=== PATIENT | male | born 1960 | race Hispanic/Latino ===

== ENCOUNTER → 2017-06-08 | Outpatient (CLI) | payer OTHER ==
[2017-06-08 11:34] VITALS: BP 152/95
== END | disposition home or self-care (01) ==
LOC: WHH 10:00
PROVIDERS: ATTEND Family Medicine
DX: E11.621 Type 2 diabetes mellitus with foot ulcer (principal); L97.521 Non-pressure chronic ulcer of other part of left foot limited to breakdown of skin; E11.51 Type 2 diabetes mellitus with diabetic peripheral angiopathy without gangrene; E78.2 Mixed hyperlipidemia
CPT/HCPCS: 93923; 99211; A6213

== ENCOUNTER → 2017-06-12 | Outpatient (CLI) | payer OTHER ==
[2017-06-12 10:56] VITALS: BP 161/105
== END | disposition home or self-care (01) ==
LOC: WHH 09:50
PROVIDERS: ATTEND Family Medicine
DX: E11.621 Type 2 diabetes mellitus with foot ulcer (principal); L97.521 Non-pressure chronic ulcer of other part of left foot limited to breakdown of skin; E11.51 Type 2 diabetes mellitus with diabetic peripheral angiopathy without gangrene; E78.2 Mixed hyperlipidemia
CPT/HCPCS: 93922; 99211; A6213

== ENCOUNTER → 2017-06-12 | Outpatient (CLI) | payer OTHER | END | disposition home or self-care (01) | LOC: RAH 12:18 | PROVIDERS: ATTEND Family Medicine | DX: E11.621 Type 2 diabetes mellitus with foot ulcer (principal); I73.9 Peripheral vascular disease, unspecified; L97.529 Non-pressure chronic ulcer of other part of left foot with unspecified severity | CPT/HCPCS: 78315; A9503 ==

== ENCOUNTER → 2017-06-13 | Outpatient (CLI) | payer OTHER | END | disposition home or self-care (01) | LOC: RAH 14:44 | PROVIDERS: ATTEND Family Medicine | DX: E11.621 Type 2 diabetes mellitus with foot ulcer (principal); L97.529 Non-pressure chronic ulcer of other part of left foot with unspecified severity; M79.89 Other specified soft tissue disorders | CPT/HCPCS: 73630 ==

== ENCOUNTER → 2017-06-13 | Outpatient (CLI) | payer OTHER ==
[2017-06-13 13:14] VITALS: BP 156/80
== END | disposition home or self-care (01) ==
LOC: WHH 13:00
PROVIDERS: ATTEND Family Medicine
DX: E11.621 Type 2 diabetes mellitus with foot ulcer (principal); L97.529 Non-pressure chronic ulcer of other part of left foot with unspecified severity; M79.89 Other specified soft tissue disorders; E11.69 Type 2 diabetes mellitus with other specified complication; M86.8X7 Other osteomyelitis, ankle and foot; E11.40 Type 2 diabetes mellitus with diabetic neuropathy, unspecified; E11.51 Type 2 diabetes mellitus with diabetic peripheral angiopathy without gangrene; I25.10 Atherosclerotic heart disease of native coronary artery without angina pectoris; E78.2 Mixed hyperlipidemia; I10 Essential (primary) hypertension; F41.9 Anxiety disorder, unspecified; Z85.89 Personal history of malignant neoplasm of other organs and systems; Z86.73 Personal history of transient ischemic attack (TIA), and cerebral infarction without residual deficits; Z95.1 Presence of aortocoronary bypass graft
CPT/HCPCS: 11042; A6213

== ENCOUNTER → 2017-06-15 | Outpatient (CLI) | payer OTHER ==
[2017-06-15 11:17] LABS: CREATININE 1.1 mg/dL (0.5-1.5)
== END | disposition home or self-care (01) ==
LOC: WHH 10:00
PROVIDERS: ATTEND Family Medicine
DX: E11.621 Type 2 diabetes mellitus with foot ulcer (principal); L97.529 Non-pressure chronic ulcer of other part of left foot with unspecified severity; E11.51 Type 2 diabetes mellitus with diabetic peripheral angiopathy without gangrene; E11.69 Type 2 diabetes mellitus with other specified complication; M86.8X7 Other osteomyelitis, ankle and foot; E11.40 Type 2 diabetes mellitus with diabetic neuropathy, unspecified; M79.89 Other specified soft tissue disorders; F41.9 Anxiety disorder, unspecified; I25.10 Atherosclerotic heart disease of native coronary artery without angina pectoris; I10 Essential (primary) hypertension; E78.2 Mixed hyperlipidemia; Z85.89 Personal history of malignant neoplasm of other organs and systems; Z86.73 Personal history of transient ischemic attack (TIA), and cerebral infarction without residual deficits; Z95.1 Presence of aortocoronary bypass graft
CPT/HCPCS: 36415; 80048; 93923; 99211; A6213

== ENCOUNTER → 2017-06-20 | Outpatient (CLI) | payer OTHER ==
[2017-06-20 13:38] VITALS: BP 157/89
[2017-06-20 14:24] LABS: CREATININE 1.2 mg/dL (0.5-1.5); POTASSIUM 4.7 mmol/L (3.5-5.1)
== END | disposition home or self-care (01) ==
LOC: WHH 13:00
PROVIDERS: ATTEND Family Medicine
DX: E11.621 Type 2 diabetes mellitus with foot ulcer (principal); L97.521 Non-pressure chronic ulcer of other part of left foot limited to breakdown of skin; E11.51 Type 2 diabetes mellitus with diabetic peripheral angiopathy without gangrene; E11.69 Type 2 diabetes mellitus with other specified complication; M86.8X7 Other osteomyelitis, ankle and foot; E11.40 Type 2 diabetes mellitus with diabetic neuropathy, unspecified; M79.89 Other specified soft tissue disorders; F41.9 Anxiety disorder, unspecified; I25.10 Atherosclerotic heart disease of native coronary artery without angina pectoris; I10 Essential (primary) hypertension; E78.2 Mixed hyperlipidemia; Z85.89 Personal history of malignant neoplasm of other organs and systems; Z86.73 Personal history of transient ischemic attack (TIA), and cerebral infarction without residual deficits; Z95.1 Presence of aortocoronary bypass graft
CPT/HCPCS: 11042; 36415; 80048; 82948; A6213

== ENCOUNTER → 2017-06-26 | Outpatient (CLI) | payer OTHER ==
[2017-06-26 12:17] VITALS: BP 170/97
== END | disposition home or self-care (01) ==
LOC: WHH 08:00
PROVIDERS: ATTEND Family Medicine
DX: E11.621 Type 2 diabetes mellitus with foot ulcer (principal); L97.521 Non-pressure chronic ulcer of other part of left foot limited to breakdown of skin; E11.69 Type 2 diabetes mellitus with other specified complication; M86.672 Other chronic osteomyelitis, left ankle and foot; F41.9 Anxiety disorder, unspecified; I25.10 Atherosclerotic heart disease of native coronary artery without angina pectoris; I10 Essential (primary) hypertension; E78.2 Mixed hyperlipidemia; E11.40 Type 2 diabetes mellitus with diabetic neuropathy, unspecified; E11.51 Type 2 diabetes mellitus with diabetic peripheral angiopathy without gangrene; Z86.73 Personal history of transient ischemic attack (TIA), and cerebral infarction without residual deficits; Z95.1 Presence of aortocoronary bypass graft
CPT/HCPCS: 82948 ×2; A6213; G0277

== ENCOUNTER → 2017-06-27 | Outpatient (CLI) | payer OTHER ==
[2017-06-27 12:20] VITALS: BP 152/91
[2017-06-27 14:09] VITALS: BP 141/85
[2017-06-27 14:18] LABS: CREATININE 1.5 mg/dL (0.5-1.5); POTASSIUM 5.7 mmol/L (3.5-5.1)
== END | disposition home or self-care (01) ==
LOC: WHH 08:00
PROVIDERS: ATTEND Family Medicine
DX: E11.621 Type 2 diabetes mellitus with foot ulcer (principal); L97.521 Non-pressure chronic ulcer of other part of left foot limited to breakdown of skin; E11.69 Type 2 diabetes mellitus with other specified complication; M86.672 Other chronic osteomyelitis, left ankle and foot; I25.10 Atherosclerotic heart disease of native coronary artery without angina pectoris; I10 Essential (primary) hypertension; E78.2 Mixed hyperlipidemia; E11.40 Type 2 diabetes mellitus with diabetic neuropathy, unspecified; E11.51 Type 2 diabetes mellitus with diabetic peripheral angiopathy without gangrene; F41.9 Anxiety disorder, unspecified; Z86.73 Personal history of transient ischemic attack (TIA), and cerebral infarction without residual deficits; Z95.1 Presence of aortocoronary bypass graft
CPT/HCPCS: 11042; 36415; 80048; 82948 ×2; G0277

== ENCOUNTER → 2017-06-28 | Outpatient (CLI) | payer OTHER ==
[2017-06-28 15:11] VITALS: BP 153/87
== END | disposition home or self-care (01) ==
LOC: WHH 08:00
PROVIDERS: ATTEND Family Medicine
DX: E11.621 Type 2 diabetes mellitus with foot ulcer (principal); L97.521 Non-pressure chronic ulcer of other part of left foot limited to breakdown of skin; F41.9 Anxiety disorder, unspecified; I25.10 Atherosclerotic heart disease of native coronary artery without angina pectoris; E78.2 Mixed hyperlipidemia; E11.69 Type 2 diabetes mellitus with other specified complication; M86.672 Other chronic osteomyelitis, left ankle and foot; E11.40 Type 2 diabetes mellitus with diabetic neuropathy, unspecified; E11.51 Type 2 diabetes mellitus with diabetic peripheral angiopathy without gangrene; M86.8X7 Other osteomyelitis, ankle and foot; Z95.1 Presence of aortocoronary bypass graft; Z86.73 Personal history of transient ischemic attack (TIA), and cerebral infarction without residual deficits
CPT/HCPCS: 82948 ×4; G0277

== ENCOUNTER → 2017-06-29 | Outpatient (CLI) | payer OTHER ==
[2017-06-29 12:17] VITALS: BP 137/77
[2017-06-29 12:19] VITALS: BP 132/77
== END | disposition home or self-care (01) ==
LOC: WHH 08:00
PROVIDERS: ATTEND Family Medicine
DX: E11.621 Type 2 diabetes mellitus with foot ulcer (principal); L97.521 Non-pressure chronic ulcer of other part of left foot limited to breakdown of skin; E11.69 Type 2 diabetes mellitus with other specified complication; M86.672 Other chronic osteomyelitis, left ankle and foot; I25.10 Atherosclerotic heart disease of native coronary artery without angina pectoris; I10 Essential (primary) hypertension; E78.2 Mixed hyperlipidemia; E11.40 Type 2 diabetes mellitus with diabetic neuropathy, unspecified; E11.51 Type 2 diabetes mellitus with diabetic peripheral angiopathy without gangrene; F41.9 Anxiety disorder, unspecified; Z86.73 Personal history of transient ischemic attack (TIA), and cerebral infarction without residual deficits; Z95.1 Presence of aortocoronary bypass graft
CPT/HCPCS: 82948 ×2; G0277

== ENCOUNTER → 2017-07-04 | Outpatient (CLI) | payer OTHER ==
[2017-07-04 12:02] VITALS: BP 136/77
[2017-07-04 12:04] VITALS: BP 90/52
[2017-07-04 14:01] LABS: CREATININE 1.8 mg/dL (0.5-1.5); POTASSIUM 4.3 mmol/L (3.5-5.1)
== END | disposition home or self-care (01) ==
LOC: WHH 08:00
PROVIDERS: ATTEND Family Medicine
DX: E11.621 Type 2 diabetes mellitus with foot ulcer (principal); L97.521 Non-pressure chronic ulcer of other part of left foot limited to breakdown of skin; E11.69 Type 2 diabetes mellitus with other specified complication; M86.672 Other chronic osteomyelitis, left ankle and foot; I25.10 Atherosclerotic heart disease of native coronary artery without angina pectoris; I10 Essential (primary) hypertension; E78.2 Mixed hyperlipidemia; E11.40 Type 2 diabetes mellitus with diabetic neuropathy, unspecified; E11.51 Type 2 diabetes mellitus with diabetic peripheral angiopathy without gangrene; F41.9 Anxiety disorder, unspecified; Z86.73 Personal history of transient ischemic attack (TIA), and cerebral infarction without residual deficits; Z95.1 Presence of aortocoronary bypass graft
CPT/HCPCS: 11042; 36415; 80048; 82948 ×2; A6213; G0277

== ENCOUNTER → 2017-07-05 | Outpatient (CLI) | payer OTHER ==
[2017-07-05 13:15] VITALS: BP 140/88
[2017-07-05 13:19] VITALS: BP 141/84
== END | disposition home or self-care (01) ==
LOC: WHH 08:00
PROVIDERS: ATTEND Family Medicine
DX: E11.621 Type 2 diabetes mellitus with foot ulcer (principal); L97.521 Non-pressure chronic ulcer of other part of left foot limited to breakdown of skin; E11.69 Type 2 diabetes mellitus with other specified complication; M86.672 Other chronic osteomyelitis, left ankle and foot; E11.40 Type 2 diabetes mellitus with diabetic neuropathy, unspecified; E11.51 Type 2 diabetes mellitus with diabetic peripheral angiopathy without gangrene; I25.10 Atherosclerotic heart disease of native coronary artery without angina pectoris; I10 Essential (primary) hypertension; E78.2 Mixed hyperlipidemia; F41.9 Anxiety disorder, unspecified; Z95.1 Presence of aortocoronary bypass graft; Z86.73 Personal history of transient ischemic attack (TIA), and cerebral infarction without residual deficits; Z85.89 Personal history of malignant neoplasm of other organs and systems
CPT/HCPCS: 82948 ×2; A6213; G0277

== ENCOUNTER → 2017-07-06 | Outpatient (CLI) | payer OTHER ==
[2017-07-06 12:18] VITALS: BP 159/87
[2017-07-06 12:21] VITALS: BP 142/91
== END | disposition home or self-care (01) ==
LOC: WHH 08:05
PROVIDERS: ATTEND Family Medicine
DX: E11.621 Type 2 diabetes mellitus with foot ulcer (principal); L97.521 Non-pressure chronic ulcer of other part of left foot limited to breakdown of skin; E11.69 Type 2 diabetes mellitus with other specified complication; M86.672 Other chronic osteomyelitis, left ankle and foot; E11.40 Type 2 diabetes mellitus with diabetic neuropathy, unspecified; E11.51 Type 2 diabetes mellitus with diabetic peripheral angiopathy without gangrene; I25.10 Atherosclerotic heart disease of native coronary artery without angina pectoris; I10 Essential (primary) hypertension; E78.2 Mixed hyperlipidemia; F41.9 Anxiety disorder, unspecified; Z85.89 Personal history of malignant neoplasm of other organs and systems; Z95.1 Presence of aortocoronary bypass graft; Z86.73 Personal history of transient ischemic attack (TIA), and cerebral infarction without residual deficits
CPT/HCPCS: 82948 ×2; A6213; G0277

== ENCOUNTER → 2017-07-07 | Outpatient (CLI) | payer OTHER ==
[2017-07-07 11:12] VITALS: BP 133/82
[2017-07-07 11:15] VITALS: BP 156/92
== END | disposition home or self-care (01) ==
LOC: WHH 08:00
PROVIDERS: ATTEND Family Medicine
DX: E11.621 Type 2 diabetes mellitus with foot ulcer (principal); L97.521 Non-pressure chronic ulcer of other part of left foot limited to breakdown of skin; E11.69 Type 2 diabetes mellitus with other specified complication; M86.672 Other chronic osteomyelitis, left ankle and foot; E11.40 Type 2 diabetes mellitus with diabetic neuropathy, unspecified; E11.51 Type 2 diabetes mellitus with diabetic peripheral angiopathy without gangrene; I25.10 Atherosclerotic heart disease of native coronary artery without angina pectoris; I10 Essential (primary) hypertension; E78.2 Mixed hyperlipidemia; F41.9 Anxiety disorder, unspecified; Z85.89 Personal history of malignant neoplasm of other organs and systems; Z95.1 Presence of aortocoronary bypass graft; Z86.73 Personal history of transient ischemic attack (TIA), and cerebral infarction without residual deficits
CPT/HCPCS: 82948 ×2; A6213; G0277

== ENCOUNTER → 2017-07-10 | Outpatient (CLI) | payer OTHER ==
[2017-07-10 13:10] VITALS: BP 153/83
[2017-07-10 13:12] VITALS: BP 158/99
== END | disposition home or self-care (01) ==
LOC: WHH 09:50
PROVIDERS: ATTEND Family Medicine
DX: E11.621 Type 2 diabetes mellitus with foot ulcer (principal); L97.521 Non-pressure chronic ulcer of other part of left foot limited to breakdown of skin; E11.69 Type 2 diabetes mellitus with other specified complication; M86.672 Other chronic osteomyelitis, left ankle and foot; E11.40 Type 2 diabetes mellitus with diabetic neuropathy, unspecified; E11.51 Type 2 diabetes mellitus with diabetic peripheral angiopathy without gangrene; I25.10 Atherosclerotic heart disease of native coronary artery without angina pectoris; I10 Essential (primary) hypertension; E78.2 Mixed hyperlipidemia; F41.9 Anxiety disorder, unspecified; Z85.89 Personal history of malignant neoplasm of other organs and systems; Z95.1 Presence of aortocoronary bypass graft; Z86.73 Personal history of transient ischemic attack (TIA), and cerebral infarction without residual deficits
CPT/HCPCS: 82948 ×2; A6213; G0277

== ENCOUNTER → 2017-07-11 | Outpatient (CLI) | payer OTHER ==
[2017-07-11 13:00] VITALS: BP 131/69
[2017-07-11 13:11] VITALS: BP 142/84
[2017-07-11 14:27] LABS: CREATININE 1.4 mg/dL (0.5-1.5); POTASSIUM 4.6 mmol/L (3.5-5.1)
== END | disposition home or self-care (01) ==
LOC: WHH 10:00
PROVIDERS: ATTEND Family Medicine
DX: E11.621 Type 2 diabetes mellitus with foot ulcer (principal); L97.521 Non-pressure chronic ulcer of other part of left foot limited to breakdown of skin; E11.69 Type 2 diabetes mellitus with other specified complication; M86.672 Other chronic osteomyelitis, left ankle and foot; E11.40 Type 2 diabetes mellitus with diabetic neuropathy, unspecified; E11.51 Type 2 diabetes mellitus with diabetic peripheral angiopathy without gangrene; I25.10 Atherosclerotic heart disease of native coronary artery without angina pectoris; I10 Essential (primary) hypertension; L84 Corns and callosities; E78.2 Mixed hyperlipidemia; F41.9 Anxiety disorder, unspecified; Z85.89 Personal history of malignant neoplasm of other organs and systems; Z95.1 Presence of aortocoronary bypass graft; Z86.73 Personal history of transient ischemic attack (TIA), and cerebral infarction without residual deficits
CPT/HCPCS: 11055; 36415; 80048; 82948 ×2; A6213; A6248; G0277

== ENCOUNTER → 2017-07-12 | Outpatient (CLI) | payer OTHER ==
[2017-07-12 12:08] VITALS: BP 116/62
[2017-07-12 12:27] VITALS: BP 130/75
== END | disposition home or self-care (01) ==
LOC: WHH 10:00
PROVIDERS: ATTEND Family Medicine
DX: E11.621 Type 2 diabetes mellitus with foot ulcer (principal); L97.521 Non-pressure chronic ulcer of other part of left foot limited to breakdown of skin; E11.69 Type 2 diabetes mellitus with other specified complication; M86.672 Other chronic osteomyelitis, left ankle and foot; E11.40 Type 2 diabetes mellitus with diabetic neuropathy, unspecified; E11.51 Type 2 diabetes mellitus with diabetic peripheral angiopathy without gangrene; I25.10 Atherosclerotic heart disease of native coronary artery without angina pectoris; I10 Essential (primary) hypertension; E78.2 Mixed hyperlipidemia; F41.9 Anxiety disorder, unspecified; Z85.89 Personal history of malignant neoplasm of other organs and systems; Z95.1 Presence of aortocoronary bypass graft; Z86.73 Personal history of transient ischemic attack (TIA), and cerebral infarction without residual deficits
CPT/HCPCS: 82948 ×2; A6213; G0277

== ENCOUNTER → 2017-07-13 | Outpatient (CLI) | payer OTHER ==
[2017-07-13 11:10] VITALS: BP 157/80
[2017-07-13 12:26] VITALS: BP 157/80
== END | disposition home or self-care (01) ==
LOC: WHH 10:00
PROVIDERS: ATTEND Family Medicine
DX: E11.621 Type 2 diabetes mellitus with foot ulcer (principal); L97.521 Non-pressure chronic ulcer of other part of left foot limited to breakdown of skin; E11.69 Type 2 diabetes mellitus with other specified complication; M86.672 Other chronic osteomyelitis, left ankle and foot; E11.40 Type 2 diabetes mellitus with diabetic neuropathy, unspecified; E11.51 Type 2 diabetes mellitus with diabetic peripheral angiopathy without gangrene; I25.10 Atherosclerotic heart disease of native coronary artery without angina pectoris; I10 Essential (primary) hypertension; E78.2 Mixed hyperlipidemia; F41.9 Anxiety disorder, unspecified; Z85.89 Personal history of malignant neoplasm of other organs and systems; Z95.1 Presence of aortocoronary bypass graft; Z86.73 Personal history of transient ischemic attack (TIA), and cerebral infarction without residual deficits
CPT/HCPCS: 82948 ×2; A6213; G0277

== ENCOUNTER → 2017-07-19 | Outpatient (CLI) | payer OTHER ==
[2017-07-19 13:21] VITALS: BP 137/78
[2017-07-19 13:25] VITALS: BP 136/68
== END | disposition home or self-care (01) ==
LOC: WHH 10:00
PROVIDERS: ATTEND Family Medicine
DX: E11.621 Type 2 diabetes mellitus with foot ulcer (principal); L97.521 Non-pressure chronic ulcer of other part of left foot limited to breakdown of skin; E11.69 Type 2 diabetes mellitus with other specified complication; M86.672 Other chronic osteomyelitis, left ankle and foot; F41.9 Anxiety disorder, unspecified; I25.10 Atherosclerotic heart disease of native coronary artery without angina pectoris; I10 Essential (primary) hypertension; E78.2 Mixed hyperlipidemia; E11.40 Type 2 diabetes mellitus with diabetic neuropathy, unspecified; E11.51 Type 2 diabetes mellitus with diabetic peripheral angiopathy without gangrene; Z86.73 Personal history of transient ischemic attack (TIA), and cerebral infarction without residual deficits; Z95.1 Presence of aortocoronary bypass graft
CPT/HCPCS: 82948 ×2; A6213; G0277

== ENCOUNTER → 2017-07-20 | Outpatient (CLI) | payer OTHER ==
[2017-07-20 12:19] VITALS: BP 122/68
[2017-07-20 12:21] VITALS: BP 117/78
== END | disposition home or self-care (01) ==
LOC: WHH 10:00
PROVIDERS: ATTEND Family Medicine
DX: E11.621 Type 2 diabetes mellitus with foot ulcer (principal); L97.521 Non-pressure chronic ulcer of other part of left foot limited to breakdown of skin; E11.69 Type 2 diabetes mellitus with other specified complication; M86.672 Other chronic osteomyelitis, left ankle and foot; F41.9 Anxiety disorder, unspecified; I25.10 Atherosclerotic heart disease of native coronary artery without angina pectoris; I10 Essential (primary) hypertension; E78.2 Mixed hyperlipidemia; E11.40 Type 2 diabetes mellitus with diabetic neuropathy, unspecified; E11.51 Type 2 diabetes mellitus with diabetic peripheral angiopathy without gangrene; Z86.73 Personal history of transient ischemic attack (TIA), and cerebral infarction without residual deficits; Z95.1 Presence of aortocoronary bypass graft
CPT/HCPCS: 82948 ×2; A6213; G0277

== ENCOUNTER → 2017-07-21 | Outpatient (CLI) | payer OTHER ==
[2017-07-21 11:50] VITALS: BP 137/69
[2017-07-21 12:02] VITALS: BP 163/86
== END | disposition home or self-care (01) ==
LOC: WHH 09:59
PROVIDERS: ATTEND Family Medicine
DX: E11.621 Type 2 diabetes mellitus with foot ulcer (principal); L97.521 Non-pressure chronic ulcer of other part of left foot limited to breakdown of skin; E11.69 Type 2 diabetes mellitus with other specified complication; M86.672 Other chronic osteomyelitis, left ankle and foot; I25.10 Atherosclerotic heart disease of native coronary artery without angina pectoris; I10 Essential (primary) hypertension; E78.2 Mixed hyperlipidemia; E11.40 Type 2 diabetes mellitus with diabetic neuropathy, unspecified; E11.51 Type 2 diabetes mellitus with diabetic peripheral angiopathy without gangrene; L84 Corns and callosities; F41.9 Anxiety disorder, unspecified; Z85.89 Personal history of malignant neoplasm of other organs and systems; Z95.1 Presence of aortocoronary bypass graft; Z86.73 Personal history of transient ischemic attack (TIA), and cerebral infarction without residual deficits
CPT/HCPCS: 82948 ×2; A6213; G0277

== ENCOUNTER → 2017-07-24 | Outpatient (CLI) | payer OTHER ==
[2017-07-24 12:56] VITALS: BP 112/67
[2017-07-24 12:58] VITALS: BP 131/70
== END | disposition home or self-care (01) ==
LOC: WHH 10:00
PROVIDERS: ATTEND Family Medicine
DX: E11.621 Type 2 diabetes mellitus with foot ulcer (principal); L97.521 Non-pressure chronic ulcer of other part of left foot limited to breakdown of skin; E11.69 Type 2 diabetes mellitus with other specified complication; M86.672 Other chronic osteomyelitis, left ankle and foot; I25.10 Atherosclerotic heart disease of native coronary artery without angina pectoris; I10 Essential (primary) hypertension; E78.2 Mixed hyperlipidemia; E11.40 Type 2 diabetes mellitus with diabetic neuropathy, unspecified; E11.51 Type 2 diabetes mellitus with diabetic peripheral angiopathy without gangrene; L84 Corns and callosities; F41.9 Anxiety disorder, unspecified; Z85.89 Personal history of malignant neoplasm of other organs and systems; Z95.1 Presence of aortocoronary bypass graft; Z86.73 Personal history of transient ischemic attack (TIA), and cerebral infarction without residual deficits
CPT/HCPCS: 82948 ×2; A6213; G0277

== ENCOUNTER → 2017-07-25 | Outpatient (CLI) | payer OTHER ==
[~2017-07-25] MED LIST: LIDOCAINE/PRILOCAINE CREAM 5GM TUBE TP ONE
[2017-07-25 11:33] VITALS: BP 124/78
[2017-07-25 12:17] VITALS: BP 137/81
== END | disposition home or self-care (01) ==
LOC: WHH 10:00
PROVIDERS: ATTEND Family Medicine
DX: E11.621 Type 2 diabetes mellitus with foot ulcer (principal); L97.521 Non-pressure chronic ulcer of other part of left foot limited to breakdown of skin; E11.69 Type 2 diabetes mellitus with other specified complication; M86.672 Other chronic osteomyelitis, left ankle and foot; I25.10 Atherosclerotic heart disease of native coronary artery without angina pectoris; I10 Essential (primary) hypertension; E78.2 Mixed hyperlipidemia; E11.40 Type 2 diabetes mellitus with diabetic neuropathy, unspecified; E11.51 Type 2 diabetes mellitus with diabetic peripheral angiopathy without gangrene; L84 Corns and callosities; F41.9 Anxiety disorder, unspecified; Z85.89 Personal history of malignant neoplasm of other organs and systems; Z95.1 Presence of aortocoronary bypass graft; Z86.73 Personal history of transient ischemic attack (TIA), and cerebral infarction without residual deficits
CPT/HCPCS: 11042; 82948 ×2; A6021; A6196; G0277; J3490

== ENCOUNTER → 2017-07-26 | Outpatient (CLI) | payer OTHER ==
[2017-07-26 11:56] VITALS: BP 135/84
[2017-07-26 12:11] VITALS: BP 128/78
== END | disposition home or self-care (01) ==
LOC: WHH 10:00
PROVIDERS: ATTEND Family Medicine
DX: E11.621 Type 2 diabetes mellitus with foot ulcer (principal); L97.521 Non-pressure chronic ulcer of other part of left foot limited to breakdown of skin; E11.69 Type 2 diabetes mellitus with other specified complication; M86.672 Other chronic osteomyelitis, left ankle and foot; I25.10 Atherosclerotic heart disease of native coronary artery without angina pectoris; I10 Essential (primary) hypertension; E78.2 Mixed hyperlipidemia; E11.40 Type 2 diabetes mellitus with diabetic neuropathy, unspecified; E11.51 Type 2 diabetes mellitus with diabetic peripheral angiopathy without gangrene; L84 Corns and callosities; F41.9 Anxiety disorder, unspecified; Z85.89 Personal history of malignant neoplasm of other organs and systems; Z95.1 Presence of aortocoronary bypass graft; Z86.73 Personal history of transient ischemic attack (TIA), and cerebral infarction without residual deficits
CPT/HCPCS: 82948 ×2; G0277

== ENCOUNTER → 2017-07-27 | Outpatient (CLI) | payer OTHER ==
[2017-07-27 12:22] VITALS: BP 138/85
[2017-07-27 12:23] VITALS: BP 139/91
== END | disposition home or self-care (01) ==
LOC: WHH 10:00
PROVIDERS: ATTEND Family Medicine
DX: E11.621 Type 2 diabetes mellitus with foot ulcer (principal); L97.521 Non-pressure chronic ulcer of other part of left foot limited to breakdown of skin; F41.9 Anxiety disorder, unspecified; I25.10 Atherosclerotic heart disease of native coronary artery without angina pectoris; I10 Essential (primary) hypertension; E78.2 Mixed hyperlipidemia; E11.69 Type 2 diabetes mellitus with other specified complication; M86.672 Other chronic osteomyelitis, left ankle and foot; E11.40 Type 2 diabetes mellitus with diabetic neuropathy, unspecified; E11.51 Type 2 diabetes mellitus with diabetic peripheral angiopathy without gangrene; Z95.1 Presence of aortocoronary bypass graft; Z86.73 Personal history of transient ischemic attack (TIA), and cerebral infarction without residual deficits
CPT/HCPCS: 82948 ×2; G0277

== ENCOUNTER → 2017-07-31 | Outpatient (CLI) | payer OTHER ==
[2017-07-31 12:42] VITALS: BP 141/80
[2017-07-31 12:43] VITALS: BP 133/73
== END | disposition home or self-care (01) ==
LOC: WHH 10:10
PROVIDERS: ATTEND Family Medicine
DX: E11.621 Type 2 diabetes mellitus with foot ulcer (principal); L97.521 Non-pressure chronic ulcer of other part of left foot limited to breakdown of skin; E11.69 Type 2 diabetes mellitus with other specified complication; M86.672 Other chronic osteomyelitis, left ankle and foot; I25.10 Atherosclerotic heart disease of native coronary artery without angina pectoris; I10 Essential (primary) hypertension; E78.2 Mixed hyperlipidemia; E11.40 Type 2 diabetes mellitus with diabetic neuropathy, unspecified; E11.51 Type 2 diabetes mellitus with diabetic peripheral angiopathy without gangrene; L84 Corns and callosities; F41.9 Anxiety disorder, unspecified; Z85.89 Personal history of malignant neoplasm of other organs and systems; Z95.1 Presence of aortocoronary bypass graft; Z86.73 Personal history of transient ischemic attack (TIA), and cerebral infarction without residual deficits
CPT/HCPCS: 82948 ×2; A6021; G0277

== ENCOUNTER → 2017-08-01 | Outpatient (CLI) | payer OTHER ==
[2017-08-01 12:16] VITALS: BP 123/82
[2017-08-01 12:17] VITALS: BP 131/75
== END | disposition home or self-care (01) ==
LOC: WHH 10:00
PROVIDERS: ATTEND Family Medicine
DX: E11.621 Type 2 diabetes mellitus with foot ulcer (principal); L97.521 Non-pressure chronic ulcer of other part of left foot limited to breakdown of skin; E11.69 Type 2 diabetes mellitus with other specified complication; M86.672 Other chronic osteomyelitis, left ankle and foot; I25.10 Atherosclerotic heart disease of native coronary artery without angina pectoris; I10 Essential (primary) hypertension; E78.2 Mixed hyperlipidemia; E11.40 Type 2 diabetes mellitus with diabetic neuropathy, unspecified; E11.51 Type 2 diabetes mellitus with diabetic peripheral angiopathy without gangrene; L84 Corns and callosities; F41.9 Anxiety disorder, unspecified; Z85.89 Personal history of malignant neoplasm of other organs and systems; Z95.1 Presence of aortocoronary bypass graft; Z86.73 Personal history of transient ischemic attack (TIA), and cerebral infarction without residual deficits
CPT/HCPCS: 82948 ×2; G0277

== ENCOUNTER → 2017-08-02 | Outpatient (CLI) | payer OTHER ==
[2017-08-02 11:59] VITALS: BP 135/78
[2017-08-02 12:14] VITALS: BP 162/83
== END | disposition home or self-care (01) ==
LOC: WHH 10:00
PROVIDERS: ATTEND Family Medicine
DX: E11.621 Type 2 diabetes mellitus with foot ulcer (principal); L97.521 Non-pressure chronic ulcer of other part of left foot limited to breakdown of skin; E11.69 Type 2 diabetes mellitus with other specified complication; M86.672 Other chronic osteomyelitis, left ankle and foot; I25.10 Atherosclerotic heart disease of native coronary artery without angina pectoris; I10 Essential (primary) hypertension; E78.2 Mixed hyperlipidemia; E11.40 Type 2 diabetes mellitus with diabetic neuropathy, unspecified; E11.51 Type 2 diabetes mellitus with diabetic peripheral angiopathy without gangrene; L84 Corns and callosities; F41.9 Anxiety disorder, unspecified; Z85.89 Personal history of malignant neoplasm of other organs and systems; Z95.1 Presence of aortocoronary bypass graft; Z86.73 Personal history of transient ischemic attack (TIA), and cerebral infarction without residual deficits
CPT/HCPCS: 82948 ×2; G0277

== ENCOUNTER → 2017-08-03 | Outpatient (CLI) | payer OTHER ==
[2017-08-03 13:54] VITALS: BP 130/77
[2017-08-03 14:00] VITALS: BP 156/82
== END | disposition home or self-care (01) ==
LOC: WHH 10:00
PROVIDERS: ATTEND Family Medicine
DX: E11.621 Type 2 diabetes mellitus with foot ulcer (principal); L97.521 Non-pressure chronic ulcer of other part of left foot limited to breakdown of skin; E11.69 Type 2 diabetes mellitus with other specified complication; M86.672 Other chronic osteomyelitis, left ankle and foot; I25.10 Atherosclerotic heart disease of native coronary artery without angina pectoris; I10 Essential (primary) hypertension; E78.2 Mixed hyperlipidemia; E11.40 Type 2 diabetes mellitus with diabetic neuropathy, unspecified; E11.51 Type 2 diabetes mellitus with diabetic peripheral angiopathy without gangrene; L84 Corns and callosities; F41.9 Anxiety disorder, unspecified; Z85.89 Personal history of malignant neoplasm of other organs and systems; Z95.1 Presence of aortocoronary bypass graft; Z86.73 Personal history of transient ischemic attack (TIA), and cerebral infarction without residual deficits
CPT/HCPCS: 82948 ×2; A6021; G0277

== ENCOUNTER → 2017-08-04 | Outpatient (CLI) | payer OTHER ==
[2017-08-04 11:57] VITALS: BP 142/74
[2017-08-04 12:11] VITALS: BP 154/94
== END | disposition home or self-care (01) ==
LOC: WHH 10:00
PROVIDERS: ATTEND Family Medicine
DX: E11.621 Type 2 diabetes mellitus with foot ulcer (principal); L97.521 Non-pressure chronic ulcer of other part of left foot limited to breakdown of skin; M86.672 Other chronic osteomyelitis, left ankle and foot; I25.10 Atherosclerotic heart disease of native coronary artery without angina pectoris; I10 Essential (primary) hypertension; E78.2 Mixed hyperlipidemia; E11.40 Type 2 diabetes mellitus with diabetic neuropathy, unspecified; E11.51 Type 2 diabetes mellitus with diabetic peripheral angiopathy without gangrene; L84 Corns and callosities; F41.9 Anxiety disorder, unspecified; Z85.89 Personal history of malignant neoplasm of other organs and systems; Z95.1 Presence of aortocoronary bypass graft; Z86.73 Personal history of transient ischemic attack (TIA), and cerebral infarction without residual deficits
CPT/HCPCS: 82948 ×2; G0277

== ENCOUNTER → 2017-08-07 | Outpatient (CLI) | payer OTHER ==
[2017-08-07 15:04] VITALS: BP 122/69
[2017-08-07 15:06] VITALS: BP 108/72
== END | disposition home or self-care (01) ==
LOC: WHH 10:00
PROVIDERS: ATTEND Family Medicine
DX: E11.621 Type 2 diabetes mellitus with foot ulcer (principal); L97.521 Non-pressure chronic ulcer of other part of left foot limited to breakdown of skin; M86.672 Other chronic osteomyelitis, left ankle and foot; I25.10 Atherosclerotic heart disease of native coronary artery without angina pectoris; I10 Essential (primary) hypertension; E78.2 Mixed hyperlipidemia; E11.40 Type 2 diabetes mellitus with diabetic neuropathy, unspecified; E11.51 Type 2 diabetes mellitus with diabetic peripheral angiopathy without gangrene; L84 Corns and callosities; F41.9 Anxiety disorder, unspecified; Z85.89 Personal history of malignant neoplasm of other organs and systems; Z95.1 Presence of aortocoronary bypass graft; Z86.73 Personal history of transient ischemic attack (TIA), and cerebral infarction without residual deficits
CPT/HCPCS: 82948 ×2; G0277

== ENCOUNTER → 2017-08-08 | Outpatient (CLI) | payer OTHER ==
[2017-08-08 11:43] VITALS: BP_SYST 140; BP_SYST 150; BP_DIAS 78; BP_DIAS 91
[2017-08-08 15:54] LABS: CARBON DIOXIDE 29 mmol/L (21-32); CHLORIDE 102 mmol/L (101-111); CREATININE 1.2 mg/dL (0.5-1.5); GLOMERULAR FILTR. RATE CALC 67 mL/min (>60); GLUCOSE,RANDOM 278 mg/dL (70-105); POTASSIUM 4.8 mmol/L (3.5-5.1); SODIUM SERUM 137 mmol/L (136-145); UREA NITROGEN, BLOOD 24 mg/dL (7-18)
[2017-08-08 17:51] LABS: CRP QUANTITATIVE < 2.00 mg/L (0.00-9.0)
== END | disposition home or self-care (01) ==
LOC: WHH 08:00
PROVIDERS: ATTEND Family Medicine
DX: E11.621 Type 2 diabetes mellitus with foot ulcer (principal); L97.521 Non-pressure chronic ulcer of other part of left foot limited to breakdown of skin; E11.69 Type 2 diabetes mellitus with other specified complication; M86.672 Other chronic osteomyelitis, left ankle and foot; E11.40 Type 2 diabetes mellitus with diabetic neuropathy, unspecified; E11.51 Type 2 diabetes mellitus with diabetic peripheral angiopathy without gangrene; F41.9 Anxiety disorder, unspecified; I25.10 Atherosclerotic heart disease of native coronary artery without angina pectoris; I10 Essential (primary) hypertension; E78.2 Mixed hyperlipidemia; Z95.1 Presence of aortocoronary bypass graft; Z86.73 Personal history of transient ischemic attack (TIA), and cerebral infarction without residual deficits
CPT/HCPCS: 36415; 80048; 82948; 85651; 86140; G0277

== ENCOUNTER → 2017-08-09 | Outpatient (CLI) | payer OTHER ==
[2017-08-09 10:37] VITALS: BP 145/85
[2017-08-09 10:39] VITALS: BP 148/82
== END | disposition home or self-care (01) ==
LOC: WHH 08:00
PROVIDERS: ATTEND Family Medicine
DX: E11.621 Type 2 diabetes mellitus with foot ulcer (principal); L97.521 Non-pressure chronic ulcer of other part of left foot limited to breakdown of skin; E11.69 Type 2 diabetes mellitus with other specified complication; M86.672 Other chronic osteomyelitis, left ankle and foot; E11.40 Type 2 diabetes mellitus with diabetic neuropathy, unspecified; E11.51 Type 2 diabetes mellitus with diabetic peripheral angiopathy without gangrene; F41.9 Anxiety disorder, unspecified; I25.10 Atherosclerotic heart disease of native coronary artery without angina pectoris; I10 Essential (primary) hypertension; E78.2 Mixed hyperlipidemia; Z95.1 Presence of aortocoronary bypass graft; Z86.73 Personal history of transient ischemic attack (TIA), and cerebral infarction without residual deficits
CPT/HCPCS: 82948 ×2; G0277

== ENCOUNTER → 2017-08-10 | Outpatient (CLI) | payer OTHER ==
[2017-08-10 11:31] VITALS: BP_SYST 150; BP_SYST 159; BP_DIAS 82; BP_DIAS 83
== END | disposition home or self-care (01) ==
LOC: WHH 08:00
PROVIDERS: ATTEND Family Medicine
DX: E11.621 Type 2 diabetes mellitus with foot ulcer (principal); L97.521 Non-pressure chronic ulcer of other part of left foot limited to breakdown of skin; E11.69 Type 2 diabetes mellitus with other specified complication; M86.672 Other chronic osteomyelitis, left ankle and foot; E11.40 Type 2 diabetes mellitus with diabetic neuropathy, unspecified; E11.51 Type 2 diabetes mellitus with diabetic peripheral angiopathy without gangrene; F41.9 Anxiety disorder, unspecified; I25.10 Atherosclerotic heart disease of native coronary artery without angina pectoris; I10 Essential (primary) hypertension; E78.2 Mixed hyperlipidemia; Z95.1 Presence of aortocoronary bypass graft; Z86.73 Personal history of transient ischemic attack (TIA), and cerebral infarction without residual deficits
CPT/HCPCS: 82948 ×2; G0277

== ENCOUNTER → 2017-08-11 | Outpatient (CLI) | payer OTHER ==
[2017-08-11 11:40] VITALS: BP 121/80
[2017-08-11 11:45] VITALS: BP 165/89
== END | disposition home or self-care (01) ==
LOC: WHH 08:00
PROVIDERS: ATTEND Family Medicine
DX: E11.621 Type 2 diabetes mellitus with foot ulcer (principal); L97.521 Non-pressure chronic ulcer of other part of left foot limited to breakdown of skin; E11.69 Type 2 diabetes mellitus with other specified complication; M86.672 Other chronic osteomyelitis, left ankle and foot; E11.40 Type 2 diabetes mellitus with diabetic neuropathy, unspecified; E11.51 Type 2 diabetes mellitus with diabetic peripheral angiopathy without gangrene; F41.9 Anxiety disorder, unspecified; I25.10 Atherosclerotic heart disease of native coronary artery without angina pectoris; I10 Essential (primary) hypertension; E78.2 Mixed hyperlipidemia; Z95.1 Presence of aortocoronary bypass graft; Z86.73 Personal history of transient ischemic attack (TIA), and cerebral infarction without residual deficits
CPT/HCPCS: 82948 ×2; G0277

== ENCOUNTER → 2017-08-14 | Outpatient (CLI) | payer OTHER ==
[2017-08-14 11:34] VITALS: BP 149/76
[2017-08-14 11:35] VITALS: BP 137/85
== END | disposition home or self-care (01) ==
LOC: WHH 08:00
PROVIDERS: ATTEND Family Medicine
DX: E11.621 Type 2 diabetes mellitus with foot ulcer (principal); L97.521 Non-pressure chronic ulcer of other part of left foot limited to breakdown of skin; E11.69 Type 2 diabetes mellitus with other specified complication; M86.672 Other chronic osteomyelitis, left ankle and foot; E11.40 Type 2 diabetes mellitus with diabetic neuropathy, unspecified; E11.51 Type 2 diabetes mellitus with diabetic peripheral angiopathy without gangrene; F41.9 Anxiety disorder, unspecified; I25.10 Atherosclerotic heart disease of native coronary artery without angina pectoris; I10 Essential (primary) hypertension; E78.2 Mixed hyperlipidemia; Z95.1 Presence of aortocoronary bypass graft; Z86.73 Personal history of transient ischemic attack (TIA), and cerebral infarction without residual deficits
CPT/HCPCS: 82948 ×2; G0277

== ENCOUNTER → 2017-08-15 | Outpatient (CLI) | payer OTHER ==
[2017-08-15 10:55] VITALS: BP 127/69
[2017-08-15 10:57] VITALS: BP 148/84
== END | disposition home or self-care (01) ==
LOC: WHH 08:00
PROVIDERS: ATTEND Family Medicine
DX: E11.621 Type 2 diabetes mellitus with foot ulcer (principal); L97.521 Non-pressure chronic ulcer of other part of left foot limited to breakdown of skin; E11.69 Type 2 diabetes mellitus with other specified complication; M86.672 Other chronic osteomyelitis, left ankle and foot; E11.40 Type 2 diabetes mellitus with diabetic neuropathy, unspecified; E11.51 Type 2 diabetes mellitus with diabetic peripheral angiopathy without gangrene; F41.9 Anxiety disorder, unspecified; L84 Corns and callosities; I25.10 Atherosclerotic heart disease of native coronary artery without angina pectoris; I10 Essential (primary) hypertension; E78.2 Mixed hyperlipidemia; Z95.1 Presence of aortocoronary bypass graft; Z86.73 Personal history of transient ischemic attack (TIA), and cerebral infarction without residual deficits
CPT/HCPCS: 11055; 82948 ×2; G0277

== ENCOUNTER → 2017-08-16 | Outpatient (CLI) | payer OTHER ==
[2017-08-16 11:23] VITALS: BP 143/88
[2017-08-16 11:26] VITALS: BP 150/86
== END | disposition home or self-care (01) ==
LOC: WHH 08:00
PROVIDERS: ATTEND Family Medicine
DX: E11.621 Type 2 diabetes mellitus with foot ulcer (principal); L97.521 Non-pressure chronic ulcer of other part of left foot limited to breakdown of skin; E11.69 Type 2 diabetes mellitus with other specified complication; M86.672 Other chronic osteomyelitis, left ankle and foot; E11.40 Type 2 diabetes mellitus with diabetic neuropathy, unspecified; E11.51 Type 2 diabetes mellitus with diabetic peripheral angiopathy without gangrene; F41.9 Anxiety disorder, unspecified; L84 Corns and callosities; I25.10 Atherosclerotic heart disease of native coronary artery without angina pectoris; I10 Essential (primary) hypertension; E78.2 Mixed hyperlipidemia; Z95.1 Presence of aortocoronary bypass graft; Z86.73 Personal history of transient ischemic attack (TIA), and cerebral infarction without residual deficits
CPT/HCPCS: 82948 ×2; A6213; G0277

== ENCOUNTER → 2017-08-17 | Outpatient (CLI) | payer OTHER ==
[2017-08-17 11:54] VITALS: BP 122/69
[2017-08-17 11:56] VITALS: BP 125/73
== END | disposition home or self-care (01) ==
LOC: WHH 08:00
PROVIDERS: ATTEND Family Medicine
DX: E11.621 Type 2 diabetes mellitus with foot ulcer (principal); L97.521 Non-pressure chronic ulcer of other part of left foot limited to breakdown of skin; F41.9 Anxiety disorder, unspecified; I25.10 Atherosclerotic heart disease of native coronary artery without angina pectoris; E78.2 Mixed hyperlipidemia; E11.69 Type 2 diabetes mellitus with other specified complication; M86.672 Other chronic osteomyelitis, left ankle and foot; E11.40 Type 2 diabetes mellitus with diabetic neuropathy, unspecified; E11.51 Type 2 diabetes mellitus with diabetic peripheral angiopathy without gangrene; E11.22 Type 2 diabetes mellitus with diabetic chronic kidney disease; I12.9 Hypertensive chronic kidney disease with stage 1 through stage 4 chronic kidney disease, or unspecified chronic kidney disease; N18.9 Chronic kidney disease, unspecified; Z95.1 Presence of aortocoronary bypass graft; Z86.73 Personal history of transient ischemic attack (TIA), and cerebral infarction without residual deficits
CPT/HCPCS: 82948 ×2; G0277

== ENCOUNTER → 2017-08-18 | Outpatient (CLI) | payer OTHER ==
[2017-08-18 11:35] VITALS: BP_SYST 124; BP_SYST 133; BP_DIAS 76; BP_DIAS 78
== END | disposition home or self-care (01) ==
LOC: WHH 08:00
PROVIDERS: ATTEND Family Medicine
DX: E11.621 Type 2 diabetes mellitus with foot ulcer (principal); L97.521 Non-pressure chronic ulcer of other part of left foot limited to breakdown of skin; E11.69 Type 2 diabetes mellitus with other specified complication; M86.672 Other chronic osteomyelitis, left ankle and foot; F41.9 Anxiety disorder, unspecified; I25.10 Atherosclerotic heart disease of native coronary artery without angina pectoris; E11.22 Type 2 diabetes mellitus with diabetic chronic kidney disease; I12.9 Hypertensive chronic kidney disease with stage 1 through stage 4 chronic kidney disease, or unspecified chronic kidney disease; N18.9 Chronic kidney disease, unspecified; E78.2 Mixed hyperlipidemia; E11.40 Type 2 diabetes mellitus with diabetic neuropathy, unspecified; E11.51 Type 2 diabetes mellitus with diabetic peripheral angiopathy without gangrene; Z86.73 Personal history of transient ischemic attack (TIA), and cerebral infarction without residual deficits; Z85.89 Personal history of malignant neoplasm of other organs and systems; Z95.1 Presence of aortocoronary bypass graft
CPT/HCPCS: 82948 ×2; G0277

== ENCOUNTER → 2017-08-21 | Outpatient (CLI) | payer OTHER ==
[2017-08-21 13:24] VITALS: BP 153/84
[2017-08-21 13:26] VITALS: BP 161/87
== END | disposition home or self-care (01) ==
LOC: WHH 08:00
PROVIDERS: ATTEND Family Medicine
DX: E11.621 Type 2 diabetes mellitus with foot ulcer (principal); L97.521 Non-pressure chronic ulcer of other part of left foot limited to breakdown of skin; E11.69 Type 2 diabetes mellitus with other specified complication; M86.672 Other chronic osteomyelitis, left ankle and foot; E11.40 Type 2 diabetes mellitus with diabetic neuropathy, unspecified; E11.51 Type 2 diabetes mellitus with diabetic peripheral angiopathy without gangrene; F41.9 Anxiety disorder, unspecified; L84 Corns and callosities; I25.10 Atherosclerotic heart disease of native coronary artery without angina pectoris; I10 Essential (primary) hypertension; E78.2 Mixed hyperlipidemia; Z95.1 Presence of aortocoronary bypass graft; Z86.73 Personal history of transient ischemic attack (TIA), and cerebral infarction without residual deficits
CPT/HCPCS: 82948 ×2; G0277

== ENCOUNTER → 2017-08-22 | Outpatient (CLI) | payer OTHER ==
[2017-08-22 11:09] VITALS: BP 146/84
[2017-08-22 11:11] VITALS: BP 150/81
== END | disposition home or self-care (01) ==
LOC: WHH 08:00
PROVIDERS: ATTEND Family Medicine
DX: E11.621 Type 2 diabetes mellitus with foot ulcer (principal); L97.521 Non-pressure chronic ulcer of other part of left foot limited to breakdown of skin; E11.69 Type 2 diabetes mellitus with other specified complication; M86.672 Other chronic osteomyelitis, left ankle and foot; E11.40 Type 2 diabetes mellitus with diabetic neuropathy, unspecified; E11.51 Type 2 diabetes mellitus with diabetic peripheral angiopathy without gangrene; E11.22 Type 2 diabetes mellitus with diabetic chronic kidney disease; I12.9 Hypertensive chronic kidney disease with stage 1 through stage 4 chronic kidney disease, or unspecified chronic kidney disease; N18.9 Chronic kidney disease, unspecified; F41.9 Anxiety disorder, unspecified; L84 Corns and callosities; I25.10 Atherosclerotic heart disease of native coronary artery without angina pectoris; E78.2 Mixed hyperlipidemia; Z95.1 Presence of aortocoronary bypass graft; Z86.73 Personal history of transient ischemic attack (TIA), and cerebral infarction without residual deficits
CPT/HCPCS: 82948 ×2; A6213; G0277

== ENCOUNTER → 2017-08-23 | Outpatient (CLI) | payer OTHER ==
[2017-08-23 10:48] VITALS: BP 141/78
[2017-08-23 10:50] VITALS: BP 148/86
== END | disposition home or self-care (01) ==
LOC: WHH 08:00
PROVIDERS: ATTEND Family Medicine
DX: E11.621 Type 2 diabetes mellitus with foot ulcer (principal); L97.521 Non-pressure chronic ulcer of other part of left foot limited to breakdown of skin; E11.69 Type 2 diabetes mellitus with other specified complication; M86.672 Other chronic osteomyelitis, left ankle and foot; E11.40 Type 2 diabetes mellitus with diabetic neuropathy, unspecified; E11.51 Type 2 diabetes mellitus with diabetic peripheral angiopathy without gangrene; E11.22 Type 2 diabetes mellitus with diabetic chronic kidney disease; I12.9 Hypertensive chronic kidney disease with stage 1 through stage 4 chronic kidney disease, or unspecified chronic kidney disease; N18.9 Chronic kidney disease, unspecified; F41.9 Anxiety disorder, unspecified; L84 Corns and callosities; I25.10 Atherosclerotic heart disease of native coronary artery without angina pectoris; E78.2 Mixed hyperlipidemia; Z95.1 Presence of aortocoronary bypass graft; Z86.73 Personal history of transient ischemic attack (TIA), and cerebral infarction without residual deficits
CPT/HCPCS: 82948 ×2; A6213; G0277

== ENCOUNTER → 2017-08-24 | Outpatient (CLI) | payer OTHER ==
[2017-08-24 12:38] VITALS: BP 122/69
[2017-08-24 12:40] VITALS: BP 140/72
== END | disposition home or self-care (01) ==
LOC: WHH 08:00
PROVIDERS: ATTEND Family Medicine
DX: E11.621 Type 2 diabetes mellitus with foot ulcer (principal); L97.521 Non-pressure chronic ulcer of other part of left foot limited to breakdown of skin; E11.69 Type 2 diabetes mellitus with other specified complication; M86.672 Other chronic osteomyelitis, left ankle and foot; E11.40 Type 2 diabetes mellitus with diabetic neuropathy, unspecified; E11.51 Type 2 diabetes mellitus with diabetic peripheral angiopathy without gangrene; E11.22 Type 2 diabetes mellitus with diabetic chronic kidney disease; I12.9 Hypertensive chronic kidney disease with stage 1 through stage 4 chronic kidney disease, or unspecified chronic kidney disease; N18.9 Chronic kidney disease, unspecified; F41.9 Anxiety disorder, unspecified; L84 Corns and callosities; I25.10 Atherosclerotic heart disease of native coronary artery without angina pectoris; E78.2 Mixed hyperlipidemia; Z95.1 Presence of aortocoronary bypass graft; Z86.73 Personal history of transient ischemic attack (TIA), and cerebral infarction without residual deficits
CPT/HCPCS: 82948 ×3; A6213; G0277

== ENCOUNTER → 2017-08-25 | Outpatient (CLI) | payer OTHER ==
[2017-08-25 11:01] VITALS: BP 132/79
[2017-08-25 11:04] VITALS: BP 141/88
== END | disposition home or self-care (01) ==
LOC: WHH 08:00
PROVIDERS: ATTEND Family Medicine
DX: E11.621 Type 2 diabetes mellitus with foot ulcer (principal); L97.521 Non-pressure chronic ulcer of other part of left foot limited to breakdown of skin; F41.9 Anxiety disorder, unspecified; I25.10 Atherosclerotic heart disease of native coronary artery without angina pectoris; E11.22 Type 2 diabetes mellitus with diabetic chronic kidney disease; I12.9 Hypertensive chronic kidney disease with stage 1 through stage 4 chronic kidney disease, or unspecified chronic kidney disease; N18.9 Chronic kidney disease, unspecified; E78.2 Mixed hyperlipidemia; E11.69 Type 2 diabetes mellitus with other specified complication; M86.672 Other chronic osteomyelitis, left ankle and foot; E11.40 Type 2 diabetes mellitus with diabetic neuropathy, unspecified; E11.51 Type 2 diabetes mellitus with diabetic peripheral angiopathy without gangrene; Z85.89 Personal history of malignant neoplasm of other organs and systems; Z86.73 Personal history of transient ischemic attack (TIA), and cerebral infarction without residual deficits; Z95.1 Presence of aortocoronary bypass graft
CPT/HCPCS: 82948 ×2; A6213; G0277

== ENCOUNTER → 2017-08-28 | Outpatient (CLI) | payer OTHER ==
[2017-08-28 11:44] VITALS: BP 166/88
[2017-08-28 11:48] VITALS: BP 146/80
== END | disposition home or self-care (01) ==
LOC: WHH 08:00
PROVIDERS: ATTEND Family Medicine
DX: E11.621 Type 2 diabetes mellitus with foot ulcer (principal); F41.9 Anxiety disorder, unspecified; I25.10 Atherosclerotic heart disease of native coronary artery without angina pectoris; E78.2 Mixed hyperlipidemia; E11.69 Type 2 diabetes mellitus with other specified complication; M86.672 Other chronic osteomyelitis, left ankle and foot; E11.40 Type 2 diabetes mellitus with diabetic neuropathy, unspecified; E11.51 Type 2 diabetes mellitus with diabetic peripheral angiopathy without gangrene; E11.22 Type 2 diabetes mellitus with diabetic chronic kidney disease; I12.9 Hypertensive chronic kidney disease with stage 1 through stage 4 chronic kidney disease, or unspecified chronic kidney disease; N18.9 Chronic kidney disease, unspecified; Z86.73 Personal history of transient ischemic attack (TIA), and cerebral infarction without residual deficits; Z85.89 Personal history of malignant neoplasm of other organs and systems; Z95.1 Presence of aortocoronary bypass graft
CPT/HCPCS: 82948 ×2; A6213; G0277

== ENCOUNTER → 2017-08-29 | Outpatient (CLI) | payer OTHER ==
[2017-08-29 16:17] VITALS: BP 153/91
== END | disposition home or self-care (01) ==
LOC: WHH 13:45
PROVIDERS: ATTEND Family Medicine
DX: E11.621 Type 2 diabetes mellitus with foot ulcer (principal); L97.521 Non-pressure chronic ulcer of other part of left foot limited to breakdown of skin; F41.9 Anxiety disorder, unspecified; I25.10 Atherosclerotic heart disease of native coronary artery without angina pectoris; E78.2 Mixed hyperlipidemia; E11.69 Type 2 diabetes mellitus with other specified complication; M86.672 Other chronic osteomyelitis, left ankle and foot; E11.40 Type 2 diabetes mellitus with diabetic neuropathy, unspecified; E11.51 Type 2 diabetes mellitus with diabetic peripheral angiopathy without gangrene; E11.22 Type 2 diabetes mellitus with diabetic chronic kidney disease; I12.9 Hypertensive chronic kidney disease with stage 1 through stage 4 chronic kidney disease, or unspecified chronic kidney disease; N18.9 Chronic kidney disease, unspecified; Z86.73 Personal history of transient ischemic attack (TIA), and cerebral infarction without residual deficits; Z85.89 Personal history of malignant neoplasm of other organs and systems; Z95.1 Presence of aortocoronary bypass graft
CPT/HCPCS: 99214; A6213

== ENCOUNTER → 2017-08-31 | Outpatient (CLI) | payer OTHER ==
[2017-08-31 09:22] LABS: HEMOGLOBIN A1C 8.6 % (4.0-6.0)
== END | disposition home or self-care (01) ==
LOC: LAB 08:30
PROVIDERS: ATTEND Internal Medicine Geriatric Medicine
DX: E11.21 Type 2 diabetes mellitus with diabetic nephropathy (principal)
CPT/HCPCS: 83036

== ENCOUNTER → 2017-09-05 | Outpatient (CLI) | payer OTHER ==
[2017-09-05 16:44] VITALS: BP 140/78
== END | disposition home or self-care (01) ==
LOC: WHH 15:00
PROVIDERS: ATTEND Family Medicine
DX: E11.621 Type 2 diabetes mellitus with foot ulcer (principal); L97.521 Non-pressure chronic ulcer of other part of left foot limited to breakdown of skin; F41.9 Anxiety disorder, unspecified; I25.10 Atherosclerotic heart disease of native coronary artery without angina pectoris; E78.2 Mixed hyperlipidemia; E11.69 Type 2 diabetes mellitus with other specified complication; M86.672 Other chronic osteomyelitis, left ankle and foot; E11.40 Type 2 diabetes mellitus with diabetic neuropathy, unspecified; E11.51 Type 2 diabetes mellitus with diabetic peripheral angiopathy without gangrene; E11.22 Type 2 diabetes mellitus with diabetic chronic kidney disease; I12.9 Hypertensive chronic kidney disease with stage 1 through stage 4 chronic kidney disease, or unspecified chronic kidney disease; N18.9 Chronic kidney disease, unspecified; Z86.73 Personal history of transient ischemic attack (TIA), and cerebral infarction without residual deficits; Z85.89 Personal history of malignant neoplasm of other organs and systems; Z95.1 Presence of aortocoronary bypass graft
CPT/HCPCS: 11042; A6213

== ENCOUNTER → 2017-09-19 | Outpatient (CLI) | payer OTHER ==
[2017-09-19 17:17] VITALS: BP 138/87
== END | disposition home or self-care (01) ==
LOC: WHH 15:00
PROVIDERS: ATTEND Family Medicine
DX: E11.621 Type 2 diabetes mellitus with foot ulcer (principal); L97.521 Non-pressure chronic ulcer of other part of left foot limited to breakdown of skin; F41.9 Anxiety disorder, unspecified; I25.10 Atherosclerotic heart disease of native coronary artery without angina pectoris; E78.2 Mixed hyperlipidemia; E11.69 Type 2 diabetes mellitus with other specified complication; M86.672 Other chronic osteomyelitis, left ankle and foot; E11.40 Type 2 diabetes mellitus with diabetic neuropathy, unspecified; E11.51 Type 2 diabetes mellitus with diabetic peripheral angiopathy without gangrene; I10 Essential (primary) hypertension; E11.21 Type 2 diabetes mellitus with diabetic nephropathy; Z95.1 Presence of aortocoronary bypass graft; Z85.89 Personal history of malignant neoplasm of other organs and systems; Z86.73 Personal history of transient ischemic attack (TIA), and cerebral infarction without residual deficits
CPT/HCPCS: 11042; A6213

== ENCOUNTER → 2017-09-26 | Outpatient (CLI) | payer OTHER ==
[2017-09-26 13:45] VITALS: BP 172/90
== END | disposition home or self-care (01) ==
LOC: WHH 13:00
PROVIDERS: ATTEND Family Medicine
DX: E11.621 Type 2 diabetes mellitus with foot ulcer (principal); L97.521 Non-pressure chronic ulcer of other part of left foot limited to breakdown of skin; I25.10 Atherosclerotic heart disease of native coronary artery without angina pectoris; I10 Essential (primary) hypertension; E78.2 Mixed hyperlipidemia; E11.69 Type 2 diabetes mellitus with other specified complication; M86.672 Other chronic osteomyelitis, left ankle and foot; E11.21 Type 2 diabetes mellitus with diabetic nephropathy; E11.40 Type 2 diabetes mellitus with diabetic neuropathy, unspecified; F41.9 Anxiety disorder, unspecified; E11.51 Type 2 diabetes mellitus with diabetic peripheral angiopathy without gangrene; E11.22 Type 2 diabetes mellitus with diabetic chronic kidney disease; I12.9 Hypertensive chronic kidney disease with stage 1 through stage 4 chronic kidney disease, or unspecified chronic kidney disease; N18.9 Chronic kidney disease, unspecified; Z86.73 Personal history of transient ischemic attack (TIA), and cerebral infarction without residual deficits; Z95.1 Presence of aortocoronary bypass graft
CPT/HCPCS: 99214; A6213

== ENCOUNTER → 2017-09-29 | Outpatient (CLI) | payer OTHER | END | disposition home or self-care (01) | LOC: RAH 08:30 | PROVIDERS: ATTEND Family Medicine | DX: E11.621 Type 2 diabetes mellitus with foot ulcer (principal); L97.529 Non-pressure chronic ulcer of other part of left foot with unspecified severity; M79.89 Other specified soft tissue disorders | CPT/HCPCS: 73630 ==

== ENCOUNTER → 2017-10-03 | Outpatient (CLI) | payer OTHER ==
[2017-10-03 14:35] VITALS: BP 120/79
== END | disposition home or self-care (01) ==
LOC: WHH 13:00
PROVIDERS: ATTEND Family Medicine
DX: E11.621 Type 2 diabetes mellitus with foot ulcer (principal); L97.521 Non-pressure chronic ulcer of other part of left foot limited to breakdown of skin; I25.10 Atherosclerotic heart disease of native coronary artery without angina pectoris; E78.2 Mixed hyperlipidemia; E11.69 Type 2 diabetes mellitus with other specified complication; M86.672 Other chronic osteomyelitis, left ankle and foot; E11.21 Type 2 diabetes mellitus with diabetic nephropathy; E11.40 Type 2 diabetes mellitus with diabetic neuropathy, unspecified; F41.9 Anxiety disorder, unspecified; E11.51 Type 2 diabetes mellitus with diabetic peripheral angiopathy without gangrene; E11.22 Type 2 diabetes mellitus with diabetic chronic kidney disease; I12.9 Hypertensive chronic kidney disease with stage 1 through stage 4 chronic kidney disease, or unspecified chronic kidney disease; N18.9 Chronic kidney disease, unspecified; Z86.73 Personal history of transient ischemic attack (TIA), and cerebral infarction without residual deficits; Z95.1 Presence of aortocoronary bypass graft
CPT/HCPCS: 99214; A6213; A6248

== ENCOUNTER → 2017-10-10 | Outpatient (CLI) | payer OTHER ==
[2017-10-10 13:40] VITALS: BP 167/91
== END | disposition home or self-care (01) ==
LOC: WHH 13:00
PROVIDERS: ATTEND Family Medicine
DX: E11.621 Type 2 diabetes mellitus with foot ulcer (principal); L97.521 Non-pressure chronic ulcer of other part of left foot limited to breakdown of skin; I25.10 Atherosclerotic heart disease of native coronary artery without angina pectoris; E78.2 Mixed hyperlipidemia; E11.69 Type 2 diabetes mellitus with other specified complication; M86.672 Other chronic osteomyelitis, left ankle and foot; E11.21 Type 2 diabetes mellitus with diabetic nephropathy; E11.40 Type 2 diabetes mellitus with diabetic neuropathy, unspecified; F41.9 Anxiety disorder, unspecified; E11.51 Type 2 diabetes mellitus with diabetic peripheral angiopathy without gangrene; E11.22 Type 2 diabetes mellitus with diabetic chronic kidney disease; I12.9 Hypertensive chronic kidney disease with stage 1 through stage 4 chronic kidney disease, or unspecified chronic kidney disease; N18.9 Chronic kidney disease, unspecified; Z86.73 Personal history of transient ischemic attack (TIA), and cerebral infarction without residual deficits; Z95.1 Presence of aortocoronary bypass graft
CPT/HCPCS: 11042; 82948; A6213

== ENCOUNTER → 2017-10-11 | Outpatient (CLI) | payer OTHER ==
[2017-10-11 14:44] VITALS: BP 128/76
== END | disposition home or self-care (01) ==
LOC: WHH 11:00
PROVIDERS: ATTEND Podiatrist Foot & Ankle Surgery
DX: E11.621 Type 2 diabetes mellitus with foot ulcer (principal); L97.521 Non-pressure chronic ulcer of other part of left foot limited to breakdown of skin; I25.10 Atherosclerotic heart disease of native coronary artery without angina pectoris; E78.2 Mixed hyperlipidemia; E11.69 Type 2 diabetes mellitus with other specified complication; M86.672 Other chronic osteomyelitis, left ankle and foot; E11.21 Type 2 diabetes mellitus with diabetic nephropathy; E11.40 Type 2 diabetes mellitus with diabetic neuropathy, unspecified; F41.9 Anxiety disorder, unspecified; E11.51 Type 2 diabetes mellitus with diabetic peripheral angiopathy without gangrene; E11.22 Type 2 diabetes mellitus with diabetic chronic kidney disease; I12.9 Hypertensive chronic kidney disease with stage 1 through stage 4 chronic kidney disease, or unspecified chronic kidney disease; N18.9 Chronic kidney disease, unspecified; Z86.73 Personal history of transient ischemic attack (TIA), and cerebral infarction without residual deficits; Z95.1 Presence of aortocoronary bypass graft
CPT/HCPCS: 99214; A6213

== ENCOUNTER → 2017-10-17 | Outpatient (CLI) | payer OTHER ==
[2017-10-17 13:36] VITALS: BP 118/69
== END | disposition home or self-care (01) ==
LOC: WHH 13:00
PROVIDERS: ATTEND Family Medicine
DX: E11.621 Type 2 diabetes mellitus with foot ulcer (principal); L97.521 Non-pressure chronic ulcer of other part of left foot limited to breakdown of skin; I25.10 Atherosclerotic heart disease of native coronary artery without angina pectoris; E78.2 Mixed hyperlipidemia; E11.69 Type 2 diabetes mellitus with other specified complication; M86.672 Other chronic osteomyelitis, left ankle and foot; E11.21 Type 2 diabetes mellitus with diabetic nephropathy; E11.40 Type 2 diabetes mellitus with diabetic neuropathy, unspecified; F41.9 Anxiety disorder, unspecified; E11.51 Type 2 diabetes mellitus with diabetic peripheral angiopathy without gangrene; E11.22 Type 2 diabetes mellitus with diabetic chronic kidney disease; I12.9 Hypertensive chronic kidney disease with stage 1 through stage 4 chronic kidney disease, or unspecified chronic kidney disease; N18.9 Chronic kidney disease, unspecified; Z86.73 Personal history of transient ischemic attack (TIA), and cerebral infarction without residual deficits; Z95.1 Presence of aortocoronary bypass graft
CPT/HCPCS: 99214; A4450; A6213

== ENCOUNTER → 2018-01-03 | Outpatient (CLI) | payer OTHER ==
[~2018-01-03] MED LIST changes: +ATEN25TA PO; +ATOR-2 PO; +CEPH500C2 PO; +CLOP75TA14 PO; +FAMO20TA8 PO; +GLYB-228 PO; +INSREG SQ; +INSU10VI3 SQ; -LIDOCAINE/PRILOCAINE CREAM 5GM TUBE TP ONE; +LISI-617 PO; +MAGNESIUM PO; +MULT-1077 PO
[2018-01-03 14:19] VITALS: BP 123/84
== END | disposition home or self-care (01) ==
LOC: WHH 11:00
PROVIDERS: ATTEND Podiatrist Foot & Ankle Surgery
DX: E11.621 Type 2 diabetes mellitus with foot ulcer (principal); L97.521 Non-pressure chronic ulcer of other part of left foot limited to breakdown of skin; F41.9 Anxiety disorder, unspecified; I25.10 Atherosclerotic heart disease of native coronary artery without angina pectoris; E78.2 Mixed hyperlipidemia; E11.42 Type 2 diabetes mellitus with diabetic polyneuropathy; E11.51 Type 2 diabetes mellitus with diabetic peripheral angiopathy without gangrene; E11.21 Type 2 diabetes mellitus with diabetic nephropathy; E11.69 Type 2 diabetes mellitus with other specified complication; M86.672 Other chronic osteomyelitis, left ankle and foot; E11.22 Type 2 diabetes mellitus with diabetic chronic kidney disease; I12.9 Hypertensive chronic kidney disease with stage 1 through stage 4 chronic kidney disease, or unspecified chronic kidney disease; N18.2 Chronic kidney disease, stage 2 (mild); K21.9 Gastro-esophageal reflux disease without esophagitis; I25.2 Old myocardial infarction; E11.319 Type 2 diabetes mellitus with unspecified diabetic retinopathy without macular edema; Z86.73 Personal history of transient ischemic attack (TIA), and cerebral infarction without residual deficits; Z85.89 Personal history of malignant neoplasm of other organs and systems; Z85.828 Personal history of other malignant neoplasm of skin; Z95.1 Presence of aortocoronary bypass graft; Z88.6 Allergy status to analgesic agent; Z88.5 Allergy status to narcotic agent; Z79.899 Other long term (current) drug therapy; Z79.4 Long term (current) use of insulin; Z79.82 Long term (current) use of aspirin
CPT/HCPCS: 11042; A6209

== ENCOUNTER → 2018-01-17 | Outpatient (CLI) | payer OTHER ==
[~2018-01-17] MED LIST changes: +CEFTRIAXONE SODIUM 1 GM IM SCH; +LIDOCAINE HCL 1% 20 ML VIAL MISC SCH
[2018-01-17 13:36] VITALS: BP 153/80
== END | disposition home or self-care (01) ==
LOC: WHH 11:00
PROVIDERS: ATTEND Podiatrist Foot & Ankle Surgery
DX: E11.621 Type 2 diabetes mellitus with foot ulcer (principal); L97.521 Non-pressure chronic ulcer of other part of left foot limited to breakdown of skin; F41.9 Anxiety disorder, unspecified; I25.10 Atherosclerotic heart disease of native coronary artery without angina pectoris; E78.2 Mixed hyperlipidemia; E11.42 Type 2 diabetes mellitus with diabetic polyneuropathy; E11.51 Type 2 diabetes mellitus with diabetic peripheral angiopathy without gangrene; E11.21 Type 2 diabetes mellitus with diabetic nephropathy; E11.69 Type 2 diabetes mellitus with other specified complication; M86.672 Other chronic osteomyelitis, left ankle and foot; E11.22 Type 2 diabetes mellitus with diabetic chronic kidney disease; I12.9 Hypertensive chronic kidney disease with stage 1 through stage 4 chronic kidney disease, or unspecified chronic kidney disease; N18.2 Chronic kidney disease, stage 2 (mild); K21.9 Gastro-esophageal reflux disease without esophagitis; I25.2 Old myocardial infarction; E11.319 Type 2 diabetes mellitus with unspecified diabetic retinopathy without macular edema; Z86.73 Personal history of transient ischemic attack (TIA), and cerebral infarction without residual deficits; Z85.89 Personal history of malignant neoplasm of other organs and systems; Z85.828 Personal history of other malignant neoplasm of skin; Z95.1 Presence of aortocoronary bypass graft; Z88.6 Allergy status to analgesic agent; Z88.5 Allergy status to narcotic agent; Z79.899 Other long term (current) drug therapy; Z79.4 Long term (current) use of insulin; Z79.82 Long term (current) use of aspirin
CPT/HCPCS: 96372; 99214; A6209; J0696

== ENCOUNTER → 2018-01-24 | Outpatient (CLI) | payer OTHER ==
[~2018-01-24] MED LIST changes: +BACITRACIN 28.4 GM OINT TP ONE; -CEFTRIAXONE SODIUM 1 GM IM SCH; -LIDOCAINE HCL 1% 20 ML VIAL MISC SCH
[2018-01-24 12:12] VITALS: BP 124/78
== END | disposition home or self-care (01) ==
LOC: WHH 10:50
PROVIDERS: ATTEND Podiatrist Foot & Ankle Surgery
DX: E11.621 Type 2 diabetes mellitus with foot ulcer (principal); L97.521 Non-pressure chronic ulcer of other part of left foot limited to breakdown of skin; L60.1 Onycholysis; F41.9 Anxiety disorder, unspecified; I25.10 Atherosclerotic heart disease of native coronary artery without angina pectoris; E78.2 Mixed hyperlipidemia; E11.42 Type 2 diabetes mellitus with diabetic polyneuropathy; E11.51 Type 2 diabetes mellitus with diabetic peripheral angiopathy without gangrene; E11.21 Type 2 diabetes mellitus with diabetic nephropathy; E11.69 Type 2 diabetes mellitus with other specified complication; M86.672 Other chronic osteomyelitis, left ankle and foot; E11.22 Type 2 diabetes mellitus with diabetic chronic kidney disease; I12.9 Hypertensive chronic kidney disease with stage 1 through stage 4 chronic kidney disease, or unspecified chronic kidney disease; N18.2 Chronic kidney disease, stage 2 (mild); K21.9 Gastro-esophageal reflux disease without esophagitis; I25.2 Old myocardial infarction; E11.319 Type 2 diabetes mellitus with unspecified diabetic retinopathy without macular edema; Z86.73 Personal history of transient ischemic attack (TIA), and cerebral infarction without residual deficits; Z85.89 Personal history of malignant neoplasm of other organs and systems; Z95.1 Presence of aortocoronary bypass graft; Z88.6 Allergy status to analgesic agent; Z88.5 Allergy status to narcotic agent; Z79.899 Other long term (current) drug therapy; Z79.82 Long term (current) use of aspirin; Z79.4 Long term (current) use of insulin
CPT/HCPCS: A4450; A6209; G0463

== ENCOUNTER → 2018-01-26 | Outpatient (CLI) | payer OTHER ==
[~2018-01-26] MED LIST changes: -BACITRACIN 28.4 GM OINT TP ONE
== END | disposition home or self-care (01) ==
LOC: RAH 07:59
PROVIDERS: ATTEND Podiatrist Foot & Ankle Surgery
DX: E11.621 Type 2 diabetes mellitus with foot ulcer (principal); M77.32 Calcaneal spur, left foot; M19.072 Primary osteoarthritis, left ankle and foot
CPT/HCPCS: 73630

== ENCOUNTER → 2018-01-31 | Outpatient (CLI) | payer OTHER ==
[2018-01-31 12:25] VITALS: BP 148/89
== END | disposition home or self-care (01) ==
LOC: WHH 11:00
PROVIDERS: ATTEND Podiatrist Foot & Ankle Surgery
DX: E11.621 Type 2 diabetes mellitus with foot ulcer (principal); L97.528 Non-pressure chronic ulcer of other part of left foot with other specified severity; F41.9 Anxiety disorder, unspecified; I25.10 Atherosclerotic heart disease of native coronary artery without angina pectoris; E78.2 Mixed hyperlipidemia; E11.42 Type 2 diabetes mellitus with diabetic polyneuropathy; E11.51 Type 2 diabetes mellitus with diabetic peripheral angiopathy without gangrene; E11.21 Type 2 diabetes mellitus with diabetic nephropathy; E11.319 Type 2 diabetes mellitus with unspecified diabetic retinopathy without macular edema; E11.69 Type 2 diabetes mellitus with other specified complication; M86.672 Other chronic osteomyelitis, left ankle and foot; K21.9 Gastro-esophageal reflux disease without esophagitis; I25.2 Old myocardial infarction; E11.22 Type 2 diabetes mellitus with diabetic chronic kidney disease; I12.9 Hypertensive chronic kidney disease with stage 1 through stage 4 chronic kidney disease, or unspecified chronic kidney disease; N18.2 Chronic kidney disease, stage 2 (mild); Z86.73 Personal history of transient ischemic attack (TIA), and cerebral infarction without residual deficits; Z85.89 Personal history of malignant neoplasm of other organs and systems; Z85.828 Personal history of other malignant neoplasm of skin; Z95.1 Presence of aortocoronary bypass graft; Z88.6 Allergy status to analgesic agent; Z88.5 Allergy status to narcotic agent; Z79.899 Other long term (current) drug therapy; Z79.82 Long term (current) use of aspirin; Z79.4 Long term (current) use of insulin
CPT/HCPCS: 99214

== ENCOUNTER 2018-02-13 16:15 | Inpatient (IN) | payer OTHER ==
[~2018-02-13] VITALS: Ht 175.3 cm; Wt 79.1 kg
[~2018-02-13 16:15] MED LIST changes: -ACET-2743 PO; -ASPI-1181; -CILO100T PO; -METF500T7 PO; -PIOG30TA70 PO; -UBID100C10 PO; -[UNRECOGNIZED DRUG - OTHER] SQ
[2018-02-13 17:21] LABS: BASOPHILS % (AUTO) 0.6 % (0.0-5.0); HEMATOCRIT 35.3 % (42-54); LYMPHOCYTES % (AUTO) 24.3 % (21.0-51.0); MEAN CORPUSCULAR HEMOGLOBIN 32.4 pg (27.0-33.0); MEAN CORPUSCULAR VOLUME 98.2 fL (79-99); MONOCYTES % (AUTO) 14.2 % (3.0-13.0); NEUTROPHILS % (AUTO) 58.9 % (40.0-77.0); PLATELET COUNT (AUTO) 125 K/uL (130-400); RED CELL DISTRIBUTION WIDTH 15.1 % (11.0-15.5); WHITE BLOOD COUNT (AUTO) 4.7 K/uL (4.8-10.8)
[2018-02-13 17:23] VITALS: BP 105/57
[2018-02-13 17:31] LABS: CREATININE 1.1 mg/dL (0.5-1.5); POTASSIUM 4.6 mmol/L (3.5-5.1)
[2018-02-13 17:35] LABS: ALBUMIN 3.2 g/dL (3.5-5.0); BILIRUBIN,TOTAL 0.7 mg/dL (0.2-1.0); TOTAL PROTEIN, SERUM 7.4 g/dL (6.0-8.3)
[2018-02-13 17:40] LABS: HEMOGLOBIN A1C 9.4 % (4.0-6.0)
[2018-02-13] MEDS ORDERED: GLUCAGON 1MG KIT 1 MG ML IM PRN (18:30)
[2018-02-13] MEDS ORDERED: DEXTROSE 50%-WATER 50 ML DISP.SYRIN IV PRN (18:30)
[2018-02-13 18:36] LABS: ERYTHROCYTE SEDIMENTATION RATE 58 MM/HR (0-20)
[2018-02-13] MEDS ORDERED: VANCOMYCIN PROTOCOL PER PHARMACY IV SCH ×2 (19:00→19:15)
[2018-02-13] MEDS: SODIUM CHLORIDE 0.9% 1000ML 1,000 ML IV SCH (19:10)
[2018-02-13] MEDS ORDERED: METF500T7 PO (19:11)
[2018-02-13] MEDS ORDERED: ONDANSETRON HCL 4 MG/2 ML VIAL IV PRN (19:15)
[2018-02-13] MEDS ORDERED: ACETAMINOPHEN 325 MG TAB PO PRN (19:15)
[2018-02-13] MEDS ORDERED: ZOSYN 3.375GM+NS 50ML 50 ML IV SCH (19:15)
[2018-02-13] MEDS ORDERED: CILO100T PO (19:17)
[2018-02-13] MEDS ORDERED: ASPI-1181 (19:20)
[2018-02-13] MEDS ORDERED: PIOG30TA70 PO (19:25)
[2018-02-13] MEDS ORDERED: [UNRECOGNIZED DRUG - OTHER] SQ (19:29)
[2018-02-13] MEDS ORDERED: UBID100C10 PO (19:35)
[2018-02-13] MEDS ORDERED: ACET-2743 PO (19:36)
[2018-02-13] MEDS ORDERED: VANCOMYCIN 1.75 GM in SODIUM CHLORIDE 0.9% 250 ML IV ONE (20:00)
[2018-02-13] MEDS: INSULIN HUMULIN R 100 UNIT/ML 3ML SQ SCH (20:43)
[2018-02-13 23:44] VITALS: BP 106/67
[2018-02-13] MEDS: ZOSYN 3.375GM+NS 50ML 50 ML IV SCH (23:50)
[2018-02-14 04:00] VITALS: BP 119/68
[2018-02-14] MEDS: ZOSYN 3.375GM+NS 50ML 50 ML IV SCH ×3 (05:56→21:12)
[2018-02-14 06:15] LABS: BASOPHILS % (AUTO) 0.5 % (0.0-5.0); EOSINOPHILS % (AUTO) 2.1 % (0.0-8.0); HEMATOCRIT 31.9 % (42-54); LYMPHOCYTES % (AUTO) 20.3 % (21.0-51.0); MEAN CORPUSCULAR HEMOGLOBIN 33.7 pg (27.0-33.0); MEAN CORPUSCULAR HGB CONC 34.6 g/dL (32.0-36.0); MEAN CORPUSCULAR VOLUME 97.2 fL (79-99); MONOCYTES % (AUTO) 12.7 % (3.0-13.0); NEUTROPHILS % (AUTO) 64.4 % (40.0-77.0); PLATELET COUNT (AUTO) 129 K/uL (130-400); RED BLOOD CELL COUNT(AUTO) 3.29 MIL/uL (4.50-6.20); RED CELL DISTRIBUTION WIDTH 15.1 % (11.0-15.5); WHITE BLOOD COUNT (AUTO) 4.4 K/uL (4.8-10.8)
[2018-02-14 06:32] LABS: ALBUMIN 2.9 g/dL (3.5-5.0); BILIRUBIN,TOTAL 0.5 mg/dL (0.2-1.0); CREATININE 0.9 mg/dL (0.5-1.5); POTASSIUM 4.2 mmol/L (3.5-5.1); TOTAL PROTEIN, SERUM 6.7 g/dL (6.0-8.3)
[2018-02-14 07:00] VITALS: BP 118/77
[2018-02-14] MEDS: INSULIN HUMULIN R 100 UNIT/ML 3ML SQ SCH ×4 (07:30→21:26)
[2018-02-14] MEDS: VANCOMYCIN 1GM+NS 250ML 250 ML IV SCH ×2 (09:42→23:24)
[2018-02-14] MEDS: PANTOPRAZOLE SODIUM 40 MG TABLET.DR PO SCH (09:42)
[2018-02-14] MEDS: SODIUM CHLORIDE 0.9% 1000ML 1,000 ML IV SCH ×2 (09:43→21:27)
[2018-02-14] MEDS: ENOXAPARIN SODIUM 30 MG/0.3 ML SQ SCH (09:43)
[2018-02-14 11:00] VITALS: BP 120/77
[2018-02-14 16:00] VITALS: BP 156/82
[2018-02-14 19:10] VITALS: BP 145/84
[2018-02-14] MEDS: ATENOLOL 25 MG TABLET PO SCH (21:05)
[2018-02-14] MEDS: ATORVASTATIN CALCIUM 40 MG TABLET PO SCH (21:05)
[2018-02-15 00:15] VITALS: BP 115/71
[2018-02-15 04:12] VITALS: BP 141/83
[2018-02-15] MEDS: ZOSYN 3.375GM+NS 50ML 50 ML IV SCH ×3 (04:34→22:02)
[2018-02-15 05:40] LABS: BASOPHILS % (AUTO) 0.5 % (0.0-5.0); EOSINOPHILS % (AUTO) 2.2 % (0.0-8.0); HEMATOCRIT 31.7 % (42-54); LYMPHOCYTES % (AUTO) 26.3 % (21.0-51.0); MEAN CORPUSCULAR HEMOGLOBIN 33.6 pg (27.0-33.0); MEAN CORPUSCULAR HGB CONC 34.8 g/dL (32.0-36.0); MEAN CORPUSCULAR VOLUME 96.6 fL (79-99); MONOCYTES % (AUTO) 12.7 % (3.0-13.0); NEUTROPHILS % (AUTO) 58.3 % (40.0-77.0); PLATELET COUNT (AUTO) 132 K/uL (130-400); RED BLOOD CELL COUNT(AUTO) 3.28 MIL/uL (4.50-6.20); RED CELL DISTRIBUTION WIDTH 15.4 % (11.0-15.5); WHITE BLOOD COUNT (AUTO) 4.6 K/uL (4.8-10.8)
[2018-02-15 05:48] LABS: CREATININE 0.9 mg/dL (0.5-1.5); POTASSIUM 3.9 mmol/L (3.5-5.1)
[2018-02-15] MEDS: INSULIN HUMULIN R 100 UNIT/ML 3ML SQ SCH ×4 (06:20→22:08)
[2018-02-15] MEDS: SODIUM CHLORIDE 0.9% 1000ML 1,000 ML IV SCH ×2 (06:27→12:05)
[2018-02-15 07:00] VITALS: BP 135/79
[2018-02-15] MEDS: UBIDECARENONE 100 MG PO SCH (09:00)
[2018-02-15] MEDS: CILOSTAZOL 100 MG TAB PO SCH (09:00)
[2018-02-15] MEDS: ATENOLOL 25 MG TABLET PO SCH ×2 (09:10→22:03)
[2018-02-15] MEDS: VANCOMYCIN 1GM+NS 250ML 250 ML IV SCH (09:10)
[2018-02-15] MEDS: CLOPIDOGREL BISULFATE 75 MG TAB PO SCH (09:11)
[2018-02-15] MEDS: PANTOPRAZOLE SODIUM 40 MG TABLET.DR PO SCH (09:11)
[2018-02-15] MEDS: ASPIRIN 81 MG EC TAB PO SCH (09:11)
[2018-02-15] MEDS: LISINOPRIL 5 MG TABLET PO SCH (09:11)
[2018-02-15] MEDS: ENOXAPARIN SODIUM 30 MG/0.3 ML SQ SCH (09:12)
[2018-02-15 11:00] VITALS: BP 170/91
[2018-02-15] MEDS ORDERED: COMPOUND IV REFRIGERATED 1 EACH IVSOLN MISC PRN (11:30)
[2018-02-15 16:00] VITALS: BP 156/91
[2018-02-15] MEDS: VANCOMYCIN 750MG + NS 250 ML IV SCH ×2 (18:16)
[2018-02-15 19:25] VITALS: BP 139/82
[2018-02-15] MEDS: ATORVASTATIN CALCIUM 40 MG TABLET PO SCH (22:02)
[2018-02-16 00:36] VITALS: BP 138/83
[2018-02-16] MEDS: VANCOMYCIN 750MG + NS 250 ML IV SCH ×6 (02:35→18:18)
[2018-02-16] MEDS: SODIUM CHLORIDE 0.9% 1000ML 1,000 ML IV SCH ×2 (03:23→09:14)
[2018-02-16 04:28] VITALS: BP 151/85
[2018-02-16] MEDS: ZOSYN 3.375GM+NS 50ML 50 ML IV SCH ×3 (04:59→21:22)
[2018-02-16 05:19] LABS: HEMATOCRIT 34.2 % (42-54); MEAN CORPUSCULAR HEMOGLOBIN 33.2 pg (27.0-33.0); MEAN CORPUSCULAR HGB CONC 34.1 g/dL (32.0-36.0); MEAN CORPUSCULAR VOLUME 97.2 fL (79-99); PLATELET COUNT (AUTO) 129 K/uL (130-400); RED BLOOD CELL COUNT(AUTO) 3.51 MIL/uL (4.50-6.20); RED CELL DISTRIBUTION WIDTH 14.9 % (11.0-15.5); WHITE BLOOD COUNT (AUTO) 5.2 K/uL (4.8-10.8)
[2018-02-16 05:42] LABS: ALBUMIN 2.9 g/dL (3.5-5.0); CREATININE 0.9 mg/dL (0.5-1.5); POTASSIUM 3.8 mmol/L (3.5-5.1)
[2018-02-16] MEDS: INSULIN HUMULIN R 100 UNIT/ML 3ML SQ SCH ×4 (06:31→21:23)
[2018-02-16 08:38] VITALS: BP 151/84
[2018-02-16] MEDS: UBIDECARENONE 100 MG PO SCH (09:00)
[2018-02-16] MEDS: LISINOPRIL 5 MG TABLET PO SCH (09:09)
[2018-02-16] MEDS: ASPIRIN 81 MG EC TAB PO SCH (09:10)
[2018-02-16] MEDS: CLOPIDOGREL BISULFATE 75 MG TAB PO SCH (09:10)
[2018-02-16] MEDS: ATENOLOL 25 MG TABLET PO SCH ×2 (09:10→20:23)
[2018-02-16] MEDS: PANTOPRAZOLE SODIUM 40 MG TABLET.DR PO SCH (09:10)
[2018-02-16] MEDS: ENOXAPARIN SODIUM 30 MG/0.3 ML SQ SCH (09:11)
[2018-02-16] MEDS: CILOSTAZOL 100 MG TAB PO SCH (09:11)
[2018-02-16 11:43] VITALS: BP 133/82
[2018-02-16 15:56] VITALS: BP 133/87
[2018-02-16] MEDS ORDERED: IOHEXOL 350 MG/ML 100ML INFUS..BTL IV ONE (16:24)
[2018-02-16] MEDS ORDERED: IOHEXOL-350 50ML VIAL IV ONE (16:24)
[2018-02-16 20:00] VITALS: BP 130/72
[2018-02-16] MEDS: ATORVASTATIN CALCIUM 40 MG TABLET PO SCH (20:24)
[2018-02-17] VITALS (7 sets, daily range): BP systolic 129–173; BP diastolic 63–88
[2018-02-17] MEDS: VANCOMYCIN 750MG + NS 250 ML IV SCH ×6 (00:28→17:57)
[2018-02-17] MEDS: SODIUM CHLORIDE 0.9% 1000ML 1,000 ML IV SCH ×2 (01:31→14:05)
[2018-02-17] MEDS: ZOSYN 3.375GM+NS 50ML 50 ML IV SCH ×3 (04:35→22:05)
[2018-02-17 05:45] LABS: BASOPHILS % (AUTO) 0.6 % (0.0-5.0); EOSINOPHILS % (AUTO) 1.8 % (0.0-8.0); HEMATOCRIT 35.2 % (42-54); LYMPHOCYTES % (AUTO) 30.3 % (21.0-51.0); MEAN CORPUSCULAR HEMOGLOBIN 33.5 pg (27.0-33.0); MEAN CORPUSCULAR HGB CONC 34.6 g/dL (32.0-36.0); MEAN CORPUSCULAR VOLUME 96.9 fL (79-99); MONOCYTES % (AUTO) 11.8 % (3.0-13.0); NEUTROPHILS % (AUTO) 55.5 % (40.0-77.0); PLATELET COUNT (AUTO) 135 K/uL (130-400); RED BLOOD CELL COUNT(AUTO) 3.63 MIL/uL (4.50-6.20); RED CELL DISTRIBUTION WIDTH 14.8 % (11.0-15.5); WHITE BLOOD COUNT (AUTO) 5.2 K/uL (4.8-10.8)
[2018-02-17 05:54] LABS: POTASSIUM 3.8 mmol/L (3.5-5.1)
[2018-02-17 05:56] LABS: INR 1.02 (0.85-1.15); PROTHROMBIN TIME 10.7 SEC (9.6-11.6)
[2018-02-17] MEDS: INSULIN HUMULIN R 100 UNIT/ML 3ML SQ SCH ×4 (06:22→21:57)
[2018-02-17] MEDS ORDERED: IOHEXOL-350 50ML VIAL IV ONE (08:38)
[2018-02-17] MEDS ORDERED: IOHEXOL-350 75 ML VIAL IV ONE (08:38)
[2018-02-17] MEDS: ENOXAPARIN SODIUM 30 MG/0.3 ML SQ SCH (09:00)
[2018-02-17] MEDS: UBIDECARENONE 100 MG PO SCH (09:00)
[2018-02-17] MEDS: CLOPIDOGREL BISULFATE 75 MG TAB PO SCH (09:00)
[2018-02-17] MEDS: LISINOPRIL 5 MG TABLET PO SCH (10:30)
[2018-02-17] MEDS: PANTOPRAZOLE SODIUM 40 MG TABLET.DR PO SCH (10:31)
[2018-02-17] MEDS: ASPIRIN 81 MG EC TAB PO SCH (10:31)
[2018-02-17] MEDS: CILOSTAZOL 100 MG TAB PO SCH (10:31)
[2018-02-17] MEDS: ATENOLOL 25 MG TABLET PO SCH ×2 (10:31→21:55)
[2018-02-17] MEDS: ATORVASTATIN CALCIUM 40 MG TABLET PO SCH (21:55)
[2018-02-18] VITALS (7 sets, daily range): BP systolic 130–172; BP diastolic 70–100
[2018-02-18] MEDS: VANCOMYCIN 750MG + NS 250 ML IV SCH ×6 (02:24→16:56)
[2018-02-18 05:51] LABS: HEMATOCRIT 31.4 % (42-54); MEAN CORPUSCULAR HEMOGLOBIN 33.5 pg (27.0-33.0); MEAN CORPUSCULAR HGB CONC 34.5 g/dL (32.0-36.0); MEAN CORPUSCULAR VOLUME 97.2 fL (79-99); PLATELET COUNT (AUTO) 115 K/uL (130-400); RED BLOOD CELL COUNT(AUTO) 3.23 MIL/uL (4.50-6.20); RED CELL DISTRIBUTION WIDTH 15.2 % (11.0-15.5); WHITE BLOOD COUNT (AUTO) 5.2 K/uL (4.8-10.8)
[2018-02-18 06:03] LABS: CREATININE 0.8 mg/dL (0.5-1.5); POTASSIUM 3.5 mmol/L (3.5-5.1)
[2018-02-18] MEDS: SODIUM CHLORIDE 0.9% 1000ML 1,000 ML IV SCH ×3 (06:07→23:25)
[2018-02-18] MEDS: ZOSYN 3.375GM+NS 50ML 50 ML IV SCH ×3 (06:07→22:46)
[2018-02-18] MEDS: INSULIN HUMULIN R 100 UNIT/ML 3ML SQ SCH ×4 (06:11→22:47)
[2018-02-18] MEDS: UBIDECARENONE 100 MG PO SCH (09:00)
[2018-02-18] MEDS: ASPIRIN 81 MG EC TAB PO SCH (09:02)
[2018-02-18] MEDS: PANTOPRAZOLE SODIUM 40 MG TABLET.DR PO SCH (09:02)
[2018-02-18] MEDS: ATENOLOL 25 MG TABLET PO SCH ×2 (09:02→20:03)
[2018-02-18] MEDS: LISINOPRIL 5 MG TABLET PO SCH (09:02)
[2018-02-18] MEDS: ENOXAPARIN SODIUM 30 MG/0.3 ML SQ SCH (09:03)
[2018-02-18] MEDS: CLOPIDOGREL BISULFATE 75 MG TAB PO SCH (09:03)
[2018-02-18] MEDS: CILOSTAZOL 100 MG TAB PO SCH (09:03)
[2018-02-18] MEDS: HYDRALAZINE HCL 20 MG/ML VIAL IV PRN (13:35)
[2018-02-18 15:24] LABS: HEMATOCRIT 34.6 % (42-54); MEAN CORPUSCULAR HEMOGLOBIN 33.5 pg (27.0-33.0); MEAN CORPUSCULAR HGB CONC 34.4 g/dL (32.0-36.0); MEAN CORPUSCULAR VOLUME 97.6 fL (79-99); NUCLEATED RED BLOOD CELLS 0.1 % (0.0-0.19); PLATELET COUNT (AUTO) 122 K/uL (130-400); RED BLOOD CELL COUNT(AUTO) 3.55 MIL/uL (4.50-6.20); RED CELL DISTRIBUTION WIDTH 15.5 % (11.0-15.5); WHITE BLOOD COUNT (AUTO) 5.2 K/uL (4.8-10.8)
[2018-02-18 15:41] LABS: POTASSIUM 4.2 mmol/L (3.5-5.1)
[2018-02-18 15:52] LABS: INR 0.99 (0.85-1.15); PARTIAL THROMBOPLASTIN TIME 24.1 SEC (26.3-35.5); PROTHROMBIN TIME 10.4 SEC (9.6-11.6)
[2018-02-18] MEDS: ATORVASTATIN CALCIUM 40 MG TABLET PO SCH (20:03)
[2018-02-19] VITALS (11 sets, daily range): BP systolic 120–180; BP diastolic 76–95
[2018-02-19] MEDS: SODIUM CHLORIDE 0.9% 1000ML 1,000 ML IV SCH ×4 (00:09→22:25)
[2018-02-19] MEDS: VANCOMYCIN 750MG + NS 250 ML IV SCH ×6 (01:55→17:39)
[2018-02-19] MEDS: INSULIN HUMULIN R 100 UNIT/ML 3ML SQ SCH ×4 (05:14→22:21)
[2018-02-19] MEDS: ZOSYN 3.375GM+NS 50ML 50 ML IV SCH ×3 (05:21→22:25)
[2018-02-19 05:50] LABS: HEMATOCRIT 31.7 % (42-54); MEAN CORPUSCULAR HEMOGLOBIN 33.3 pg (27.0-33.0); MEAN CORPUSCULAR HGB CONC 34.6 g/dL (32.0-36.0); MEAN CORPUSCULAR VOLUME 96.4 fL (79-99); PLATELET COUNT (AUTO) 113 K/uL (130-400); RED BLOOD CELL COUNT(AUTO) 3.29 MIL/uL (4.50-6.20); WHITE BLOOD COUNT (AUTO) 4.8 K/uL (4.8-10.8)
[2018-02-19 05:56] LABS: CREATININE 0.9 mg/dL (0.5-1.5); POTASSIUM 3.5 mmol/L (3.5-5.1)
[2018-02-19] MEDS: LISINOPRIL 5 MG TABLET PO SCH (09:00)
[2018-02-19] MEDS: ATENOLOL 25 MG TABLET PO SCH ×2 (09:00→22:26)
[2018-02-19] MEDS: ENOXAPARIN SODIUM 30 MG/0.3 ML SQ SCH (09:00)
[2018-02-19] MEDS: UBIDECARENONE 100 MG PO SCH (09:00)
[2018-02-19] MEDS ORDERED: LIDOCAINE HCL 2% 20ML ONE (09:15)
[2018-02-19] MEDS ORDERED: IODIXANOL 320 MG/ML 100 ML VIAL ONE (09:15)
[2018-02-19] MEDS ORDERED: NITROGLYCERIN 5 MG/ML 10 ML VIAL IV ONE (09:15)
[2018-02-19] MEDS ORDERED: MIDAZOLAM HCL 1 MG/ML 2ML VIAL ONE (10:01)
[2018-02-19] MEDS ORDERED: FENTANYL CITRATE PF 50 MCG/1 ML 2ML VIAL ONE (10:01)
[2018-02-19] MEDS ORDERED: HEPARIN SODIUM 1000UNIT/ML 10ML VIAL ONE (10:20)
[2018-02-19] MEDS ORDERED: SODIUM CHLORIDE 0.9% 1000ML 1,000 ML IV SCH (11:04)
[2018-02-19] MEDS ORDERED: CLOPIDOGREL BISULFATE 300 MG TAB ONE (11:14)
[2018-02-19 11:42] LABS: CHOLESTEROL 93 mg/dL (<200); HDL CHOLESTEROL 35 mg/dL (29-71); LDL DIRECT 53 mg/dL (0-99); TRIGLYCERIDES 43 mg/dL (30-200)
[2018-02-19] MEDS: CILOSTAZOL 100 MG TAB PO SCH (13:04)
[2018-02-19] MEDS: HYDRALAZINE HCL 20 MG/ML VIAL IV PRN (13:42)
[2018-02-19] MEDS: ATORVASTATIN CALCIUM 40 MG TABLET PO SCH (22:26)
[2018-02-20] VITALS (7 sets, daily range): BP systolic 98–155; BP diastolic 47–91
[2018-02-20] MEDS: VANCOMYCIN 750MG + NS 250 ML IV SCH ×6 (02:27→18:06)
[2018-02-20 05:03] LABS: BASOPHILS % (AUTO) 0.8 % (0.0-5.0); EOSINOPHILS % (AUTO) 1.9 % (0.0-8.0); HEMATOCRIT 28.1 % (42-54); LYMPHOCYTES % (AUTO) 30.2 % (21.0-51.0); MEAN CORPUSCULAR HEMOGLOBIN 33.2 pg (27.0-33.0); MEAN CORPUSCULAR HGB CONC 34.5 g/dL (32.0-36.0); MEAN CORPUSCULAR VOLUME 96.3 fL (79-99); MONOCYTES % (AUTO) 15.6 % (3.0-13.0); NEUTROPHILS % (AUTO) 51.5 % (40.0-77.0); PLATELET COUNT (AUTO) 107 K/uL (130-400); RED BLOOD CELL COUNT(AUTO) 2.92 MIL/uL (4.50-6.20); RED CELL DISTRIBUTION WIDTH 15.5 % (11.0-15.5); WHITE BLOOD COUNT (AUTO) 4.3 K/uL (4.8-10.8)
[2018-02-20 05:16] LABS: ALBUMIN 2.5 g/dL (3.5-5.0); BILIRUBIN,TOTAL 1.2 mg/dL (0.2-1.0); POTASSIUM 3.4 mmol/L (3.5-5.1); TOTAL PROTEIN, SERUM 5.9 g/dL (6.0-8.3)
[2018-02-20] MEDS: ZOSYN 3.375GM+NS 50ML 50 ML IV SCH ×3 (06:47→21:51)
[2018-02-20] MEDS: INSULIN HUMULIN R 100 UNIT/ML 3ML SQ SCH ×4 (06:47→21:47)
[2018-02-20] MEDS: SODIUM CHLORIDE 0.9% 1000ML 1,000 ML IV SCH ×3 (08:45→18:06)
[2018-02-20] MEDS: ENOXAPARIN SODIUM 30 MG/0.3 ML SQ SCH (09:00)
[2018-02-20] MEDS: UBIDECARENONE 100 MG PO SCH (09:00)
[2018-02-20] MEDS: ATENOLOL 25 MG TABLET PO SCH ×2 (10:38→21:52)
[2018-02-20] MEDS: LISINOPRIL 5 MG TABLET PO SCH (10:38)
[2018-02-20] MEDS: CLOPIDOGREL BISULFATE 75 MG TAB PO SCH (10:38)
[2018-02-20] MEDS: ASPIRIN 81MG TAB.CHEW PO SCH (10:38)
[2018-02-20] MEDS: CILOSTAZOL 100 MG TAB PO SCH (10:38)
[2018-02-20] MEDS: PANTOPRAZOLE SODIUM 40 MG TABLET.DR PO SCH (10:39)
[2018-02-20] MEDS: LEVOFLOXACIN 500 MG TABLET PO SCH (12:20)
[2018-02-20] MEDS: IPRATROPIUM/ALBUTEROL SULFATE 3 ML SOLUTION IH SCH ×3 (13:27→23:18)
[2018-02-20] MEDS: ATORVASTATIN CALCIUM 40 MG TABLET PO SCH (21:51)
[2018-02-21] VITALS (8 sets, daily range): BP systolic 104–166; BP diastolic 71–98
[2018-02-21] MEDS: VANCOMYCIN 750MG + NS 250 ML IV SCH ×6 (01:07→18:14)
[2018-02-21] MEDS: SODIUM CHLORIDE 0.9% 1000ML 1,000 ML IV SCH (03:17)
[2018-02-21] MEDS: HYDRALAZINE HCL 20 MG/ML VIAL IV PRN (04:09)
[2018-02-21] MEDS: ZOSYN 3.375GM+NS 50ML 50 ML IV SCH ×3 (06:08→23:35)
[2018-02-21 06:25] LABS: HEMATOCRIT 28.1 % (42-54); MEAN CORPUSCULAR HEMOGLOBIN 33.3 pg (27.0-33.0); MEAN CORPUSCULAR HGB CONC 34.4 g/dL (32.0-36.0); PLATELET COUNT (AUTO) 102 K/uL (130-400); RED BLOOD CELL COUNT(AUTO) 2.89 MIL/uL (4.50-6.20); RED CELL DISTRIBUTION WIDTH 15.3 % (11.0-15.5); WHITE BLOOD COUNT (AUTO) 4.5 K/uL (4.8-10.8)
[2018-02-21] MEDS: IPRATROPIUM/ALBUTEROL SULFATE 3 ML SOLUTION IH SCH ×4 (06:56→23:28)
[2018-02-21 07:15] LABS: ALBUMIN 2.8 g/dL (3.5-5.0); BILIRUBIN,TOTAL 0.9 mg/dL (0.2-1.0); CREATININE 0.8 mg/dL (0.5-1.5); POTASSIUM 3.2 mmol/L (3.5-5.1); TOTAL PROTEIN, SERUM 6.4 g/dL (6.0-8.3)
[2018-02-21] MEDS: INSULIN HUMULIN R 100 UNIT/ML 3ML SQ SCH ×4 (07:51→23:32)
[2018-02-21] MEDS ORDERED: FUROSEMIDE 10 MG/ML 4ML VIAL IV SCH (08:45)
[2018-02-21] MEDS: UBIDECARENONE 100 MG PO SCH (09:00)
[2018-02-21] MEDS: CILOSTAZOL 100 MG TAB PO SCH (09:00)
[2018-02-21] MEDS: LISINOPRIL 5 MG TABLET PO SCH (11:52)
[2018-02-21] MEDS: ASPIRIN 81MG TAB.CHEW PO SCH (11:52)
[2018-02-21] MEDS: CLOPIDOGREL BISULFATE 75 MG TAB PO SCH (11:53)
[2018-02-21] MEDS: PANTOPRAZOLE SODIUM 40 MG TABLET.DR PO SCH (11:53)
[2018-02-21] MEDS: ATENOLOL 25 MG TABLET PO SCH ×2 (11:53→23:45)
[2018-02-21] MEDS: LEVOFLOXACIN 500 MG TABLET PO SCH (11:55)
[2018-02-21] MEDS: ATORVASTATIN CALCIUM 40 MG TABLET PO SCH (23:45)
[2018-02-22] MEDS: VANCOMYCIN 750MG + NS 250 ML IV SCH ×4 (02:26→11:05)
[2018-02-22 03:38] VITALS: BP 124/80
[2018-02-22 05:01] LABS: BASOPHILS % (AUTO) 0.7 % (0.0-5.0); HEMATOCRIT 29.6 % (42-54); LYMPHOCYTES % (AUTO) 25.6 % (21.0-51.0); MEAN CORPUSCULAR HEMOGLOBIN 32.7 pg (27.0-33.0); MEAN CORPUSCULAR HGB CONC 34.2 g/dL (32.0-36.0); MEAN CORPUSCULAR VOLUME 95.6 fL (79-99); MONOCYTES % (AUTO) 16.5 % (3.0-13.0); NEUTROPHILS % (AUTO) 55.2 % (40.0-77.0); PLATELET COUNT (AUTO) 95 K/uL (130-400); RED CELL DISTRIBUTION WIDTH 15.4 % (11.0-15.5); WHITE BLOOD COUNT (AUTO) 4.6 K/uL (4.8-10.8)
[2018-02-22 05:13] LABS: POTASSIUM 3.2 mmol/L (3.5-5.1)
[2018-02-22] MEDS: IPRATROPIUM/ALBUTEROL SULFATE 3 ML SOLUTION IH SCH ×4 (06:39→23:34)
[2018-02-22] MEDS: INSULIN HUMULIN R 100 UNIT/ML 3ML SQ SCH ×4 (06:40→22:30)
[2018-02-22] MEDS: ZOSYN 3.375GM+NS 50ML 50 ML IV SCH ×3 (06:49→22:37)
[2018-02-22 08:00] VITALS: BP 140/89
[2018-02-22] MEDS ORDERED: LIDOCAINE HCL-MPF 1% 2ML VIAL IVP PRN (08:00)
[2018-02-22] MEDS ORDERED: POTASSIUM CHLORIDE 10MEQ/100ML 100 ML IV PRN (08:00)
[2018-02-22] MEDS ORDERED: POTASSIUM CHLORIDE 10% ELIXIR 20 MEQ/15 ML UDCUP PO PRN (08:00)
[2018-02-22] MEDS: CILOSTAZOL 100 MG TAB PO SCH (09:00)
[2018-02-22] MEDS: UBIDECARENONE 100 MG PO SCH (09:00)
[2018-02-22] MEDS: LEVOFLOXACIN 500 MG TABLET PO SCH (11:01)
[2018-02-22] MEDS: CLOPIDOGREL BISULFATE 75 MG TAB PO SCH (11:01)
[2018-02-22] MEDS: ATENOLOL 25 MG TABLET PO SCH ×2 (11:02→22:36)
[2018-02-22] MEDS: LISINOPRIL 5 MG TABLET PO SCH (11:04)
[2018-02-22] MEDS: PANTOPRAZOLE SODIUM 40 MG TABLET.DR PO SCH (11:04)
[2018-02-22] MEDS: ASPIRIN 81MG TAB.CHEW PO SCH (11:04)
[2018-02-22] MEDS: POTASSIUM CHLORIDE 20 MEQ ERTAB PO PRN (11:04)
[2018-02-22 12:00] VITALS: BP 138/82
[2018-02-22 16:00] VITALS: BP 161/93
[2018-02-22 19:00] VITALS: BP 152/87
[2018-02-22] MEDS: ATORVASTATIN CALCIUM 40 MG TABLET PO SCH (22:36)
[2018-02-22] MEDS: VANCOMYCIN 1GM+NS 250ML 250 ML IV SCH (22:36)
[2018-02-22 23:00] VITALS: BP 141/82
[2018-02-23 03:00] VITALS: BP 135/77
[2018-02-23] MEDS: VANCOMYCIN 1GM+NS 250ML 250 ML IV SCH (05:00)
[2018-02-23 05:27] LABS: CREATININE 0.8 mg/dL (0.5-1.5); POTASSIUM 3.2 mmol/L (3.5-5.1)
[2018-02-23] MEDS: ZOSYN 3.375GM+NS 50ML 50 ML IV SCH ×3 (06:00→21:41)
[2018-02-23 06:05] LABS: BASOPHILS % (AUTO) 0.6 % (0.0-5.0); EOSINOPHILS % (AUTO) 2.8 % (0.0-8.0); HEMATOCRIT 31.4 % (42-54); LYMPHOCYTES % (AUTO) 29.4 % (21.0-51.0); MEAN CORPUSCULAR HEMOGLOBIN 32.3 pg (27.0-33.0); MEAN CORPUSCULAR HGB CONC 33.1 g/dL (32.0-36.0); MEAN CORPUSCULAR VOLUME 97.7 fL (79-99); MONOCYTES % (AUTO) 13.8 % (3.0-13.0); NEUTROPHILS % (AUTO) 53.4 % (40.0-77.0); PLATELET COUNT (AUTO) 101 K/uL (130-400); RED BLOOD CELL COUNT(AUTO) 3.22 MIL/uL (4.50-6.20); RED CELL DISTRIBUTION WIDTH 15.8 % (11.0-15.5); WHITE BLOOD COUNT (AUTO) 4.9 K/uL (4.8-10.8)
[2018-02-23] MEDS: IPRATROPIUM/ALBUTEROL SULFATE 3 ML SOLUTION IH SCH ×3 (06:40→18:23)
[2018-02-23] MEDS: INSULIN HUMULIN R 100 UNIT/ML 3ML SQ SCH ×4 (07:30→21:40)
[2018-02-23 08:00] VITALS: BP 156/91
[2018-02-23] MEDS: UBIDECARENONE 100 MG PO SCH (09:00)
[2018-02-23] MEDS: LISINOPRIL 5 MG TABLET PO SCH (09:51)
[2018-02-23] MEDS: ATENOLOL 25 MG TABLET PO SCH ×2 (09:52→20:27)
[2018-02-23] MEDS: CLOPIDOGREL BISULFATE 75 MG TAB PO SCH (09:54)
[2018-02-23] MEDS: POTASSIUM CHLORIDE 20 MEQ ERTAB PO PRN ×3 (09:54→17:02)
[2018-02-23] MEDS: PANTOPRAZOLE SODIUM 40 MG TABLET.DR PO SCH (09:55)
[2018-02-23] MEDS: CILOSTAZOL 100 MG TAB PO SCH (09:55)
[2018-02-23] MEDS: ASPIRIN 81MG TAB.CHEW PO SCH (09:55)
[2018-02-23 11:00] VITALS: BP 157/91
[2018-02-23] MEDS: LEVOFLOXACIN 500 MG TABLET PO SCH (12:09)
[2018-02-23 16:00] VITALS: BP 148/83
[2018-02-23 20:00] VITALS: BP 128/80
[2018-02-23] MEDS: ATORVASTATIN CALCIUM 40 MG TABLET PO SCH (20:27)
[2018-02-24] VITALS: BP 128/80
[2018-02-24] MEDS: IPRATROPIUM/ALBUTEROL SULFATE 3 ML SOLUTION IH SCH ×5 (00:25→23:53)
[2018-02-24 04:00] VITALS: BP 123/71
[2018-02-24 04:56] LABS: BASOPHILS % (AUTO) 0.2 % (0.0-5.0); EOSINOPHILS % (AUTO) 2.6 % (0.0-8.0); HEMATOCRIT 28.3 % (42-54); LYMPHOCYTES % (AUTO) 29.2 % (21.0-51.0); MEAN CORPUSCULAR HEMOGLOBIN 32.4 pg (27.0-33.0); MEAN CORPUSCULAR HGB CONC 33.4 g/dL (32.0-36.0); MONOCYTES % (AUTO) 13.8 % (3.0-13.0); NEUTROPHILS % (AUTO) 54.2 % (40.0-77.0); NUCLEATED RED BLOOD CELLS 0.1 % (0.0-0.19); PLATELET COUNT (AUTO) 92 K/uL (130-400); RED BLOOD CELL COUNT(AUTO) 2.92 MIL/uL (4.50-6.20); RED CELL DISTRIBUTION WIDTH 15.4 % (11.0-15.5); WHITE BLOOD COUNT (AUTO) 4.4 K/uL (4.8-10.8)
[2018-02-24 05:01] LABS: CREATININE 0.9 mg/dL (0.5-1.5); POTASSIUM 3.4 mmol/L (3.5-5.1)
[2018-02-24] MEDS: ZOSYN 3.375GM+NS 50ML 50 ML IV SCH ×3 (05:27→21:03)
[2018-02-24] MEDS: POTASSIUM CHLORIDE 20 MEQ ERTAB PO PRN ×2 (06:01→11:55)
[2018-02-24] MEDS: INSULIN HUMULIN R 100 UNIT/ML 3ML SQ SCH ×4 (06:40→21:06)
[2018-02-24 07:30] VITALS: BP 133/86
[2018-02-24] MEDS: UBIDECARENONE 100 MG PO SCH (09:00)
[2018-02-24] MEDS: PANTOPRAZOLE SODIUM 40 MG TABLET.DR PO SCH (10:16)
[2018-02-24] MEDS: LISINOPRIL 5 MG TABLET PO SCH (10:16)
[2018-02-24] MEDS: CLOPIDOGREL BISULFATE 75 MG TAB PO SCH (10:16)
[2018-02-24] MEDS: ATENOLOL 25 MG TABLET PO SCH ×2 (10:16→20:05)
[2018-02-24] MEDS: ASPIRIN 81MG TAB.CHEW PO SCH (10:16)
[2018-02-24] MEDS: CILOSTAZOL 100 MG TAB PO SCH (10:17)
[2018-02-24 11:00] VITALS: BP 139/85
[2018-02-24] MEDS: LEVOFLOXACIN 500 MG TABLET PO SCH (11:54)
[2018-02-24 16:00] VITALS: BP 117/73
[2018-02-24] MEDS ORDERED: FUROSEMIDE 20 MG TABLET ONE (18:03)
[2018-02-24 20:00] VITALS: BP 146/85
[2018-02-24] MEDS: ATORVASTATIN CALCIUM 40 MG TABLET PO SCH (20:04)
[2018-02-25] VITALS: BP 117/74
[2018-02-25 04:00] VITALS: BP 115/72
[2018-02-25] MEDS: ZOSYN 3.375GM+NS 50ML 50 ML IV SCH ×3 (04:57→22:39)
[2018-02-25 06:09] LABS: HEMATOCRIT 28.7 % (42-54); MEAN CORPUSCULAR HEMOGLOBIN 33.4 pg (27.0-33.0); MEAN CORPUSCULAR HGB CONC 34.9 g/dL (32.0-36.0); MEAN CORPUSCULAR VOLUME 95.8 fL (79-99); PLATELET COUNT (AUTO) 107 K/uL (130-400); RED BLOOD CELL COUNT(AUTO) 2.99 MIL/uL (4.50-6.20); RED CELL DISTRIBUTION WIDTH 15.4 % (11.0-15.5); WHITE BLOOD COUNT (AUTO) 4.7 K/uL (4.8-10.8)
[2018-02-25] MEDS: INSULIN HUMULIN R 100 UNIT/ML 3ML SQ SCH ×4 (06:18→20:53)
[2018-02-25 06:20] LABS: CREATININE 0.9 mg/dL (0.5-1.5); POTASSIUM 3.4 mmol/L (3.5-5.1)
[2018-02-25] MEDS: IPRATROPIUM/ALBUTEROL SULFATE 3 ML SOLUTION IH SCH ×4 (06:30→23:34)
[2018-02-25] MEDS: POTASSIUM CHLORIDE 20 MEQ ERTAB PO PRN ×2 (06:37→11:51)
[2018-02-25 06:47] LABS: EOSINOPHILS % (MANUAL) 5 % (1-6); LYMPHOCYTES % (MANUAL) 25 % (22-44); MAN.DIFF COMMENT-IMPRESSION MANUAL DIFFERENTIAL; MONOCYTES % (MANUAL) 7 % (2-9); PLATELET MORPHOLOGY COMMENT SLIGHTLY DECREASED; SEGMENTED NEUTROPHILS % 63 % (40-70)
[2018-02-25 07:30] VITALS: BP 157/92
[2018-02-25] MEDS: UBIDECARENONE 100 MG PO SCH (09:00)
[2018-02-25] MEDS: LISINOPRIL 5 MG TABLET PO SCH (10:16)
[2018-02-25] MEDS: PANTOPRAZOLE SODIUM 40 MG TABLET.DR PO SCH (10:16)
[2018-02-25] MEDS: CLOPIDOGREL BISULFATE 75 MG TAB PO SCH (10:16)
[2018-02-25] MEDS: ASPIRIN 81MG TAB.CHEW PO SCH (10:16)
[2018-02-25] MEDS: ATENOLOL 25 MG TABLET PO SCH ×2 (10:17→19:52)
[2018-02-25] MEDS: CILOSTAZOL 100 MG TAB PO SCH (10:17)
[2018-02-25 11:00] VITALS: BP 135/80
[2018-02-25] MEDS: LEVOFLOXACIN 500 MG TABLET PO SCH (11:50)
[2018-02-25 16:00] VITALS: BP 132/86
[2018-02-25] MEDS: FUROSEMIDE 20 MG TABLET PO SCH (17:15)
[2018-02-25] MEDS: ATORVASTATIN CALCIUM 40 MG TABLET PO SCH (19:52)
[2018-02-25 20:00] VITALS: BP 126/76
[2018-02-26] VITALS (7 sets, daily range): BP systolic 122–158; BP diastolic 70–86
[2018-02-26] MEDS: ZOSYN 3.375GM+NS 50ML 50 ML IV SCH ×3 (05:16→21:46)
[2018-02-26 06:28] LABS: HEMATOCRIT 28.7 % (42-54); MEAN CORPUSCULAR HEMOGLOBIN 33.2 pg (27.0-33.0); MEAN CORPUSCULAR HGB CONC 34.6 g/dL (32.0-36.0); MEAN CORPUSCULAR VOLUME 95.9 fL (79-99); NUCLEATED RED BLOOD CELLS 0.1 % (0.0-0.19); PLATELET COUNT (AUTO) 108 K/uL (130-400); RED CELL DISTRIBUTION WIDTH 15.5 % (11.0-15.5); WHITE BLOOD COUNT (AUTO) 4.3 K/uL (4.8-10.8)
[2018-02-26] MEDS: INSULIN HUMULIN R 100 UNIT/ML 3ML SQ SCH ×4 (06:34→20:42)
[2018-02-26] MEDS: IPRATROPIUM/ALBUTEROL SULFATE 3 ML SOLUTION IH SCH ×4 (06:34→23:50)
[2018-02-26 06:40] LABS: CREATININE 0.9 mg/dL (0.5-1.5); MAGNESIUM 1.8 mg/dL (1.80-2.40); POTASSIUM 3.6 mmol/L (3.5-5.1)
[2018-02-26] MEDS: UBIDECARENONE 100 MG PO SCH (09:00)
[2018-02-26 09:03] LABS: BASOPHILS % (MANUAL) 1 % (0-2); EOSINOPHILS % (MANUAL) 5 % (1-6); LYMPHOCYTES % (MANUAL) 37 % (22-44); MAN.DIFF COMMENT-IMPRESSION MANUAL DIFFERENTIAL; MONOCYTES % (MANUAL) 9 % (2-9); PLATELET MORPHOLOGY COMMENT SLIGHTLY DECREASED; SEGMENTED NEUTROPHILS % 48 % (40-70)
[2018-02-26] MEDS ORDERED: MAGNESIUM 2GM PREMIX 50ML 50 ML IV ONE (09:50)
[2018-02-26] MEDS: ASPIRIN 81MG TAB.CHEW PO SCH (09:58)
[2018-02-26] MEDS: CLOPIDOGREL BISULFATE 75 MG TAB PO SCH (09:59)
[2018-02-26] MEDS: LISINOPRIL 5 MG TABLET PO SCH (09:59)
[2018-02-26] MEDS: PANTOPRAZOLE SODIUM 40 MG TABLET.DR PO SCH (10:00)
[2018-02-26] MEDS: ATENOLOL 25 MG TABLET PO SCH ×2 (10:01→20:37)
[2018-02-26] MEDS: CILOSTAZOL 100 MG TAB PO SCH (10:01)
[2018-02-26] MEDS: FUROSEMIDE 20 MG TABLET PO SCH ×2 (10:02→17:22)
[2018-02-26] MEDS: POTASSIUM CHLORIDE 20 MEQ ERTAB PO PRN ×2 (10:03→20:37)
[2018-02-26] MEDS: LEVOFLOXACIN 500 MG TABLET PO SCH (12:18)
[2018-02-26] MEDS: ATORVASTATIN CALCIUM 40 MG TABLET PO SCH (20:36)
[2018-02-27 03:55] VITALS: BP 139/78
[2018-02-27] MEDS: ZOSYN 3.375GM+NS 50ML 50 ML IV SCH ×2 (04:46→13:40)
[2018-02-27] MEDS: INSULIN HUMULIN R 100 UNIT/ML 3ML SQ SCH ×4 (05:55→20:24)
[2018-02-27] MEDS: POTASSIUM CHLORIDE 20 MEQ ERTAB PO PRN ×2 (06:02→09:12)
[2018-02-27] MEDS: IPRATROPIUM/ALBUTEROL SULFATE 3 ML SOLUTION IH SCH ×4 (06:28→23:08)
[2018-02-27 08:22] VITALS: BP 129/75
[2018-02-27] MEDS: UBIDECARENONE 100 MG PO SCH (09:00)
[2018-02-27] MEDS: ATENOLOL 25 MG TABLET PO SCH ×2 (09:00→20:17)
[2018-02-27] MEDS: FUROSEMIDE 20 MG TABLET PO SCH ×2 (09:05→18:10)
[2018-02-27] MEDS: PANTOPRAZOLE SODIUM 40 MG TABLET.DR PO SCH (09:05)
[2018-02-27] MEDS: CLOPIDOGREL BISULFATE 75 MG TAB PO SCH (09:05)
[2018-02-27] MEDS: LISINOPRIL 5 MG TABLET PO SCH (09:06)
[2018-02-27] MEDS: ASPIRIN 81MG TAB.CHEW PO SCH (09:06)
[2018-02-27] MEDS: CILOSTAZOL 100 MG TAB PO SCH (09:06)
[2018-02-27] MEDS: LEVOFLOXACIN 500 MG TABLET PO SCH (09:12)
[2018-02-27 13:32] VITALS: BP 131/74
[2018-02-27 17:32] VITALS: BP 135/82
[2018-02-27 20:11] VITALS: BP 148/71
[2018-02-27] MEDS: ATORVASTATIN CALCIUM 40 MG TABLET PO SCH (20:17)
[2018-02-27 23:55] VITALS: BP 134/81
[2018-02-28 03:49] VITALS: BP 121/66
[2018-02-28] MEDS: INSULIN HUMULIN R 100 UNIT/ML 3ML SQ SCH ×4 (06:09→21:49)
[2018-02-28] MEDS: IPRATROPIUM/ALBUTEROL SULFATE 3 ML SOLUTION IH SCH ×4 (06:40→23:14)
[2018-02-28] MEDS: ZOSYN 3.375GM+NS 50ML 50 ML IV SCH ×3 (06:44→21:32)
[2018-02-28 07:30] VITALS: BP 154/88
[2018-02-28] MEDS: UBIDECARENONE 100 MG PO SCH (09:00)
[2018-02-28] MEDS: PANTOPRAZOLE SODIUM 40 MG TABLET.DR PO SCH (09:25)
[2018-02-28] MEDS: FUROSEMIDE 20 MG TABLET PO SCH ×2 (09:25→17:07)
[2018-02-28] MEDS: ASPIRIN 81MG TAB.CHEW PO SCH (09:25)
[2018-02-28] MEDS: LISINOPRIL 5 MG TABLET PO SCH (09:25)
[2018-02-28] MEDS: ATENOLOL 25 MG TABLET PO SCH ×2 (09:26→21:30)
[2018-02-28] MEDS: CLOPIDOGREL BISULFATE 75 MG TAB PO SCH (09:26)
[2018-02-28] MEDS: CILOSTAZOL 100 MG TAB PO SCH (09:26)
[2018-02-28 11:00] VITALS: BP 130/73
[2018-02-28] MEDS: LEVOFLOXACIN 500 MG TABLET PO SCH (11:38)
[2018-02-28 16:00] VITALS: BP 118/78
[2018-02-28 20:00] VITALS: BP 110/72
[2018-02-28] MEDS: ATORVASTATIN CALCIUM 40 MG TABLET PO SCH (21:30)
[2018-03-01] VITALS: BP 122/73
[2018-03-01 04:00] VITALS: BP 112/68
[2018-03-01] MEDS: ZOSYN 3.375GM+NS 50ML 50 ML IV SCH ×3 (05:16→22:14)
[2018-03-01] MEDS: INSULIN HUMULIN R 100 UNIT/ML 3ML SQ SCH ×4 (06:36→21:00)
[2018-03-01] MEDS: IPRATROPIUM/ALBUTEROL SULFATE 3 ML SOLUTION IH SCH ×4 (06:55→23:25)
[2018-03-01 08:00] VITALS: BP 124/72
[2018-03-01] MEDS: UBIDECARENONE 100 MG PO SCH (09:00)
[2018-03-01] MEDS: CLOPIDOGREL BISULFATE 75 MG TAB PO SCH (09:49)
[2018-03-01] MEDS: CILOSTAZOL 100 MG TAB PO SCH (09:49)
[2018-03-01] MEDS: ASPIRIN 81MG TAB.CHEW PO SCH (09:51)
[2018-03-01] MEDS: LISINOPRIL 5 MG TABLET PO SCH (09:51)
[2018-03-01] MEDS: ATENOLOL 25 MG TABLET PO SCH ×2 (09:51→22:13)
[2018-03-01] MEDS: PANTOPRAZOLE SODIUM 40 MG TABLET.DR PO SCH (09:51)
[2018-03-01] MEDS: FUROSEMIDE 20 MG TABLET PO SCH ×2 (09:52→18:09)
[2018-03-01 12:00] VITALS: BP 111/72
[2018-03-01] MEDS: LEVOFLOXACIN 500 MG TABLET PO SCH (12:09)
[2018-03-01] MEDS ORDERED: PHARMACY COMMUNICATION MISC SCH (14:00)
[2018-03-01] MEDS: BUPIVACAINE/PF 0.25% 30ML VIAL IJ SCH (14:15)
[2018-03-01 16:00] VITALS: BP 132/75
[2018-03-01 20:00] VITALS: BP 109/66
[2018-03-01] MEDS: INSULIN DEGLUDEC SQ SCH (21:00)
[2018-03-01] MEDS: METFORMIN HCL 500 MG TAB.SR.24H PO SCH (21:00)
[2018-03-01] MEDS: ATORVASTATIN CALCIUM 40 MG TABLET PO SCH (22:12)
[2018-03-02] VITALS: BP 124/73
[2018-03-02 04:00] VITALS: BP 98/64
[2018-03-02] MEDS: ZOSYN 3.375GM+NS 50ML 50 ML IV SCH ×3 (05:36→23:18)
[2018-03-02] MEDS: IPRATROPIUM/ALBUTEROL SULFATE 3 ML SOLUTION IH SCH ×4 (06:27→23:41)
[2018-03-02] MEDS: INSULIN HUMULIN R 100 UNIT/ML 3ML SQ SCH ×4 (06:56→21:01)
[2018-03-02 08:00] VITALS: BP 119/78
[2018-03-02] MEDS: UBIDECARENONE 100 MG PO SCH (08:55)
[2018-03-02] MEDS: METFORMIN HCL 500 MG TAB.SR.24H PO SCH ×3 (09:00→20:57)
[2018-03-02] MEDS: ASPIRIN 81MG TAB.CHEW PO SCH (11:44)
[2018-03-02] MEDS: FUROSEMIDE 20 MG TABLET PO SCH ×2 (11:45→16:59)
[2018-03-02] MEDS: PANTOPRAZOLE SODIUM 40 MG TABLET.DR PO SCH (11:45)
[2018-03-02] MEDS: LISINOPRIL 5 MG TABLET PO SCH (11:46)
[2018-03-02] MEDS: CLOPIDOGREL BISULFATE 75 MG TAB PO SCH (11:46)
[2018-03-02] MEDS: ATENOLOL 25 MG TABLET PO SCH ×2 (11:47→20:57)
[2018-03-02] MEDS: LEVOFLOXACIN 500 MG TABLET PO SCH (11:48)
[2018-03-02] MEDS: POTASSIUM CHLORIDE 20 MEQ ERTAB PO PRN (11:48)
[2018-03-02] MEDS: CILOSTAZOL 100 MG TAB PO SCH (11:49)
[2018-03-02] MEDS: BUPIVACAINE/PF 0.25% 30ML VIAL IJ SCH ×2 (12:10→14:15)
[2018-03-02 16:00] VITALS: BP 107/66
[2018-03-02 19:20] VITALS: BP 107/65
[2018-03-02] MEDS: ATORVASTATIN CALCIUM 40 MG TABLET PO SCH (20:56)
[2018-03-02] MEDS: INSULIN DEGLUDEC SQ SCH (21:00)
[2018-03-02 23:45] VITALS: BP 105/62
[2018-03-03 04:00] VITALS: BP 100/66
[2018-03-03] MEDS: ZOSYN 3.375GM+NS 50ML 50 ML IV SCH ×3 (06:02→21:37)
[2018-03-03] MEDS: IPRATROPIUM/ALBUTEROL SULFATE 3 ML SOLUTION IH SCH ×3 (06:44→18:55)
[2018-03-03] MEDS: INSULIN HUMULIN R 100 UNIT/ML 3ML SQ SCH ×4 (06:44→21:44)
[2018-03-03 08:00] VITALS: BP 138/93
[2018-03-03] MEDS: UBIDECARENONE 100 MG PO SCH (08:57)
[2018-03-03] MEDS: ASPIRIN 81MG TAB.CHEW PO SCH (09:23)
[2018-03-03] MEDS: PANTOPRAZOLE SODIUM 40 MG TABLET.DR PO SCH (09:23)
[2018-03-03] MEDS: METFORMIN HCL 500 MG TAB.SR.24H PO SCH ×2 (09:23→21:37)
[2018-03-03] MEDS: FUROSEMIDE 20 MG TABLET PO SCH ×2 (09:23→15:59)
[2018-03-03] MEDS: CLOPIDOGREL BISULFATE 75 MG TAB PO SCH (09:23)
[2018-03-03] MEDS: ATENOLOL 25 MG TABLET PO SCH ×2 (09:24→21:38)
[2018-03-03] MEDS: LISINOPRIL 5 MG TABLET PO SCH (09:24)
[2018-03-03 12:00] VITALS: BP 118/74
[2018-03-03] MEDS: LEVOFLOXACIN 500 MG TABLET PO SCH (12:38)
[2018-03-03] MEDS: BUPIVACAINE/PF 0.25% 30ML VIAL IJ SCH (14:15)
[2018-03-03 16:00] VITALS: BP 128/83
[2018-03-03 20:00] VITALS: BP 104/64
[2018-03-03] MEDS: INSULIN DEGLUDEC SQ SCH (21:00)
[2018-03-03] MEDS: ATORVASTATIN CALCIUM 40 MG TABLET PO SCH (21:38)
[2018-03-04] VITALS (7 sets, daily range): BP systolic 90–146; BP diastolic 50–90
[2018-03-04] MEDS: IPRATROPIUM/ALBUTEROL SULFATE 3 ML SOLUTION IH SCH ×4 (00:24→18:33)
[2018-03-04] MEDS: INSULIN HUMULIN R 100 UNIT/ML 3ML SQ SCH ×4 (05:48→22:08)
[2018-03-04] MEDS: ZOSYN 3.375GM+NS 50ML 50 ML IV SCH ×3 (06:15→21:58)
[2018-03-04] MEDS: UBIDECARENONE 100 MG PO SCH (08:35)
[2018-03-04] MEDS: PANTOPRAZOLE SODIUM 40 MG TABLET.DR PO SCH (10:16)
[2018-03-04] MEDS: CLOPIDOGREL BISULFATE 75 MG TAB PO SCH (10:16)
[2018-03-04] MEDS: ATENOLOL 25 MG TABLET PO SCH ×2 (10:16→21:59)
[2018-03-04] MEDS: LISINOPRIL 5 MG TABLET PO SCH (10:17)
[2018-03-04] MEDS: FUROSEMIDE 20 MG TABLET PO SCH ×2 (10:17→19:14)
[2018-03-04] MEDS: METFORMIN HCL 500 MG TAB.SR.24H PO SCH ×2 (10:17→21:58)
[2018-03-04] MEDS: ASPIRIN 81MG TAB.CHEW PO SCH (10:17)
[2018-03-04] MEDS: LEVOFLOXACIN 500 MG TABLET PO SCH (12:11)
[2018-03-04] MEDS: INSULIN DEGLUDEC SQ SCH (21:00)
[2018-03-04] MEDS: ATORVASTATIN CALCIUM 40 MG TABLET PO SCH (21:58)
[2018-03-05] MEDS: IPRATROPIUM/ALBUTEROL SULFATE 3 ML SOLUTION IH SCH ×5 (00:11→23:08)
[2018-03-05 03:25] VITALS: BP 139/90
[2018-03-05] MEDS: ZOSYN 3.375GM+NS 50ML 50 ML IV SCH (05:29)
[2018-03-05] MEDS: INSULIN HUMULIN R 100 UNIT/ML 3ML SQ SCH ×4 (05:49→21:00)
[2018-03-05 08:00] VITALS: BP 115/71
[2018-03-05] MEDS: UBIDECARENONE 100 MG PO SCH (09:00)
[2018-03-05] MEDS: LISINOPRIL 5 MG TABLET PO SCH (10:25)
[2018-03-05] MEDS: PANTOPRAZOLE SODIUM 40 MG TABLET.DR PO SCH (10:26)
[2018-03-05] MEDS: CLOPIDOGREL BISULFATE 75 MG TAB PO SCH (10:26)
[2018-03-05] MEDS: ATENOLOL 25 MG TABLET PO SCH ×2 (10:26→21:51)
[2018-03-05] MEDS: FUROSEMIDE 20 MG TABLET PO SCH (10:26)
[2018-03-05] MEDS: METFORMIN HCL 500 MG TAB.SR.24H PO SCH ×2 (10:26→21:50)
[2018-03-05] MEDS: ASPIRIN 81MG TAB.CHEW PO SCH (10:27)
[2018-03-05 12:00] VITALS: BP 108/73
[2018-03-05] MEDS: LEVOFLOXACIN 500 MG TABLET PO SCH (12:04)
[2018-03-05] MEDS: CEFAZOLIN SODIUM 1 GM VIAL IVP SCH ×2 (13:37→21:52)
[2018-03-05 16:00] VITALS: BP 139/83
[2018-03-05 20:00] VITALS: BP 102/68
[2018-03-05] MEDS: INSULIN DEGLUDEC SQ SCH (21:00)
[2018-03-05] MEDS: ATORVASTATIN CALCIUM 40 MG TABLET PO SCH (21:50)
[2018-03-06] VITALS: BP 112/64
[2018-03-06 04:00] VITALS: BP 118/76
[2018-03-06 05:03] LABS: HEMATOCRIT 33.2 % (42-54); MEAN CORPUSCULAR HEMOGLOBIN 32.8 pg (27.0-33.0); MEAN CORPUSCULAR HGB CONC 33.7 g/dL (32.0-36.0); MEAN CORPUSCULAR VOLUME 97.3 fL (79-99); NUCLEATED RED BLOOD CELLS 0.1 % (0.0-0.19); PLATELET COUNT (AUTO) 115 K/uL (130-400); RED BLOOD CELL COUNT(AUTO) 3.42 MIL/uL (4.50-6.20); RED CELL DISTRIBUTION WIDTH 15.8 % (11.0-15.5); WHITE BLOOD COUNT (AUTO) 4.6 K/uL (4.8-10.8)
[2018-03-06] MEDS: CEFAZOLIN SODIUM 1 GM VIAL IVP SCH ×3 (05:07→20:43)
[2018-03-06 05:09] LABS: CREATININE 1.1 mg/dL (0.5-1.5); POTASSIUM 3.8 mmol/L (3.5-5.1)
[2018-03-06] MEDS: IPRATROPIUM/ALBUTEROL SULFATE 3 ML SOLUTION IH SCH ×4 (06:45→23:10)
[2018-03-06 08:00] VITALS: BP 130/68
[2018-03-06] MEDS: UBIDECARENONE 100 MG PO SCH (09:00)
[2018-03-06] MEDS: ASPIRIN 81MG TAB.CHEW PO SCH (10:13)
[2018-03-06] MEDS: CLOPIDOGREL BISULFATE 75 MG TAB PO SCH (10:14)
[2018-03-06] MEDS: METFORMIN HCL 500 MG TAB.SR.24H PO SCH ×2 (10:14→20:43)
[2018-03-06] MEDS: PANTOPRAZOLE SODIUM 40 MG TABLET.DR PO SCH (10:14)
[2018-03-06] MEDS: FUROSEMIDE 20 MG TABLET PO SCH ×3 (10:14→20:36)
[2018-03-06] MEDS: ATENOLOL 25 MG TABLET PO SCH ×2 (10:15→20:43)
[2018-03-06] MEDS: LISINOPRIL 5 MG TABLET PO SCH (10:19)
[2018-03-06] MEDS: INSULIN HUMULIN R 100 UNIT/ML 3ML SQ SCH ×3 (11:30→20:57)
[2018-03-06 12:00] VITALS: BP 126/85
[2018-03-06 16:00] VITALS: BP 100/71
[2018-03-06 20:00] VITALS: BP 109/67
[2018-03-06] MEDS: ATORVASTATIN CALCIUM 40 MG TABLET PO SCH (20:42)
[2018-03-06] MEDS: INSULIN DEGLUDEC SQ SCH (20:57)
[2018-03-07] VITALS: BP 123/65
[2018-03-07 03:58] VITALS: BP 132/62
[2018-03-07 05:13] LABS: BASOPHILS % (AUTO) 0.6 % (0.0-5.0); EOSINOPHILS % (AUTO) 1.8 % (0.0-8.0); LYMPHOCYTES % (AUTO) 26.5 % (21.0-51.0); MEAN CORPUSCULAR HEMOGLOBIN 33.5 pg (27.0-33.0); MEAN CORPUSCULAR HGB CONC 34.8 g/dL (32.0-36.0); MEAN CORPUSCULAR VOLUME 96.2 fL (79-99); MONOCYTES % (AUTO) 13.1 % (3.0-13.0); PLATELET COUNT (AUTO) 123 K/uL (130-400); RED BLOOD CELL COUNT(AUTO) 3.33 MIL/uL (4.50-6.20); RED CELL DISTRIBUTION WIDTH 15.5 % (11.0-15.5); WHITE BLOOD COUNT (AUTO) 5.2 K/uL (4.8-10.8)
[2018-03-07] MEDS: CEFAZOLIN SODIUM 1 GM VIAL IVP SCH ×3 (05:15→20:36)
[2018-03-07 05:23] LABS: POTASSIUM 3.7 mmol/L (3.5-5.1)
[2018-03-07] MEDS: INSULIN HUMULIN R 100 UNIT/ML 3ML SQ SCH ×4 (05:34→20:37)
[2018-03-07] MEDS: IPRATROPIUM/ALBUTEROL SULFATE 3 ML SOLUTION IH SCH (06:36)
[2018-03-07 08:33] VITALS: BP 111/68
[2018-03-07] MEDS: FUROSEMIDE 20 MG TABLET PO SCH ×2 (08:55→19:30)
[2018-03-07] MEDS: METFORMIN HCL 500 MG TAB.SR.24H PO SCH ×2 (08:55→20:37)
[2018-03-07] MEDS: ASPIRIN 81MG TAB.CHEW PO SCH (08:56)
[2018-03-07] MEDS: CLOPIDOGREL BISULFATE 75 MG TAB PO SCH (08:56)
[2018-03-07] MEDS: LISINOPRIL 5 MG TABLET PO SCH (08:56)
[2018-03-07] MEDS: PANTOPRAZOLE SODIUM 40 MG TABLET.DR PO SCH (08:56)
[2018-03-07] MEDS: ATENOLOL 25 MG TABLET PO SCH ×2 (08:56→20:37)
[2018-03-07] MEDS: UBIDECARENONE 100 MG PO SCH (09:00)
[2018-03-07] MEDS ORDERED: IPRATROPIUM/ALBUTEROL SULFATE 3 ML SOLUTION IH PRN (10:30)
[2018-03-07 12:00] VITALS: BP 125/91
[2018-03-07 16:00] VITALS: BP 148/86
[2018-03-07] MEDS ORDERED: PHARMACY COMMUNICATION MISC SCH (16:45)
[2018-03-07 20:00] VITALS: BP 135/90
[2018-03-07] MEDS: ATORVASTATIN CALCIUM 40 MG TABLET PO SCH (20:36)
[2018-03-07] MEDS: INSULIN DEGLUDEC SQ SCH (20:45)
[2018-03-08] VITALS: BP 124/87
[2018-03-08 04:00] VITALS: BP 124/68
[2018-03-08] MEDS: CEFAZOLIN SODIUM 1 GM VIAL IVP SCH (04:48)
[2018-03-08 05:03] LABS: HEMATOCRIT 33.9 % (42-54); MEAN CORPUSCULAR HEMOGLOBIN 31.9 pg (27.0-33.0); MEAN CORPUSCULAR HGB CONC 33.2 g/dL (32.0-36.0); MEAN CORPUSCULAR VOLUME 96.1 fL (79-99); NUCLEATED RED BLOOD CELLS 0.1 % (0.0-0.19); PLATELET COUNT (AUTO) 117 K/uL (130-400); RED BLOOD CELL COUNT(AUTO) 3.53 MIL/uL (4.50-6.20); RED CELL DISTRIBUTION WIDTH 15.3 % (11.0-15.5)
[2018-03-08 05:11] LABS: CREATININE 1.1 mg/dL (0.5-1.5)
[2018-03-08] MEDS: INSULIN HUMULIN R 100 UNIT/ML 3ML SQ SCH ×4 (06:12→21:00)
[2018-03-08 08:00] VITALS: BP 121/84
[2018-03-08] MEDS: LISINOPRIL 5 MG TABLET PO SCH (08:38)
[2018-03-08] MEDS: CEFTRIAXONE SODIUM 2 GM VIAL IVP SCH (08:38)
[2018-03-08] MEDS: FUROSEMIDE 20 MG TABLET PO SCH ×2 (08:39→18:12)
[2018-03-08] MEDS: METFORMIN HCL 500 MG TAB.SR.24H PO SCH ×2 (08:39→21:00)
[2018-03-08] MEDS: ASPIRIN 81MG TAB.CHEW PO SCH (08:39)
[2018-03-08] MEDS: PANTOPRAZOLE SODIUM 40 MG TABLET.DR PO SCH (08:39)
[2018-03-08] MEDS: CLOPIDOGREL BISULFATE 75 MG TAB PO SCH (08:39)
[2018-03-08] MEDS: ATENOLOL 25 MG TABLET PO SCH ×2 (08:39→21:00)
[2018-03-08] MEDS: UBIDECARENONE 100 MG PO SCH (09:00)
[2018-03-08 12:00] VITALS: BP 109/68
[2018-03-08 16:00] VITALS: BP 110/68
[2018-03-08 19:41] VITALS: BP 109/68
[2018-03-08] MEDS: INSULIN DEGLUDEC SQ SCH (21:00)
[2018-03-08] MEDS: ATORVASTATIN CALCIUM 40 MG TABLET PO SCH (21:00)
[2018-03-09 00:07] VITALS: BP 103/67
[2018-03-09 03:46] VITALS: BP 103/60
[2018-03-09 06:39] LABS: HEMATOCRIT 31.5 % (42-54); MEAN CORPUSCULAR HEMOGLOBIN 33.2 pg (27.0-33.0); MEAN CORPUSCULAR HGB CONC 34.5 g/dL (32.0-36.0); MEAN CORPUSCULAR VOLUME 96.2 fL (79-99); PLATELET COUNT (AUTO) 115 K/uL (130-400); RED BLOOD CELL COUNT(AUTO) 3.28 MIL/uL (4.50-6.20); RED CELL DISTRIBUTION WIDTH 14.9 % (11.0-15.5); WHITE BLOOD COUNT (AUTO) 4.2 K/uL (4.8-10.8)
[2018-03-09 06:46] LABS: POTASSIUM 3.8 mmol/L (3.5-5.1)
[2018-03-09 07:30] VITALS: BP 97/64
[2018-03-09] MEDS: INSULIN HUMULIN R 100 UNIT/ML 3ML SQ SCH ×4 (07:30→21:00)
[2018-03-09] MEDS: ATENOLOL 25 MG TABLET PO SCH ×2 (09:00→21:01)
[2018-03-09] MEDS: UBIDECARENONE 100 MG PO SCH (09:00)
[2018-03-09] MEDS: PANTOPRAZOLE SODIUM 40 MG TABLET.DR PO SCH (09:07)
[2018-03-09] MEDS: CEFTRIAXONE SODIUM 2 GM VIAL IVP SCH (09:07)
[2018-03-09] MEDS: ASPIRIN 81MG TAB.CHEW PO SCH (09:08)
[2018-03-09] MEDS: LISINOPRIL 5 MG TABLET PO SCH (09:09)
[2018-03-09] MEDS: CLOPIDOGREL BISULFATE 75 MG TAB PO SCH (09:10)
[2018-03-09] MEDS: FUROSEMIDE 20 MG TABLET PO SCH ×2 (09:10→17:24)
[2018-03-09] MEDS: METFORMIN HCL 500 MG TAB.SR.24H PO SCH ×2 (09:10→20:57)
[2018-03-09 11:00] VITALS: BP 108/67
[2018-03-09] MEDS ORDERED: PHARMACY COMMUNICATION MISC SCH (11:30)
[2018-03-09] MEDS ORDERED: COMPOUND PO MISCELLANEOUS 1 EACH MISC MISC PRN (11:45)
[2018-03-09] MEDS: VANCOMYCIN 250MG/5ML ORAL SOLUTION 40ML PO SCH ×6 (13:44→23:51)
[2018-03-09 16:00] VITALS: BP 111/72
[2018-03-09 20:00] VITALS: BP 102/64
[2018-03-09] MEDS: ATORVASTATIN CALCIUM 40 MG TABLET PO SCH (20:58)
[2018-03-10 00:03] VITALS: BP 92/58
[2018-03-10 03:00] VITALS: BP 120/74
[2018-03-10] MEDS: VANCOMYCIN 250MG/5ML ORAL SOLUTION 40ML PO SCH ×4 (07:01→13:03)
[2018-03-10] MEDS: INSULIN HUMULIN R 100 UNIT/ML 3ML SQ SCH ×2 (07:04→11:30)
[2018-03-10 07:24] LABS: HEMATOCRIT 32.9 % (42-54); MEAN CORPUSCULAR HEMOGLOBIN 32.2 pg (27.0-33.0); MEAN CORPUSCULAR HGB CONC 33.4 g/dL (32.0-36.0); MEAN CORPUSCULAR VOLUME 96.3 fL (79-99); PLATELET COUNT (AUTO) 111 K/uL (130-400); RED BLOOD CELL COUNT(AUTO) 3.42 MIL/uL (4.50-6.20); RED CELL DISTRIBUTION WIDTH 15.2 % (11.0-15.5); WHITE BLOOD COUNT (AUTO) 3.9 K/uL (4.8-10.8)
[2018-03-10 07:30] VITALS: BP 110/73
[2018-03-10 08:25] LABS: POTASSIUM 3.8 mmol/L (3.5-5.1)
[2018-03-10] MEDS: ASPIRIN 81MG TAB.CHEW PO SCH (08:47)
[2018-03-10] MEDS: PANTOPRAZOLE SODIUM 40 MG TABLET.DR PO SCH (08:47)
[2018-03-10] MEDS: LISINOPRIL 5 MG TABLET PO SCH (08:47)
[2018-03-10] MEDS: METFORMIN HCL 500 MG TAB.SR.24H PO SCH (08:47)
[2018-03-10] MEDS: FUROSEMIDE 20 MG TABLET PO SCH (08:47)
[2018-03-10] MEDS: CLOPIDOGREL BISULFATE 75 MG TAB PO SCH (08:47)
[2018-03-10] MEDS: ATENOLOL 25 MG TABLET PO SCH (08:48)
[2018-03-10] MEDS: UBIDECARENONE 100 MG PO SCH (08:51)
[2018-03-10] MEDS: CEFTRIAXONE SODIUM 2 GM VIAL IVP SCH (09:05)
[2018-03-10 11:00] VITALS: BP 138/87
[2018-03-10] MEDS ORDERED: VANCOPO PO (17:38)
[2018-03-10] MEDS ORDERED: CEFT2VIA12 IVP (17:38)
== END 2018-03-10 18:55 | disposition home or self-care (01) | DRG 622 ==
LOC: EDH 16:15 → EDHIP 16:16 → 3BH 17:07
PROVIDERS: ADMIT Hospitalist; ATTEND Hospitalist
PROC: 02HV33Z Insertion of Infusion Device into Superior Vena Cava, Percutaneous Approach (ICD-10-PCS; 2018-02-17)
PROC: 047S37Z Dilation of Left Posterior Tibial Artery with Four or More Drug-eluting Intraluminal Devices, Percutaneous Approach (ICD-10-PCS; 2018-02-19)
PROC: B41G1ZZ Fluoroscopy of Left Lower Extremity Arteries using Low Osmolar Contrast (ICD-10-PCS; 2018-02-19)
PROC: 0JBR0ZZ Excision of Left Foot Subcutaneous Tissue and Fascia, Open Approach (ICD-10-PCS; principal; 2018-03-02)
PROC: 0J9R0ZZ Drainage of Left Foot Subcutaneous Tissue and Fascia, Open Approach (ICD-10-PCS; 2018-03-02)
DX: E11.621 Type 2 diabetes mellitus with foot ulcer (principal); I50.31 Acute diastolic (congestive) heart failure; E87.2 Acidosis; L03.116 Cellulitis of left lower limb; L02.612 Cutaneous abscess of left foot; A04.72 Enterocolitis due to Clostridium difficile, not specified as recurrent; M86.8X7 Other osteomyelitis, ankle and foot; E11.51 Type 2 diabetes mellitus with diabetic peripheral angiopathy without gangrene; E11.69 Type 2 diabetes mellitus with other specified complication; L03.032 Cellulitis of left toe; E11.65 Type 2 diabetes mellitus with hyperglycemia; L97.529 Non-pressure chronic ulcer of other part of left foot with unspecified severity; I35.0 Nonrheumatic aortic (valve) stenosis; J47.9 Bronchiectasis, uncomplicated; K80.20 Calculus of gallbladder without cholecystitis without obstruction; I25.10 Atherosclerotic heart disease of native coronary artery without angina pectoris; E66.9 Obesity, unspecified; E78.5 Hyperlipidemia, unspecified; E87.6 Hypokalemia; G89.29 Other chronic pain; J84.10 Pulmonary fibrosis, unspecified; I11.0 Hypertensive heart disease with heart failure; Z85.830 Personal history of malignant neoplasm of bone; Z95.1 Presence of aortocoronary bypass graft; Z98.49 Cataract extraction status, unspecified eye; Z93.0 Tracheostomy status; Z68.25 Body mass index [BMI] 25.0-25.9, adult; Z88.5 Allergy status to narcotic agent; Z88.8 Allergy status to other drugs, medicaments and biological substances; Z83.3 Family history of diabetes mellitus; Z82.5 Family history of asthma and other chronic lower respiratory diseases; Z82.49 Family history of ischemic heart disease and other diseases of the circulatory system
CPT/HCPCS: 36415; 37230; 71045; 71250; 73718; 75635; 75710; 80048; 80053; 80061; 80202; 82948; 83036; 83605; 83735; 83880; 84132; 84550; 85025; 85027; 85610; 85651; 85730; 86140; 87040; 87070; 87076; 87077; 87186; 87493; 93925; 94640; 94664; 99156; 99157; A4218; C1760; C1769; C1893; C1894; J0360; J0690; J0696; J1644; J1650; J1815; J1940; J2250; J2543; J3010; J3370; J3475; J3490; J7030; Q9967

== ENCOUNTER → 2018-02-13 | Outpatient (CLI) | payer OTHER ==
[~2018-02-13] MED LIST changes: +ACET-2743 PO; +ASPI-1181; +CILO100T PO; +METF500T7 PO; +PIOG30TA70 PO; +UBID100C10 PO; +[UNRECOGNIZED DRUG - OTHER] SQ
[2018-02-13 15:14] VITALS: BP 114/64
== END | disposition home or self-care (01) ==
LOC: WHH 13:00
PROVIDERS: ATTEND Family Medicine
DX: E11.621 Type 2 diabetes mellitus with foot ulcer (principal); L97.521 Non-pressure chronic ulcer of other part of left foot limited to breakdown of skin; F41.9 Anxiety disorder, unspecified; I25.10 Atherosclerotic heart disease of native coronary artery without angina pectoris; E78.2 Mixed hyperlipidemia; E11.42 Type 2 diabetes mellitus with diabetic polyneuropathy; E11.51 Type 2 diabetes mellitus with diabetic peripheral angiopathy without gangrene; E11.21 Type 2 diabetes mellitus with diabetic nephropathy; E11.69 Type 2 diabetes mellitus with other specified complication; M86.672 Other chronic osteomyelitis, left ankle and foot; E11.22 Type 2 diabetes mellitus with diabetic chronic kidney disease; I12.9 Hypertensive chronic kidney disease with stage 1 through stage 4 chronic kidney disease, or unspecified chronic kidney disease; N18.2 Chronic kidney disease, stage 2 (mild); K21.9 Gastro-esophageal reflux disease without esophagitis; I25.2 Old myocardial infarction; E11.319 Type 2 diabetes mellitus with unspecified diabetic retinopathy without macular edema; M19.072 Primary osteoarthritis, left ankle and foot; Z86.73 Personal history of transient ischemic attack (TIA), and cerebral infarction without residual deficits; Z85.89 Personal history of malignant neoplasm of other organs and systems; Z85.828 Personal history of other malignant neoplasm of skin; Z95.1 Presence of aortocoronary bypass graft; Z88.6 Allergy status to analgesic agent; Z88.5 Allergy status to narcotic agent; Z79.899 Other long term (current) drug therapy; Z79.4 Long term (current) use of insulin; Z79.82 Long term (current) use of aspirin
CPT/HCPCS: 11042; 99213; A6212

== ENCOUNTER → 2018-03-21 | Outpatient (CLI) | payer OTHER ==
[~2018-03-21] MED LIST changes: +ACET-2743 PO; +ASPI-1181; +CEFT2VIA12 IVP; -CEPH500C2 PO; +CILO100T PO; -FAMO20TA8 PO; -GLYB-228 PO; -INSREG SQ; -INSU10VI3 SQ; -MAGNESIUM PO; +METF500T7 PO; -MULT-1077 PO; +PIOG30TA70 PO; +UBID100C10 PO; +VANCOPO PO; +[UNRECOGNIZED DRUG - OTHER] SQ
[2018-03-21 12:19] VITALS: BP 139/91
== END | disposition home or self-care (01) ==
LOC: WHH 10:30
PROVIDERS: ATTEND Family Medicine
DX: E11.621 Type 2 diabetes mellitus with foot ulcer (principal); L97.521 Non-pressure chronic ulcer of other part of left foot limited to breakdown of skin; F41.9 Anxiety disorder, unspecified; I25.10 Atherosclerotic heart disease of native coronary artery without angina pectoris; E78.2 Mixed hyperlipidemia; E11.42 Type 2 diabetes mellitus with diabetic polyneuropathy; E11.51 Type 2 diabetes mellitus with diabetic peripheral angiopathy without gangrene; E11.21 Type 2 diabetes mellitus with diabetic nephropathy; E11.69 Type 2 diabetes mellitus with other specified complication; M86.672 Other chronic osteomyelitis, left ankle and foot; E11.22 Type 2 diabetes mellitus with diabetic chronic kidney disease; I12.9 Hypertensive chronic kidney disease with stage 1 through stage 4 chronic kidney disease, or unspecified chronic kidney disease; N18.2 Chronic kidney disease, stage 2 (mild); K21.9 Gastro-esophageal reflux disease without esophagitis; I25.2 Old myocardial infarction; E11.319 Type 2 diabetes mellitus with unspecified diabetic retinopathy without macular edema; M19.072 Primary osteoarthritis, left ankle and foot; Z86.73 Personal history of transient ischemic attack (TIA), and cerebral infarction without residual deficits; Z85.89 Personal history of malignant neoplasm of other organs and systems; Z85.828 Personal history of other malignant neoplasm of skin; Z95.1 Presence of aortocoronary bypass graft; Z88.6 Allergy status to analgesic agent; Z88.5 Allergy status to narcotic agent; Z79.899 Other long term (current) drug therapy; Z79.4 Long term (current) use of insulin; Z79.82 Long term (current) use of aspirin
CPT/HCPCS: 99214

== ENCOUNTER 2018-04-11 10:45 | Outpatient (CLI) | payer OTHER ==
[2018-04-11 13:34] VITALS: BP 111/70
== END 2018-04-11 16:00 | disposition home or self-care (01) ==
LOC: WHH 10:45
PROVIDERS: ATTEND Podiatrist Foot & Ankle Surgery
DX: E11.621 Type 2 diabetes mellitus with foot ulcer (principal); L97.528 Non-pressure chronic ulcer of other part of left foot with other specified severity; E11.69 Type 2 diabetes mellitus with other specified complication; M86.672 Other chronic osteomyelitis, left ankle and foot; E11.22 Type 2 diabetes mellitus with diabetic chronic kidney disease; I13.0 Hypertensive heart and chronic kidney disease with heart failure and stage 1 through stage 4 chronic kidney disease, or unspecified chronic kidney disease; N18.2 Chronic kidney disease, stage 2 (mild); I50.31 Acute diastolic (congestive) heart failure; E11.21 Type 2 diabetes mellitus with diabetic nephropathy; E11.42 Type 2 diabetes mellitus with diabetic polyneuropathy; E11.51 Type 2 diabetes mellitus with diabetic peripheral angiopathy without gangrene; E11.319 Type 2 diabetes mellitus with unspecified diabetic retinopathy without macular edema; E11.36 Type 2 diabetes mellitus with diabetic cataract; E66.9 Obesity, unspecified; I25.2 Old myocardial infarction; I25.10 Atherosclerotic heart disease of native coronary artery without angina pectoris; E78.2 Mixed hyperlipidemia; K21.9 Gastro-esophageal reflux disease without esophagitis; G89.29 Other chronic pain; F41.9 Anxiety disorder, unspecified; Z93.0 Tracheostomy status; M19.072 Primary osteoarthritis, left ankle and foot; Z88.6 Allergy status to analgesic agent; Z88.8 Allergy status to other drugs, medicaments and biological substances; Z88.5 Allergy status to narcotic agent; Z86.73 Personal history of transient ischemic attack (TIA), and cerebral infarction without residual deficits; Z85.830 Personal history of malignant neoplasm of bone; Z95.1 Presence of aortocoronary bypass graft; Z85.828 Personal history of other malignant neoplasm of skin; Z79.899 Other long term (current) drug therapy; Z68.25 Body mass index [BMI] 25.0-25.9, adult; Z79.82 Long term (current) use of aspirin; Z79.4 Long term (current) use of insulin
CPT/HCPCS: 97597; 99214

== ENCOUNTER → 2019-02-13 | Outpatient (CLI) | payer OTHER ==
[~2019-02-13] MED LIST changes: +METF500T20 PO; -METF500T7 PO
[2019-02-13 09:40] LABS: BASOPHILS % (AUTO) 1.2 % (0.0-5.0); EOSINOPHILS % (AUTO) 0.8 % (0.0-8.0); HEMATOCRIT 40.5 % (42-54); LYMPHOCYTES % (AUTO) 12.8 % (21.0-51.0); MEAN CORPUSCULAR HEMOGLOBIN 33.8 pg (27.0-33.0); MEAN CORPUSCULAR HGB CONC 34.1 g/dL (32.0-36.0); MEAN CORPUSCULAR VOLUME 99.3 fL (79-99); MONOCYTES % (AUTO) 9.5 % (3.0-13.0); NEUTROPHILS % (AUTO) 75.7 % (40.0-77.0); PLATELET COUNT (AUTO) 156 K/uL (130-400); RED BLOOD CELL COUNT(AUTO) 4.08 MIL/uL (4.50-6.20); WHITE BLOOD COUNT (AUTO) 10.1 K/uL (4.8-10.8)
[2019-02-13 09:45] LABS: CREATININE 1.6 mg/dL (0.5-1.5); POTASSIUM 4.3 mmol/L (3.5-5.1)
[2019-02-13 09:50] LABS: ALBUMIN 3.4 g/dL (3.5-5.0); BILIRUBIN,TOTAL 0.8 mg/dL (0.2-1.0); TOTAL PROTEIN, SERUM 8.7 g/dL (6.0-8.3)
[2019-02-13 14:39] VITALS: BP 125/78
--- NOTE | 2019-02-13 14:52 | NUR ---
post I & D Measurements of wound 2 cm x 1 cm x 1 cm undermining at 10 oclock of 1 cm
== END | disposition home or self-care (01) ==
LOC: WHH 08:00
PROVIDERS: ATTEND Podiatrist Foot & Ankle Surgery
DX: E11.621 Type 2 diabetes mellitus with foot ulcer (principal); L97.521 Non-pressure chronic ulcer of other part of left foot limited to breakdown of skin; L02.612 Cutaneous abscess of left foot; E11.42 Type 2 diabetes mellitus with diabetic polyneuropathy; I25.10 Atherosclerotic heart disease of native coronary artery without angina pectoris; E78.2 Mixed hyperlipidemia; E11.51 Type 2 diabetes mellitus with diabetic peripheral angiopathy without gangrene; E11.21 Type 2 diabetes mellitus with diabetic nephropathy; E11.69 Type 2 diabetes mellitus with other specified complication; M86.672 Other chronic osteomyelitis, left ankle and foot; E11.22 Type 2 diabetes mellitus with diabetic chronic kidney disease; I12.9 Hypertensive chronic kidney disease with stage 1 through stage 4 chronic kidney disease, or unspecified chronic kidney disease; N18.2 Chronic kidney disease, stage 2 (mild); K21.9 Gastro-esophageal reflux disease without esophagitis; I25.2 Old myocardial infarction; E11.319 Type 2 diabetes mellitus with unspecified diabetic retinopathy without macular edema; M19.072 Primary osteoarthritis, left ankle and foot; Z86.73 Personal history of transient ischemic attack (TIA), and cerebral infarction without residual deficits; Z85.89 Personal history of malignant neoplasm of other organs and systems; Z85.828 Personal history of other malignant neoplasm of skin; Z95.1 Presence of aortocoronary bypass graft; Z88.6 Allergy status to analgesic agent; Z88.5 Allergy status to narcotic agent; Z79.899 Other long term (current) drug therapy; Z79.4 Long term (current) use of insulin; Z79.82 Long term (current) use of aspirin
CPT/HCPCS: 10060; 36415; 73630; 80053; 85025; 87070; 87077 ×2; 87186 ×2; L3260; 10160

== ENCOUNTER → 2019-02-18 | Outpatient (CLI) | payer OTHER ==
[2019-02-18 11:05] VITALS: BP 125/81
== END | disposition home or self-care (01) ==
LOC: WHH 08:00
PROVIDERS: ATTEND Podiatrist Foot & Ankle Surgery
DX: E11.621 Type 2 diabetes mellitus with foot ulcer (principal); L97.521 Non-pressure chronic ulcer of other part of left foot limited to breakdown of skin; L02.612 Cutaneous abscess of left foot; E11.42 Type 2 diabetes mellitus with diabetic polyneuropathy; I25.10 Atherosclerotic heart disease of native coronary artery without angina pectoris; E78.2 Mixed hyperlipidemia; E11.51 Type 2 diabetes mellitus with diabetic peripheral angiopathy without gangrene; E11.21 Type 2 diabetes mellitus with diabetic nephropathy; E11.69 Type 2 diabetes mellitus with other specified complication; M86.672 Other chronic osteomyelitis, left ankle and foot; E11.22 Type 2 diabetes mellitus with diabetic chronic kidney disease; I12.9 Hypertensive chronic kidney disease with stage 1 through stage 4 chronic kidney disease, or unspecified chronic kidney disease; N18.2 Chronic kidney disease, stage 2 (mild); K21.9 Gastro-esophageal reflux disease without esophagitis; I25.2 Old myocardial infarction; E11.319 Type 2 diabetes mellitus with unspecified diabetic retinopathy without macular edema; M19.072 Primary osteoarthritis, left ankle and foot; Z86.73 Personal history of transient ischemic attack (TIA), and cerebral infarction without residual deficits; Z85.89 Personal history of malignant neoplasm of other organs and systems; Z85.828 Personal history of other malignant neoplasm of skin; Z95.1 Presence of aortocoronary bypass graft; Z88.6 Allergy status to analgesic agent; Z88.5 Allergy status to narcotic agent; Z79.899 Other long term (current) drug therapy; Z79.4 Long term (current) use of insulin; Z79.82 Long term (current) use of aspirin
CPT/HCPCS: G0463

== ENCOUNTER → 2019-02-20 | Outpatient (CLI) | payer OTHER ==
[~2019-02-20] MED LIST changes: +LIDOCAINE/PRILOCAINE CREAM 5GM TUBE TP ONE
[2019-02-20 14:43] VITALS: BP 134/82
== END | disposition home or self-care (01) ==
LOC: WHH 08:00
PROVIDERS: ATTEND Podiatrist Foot & Ankle Surgery
DX: E11.621 Type 2 diabetes mellitus with foot ulcer (principal); L97.521 Non-pressure chronic ulcer of other part of left foot limited to breakdown of skin; L02.612 Cutaneous abscess of left foot; E11.42 Type 2 diabetes mellitus with diabetic polyneuropathy; I25.10 Atherosclerotic heart disease of native coronary artery without angina pectoris; E78.2 Mixed hyperlipidemia; E11.51 Type 2 diabetes mellitus with diabetic peripheral angiopathy without gangrene; E11.21 Type 2 diabetes mellitus with diabetic nephropathy; E11.69 Type 2 diabetes mellitus with other specified complication; M86.672 Other chronic osteomyelitis, left ankle and foot; E11.22 Type 2 diabetes mellitus with diabetic chronic kidney disease; I12.9 Hypertensive chronic kidney disease with stage 1 through stage 4 chronic kidney disease, or unspecified chronic kidney disease; N18.2 Chronic kidney disease, stage 2 (mild); K21.9 Gastro-esophageal reflux disease without esophagitis; I25.2 Old myocardial infarction; E11.319 Type 2 diabetes mellitus with unspecified diabetic retinopathy without macular edema; M19.072 Primary osteoarthritis, left ankle and foot; Z86.73 Personal history of transient ischemic attack (TIA), and cerebral infarction without residual deficits; Z85.89 Personal history of malignant neoplasm of other organs and systems; Z85.828 Personal history of other malignant neoplasm of skin; Z95.1 Presence of aortocoronary bypass graft; Z88.6 Allergy status to analgesic agent; Z88.5 Allergy status to narcotic agent; Z79.899 Other long term (current) drug therapy; Z79.4 Long term (current) use of insulin; Z79.82 Long term (current) use of aspirin
CPT/HCPCS: 11042; J3490

== ENCOUNTER → 2019-02-27 | Outpatient (CLI) | payer OTHER ==
[~2019-02-27] MED LIST changes: -LIDOCAINE/PRILOCAINE CREAM 5GM TUBE TP ONE
[2019-02-27 13:32] VITALS: BP 116/73
== END | disposition home or self-care (01) ==
LOC: WHH 08:00
PROVIDERS: ATTEND Podiatrist Foot & Ankle Surgery
DX: E11.621 Type 2 diabetes mellitus with foot ulcer (principal); L97.521 Non-pressure chronic ulcer of other part of left foot limited to breakdown of skin; E11.42 Type 2 diabetes mellitus with diabetic polyneuropathy; I25.10 Atherosclerotic heart disease of native coronary artery without angina pectoris; E78.2 Mixed hyperlipidemia; E11.51 Type 2 diabetes mellitus with diabetic peripheral angiopathy without gangrene; E11.21 Type 2 diabetes mellitus with diabetic nephropathy; E11.69 Type 2 diabetes mellitus with other specified complication; M86.672 Other chronic osteomyelitis, left ankle and foot; E11.22 Type 2 diabetes mellitus with diabetic chronic kidney disease; I12.9 Hypertensive chronic kidney disease with stage 1 through stage 4 chronic kidney disease, or unspecified chronic kidney disease; N18.2 Chronic kidney disease, stage 2 (mild); K21.9 Gastro-esophageal reflux disease without esophagitis; I25.2 Old myocardial infarction; E11.319 Type 2 diabetes mellitus with unspecified diabetic retinopathy without macular edema; M19.072 Primary osteoarthritis, left ankle and foot; Z86.73 Personal history of transient ischemic attack (TIA), and cerebral infarction without residual deficits; Z85.89 Personal history of malignant neoplasm of other organs and systems; Z85.828 Personal history of other malignant neoplasm of skin; Z95.1 Presence of aortocoronary bypass graft; Z88.6 Allergy status to analgesic agent; Z88.5 Allergy status to narcotic agent; Z79.899 Other long term (current) drug therapy; Z79.4 Long term (current) use of insulin; Z79.82 Long term (current) use of aspirin
CPT/HCPCS: 99214

== ENCOUNTER → 2019-03-13 | Outpatient (CLI) | payer OTHER ==
[2019-03-13 11:10] VITALS: BP 142/82
== END | disposition home or self-care (01) ==
LOC: WHH 09:00
PROVIDERS: ATTEND Podiatrist Foot & Ankle Surgery
DX: E11.621 Type 2 diabetes mellitus with foot ulcer (principal); L97.522 Non-pressure chronic ulcer of other part of left foot with fat layer exposed; E11.42 Type 2 diabetes mellitus with diabetic polyneuropathy; I25.10 Atherosclerotic heart disease of native coronary artery without angina pectoris; E78.2 Mixed hyperlipidemia; E11.51 Type 2 diabetes mellitus with diabetic peripheral angiopathy without gangrene; E11.21 Type 2 diabetes mellitus with diabetic nephropathy; E11.69 Type 2 diabetes mellitus with other specified complication; M86.672 Other chronic osteomyelitis, left ankle and foot; E11.22 Type 2 diabetes mellitus with diabetic chronic kidney disease; I12.9 Hypertensive chronic kidney disease with stage 1 through stage 4 chronic kidney disease, or unspecified chronic kidney disease; N18.2 Chronic kidney disease, stage 2 (mild); K21.9 Gastro-esophageal reflux disease without esophagitis; I25.2 Old myocardial infarction; E11.319 Type 2 diabetes mellitus with unspecified diabetic retinopathy without macular edema; M19.072 Primary osteoarthritis, left ankle and foot; Z86.73 Personal history of transient ischemic attack (TIA), and cerebral infarction without residual deficits; Z85.89 Personal history of malignant neoplasm of other organs and systems; Z85.828 Personal history of other malignant neoplasm of skin; Z95.1 Presence of aortocoronary bypass graft; Z88.6 Allergy status to analgesic agent; Z88.5 Allergy status to narcotic agent; Z79.899 Other long term (current) drug therapy; Z79.4 Long term (current) use of insulin; Z79.82 Long term (current) use of aspirin
CPT/HCPCS: 11042; A6248

== ENCOUNTER → 2019-03-18 | Outpatient (CLI) | payer OTHER ==
[2019-03-18 11:27] VITALS: BP 172/98
== END | disposition home or self-care (01) ==
LOC: WHH 09:22
PROVIDERS: ATTEND Podiatrist Foot & Ankle Surgery
DX: E11.621 Type 2 diabetes mellitus with foot ulcer (principal); L97.522 Non-pressure chronic ulcer of other part of left foot with fat layer exposed; E11.42 Type 2 diabetes mellitus with diabetic polyneuropathy; I25.10 Atherosclerotic heart disease of native coronary artery without angina pectoris; E78.2 Mixed hyperlipidemia; E11.51 Type 2 diabetes mellitus with diabetic peripheral angiopathy without gangrene; E11.21 Type 2 diabetes mellitus with diabetic nephropathy; E11.69 Type 2 diabetes mellitus with other specified complication; M86.672 Other chronic osteomyelitis, left ankle and foot; E11.22 Type 2 diabetes mellitus with diabetic chronic kidney disease; I12.9 Hypertensive chronic kidney disease with stage 1 through stage 4 chronic kidney disease, or unspecified chronic kidney disease; N18.2 Chronic kidney disease, stage 2 (mild); K21.9 Gastro-esophageal reflux disease without esophagitis; I25.2 Old myocardial infarction; E11.319 Type 2 diabetes mellitus with unspecified diabetic retinopathy without macular edema; M19.072 Primary osteoarthritis, left ankle and foot; Z86.73 Personal history of transient ischemic attack (TIA), and cerebral infarction without residual deficits; Z85.89 Personal history of malignant neoplasm of other organs and systems; Z85.828 Personal history of other malignant neoplasm of skin; Z95.1 Presence of aortocoronary bypass graft; Z88.6 Allergy status to analgesic agent; Z88.5 Allergy status to narcotic agent; Z79.899 Other long term (current) drug therapy; Z79.4 Long term (current) use of insulin; Z79.82 Long term (current) use of aspirin
CPT/HCPCS: 71045; 93005; 93923; 99211

== ENCOUNTER → 2019-03-22 | Outpatient (CLI) | payer OTHER ==
[2019-03-22 09:20] VITALS: BP 148/78
== END | disposition home or self-care (01) ==
LOC: WHH 08:50
PROVIDERS: ATTEND Podiatrist Foot & Ankle Surgery
DX: E11.621 Type 2 diabetes mellitus with foot ulcer (principal); L97.522 Non-pressure chronic ulcer of other part of left foot with fat layer exposed; E11.42 Type 2 diabetes mellitus with diabetic polyneuropathy; I25.10 Atherosclerotic heart disease of native coronary artery without angina pectoris; E78.2 Mixed hyperlipidemia; E11.51 Type 2 diabetes mellitus with diabetic peripheral angiopathy without gangrene; E11.21 Type 2 diabetes mellitus with diabetic nephropathy; E11.69 Type 2 diabetes mellitus with other specified complication; M86.672 Other chronic osteomyelitis, left ankle and foot; I12.9 Hypertensive chronic kidney disease with stage 1 through stage 4 chronic kidney disease, or unspecified chronic kidney disease; N18.2 Chronic kidney disease, stage 2 (mild); I25.2 Old myocardial infarction; E11.319 Type 2 diabetes mellitus with unspecified diabetic retinopathy without macular edema; M19.072 Primary osteoarthritis, left ankle and foot; Z86.73 Personal history of transient ischemic attack (TIA), and cerebral infarction without residual deficits; Z85.89 Personal history of malignant neoplasm of other organs and systems; Z85.828 Personal history of other malignant neoplasm of skin; Z95.1 Presence of aortocoronary bypass graft; Z88.6 Allergy status to analgesic agent; Z88.5 Allergy status to narcotic agent; Z79.899 Other long term (current) drug therapy; Z79.4 Long term (current) use of insulin; Z79.82 Long term (current) use of aspirin
CPT/HCPCS: 93922; 99211; A6248

== ENCOUNTER → 2019-03-27 | Outpatient (CLI) | payer OTHER ==
[2019-03-27 13:14] VITALS: BP 143/78
== END | disposition home or self-care (01) ==
LOC: WHH 08:30
PROVIDERS: ATTEND Podiatrist Foot & Ankle Surgery
DX: E11.621 Type 2 diabetes mellitus with foot ulcer (principal); L97.526 Non-pressure chronic ulcer of other part of left foot with bone involvement without evidence of necrosis; E11.42 Type 2 diabetes mellitus with diabetic polyneuropathy; I25.10 Atherosclerotic heart disease of native coronary artery without angina pectoris; E78.2 Mixed hyperlipidemia; E11.51 Type 2 diabetes mellitus with diabetic peripheral angiopathy without gangrene; E11.21 Type 2 diabetes mellitus with diabetic nephropathy; E11.69 Type 2 diabetes mellitus with other specified complication; M86.672 Other chronic osteomyelitis, left ankle and foot; E11.22 Type 2 diabetes mellitus with diabetic chronic kidney disease; I12.9 Hypertensive chronic kidney disease with stage 1 through stage 4 chronic kidney disease, or unspecified chronic kidney disease; N18.2 Chronic kidney disease, stage 2 (mild); I25.2 Old myocardial infarction; E11.319 Type 2 diabetes mellitus with unspecified diabetic retinopathy without macular edema; K21.9 Gastro-esophageal reflux disease without esophagitis; M19.072 Primary osteoarthritis, left ankle and foot; Z86.73 Personal history of transient ischemic attack (TIA), and cerebral infarction without residual deficits; Z85.89 Personal history of malignant neoplasm of other organs and systems; Z85.828 Personal history of other malignant neoplasm of skin; Z95.1 Presence of aortocoronary bypass graft; Z88.6 Allergy status to analgesic agent; Z88.5 Allergy status to narcotic agent; Z79.899 Other long term (current) drug therapy; Z79.4 Long term (current) use of insulin; Z79.82 Long term (current) use of aspirin
CPT/HCPCS: 11042; 87070

== ENCOUNTER → 2019-04-03 | Outpatient (CLI) | payer OTHER ==
[2019-04-03 12:56] VITALS: BP 128/78
== END | disposition home or self-care (01) ==
LOC: WHH 08:22
PROVIDERS: ATTEND Podiatrist Foot & Ankle Surgery
DX: E11.621 Type 2 diabetes mellitus with foot ulcer (principal); L97.522 Non-pressure chronic ulcer of other part of left foot with fat layer exposed; E11.42 Type 2 diabetes mellitus with diabetic polyneuropathy; I25.10 Atherosclerotic heart disease of native coronary artery without angina pectoris; E78.2 Mixed hyperlipidemia; E11.51 Type 2 diabetes mellitus with diabetic peripheral angiopathy without gangrene; E11.21 Type 2 diabetes mellitus with diabetic nephropathy; E11.69 Type 2 diabetes mellitus with other specified complication; M86.672 Other chronic osteomyelitis, left ankle and foot; E11.22 Type 2 diabetes mellitus with diabetic chronic kidney disease; I12.9 Hypertensive chronic kidney disease with stage 1 through stage 4 chronic kidney disease, or unspecified chronic kidney disease; N18.2 Chronic kidney disease, stage 2 (mild); I25.2 Old myocardial infarction; E11.319 Type 2 diabetes mellitus with unspecified diabetic retinopathy without macular edema; K21.9 Gastro-esophageal reflux disease without esophagitis; M19.072 Primary osteoarthritis, left ankle and foot; Z86.73 Personal history of transient ischemic attack (TIA), and cerebral infarction without residual deficits; Z85.89 Personal history of malignant neoplasm of other organs and systems; Z85.828 Personal history of other malignant neoplasm of skin; Z95.1 Presence of aortocoronary bypass graft; Z88.6 Allergy status to analgesic agent; Z79.899 Other long term (current) drug therapy; Z79.4 Long term (current) use of insulin; Z79.82 Long term (current) use of aspirin
CPT/HCPCS: 11042

== ENCOUNTER → 2019-04-29 | Outpatient (CLI) | payer OTHER | END | disposition home or self-care (01) | LOC: WHH 08:30 | PROVIDERS: ATTEND Podiatrist Foot & Ankle Surgery | DX: E11.621 Type 2 diabetes mellitus with foot ulcer (principal); L97.521 Non-pressure chronic ulcer of other part of left foot limited to breakdown of skin; E11.22 Type 2 diabetes mellitus with diabetic chronic kidney disease; I12.9 Hypertensive chronic kidney disease with stage 1 through stage 4 chronic kidney disease, or unspecified chronic kidney disease; N18.2 Chronic kidney disease, stage 2 (mild); E11.51 Type 2 diabetes mellitus with diabetic peripheral angiopathy without gangrene; E11.319 Type 2 diabetes mellitus with unspecified diabetic retinopathy without macular edema; E11.21 Type 2 diabetes mellitus with diabetic nephropathy; E11.42 Type 2 diabetes mellitus with diabetic polyneuropathy; E11.69 Type 2 diabetes mellitus with other specified complication; M86.672 Other chronic osteomyelitis, left ankle and foot; M19.072 Primary osteoarthritis, left ankle and foot; I25.10 Atherosclerotic heart disease of native coronary artery without angina pectoris; K21.9 Gastro-esophageal reflux disease without esophagitis; I25.2 Old myocardial infarction; E78.2 Mixed hyperlipidemia; Z86.73 Personal history of transient ischemic attack (TIA), and cerebral infarction without residual deficits; Z88.6 Allergy status to analgesic agent; Z88.5 Allergy status to narcotic agent; Z79.899 Other long term (current) drug therapy; Z79.82 Long term (current) use of aspirin; Z79.4 Long term (current) use of insulin; Z85.828 Personal history of other malignant neoplasm of skin; Z85.89 Personal history of malignant neoplasm of other organs and systems; Z95.1 Presence of aortocoronary bypass graft | CPT/HCPCS: 99211 ==

== ENCOUNTER → 2019-05-01 | Outpatient (CLI) | payer OTHER ==
[2019-05-01 15:13] VITALS: BP_SYST 101; BP_SYST 115; BP_DIAS 63; BP_DIAS 70
== END | disposition home or self-care (01) ==
LOC: WHH 08:15
PROVIDERS: ATTEND Podiatrist Foot & Ankle Surgery
DX: E11.621 Type 2 diabetes mellitus with foot ulcer (principal); L97.522 Non-pressure chronic ulcer of other part of left foot with fat layer exposed; E11.22 Type 2 diabetes mellitus with diabetic chronic kidney disease; I12.9 Hypertensive chronic kidney disease with stage 1 through stage 4 chronic kidney disease, or unspecified chronic kidney disease; N18.2 Chronic kidney disease, stage 2 (mild); E11.21 Type 2 diabetes mellitus with diabetic nephropathy; E11.319 Type 2 diabetes mellitus with unspecified diabetic retinopathy without macular edema; E11.51 Type 2 diabetes mellitus with diabetic peripheral angiopathy without gangrene; E11.42 Type 2 diabetes mellitus with diabetic polyneuropathy; E11.69 Type 2 diabetes mellitus with other specified complication; M86.672 Other chronic osteomyelitis, left ankle and foot; M19.072 Primary osteoarthritis, left ankle and foot; I25.10 Atherosclerotic heart disease of native coronary artery without angina pectoris; K21.9 Gastro-esophageal reflux disease without esophagitis; E78.2 Mixed hyperlipidemia; I25.2 Old myocardial infarction; Z95.1 Presence of aortocoronary bypass graft; Z86.73 Personal history of transient ischemic attack (TIA), and cerebral infarction without residual deficits; Z88.6 Allergy status to analgesic agent; Z88.5 Allergy status to narcotic agent; Z85.89 Personal history of malignant neoplasm of other organs and systems; Z85.828 Personal history of other malignant neoplasm of skin; Z79.4 Long term (current) use of insulin; Z79.899 Other long term (current) drug therapy; Z79.82 Long term (current) use of aspirin
CPT/HCPCS: 11042; 82948 ×2; A6248; G0277

== ENCOUNTER → 2019-05-02 | Outpatient (CLI) | payer OTHER ==
[2019-05-02 14:06] VITALS: BP 124/72
[2019-05-02 14:07] VITALS: BP 132/68
== END | disposition home or self-care (01) ==
LOC: WHH 08:50
PROVIDERS: ATTEND Surgery
DX: E11.621 Type 2 diabetes mellitus with foot ulcer (principal); L97.521 Non-pressure chronic ulcer of other part of left foot limited to breakdown of skin; E11.22 Type 2 diabetes mellitus with diabetic chronic kidney disease; I12.9 Hypertensive chronic kidney disease with stage 1 through stage 4 chronic kidney disease, or unspecified chronic kidney disease; N18.2 Chronic kidney disease, stage 2 (mild); E11.42 Type 2 diabetes mellitus with diabetic polyneuropathy; E11.21 Type 2 diabetes mellitus with diabetic nephropathy; E11.319 Type 2 diabetes mellitus with unspecified diabetic retinopathy without macular edema; E11.51 Type 2 diabetes mellitus with diabetic peripheral angiopathy without gangrene; E11.69 Type 2 diabetes mellitus with other specified complication; M86.672 Other chronic osteomyelitis, left ankle and foot; M19.072 Primary osteoarthritis, left ankle and foot; I25.10 Atherosclerotic heart disease of native coronary artery without angina pectoris; K21.9 Gastro-esophageal reflux disease without esophagitis; E78.2 Mixed hyperlipidemia; I25.2 Old myocardial infarction; Z79.4 Long term (current) use of insulin; Z79.82 Long term (current) use of aspirin; Z88.5 Allergy status to narcotic agent; Z88.6 Allergy status to analgesic agent; Z79.899 Other long term (current) drug therapy; Z95.1 Presence of aortocoronary bypass graft; Z85.828 Personal history of other malignant neoplasm of skin; Z85.89 Personal history of malignant neoplasm of other organs and systems; Z86.73 Personal history of transient ischemic attack (TIA), and cerebral infarction without residual deficits
CPT/HCPCS: G0277

== ENCOUNTER → 2019-05-03 | Outpatient (CLI) | payer OTHER ==
[2019-05-03 13:34] VITALS: BP 117/74
[2019-05-03 13:35] VITALS: BP 99/67
== END ==
LOC: WHH 08:45
PROVIDERS: ATTEND Family Medicine
DX: E11.621 Type 2 diabetes mellitus with foot ulcer (principal); L97.521 Non-pressure chronic ulcer of other part of left foot limited to breakdown of skin; E11.22 Type 2 diabetes mellitus with diabetic chronic kidney disease; I12.9 Hypertensive chronic kidney disease with stage 1 through stage 4 chronic kidney disease, or unspecified chronic kidney disease; N18.2 Chronic kidney disease, stage 2 (mild); E11.69 Type 2 diabetes mellitus with other specified complication; M86.672 Other chronic osteomyelitis, left ankle and foot; E11.21 Type 2 diabetes mellitus with diabetic nephropathy; E11.42 Type 2 diabetes mellitus with diabetic polyneuropathy; E11.319 Type 2 diabetes mellitus with unspecified diabetic retinopathy without macular edema; E11.51 Type 2 diabetes mellitus with diabetic peripheral angiopathy without gangrene; I25.10 Atherosclerotic heart disease of native coronary artery without angina pectoris; I25.2 Old myocardial infarction; K21.9 Gastro-esophageal reflux disease without esophagitis; M19.072 Primary osteoarthritis, left ankle and foot; E78.2 Mixed hyperlipidemia; Z79.4 Long term (current) use of insulin; Z79.82 Long term (current) use of aspirin; Z79.899 Other long term (current) drug therapy; Z88.6 Allergy status to analgesic agent; Z88.5 Allergy status to narcotic agent; Z85.89 Personal history of malignant neoplasm of other organs and systems; Z85.828 Personal history of other malignant neoplasm of skin; Z86.73 Personal history of transient ischemic attack (TIA), and cerebral infarction without residual deficits; Z95.1 Presence of aortocoronary bypass graft
CPT/HCPCS: 82948; G0277

== ENCOUNTER → 2019-05-06 | Outpatient (CLI) | payer OTHER ==
[2019-05-06 11:03] VITALS: BP 144/77
[2019-05-06 11:10] VITALS: BP 142/72
== END | disposition home or self-care (01) ==
LOC: WHH 08:00
PROVIDERS: ATTEND Family Medicine
DX: E11.621 Type 2 diabetes mellitus with foot ulcer (principal); L97.521 Non-pressure chronic ulcer of other part of left foot limited to breakdown of skin; E11.22 Type 2 diabetes mellitus with diabetic chronic kidney disease; I12.9 Hypertensive chronic kidney disease with stage 1 through stage 4 chronic kidney disease, or unspecified chronic kidney disease; N18.2 Chronic kidney disease, stage 2 (mild); E11.69 Type 2 diabetes mellitus with other specified complication; M86.672 Other chronic osteomyelitis, left ankle and foot; E11.21 Type 2 diabetes mellitus with diabetic nephropathy; E11.42 Type 2 diabetes mellitus with diabetic polyneuropathy; E11.51 Type 2 diabetes mellitus with diabetic peripheral angiopathy without gangrene; E11.319 Type 2 diabetes mellitus with unspecified diabetic retinopathy without macular edema; I25.10 Atherosclerotic heart disease of native coronary artery without angina pectoris; I25.2 Old myocardial infarction; M19.072 Primary osteoarthritis, left ankle and foot; E78.2 Mixed hyperlipidemia; K21.9 Gastro-esophageal reflux disease without esophagitis; Z79.4 Long term (current) use of insulin; Z79.899 Other long term (current) drug therapy; Z79.82 Long term (current) use of aspirin; Z88.5 Allergy status to narcotic agent; Z88.6 Allergy status to analgesic agent; Z95.1 Presence of aortocoronary bypass graft; Z85.828 Personal history of other malignant neoplasm of skin; Z85.89 Personal history of malignant neoplasm of other organs and systems; Z86.73 Personal history of transient ischemic attack (TIA), and cerebral infarction without residual deficits
CPT/HCPCS: 82948 ×2; G0277

== ENCOUNTER → 2019-05-07 | Outpatient (CLI) | payer OTHER ==
[2019-05-07 12:48] VITALS: BP 125/82
[2019-05-07 12:49] VITALS: BP 102/67
== END | disposition home or self-care (01) ==
LOC: WHH 08:24
PROVIDERS: ATTEND Surgery
DX: E11.621 Type 2 diabetes mellitus with foot ulcer (principal); L97.521 Non-pressure chronic ulcer of other part of left foot limited to breakdown of skin; E11.22 Type 2 diabetes mellitus with diabetic chronic kidney disease; I12.9 Hypertensive chronic kidney disease with stage 1 through stage 4 chronic kidney disease, or unspecified chronic kidney disease; N18.2 Chronic kidney disease, stage 2 (mild); E11.69 Type 2 diabetes mellitus with other specified complication; M86.672 Other chronic osteomyelitis, left ankle and foot; E11.21 Type 2 diabetes mellitus with diabetic nephropathy; E11.42 Type 2 diabetes mellitus with diabetic polyneuropathy; E11.51 Type 2 diabetes mellitus with diabetic peripheral angiopathy without gangrene; E11.319 Type 2 diabetes mellitus with unspecified diabetic retinopathy without macular edema; I25.10 Atherosclerotic heart disease of native coronary artery without angina pectoris; K21.9 Gastro-esophageal reflux disease without esophagitis; I25.2 Old myocardial infarction; E78.2 Mixed hyperlipidemia; M19.072 Primary osteoarthritis, left ankle and foot; Z95.1 Presence of aortocoronary bypass graft; Z88.5 Allergy status to narcotic agent; Z88.6 Allergy status to analgesic agent; Z79.899 Other long term (current) drug therapy; Z79.82 Long term (current) use of aspirin; Z79.4 Long term (current) use of insulin; Z85.89 Personal history of malignant neoplasm of other organs and systems; Z85.828 Personal history of other malignant neoplasm of skin; Z86.73 Personal history of transient ischemic attack (TIA), and cerebral infarction without residual deficits
CPT/HCPCS: 82948; G0277

== ENCOUNTER → 2019-05-08 | Outpatient (CLI) | payer OTHER ==
[2019-05-08 11:46] VITALS: BP_SYST 119; BP_SYST 122; BP_DIAS 72; BP_DIAS 78
== END | disposition home or self-care (01) ==
LOC: WHH 08:00
PROVIDERS: ATTEND Podiatrist Foot & Ankle Surgery
DX: E11.621 Type 2 diabetes mellitus with foot ulcer (principal); L97.521 Non-pressure chronic ulcer of other part of left foot limited to breakdown of skin; E11.22 Type 2 diabetes mellitus with diabetic chronic kidney disease; I12.9 Hypertensive chronic kidney disease with stage 1 through stage 4 chronic kidney disease, or unspecified chronic kidney disease; N18.2 Chronic kidney disease, stage 2 (mild); E11.69 Type 2 diabetes mellitus with other specified complication; M86.672 Other chronic osteomyelitis, left ankle and foot; E11.21 Type 2 diabetes mellitus with diabetic nephropathy; E11.42 Type 2 diabetes mellitus with diabetic polyneuropathy; E11.51 Type 2 diabetes mellitus with diabetic peripheral angiopathy without gangrene; E11.319 Type 2 diabetes mellitus with unspecified diabetic retinopathy without macular edema; I25.10 Atherosclerotic heart disease of native coronary artery without angina pectoris; K21.9 Gastro-esophageal reflux disease without esophagitis; M19.072 Primary osteoarthritis, left ankle and foot; I25.2 Old myocardial infarction; E78.2 Mixed hyperlipidemia; Z95.1 Presence of aortocoronary bypass graft; Z79.899 Other long term (current) drug therapy; Z79.4 Long term (current) use of insulin; Z79.82 Long term (current) use of aspirin; Z88.5 Allergy status to narcotic agent; Z88.6 Allergy status to analgesic agent; Z85.89 Personal history of malignant neoplasm of other organs and systems; Z85.828 Personal history of other malignant neoplasm of skin; Z86.73 Personal history of transient ischemic attack (TIA), and cerebral infarction without residual deficits
CPT/HCPCS: A4649; G0277

== ENCOUNTER → 2019-05-09 | Outpatient (CLI) | payer OTHER ==
[2019-05-09 12:56] VITALS: BP 141/81
[2019-05-09 12:57] VITALS: BP 140/78
== END | disposition home or self-care (01) ==
LOC: WHH 08:00
PROVIDERS: ATTEND Surgery
DX: E11.621 Type 2 diabetes mellitus with foot ulcer (principal); L97.521 Non-pressure chronic ulcer of other part of left foot limited to breakdown of skin; E11.22 Type 2 diabetes mellitus with diabetic chronic kidney disease; I12.9 Hypertensive chronic kidney disease with stage 1 through stage 4 chronic kidney disease, or unspecified chronic kidney disease; N18.2 Chronic kidney disease, stage 2 (mild); E11.69 Type 2 diabetes mellitus with other specified complication; M86.672 Other chronic osteomyelitis, left ankle and foot; E11.21 Type 2 diabetes mellitus with diabetic nephropathy; E11.51 Type 2 diabetes mellitus with diabetic peripheral angiopathy without gangrene; E11.42 Type 2 diabetes mellitus with diabetic polyneuropathy; E11.319 Type 2 diabetes mellitus with unspecified diabetic retinopathy without macular edema; I25.10 Atherosclerotic heart disease of native coronary artery without angina pectoris; K21.9 Gastro-esophageal reflux disease without esophagitis; M19.072 Primary osteoarthritis, left ankle and foot; E78.2 Mixed hyperlipidemia; I25.2 Old myocardial infarction; Z79.899 Other long term (current) drug therapy; Z79.82 Long term (current) use of aspirin; Z79.4 Long term (current) use of insulin; Z95.1 Presence of aortocoronary bypass graft; Z88.5 Allergy status to narcotic agent; Z88.6 Allergy status to analgesic agent; Z85.828 Personal history of other malignant neoplasm of skin; Z85.89 Personal history of malignant neoplasm of other organs and systems; Z86.73 Personal history of transient ischemic attack (TIA), and cerebral infarction without residual deficits
CPT/HCPCS: G0277

== ENCOUNTER → 2019-05-10 | Outpatient (CLI) | payer OTHER ==
[2019-05-10 13:48] VITALS: BP 144/77
[2019-05-10 13:49] VITALS: BP 104/78
== END | disposition home or self-care (01) ==
LOC: WHH 08:35
PROVIDERS: ATTEND Family Medicine
DX: E11.621 Type 2 diabetes mellitus with foot ulcer (principal); L97.521 Non-pressure chronic ulcer of other part of left foot limited to breakdown of skin; E11.22 Type 2 diabetes mellitus with diabetic chronic kidney disease; I12.9 Hypertensive chronic kidney disease with stage 1 through stage 4 chronic kidney disease, or unspecified chronic kidney disease; N18.2 Chronic kidney disease, stage 2 (mild); E11.69 Type 2 diabetes mellitus with other specified complication; M86.672 Other chronic osteomyelitis, left ankle and foot; E11.21 Type 2 diabetes mellitus with diabetic nephropathy; E11.42 Type 2 diabetes mellitus with diabetic polyneuropathy; E11.319 Type 2 diabetes mellitus with unspecified diabetic retinopathy without macular edema; E11.51 Type 2 diabetes mellitus with diabetic peripheral angiopathy without gangrene; I25.10 Atherosclerotic heart disease of native coronary artery without angina pectoris; K21.9 Gastro-esophageal reflux disease without esophagitis; M19.072 Primary osteoarthritis, left ankle and foot; E78.2 Mixed hyperlipidemia; I25.2 Old myocardial infarction; Z79.82 Long term (current) use of aspirin; Z79.899 Other long term (current) drug therapy; Z79.4 Long term (current) use of insulin; Z88.6 Allergy status to analgesic agent; Z88.5 Allergy status to narcotic agent; Z95.1 Presence of aortocoronary bypass graft; Z85.828 Personal history of other malignant neoplasm of skin; Z85.89 Personal history of malignant neoplasm of other organs and systems; Z86.73 Personal history of transient ischemic attack (TIA), and cerebral infarction without residual deficits
CPT/HCPCS: A4649; G0277

== ENCOUNTER → 2019-05-13 | Outpatient (CLI) | payer OTHER ==
[2019-05-13 12:06] VITALS: BP_SYST 124; BP_SYST 140; BP_DIAS 79; BP_DIAS 82
== END | disposition home or self-care (01) ==
LOC: WHH 08:40
PROVIDERS: ATTEND Family Medicine
DX: E11.621 Type 2 diabetes mellitus with foot ulcer (principal); L97.521 Non-pressure chronic ulcer of other part of left foot limited to breakdown of skin; E11.22 Type 2 diabetes mellitus with diabetic chronic kidney disease; I12.9 Hypertensive chronic kidney disease with stage 1 through stage 4 chronic kidney disease, or unspecified chronic kidney disease; N18.2 Chronic kidney disease, stage 2 (mild); E11.69 Type 2 diabetes mellitus with other specified complication; M86.672 Other chronic osteomyelitis, left ankle and foot; E11.21 Type 2 diabetes mellitus with diabetic nephropathy; E11.42 Type 2 diabetes mellitus with diabetic polyneuropathy; E11.51 Type 2 diabetes mellitus with diabetic peripheral angiopathy without gangrene; E11.319 Type 2 diabetes mellitus with unspecified diabetic retinopathy without macular edema; I25.10 Atherosclerotic heart disease of native coronary artery without angina pectoris; I25.2 Old myocardial infarction; K21.9 Gastro-esophageal reflux disease without esophagitis; M19.072 Primary osteoarthritis, left ankle and foot; E78.2 Mixed hyperlipidemia; Z79.4 Long term (current) use of insulin; Z95.1 Presence of aortocoronary bypass graft; Z79.82 Long term (current) use of aspirin; Z79.899 Other long term (current) drug therapy; Z88.5 Allergy status to narcotic agent; Z88.6 Allergy status to analgesic agent; Z85.828 Personal history of other malignant neoplasm of skin; Z85.89 Personal history of malignant neoplasm of other organs and systems; Z86.73 Personal history of transient ischemic attack (TIA), and cerebral infarction without residual deficits
CPT/HCPCS: 82948 ×2; A4649; G0277

== ENCOUNTER → 2019-05-14 | Outpatient (CLI) | payer OTHER ==
[2019-05-14 12:11] VITALS: BP_SYST 130; BP_SYST 135; BP_DIAS 79; BP_DIAS 80
== END | disposition home or self-care (01) ==
LOC: WHH 08:30
PROVIDERS: ATTEND Surgery
DX: E11.621 Type 2 diabetes mellitus with foot ulcer (principal); L97.521 Non-pressure chronic ulcer of other part of left foot limited to breakdown of skin; E11.22 Type 2 diabetes mellitus with diabetic chronic kidney disease; I12.9 Hypertensive chronic kidney disease with stage 1 through stage 4 chronic kidney disease, or unspecified chronic kidney disease; N18.2 Chronic kidney disease, stage 2 (mild); E11.69 Type 2 diabetes mellitus with other specified complication; M86.672 Other chronic osteomyelitis, left ankle and foot; E11.319 Type 2 diabetes mellitus with unspecified diabetic retinopathy without macular edema; E11.51 Type 2 diabetes mellitus with diabetic peripheral angiopathy without gangrene; E11.21 Type 2 diabetes mellitus with diabetic nephropathy; E11.42 Type 2 diabetes mellitus with diabetic polyneuropathy; E78.2 Mixed hyperlipidemia; I25.10 Atherosclerotic heart disease of native coronary artery without angina pectoris; I25.2 Old myocardial infarction; K21.9 Gastro-esophageal reflux disease without esophagitis; M19.072 Primary osteoarthritis, left ankle and foot; Z95.1 Presence of aortocoronary bypass graft; Z79.899 Other long term (current) drug therapy; Z79.82 Long term (current) use of aspirin; Z79.4 Long term (current) use of insulin; Z88.5 Allergy status to narcotic agent; Z88.6 Allergy status to analgesic agent; Z85.89 Personal history of malignant neoplasm of other organs and systems; Z85.828 Personal history of other malignant neoplasm of skin; Z86.73 Personal history of transient ischemic attack (TIA), and cerebral infarction without residual deficits
CPT/HCPCS: 82948 ×2; G0277

== ENCOUNTER → 2019-05-15 | Outpatient (CLI) | payer OTHER ==
[2019-05-15 13:04] VITALS: BP 148/81
[2019-05-15 13:34] VITALS: BP 138/78
--- NOTE | 2019-05-16 16:24 | NUR ---
Late Entry Addendum: 05/16/19 at 1625 by PAZ AGUAYO RN RN[facility] Amended: Links added.
== END | disposition home or self-care (01) ==
LOC: WHH 08:35
PROVIDERS: ATTEND Podiatrist Foot & Ankle Surgery
DX: E11.621 Type 2 diabetes mellitus with foot ulcer (principal); L97.521 Non-pressure chronic ulcer of other part of left foot limited to breakdown of skin; E11.22 Type 2 diabetes mellitus with diabetic chronic kidney disease; I12.9 Hypertensive chronic kidney disease with stage 1 through stage 4 chronic kidney disease, or unspecified chronic kidney disease; N18.2 Chronic kidney disease, stage 2 (mild); E11.69 Type 2 diabetes mellitus with other specified complication; M86.672 Other chronic osteomyelitis, left ankle and foot; E11.21 Type 2 diabetes mellitus with diabetic nephropathy; E11.42 Type 2 diabetes mellitus with diabetic polyneuropathy; E11.51 Type 2 diabetes mellitus with diabetic peripheral angiopathy without gangrene; E11.319 Type 2 diabetes mellitus with unspecified diabetic retinopathy without macular edema; I25.10 Atherosclerotic heart disease of native coronary artery without angina pectoris; K21.9 Gastro-esophageal reflux disease without esophagitis; E78.2 Mixed hyperlipidemia; I25.2 Old myocardial infarction; M19.072 Primary osteoarthritis, left ankle and foot; Z79.899 Other long term (current) drug therapy; Z79.4 Long term (current) use of insulin; Z79.82 Long term (current) use of aspirin; Z88.6 Allergy status to analgesic agent; Z88.5 Allergy status to narcotic agent; Z85.828 Personal history of other malignant neoplasm of skin; Z85.89 Personal history of malignant neoplasm of other organs and systems; Z95.1 Presence of aortocoronary bypass graft; Z86.73 Personal history of transient ischemic attack (TIA), and cerebral infarction without residual deficits
CPT/HCPCS: A6207; G0277

== ENCOUNTER → 2019-05-16 | Outpatient (CLI) | payer OTHER ==
[2019-05-16 12:50] VITALS: BP 118/70
[2019-05-16 12:51] VITALS: BP 139/85
== END | disposition home or self-care (01) ==
LOC: WHH 08:30
PROVIDERS: ATTEND Surgery
DX: E11.621 Type 2 diabetes mellitus with foot ulcer (principal); L97.521 Non-pressure chronic ulcer of other part of left foot limited to breakdown of skin; E11.22 Type 2 diabetes mellitus with diabetic chronic kidney disease; I12.9 Hypertensive chronic kidney disease with stage 1 through stage 4 chronic kidney disease, or unspecified chronic kidney disease; N18.2 Chronic kidney disease, stage 2 (mild); E11.69 Type 2 diabetes mellitus with other specified complication; M86.672 Other chronic osteomyelitis, left ankle and foot; E11.51 Type 2 diabetes mellitus with diabetic peripheral angiopathy without gangrene; E11.42 Type 2 diabetes mellitus with diabetic polyneuropathy; E11.319 Type 2 diabetes mellitus with unspecified diabetic retinopathy without macular edema; E11.21 Type 2 diabetes mellitus with diabetic nephropathy; I25.10 Atherosclerotic heart disease of native coronary artery without angina pectoris; I25.2 Old myocardial infarction; M19.072 Primary osteoarthritis, left ankle and foot; K21.9 Gastro-esophageal reflux disease without esophagitis; E78.2 Mixed hyperlipidemia; Z88.5 Allergy status to narcotic agent; Z88.6 Allergy status to analgesic agent; Z79.4 Long term (current) use of insulin; Z79.82 Long term (current) use of aspirin; Z79.899 Other long term (current) drug therapy; Z85.89 Personal history of malignant neoplasm of other organs and systems; Z85.828 Personal history of other malignant neoplasm of skin; Z95.1 Presence of aortocoronary bypass graft; Z86.73 Personal history of transient ischemic attack (TIA), and cerebral infarction without residual deficits
CPT/HCPCS: G0277

== ENCOUNTER → 2019-05-17 | Outpatient (CLI) | payer OTHER ==
[2019-05-17 13:04] VITALS: BP 136/70
[2019-05-17 13:05] VITALS: BP 130/68
== END | disposition home or self-care (01) ==
LOC: WHH 08:30
PROVIDERS: ATTEND Family Medicine
DX: E11.621 Type 2 diabetes mellitus with foot ulcer (principal); L97.521 Non-pressure chronic ulcer of other part of left foot limited to breakdown of skin; E11.22 Type 2 diabetes mellitus with diabetic chronic kidney disease; I12.9 Hypertensive chronic kidney disease with stage 1 through stage 4 chronic kidney disease, or unspecified chronic kidney disease; N18.2 Chronic kidney disease, stage 2 (mild); E11.69 Type 2 diabetes mellitus with other specified complication; M86.672 Other chronic osteomyelitis, left ankle and foot; E11.319 Type 2 diabetes mellitus with unspecified diabetic retinopathy without macular edema; E11.51 Type 2 diabetes mellitus with diabetic peripheral angiopathy without gangrene; E11.21 Type 2 diabetes mellitus with diabetic nephropathy; E11.42 Type 2 diabetes mellitus with diabetic polyneuropathy; E78.2 Mixed hyperlipidemia; I25.10 Atherosclerotic heart disease of native coronary artery without angina pectoris; I25.2 Old myocardial infarction; K21.9 Gastro-esophageal reflux disease without esophagitis; M19.072 Primary osteoarthritis, left ankle and foot; Z95.1 Presence of aortocoronary bypass graft; Z79.899 Other long term (current) drug therapy; Z79.82 Long term (current) use of aspirin; Z79.4 Long term (current) use of insulin; Z88.6 Allergy status to analgesic agent; Z88.5 Allergy status to narcotic agent; Z85.828 Personal history of other malignant neoplasm of skin; Z85.89 Personal history of malignant neoplasm of other organs and systems; Z86.73 Personal history of transient ischemic attack (TIA), and cerebral infarction without residual deficits
CPT/HCPCS: G0277

== ENCOUNTER → 2019-05-20 | Outpatient (CLI) | payer OTHER ==
[2019-05-20 13:58] VITALS: BP_SYST 126; BP_SYST 136; BP_DIAS 78; BP_DIAS 80
== END | disposition home or self-care (01) ==
LOC: WHH 10:15
PROVIDERS: ATTEND Family Medicine
DX: E11.621 Type 2 diabetes mellitus with foot ulcer (principal); L97.521 Non-pressure chronic ulcer of other part of left foot limited to breakdown of skin; E11.22 Type 2 diabetes mellitus with diabetic chronic kidney disease; I12.9 Hypertensive chronic kidney disease with stage 1 through stage 4 chronic kidney disease, or unspecified chronic kidney disease; N18.2 Chronic kidney disease, stage 2 (mild); E11.69 Type 2 diabetes mellitus with other specified complication; M86.672 Other chronic osteomyelitis, left ankle and foot; E11.21 Type 2 diabetes mellitus with diabetic nephropathy; E11.42 Type 2 diabetes mellitus with diabetic polyneuropathy; E11.51 Type 2 diabetes mellitus with diabetic peripheral angiopathy without gangrene; E11.319 Type 2 diabetes mellitus with unspecified diabetic retinopathy without macular edema; E78.2 Mixed hyperlipidemia; I25.10 Atherosclerotic heart disease of native coronary artery without angina pectoris; I25.2 Old myocardial infarction; K21.9 Gastro-esophageal reflux disease without esophagitis; M19.072 Primary osteoarthritis, left ankle and foot; Z79.899 Other long term (current) drug therapy; Z79.82 Long term (current) use of aspirin; Z79.4 Long term (current) use of insulin; Z88.5 Allergy status to narcotic agent; Z88.6 Allergy status to analgesic agent; Z85.828 Personal history of other malignant neoplasm of skin; Z85.89 Personal history of malignant neoplasm of other organs and systems; Z95.1 Presence of aortocoronary bypass graft; Z86.73 Personal history of transient ischemic attack (TIA), and cerebral infarction without residual deficits
CPT/HCPCS: G0277

== ENCOUNTER → 2019-05-21 | Outpatient (CLI) | payer OTHER ==
[2019-05-21 12:21] VITALS: BP 104/70
[2019-05-21 12:22] VITALS: BP 130/70
== END | disposition home or self-care (01) ==
LOC: WHH 08:45
PROVIDERS: ATTEND Surgery
DX: E11.621 Type 2 diabetes mellitus with foot ulcer (principal); L97.521 Non-pressure chronic ulcer of other part of left foot limited to breakdown of skin; E11.22 Type 2 diabetes mellitus with diabetic chronic kidney disease; I12.9 Hypertensive chronic kidney disease with stage 1 through stage 4 chronic kidney disease, or unspecified chronic kidney disease; N18.2 Chronic kidney disease, stage 2 (mild); E11.69 Type 2 diabetes mellitus with other specified complication; M86.672 Other chronic osteomyelitis, left ankle and foot; E11.21 Type 2 diabetes mellitus with diabetic nephropathy; E11.42 Type 2 diabetes mellitus with diabetic polyneuropathy; E11.51 Type 2 diabetes mellitus with diabetic peripheral angiopathy without gangrene; E11.319 Type 2 diabetes mellitus with unspecified diabetic retinopathy without macular edema; I25.10 Atherosclerotic heart disease of native coronary artery without angina pectoris; K21.9 Gastro-esophageal reflux disease without esophagitis; M19.072 Primary osteoarthritis, left ankle and foot; E78.2 Mixed hyperlipidemia; I25.2 Old myocardial infarction; Z79.899 Other long term (current) drug therapy; Z88.6 Allergy status to analgesic agent; Z88.5 Allergy status to narcotic agent; Z85.89 Personal history of malignant neoplasm of other organs and systems; Z85.828 Personal history of other malignant neoplasm of skin; Z95.1 Presence of aortocoronary bypass graft; Z79.4 Long term (current) use of insulin; Z79.82 Long term (current) use of aspirin; Z86.73 Personal history of transient ischemic attack (TIA), and cerebral infarction without residual deficits
CPT/HCPCS: G0277

== ENCOUNTER → 2019-05-22 | Outpatient (CLI) | payer OTHER ==
[2019-05-22 14:30] VITALS: BP_SYST 110; BP_SYST 137; BP_DIAS 58; BP_DIAS 73
== END | disposition home or self-care (01) ==
LOC: WHH 08:45
PROVIDERS: ATTEND Podiatrist Foot & Ankle Surgery
DX: E11.621 Type 2 diabetes mellitus with foot ulcer (principal); L97.521 Non-pressure chronic ulcer of other part of left foot limited to breakdown of skin; E11.22 Type 2 diabetes mellitus with diabetic chronic kidney disease; I12.9 Hypertensive chronic kidney disease with stage 1 through stage 4 chronic kidney disease, or unspecified chronic kidney disease; N18.2 Chronic kidney disease, stage 2 (mild); E11.69 Type 2 diabetes mellitus with other specified complication; M86.672 Other chronic osteomyelitis, left ankle and foot; E11.21 Type 2 diabetes mellitus with diabetic nephropathy; E11.42 Type 2 diabetes mellitus with diabetic polyneuropathy; E11.319 Type 2 diabetes mellitus with unspecified diabetic retinopathy without macular edema; E11.51 Type 2 diabetes mellitus with diabetic peripheral angiopathy without gangrene; I25.10 Atherosclerotic heart disease of native coronary artery without angina pectoris; I25.2 Old myocardial infarction; M19.072 Primary osteoarthritis, left ankle and foot; K21.9 Gastro-esophageal reflux disease without esophagitis; E78.2 Mixed hyperlipidemia; Z88.6 Allergy status to analgesic agent; Z88.5 Allergy status to narcotic agent; Z85.89 Personal history of malignant neoplasm of other organs and systems; Z85.828 Personal history of other malignant neoplasm of skin; Z95.1 Presence of aortocoronary bypass graft; Z79.82 Long term (current) use of aspirin; Z79.899 Other long term (current) drug therapy; Z79.4 Long term (current) use of insulin; Z86.73 Personal history of transient ischemic attack (TIA), and cerebral infarction without residual deficits
CPT/HCPCS: A6207; G0277

== ENCOUNTER → 2019-05-23 | Outpatient (CLI) | payer OTHER ==
[2019-05-23 13:30] VITALS: BP_SYST 136; BP_SYST 159; BP_DIAS 63; BP_DIAS 82
== END | disposition home or self-care (01) ==
LOC: WHH 08:30
PROVIDERS: ATTEND Surgery
DX: E11.621 Type 2 diabetes mellitus with foot ulcer (principal); L97.521 Non-pressure chronic ulcer of other part of left foot limited to breakdown of skin; E11.22 Type 2 diabetes mellitus with diabetic chronic kidney disease; I12.9 Hypertensive chronic kidney disease with stage 1 through stage 4 chronic kidney disease, or unspecified chronic kidney disease; N18.2 Chronic kidney disease, stage 2 (mild); E11.69 Type 2 diabetes mellitus with other specified complication; M86.672 Other chronic osteomyelitis, left ankle and foot; E11.21 Type 2 diabetes mellitus with diabetic nephropathy; E11.42 Type 2 diabetes mellitus with diabetic polyneuropathy; E11.51 Type 2 diabetes mellitus with diabetic peripheral angiopathy without gangrene; E11.319 Type 2 diabetes mellitus with unspecified diabetic retinopathy without macular edema; I25.10 Atherosclerotic heart disease of native coronary artery without angina pectoris; I25.2 Old myocardial infarction; K21.9 Gastro-esophageal reflux disease without esophagitis; M19.072 Primary osteoarthritis, left ankle and foot; E78.2 Mixed hyperlipidemia; Z79.899 Other long term (current) drug therapy; Z79.82 Long term (current) use of aspirin; Z79.4 Long term (current) use of insulin; Z85.89 Personal history of malignant neoplasm of other organs and systems; Z85.828 Personal history of other malignant neoplasm of skin; Z95.1 Presence of aortocoronary bypass graft; Z88.5 Allergy status to narcotic agent; Z88.6 Allergy status to analgesic agent; Z88.9 Allergy status to unspecified drugs, medicaments and biological substances; Z86.73 Personal history of transient ischemic attack (TIA), and cerebral infarction without residual deficits
CPT/HCPCS: G0277

== ENCOUNTER → 2019-05-24 | Outpatient (CLI) | payer OTHER ==
[2019-05-24 12:20] VITALS: BP 123/76
[2019-05-24 12:21] VITALS: BP 125/85
== END | disposition home or self-care (01) ==
LOC: WHH 08:00
PROVIDERS: ATTEND Family Medicine
DX: E11.621 Type 2 diabetes mellitus with foot ulcer (principal); L97.521 Non-pressure chronic ulcer of other part of left foot limited to breakdown of skin; E11.22 Type 2 diabetes mellitus with diabetic chronic kidney disease; I12.9 Hypertensive chronic kidney disease with stage 1 through stage 4 chronic kidney disease, or unspecified chronic kidney disease; N18.2 Chronic kidney disease, stage 2 (mild); E11.69 Type 2 diabetes mellitus with other specified complication; M86.672 Other chronic osteomyelitis, left ankle and foot; E11.21 Type 2 diabetes mellitus with diabetic nephropathy; E11.42 Type 2 diabetes mellitus with diabetic polyneuropathy; E11.319 Type 2 diabetes mellitus with unspecified diabetic retinopathy without macular edema; E11.51 Type 2 diabetes mellitus with diabetic peripheral angiopathy without gangrene; I25.10 Atherosclerotic heart disease of native coronary artery without angina pectoris; I25.2 Old myocardial infarction; K21.9 Gastro-esophageal reflux disease without esophagitis; M19.072 Primary osteoarthritis, left ankle and foot; E78.2 Mixed hyperlipidemia; Z79.4 Long term (current) use of insulin; Z79.82 Long term (current) use of aspirin; Z79.899 Other long term (current) drug therapy; Z88.6 Allergy status to analgesic agent; Z88.5 Allergy status to narcotic agent; Z88.8 Allergy status to other drugs, medicaments and biological substances; Z85.89 Personal history of malignant neoplasm of other organs and systems; Z85.828 Personal history of other malignant neoplasm of skin; Z95.1 Presence of aortocoronary bypass graft; Z86.73 Personal history of transient ischemic attack (TIA), and cerebral infarction without residual deficits
CPT/HCPCS: A6207; G0277

== ENCOUNTER → 2019-05-27 | Outpatient (CLI) | payer OTHER ==
[2019-05-27 11:52] VITALS: BP_SYST 142; BP_SYST 145; BP_DIAS 78; BP_DIAS 85
== END | disposition home or self-care (01) ==
LOC: WHH 08:30
PROVIDERS: ATTEND Family Medicine
DX: E11.621 Type 2 diabetes mellitus with foot ulcer (principal); L97.521 Non-pressure chronic ulcer of other part of left foot limited to breakdown of skin; E11.22 Type 2 diabetes mellitus with diabetic chronic kidney disease; I12.9 Hypertensive chronic kidney disease with stage 1 through stage 4 chronic kidney disease, or unspecified chronic kidney disease; N18.2 Chronic kidney disease, stage 2 (mild); E11.69 Type 2 diabetes mellitus with other specified complication; M86.672 Other chronic osteomyelitis, left ankle and foot; E11.21 Type 2 diabetes mellitus with diabetic nephropathy; E11.42 Type 2 diabetes mellitus with diabetic polyneuropathy; E11.51 Type 2 diabetes mellitus with diabetic peripheral angiopathy without gangrene; E11.319 Type 2 diabetes mellitus with unspecified diabetic retinopathy without macular edema; I25.10 Atherosclerotic heart disease of native coronary artery without angina pectoris; I25.2 Old myocardial infarction; E78.2 Mixed hyperlipidemia; K21.9 Gastro-esophageal reflux disease without esophagitis; M19.072 Primary osteoarthritis, left ankle and foot; Z95.1 Presence of aortocoronary bypass graft; Z79.4 Long term (current) use of insulin; Z79.899 Other long term (current) drug therapy; Z79.82 Long term (current) use of aspirin; Z88.6 Allergy status to analgesic agent; Z88.5 Allergy status to narcotic agent; Z88.8 Allergy status to other drugs, medicaments and biological substances; Z86.73 Personal history of transient ischemic attack (TIA), and cerebral infarction without residual deficits; Z85.828 Personal history of other malignant neoplasm of skin; Z85.89 Personal history of malignant neoplasm of other organs and systems
CPT/HCPCS: 82948 ×2; G0277

== ENCOUNTER → 2019-05-28 | Outpatient (CLI) | payer OTHER ==
[2019-05-28 11:35] VITALS: BP 112/73
[2019-05-28 11:36] VITALS: BP 120/70
== END | disposition home or self-care (01) ==
LOC: WHH 08:40
PROVIDERS: ATTEND Surgery
DX: E11.621 Type 2 diabetes mellitus with foot ulcer (principal); L97.521 Non-pressure chronic ulcer of other part of left foot limited to breakdown of skin; E11.22 Type 2 diabetes mellitus with diabetic chronic kidney disease; I12.9 Hypertensive chronic kidney disease with stage 1 through stage 4 chronic kidney disease, or unspecified chronic kidney disease; N18.2 Chronic kidney disease, stage 2 (mild); E11.69 Type 2 diabetes mellitus with other specified complication; M86.672 Other chronic osteomyelitis, left ankle and foot; E11.21 Type 2 diabetes mellitus with diabetic nephropathy; E11.42 Type 2 diabetes mellitus with diabetic polyneuropathy; E11.51 Type 2 diabetes mellitus with diabetic peripheral angiopathy without gangrene; E11.319 Type 2 diabetes mellitus with unspecified diabetic retinopathy without macular edema; I25.10 Atherosclerotic heart disease of native coronary artery without angina pectoris; I25.2 Old myocardial infarction; K21.9 Gastro-esophageal reflux disease without esophagitis; E78.2 Mixed hyperlipidemia; M19.072 Primary osteoarthritis, left ankle and foot; Z85.89 Personal history of malignant neoplasm of other organs and systems; Z85.828 Personal history of other malignant neoplasm of skin; Z95.1 Presence of aortocoronary bypass graft; Z79.899 Other long term (current) drug therapy; Z79.4 Long term (current) use of insulin; Z79.82 Long term (current) use of aspirin; Z88.6 Allergy status to analgesic agent; Z88.5 Allergy status to narcotic agent; Z88.8 Allergy status to other drugs, medicaments and biological substances; Z86.73 Personal history of transient ischemic attack (TIA), and cerebral infarction without residual deficits
CPT/HCPCS: 82948 ×2; A6207; G0277

== ENCOUNTER → 2019-05-31 | Outpatient (CLI) | payer OTHER ==
[2019-05-31 12:13] VITALS: BP_SYST 100; BP_SYST 96; BP_DIAS 55
== END | disposition home or self-care (01) ==
LOC: WHH 08:30
PROVIDERS: ATTEND Family Medicine
DX: E11.621 Type 2 diabetes mellitus with foot ulcer (principal); L97.521 Non-pressure chronic ulcer of other part of left foot limited to breakdown of skin; E11.22 Type 2 diabetes mellitus with diabetic chronic kidney disease; I12.9 Hypertensive chronic kidney disease with stage 1 through stage 4 chronic kidney disease, or unspecified chronic kidney disease; N18.2 Chronic kidney disease, stage 2 (mild); E11.69 Type 2 diabetes mellitus with other specified complication; M86.672 Other chronic osteomyelitis, left ankle and foot; E11.21 Type 2 diabetes mellitus with diabetic nephropathy; E11.42 Type 2 diabetes mellitus with diabetic polyneuropathy; E11.51 Type 2 diabetes mellitus with diabetic peripheral angiopathy without gangrene; E11.319 Type 2 diabetes mellitus with unspecified diabetic retinopathy without macular edema; I25.10 Atherosclerotic heart disease of native coronary artery without angina pectoris; I25.2 Old myocardial infarction; E78.2 Mixed hyperlipidemia; K21.9 Gastro-esophageal reflux disease without esophagitis; M19.072 Primary osteoarthritis, left ankle and foot; Z88.5 Allergy status to narcotic agent; Z88.6 Allergy status to analgesic agent; Z88.8 Allergy status to other drugs, medicaments and biological substances; Z79.899 Other long term (current) drug therapy; Z85.89 Personal history of malignant neoplasm of other organs and systems; Z85.828 Personal history of other malignant neoplasm of skin; Z95.1 Presence of aortocoronary bypass graft; Z79.82 Long term (current) use of aspirin; Z79.4 Long term (current) use of insulin; Z86.73 Personal history of transient ischemic attack (TIA), and cerebral infarction without residual deficits
CPT/HCPCS: 82948 ×2; A6207; G0277

== ENCOUNTER → 2019-06-04 | Outpatient (CLI) | payer OTHER ==
[2019-06-04 15:23] VITALS: BP_SYST 110; BP_SYST 121; BP_DIAS 72; BP_DIAS 78
== END | disposition home or self-care (01) ==
LOC: WHH 08:30
PROVIDERS: ATTEND Surgery
DX: E11.621 Type 2 diabetes mellitus with foot ulcer (principal); L97.521 Non-pressure chronic ulcer of other part of left foot limited to breakdown of skin; E11.22 Type 2 diabetes mellitus with diabetic chronic kidney disease; I12.9 Hypertensive chronic kidney disease with stage 1 through stage 4 chronic kidney disease, or unspecified chronic kidney disease; N18.2 Chronic kidney disease, stage 2 (mild); E11.69 Type 2 diabetes mellitus with other specified complication; M86.672 Other chronic osteomyelitis, left ankle and foot; E11.21 Type 2 diabetes mellitus with diabetic nephropathy; E11.42 Type 2 diabetes mellitus with diabetic polyneuropathy; E11.51 Type 2 diabetes mellitus with diabetic peripheral angiopathy without gangrene; E11.319 Type 2 diabetes mellitus with unspecified diabetic retinopathy without macular edema; I25.10 Atherosclerotic heart disease of native coronary artery without angina pectoris; I25.2 Old myocardial infarction; K21.9 Gastro-esophageal reflux disease without esophagitis; E78.2 Mixed hyperlipidemia; M19.072 Primary osteoarthritis, left ankle and foot; Z85.89 Personal history of malignant neoplasm of other organs and systems; Z85.828 Personal history of other malignant neoplasm of skin; Z95.1 Presence of aortocoronary bypass graft; Z79.899 Other long term (current) drug therapy; Z79.4 Long term (current) use of insulin; Z79.82 Long term (current) use of aspirin; Z88.6 Allergy status to analgesic agent; Z88.5 Allergy status to narcotic agent; Z88.8 Allergy status to other drugs, medicaments and biological substances; Z86.73 Personal history of transient ischemic attack (TIA), and cerebral infarction without residual deficits
CPT/HCPCS: 82948 ×2; G0277

== ENCOUNTER → 2019-06-05 | Outpatient (CLI) | payer OTHER ==
[2019-06-05 13:24] VITALS: BP 134/81
[2019-06-05 13:25] VITALS: BP 135/86
== END | disposition home or self-care (01) ==
LOC: WHH 08:00
PROVIDERS: ATTEND Podiatrist Foot & Ankle Surgery
DX: E11.621 Type 2 diabetes mellitus with foot ulcer (principal); L97.522 Non-pressure chronic ulcer of other part of left foot with fat layer exposed; E11.22 Type 2 diabetes mellitus with diabetic chronic kidney disease; I12.9 Hypertensive chronic kidney disease with stage 1 through stage 4 chronic kidney disease, or unspecified chronic kidney disease; N18.2 Chronic kidney disease, stage 2 (mild); E11.69 Type 2 diabetes mellitus with other specified complication; M86.672 Other chronic osteomyelitis, left ankle and foot; E11.21 Type 2 diabetes mellitus with diabetic nephropathy; E11.42 Type 2 diabetes mellitus with diabetic polyneuropathy; E11.51 Type 2 diabetes mellitus with diabetic peripheral angiopathy without gangrene; E11.319 Type 2 diabetes mellitus with unspecified diabetic retinopathy without macular edema; I25.10 Atherosclerotic heart disease of native coronary artery without angina pectoris; I25.2 Old myocardial infarction; K21.9 Gastro-esophageal reflux disease without esophagitis; E78.2 Mixed hyperlipidemia; M19.072 Primary osteoarthritis, left ankle and foot; Z85.89 Personal history of malignant neoplasm of other organs and systems; Z85.828 Personal history of other malignant neoplasm of skin; Z95.1 Presence of aortocoronary bypass graft; Z79.899 Other long term (current) drug therapy; Z79.4 Long term (current) use of insulin; Z79.82 Long term (current) use of aspirin; Z88.6 Allergy status to analgesic agent; Z88.5 Allergy status to narcotic agent; Z88.8 Allergy status to other drugs, medicaments and biological substances; Z86.73 Personal history of transient ischemic attack (TIA), and cerebral infarction without residual deficits
CPT/HCPCS: 11042; 82948 ×2; 87070; A6207; G0277

== ENCOUNTER → 2019-06-06 | Outpatient (CLI) | payer OTHER ==
[2019-06-06 13:07] VITALS: BP 121/73
[2019-06-06 13:08] VITALS: BP 146/92
== END | disposition home or self-care (01) ==
LOC: WHH 08:40
PROVIDERS: ATTEND Surgery
DX: E11.621 Type 2 diabetes mellitus with foot ulcer (principal); L97.521 Non-pressure chronic ulcer of other part of left foot limited to breakdown of skin; E11.22 Type 2 diabetes mellitus with diabetic chronic kidney disease; I12.9 Hypertensive chronic kidney disease with stage 1 through stage 4 chronic kidney disease, or unspecified chronic kidney disease; N18.2 Chronic kidney disease, stage 2 (mild); E11.69 Type 2 diabetes mellitus with other specified complication; M86.672 Other chronic osteomyelitis, left ankle and foot; E11.21 Type 2 diabetes mellitus with diabetic nephropathy; E11.42 Type 2 diabetes mellitus with diabetic polyneuropathy; E11.51 Type 2 diabetes mellitus with diabetic peripheral angiopathy without gangrene; E11.319 Type 2 diabetes mellitus with unspecified diabetic retinopathy without macular edema; I25.10 Atherosclerotic heart disease of native coronary artery without angina pectoris; I25.2 Old myocardial infarction; K21.9 Gastro-esophageal reflux disease without esophagitis; E78.2 Mixed hyperlipidemia; M19.072 Primary osteoarthritis, left ankle and foot; Z85.89 Personal history of malignant neoplasm of other organs and systems; Z85.828 Personal history of other malignant neoplasm of skin; Z95.1 Presence of aortocoronary bypass graft; Z79.899 Other long term (current) drug therapy; Z79.4 Long term (current) use of insulin; Z79.82 Long term (current) use of aspirin; Z88.6 Allergy status to analgesic agent; Z88.5 Allergy status to narcotic agent; Z88.8 Allergy status to other drugs, medicaments and biological substances; Z86.73 Personal history of transient ischemic attack (TIA), and cerebral infarction without residual deficits
CPT/HCPCS: 82948 ×2; G0277

== ENCOUNTER → 2019-06-10 | Outpatient (CLI) | payer OTHER ==
[2019-06-10 11:21] VITALS: BP_SYST 124; BP_SYST 128; BP_DIAS 72; BP_DIAS 78
== END | disposition home or self-care (01) ==
LOC: WHH 08:45
PROVIDERS: ATTEND Family Medicine
DX: E11.621 Type 2 diabetes mellitus with foot ulcer (principal); L97.521 Non-pressure chronic ulcer of other part of left foot limited to breakdown of skin; E11.22 Type 2 diabetes mellitus with diabetic chronic kidney disease; I12.9 Hypertensive chronic kidney disease with stage 1 through stage 4 chronic kidney disease, or unspecified chronic kidney disease; N18.2 Chronic kidney disease, stage 2 (mild); E11.69 Type 2 diabetes mellitus with other specified complication; M86.672 Other chronic osteomyelitis, left ankle and foot; E11.42 Type 2 diabetes mellitus with diabetic polyneuropathy; E11.51 Type 2 diabetes mellitus with diabetic peripheral angiopathy without gangrene; E11.21 Type 2 diabetes mellitus with diabetic nephropathy; E11.319 Type 2 diabetes mellitus with unspecified diabetic retinopathy without macular edema; I25.10 Atherosclerotic heart disease of native coronary artery without angina pectoris; I25.2 Old myocardial infarction; K21.9 Gastro-esophageal reflux disease without esophagitis; E78.2 Mixed hyperlipidemia; M19.072 Primary osteoarthritis, left ankle and foot; Z85.89 Personal history of malignant neoplasm of other organs and systems; Z85.828 Personal history of other malignant neoplasm of skin; Z95.1 Presence of aortocoronary bypass graft; Z79.899 Other long term (current) drug therapy; Z79.4 Long term (current) use of insulin; Z79.82 Long term (current) use of aspirin; Z88.6 Allergy status to analgesic agent; Z88.5 Allergy status to narcotic agent; Z88.8 Allergy status to other drugs, medicaments and biological substances; Z86.73 Personal history of transient ischemic attack (TIA), and cerebral infarction without residual deficits
CPT/HCPCS: 82948; A6207; G0277

== ENCOUNTER → 2019-06-11 | Outpatient (CLI) | payer OTHER ==
[2019-06-11 13:29] VITALS: BP 140/94
[2019-06-11 13:30] VITALS: BP 166/88
== END | disposition home or self-care (01) ==
LOC: WHH 08:35
PROVIDERS: ATTEND Surgery
DX: E11.621 Type 2 diabetes mellitus with foot ulcer (principal); L97.521 Non-pressure chronic ulcer of other part of left foot limited to breakdown of skin; E11.22 Type 2 diabetes mellitus with diabetic chronic kidney disease; I12.9 Hypertensive chronic kidney disease with stage 1 through stage 4 chronic kidney disease, or unspecified chronic kidney disease; N18.2 Chronic kidney disease, stage 2 (mild); E11.69 Type 2 diabetes mellitus with other specified complication; M86.672 Other chronic osteomyelitis, left ankle and foot; E11.21 Type 2 diabetes mellitus with diabetic nephropathy; E11.42 Type 2 diabetes mellitus with diabetic polyneuropathy; E11.51 Type 2 diabetes mellitus with diabetic peripheral angiopathy without gangrene; E11.319 Type 2 diabetes mellitus with unspecified diabetic retinopathy without macular edema; I25.10 Atherosclerotic heart disease of native coronary artery without angina pectoris; K21.9 Gastro-esophageal reflux disease without esophagitis; I25.2 Old myocardial infarction; E78.2 Mixed hyperlipidemia; M19.072 Primary osteoarthritis, left ankle and foot; Z95.1 Presence of aortocoronary bypass graft; Z79.899 Other long term (current) drug therapy; Z79.4 Long term (current) use of insulin; Z79.82 Long term (current) use of aspirin; Z88.5 Allergy status to narcotic agent; Z88.6 Allergy status to analgesic agent; Z88.8 Allergy status to other drugs, medicaments and biological substances; Z85.89 Personal history of malignant neoplasm of other organs and systems; Z85.828 Personal history of other malignant neoplasm of skin; Z86.73 Personal history of transient ischemic attack (TIA), and cerebral infarction without residual deficits
CPT/HCPCS: 82948 ×2; G0277

== ENCOUNTER → 2019-06-12 | Outpatient (CLI) | payer OTHER ==
[2019-06-12 13:31] VITALS: BP 125/74
[2019-06-12 13:32] VITALS: BP 111/65
== END | disposition home or self-care (01) ==
LOC: WHH 07:55
PROVIDERS: ATTEND Podiatrist Foot & Ankle Surgery
DX: E11.621 Type 2 diabetes mellitus with foot ulcer (principal); L97.521 Non-pressure chronic ulcer of other part of left foot limited to breakdown of skin; E11.22 Type 2 diabetes mellitus with diabetic chronic kidney disease; I12.9 Hypertensive chronic kidney disease with stage 1 through stage 4 chronic kidney disease, or unspecified chronic kidney disease; N18.2 Chronic kidney disease, stage 2 (mild); E11.69 Type 2 diabetes mellitus with other specified complication; M86.672 Other chronic osteomyelitis, left ankle and foot; E11.21 Type 2 diabetes mellitus with diabetic nephropathy; E11.42 Type 2 diabetes mellitus with diabetic polyneuropathy; E11.51 Type 2 diabetes mellitus with diabetic peripheral angiopathy without gangrene; E11.319 Type 2 diabetes mellitus with unspecified diabetic retinopathy without macular edema; I25.10 Atherosclerotic heart disease of native coronary artery without angina pectoris; I25.2 Old myocardial infarction; K21.9 Gastro-esophageal reflux disease without esophagitis; E78.2 Mixed hyperlipidemia; M19.072 Primary osteoarthritis, left ankle and foot; Z95.1 Presence of aortocoronary bypass graft; Z79.899 Other long term (current) drug therapy; Z79.82 Long term (current) use of aspirin; Z79.4 Long term (current) use of insulin; Z88.6 Allergy status to analgesic agent; Z88.5 Allergy status to narcotic agent; Z88.8 Allergy status to other drugs, medicaments and biological substances; Z85.89 Personal history of malignant neoplasm of other organs and systems; Z85.828 Personal history of other malignant neoplasm of skin; Z86.73 Personal history of transient ischemic attack (TIA), and cerebral infarction without residual deficits
CPT/HCPCS: 82948 ×2; A6207; G0277

== ENCOUNTER → 2019-06-13 | Outpatient (CLI) | payer OTHER ==
[2019-06-13 13:29] VITALS: BP_SYST 128; BP_SYST 137; BP_DIAS 72; BP_DIAS 81
== END | disposition home or self-care (01) ==
LOC: WHH 08:40
PROVIDERS: ATTEND Surgery
DX: E11.621 Type 2 diabetes mellitus with foot ulcer (principal); L97.521 Non-pressure chronic ulcer of other part of left foot limited to breakdown of skin; E11.22 Type 2 diabetes mellitus with diabetic chronic kidney disease; I12.9 Hypertensive chronic kidney disease with stage 1 through stage 4 chronic kidney disease, or unspecified chronic kidney disease; N18.2 Chronic kidney disease, stage 2 (mild); E11.69 Type 2 diabetes mellitus with other specified complication; M86.672 Other chronic osteomyelitis, left ankle and foot; E11.21 Type 2 diabetes mellitus with diabetic nephropathy; E11.42 Type 2 diabetes mellitus with diabetic polyneuropathy; E11.51 Type 2 diabetes mellitus with diabetic peripheral angiopathy without gangrene; E11.319 Type 2 diabetes mellitus with unspecified diabetic retinopathy without macular edema; I25.10 Atherosclerotic heart disease of native coronary artery without angina pectoris; I25.2 Old myocardial infarction; K21.9 Gastro-esophageal reflux disease without esophagitis; E78.2 Mixed hyperlipidemia; M19.072 Primary osteoarthritis, left ankle and foot; Z79.4 Long term (current) use of insulin; Z79.82 Long term (current) use of aspirin; Z79.899 Other long term (current) drug therapy; Z88.5 Allergy status to narcotic agent; Z88.6 Allergy status to analgesic agent; Z88.8 Allergy status to other drugs, medicaments and biological substances; Z85.89 Personal history of malignant neoplasm of other organs and systems; Z85.828 Personal history of other malignant neoplasm of skin; Z95.1 Presence of aortocoronary bypass graft; Z86.73 Personal history of transient ischemic attack (TIA), and cerebral infarction without residual deficits
CPT/HCPCS: 82948 ×2; G0277

== ENCOUNTER → 2019-06-14 | Outpatient (CLI) | payer OTHER ==
[2019-06-14 10:47] VITALS: BP 109/65
[2019-06-14 10:48] VITALS: BP 103/72
== END | disposition home or self-care (01) ==
LOC: WHH 08:05
PROVIDERS: ATTEND Family Medicine
DX: E11.621 Type 2 diabetes mellitus with foot ulcer (principal); L97.521 Non-pressure chronic ulcer of other part of left foot limited to breakdown of skin; E11.22 Type 2 diabetes mellitus with diabetic chronic kidney disease; I12.9 Hypertensive chronic kidney disease with stage 1 through stage 4 chronic kidney disease, or unspecified chronic kidney disease; N18.2 Chronic kidney disease, stage 2 (mild); E11.69 Type 2 diabetes mellitus with other specified complication; M86.672 Other chronic osteomyelitis, left ankle and foot; E11.21 Type 2 diabetes mellitus with diabetic nephropathy; E11.42 Type 2 diabetes mellitus with diabetic polyneuropathy; E11.51 Type 2 diabetes mellitus with diabetic peripheral angiopathy without gangrene; E11.319 Type 2 diabetes mellitus with unspecified diabetic retinopathy without macular edema; I25.10 Atherosclerotic heart disease of native coronary artery without angina pectoris; I25.2 Old myocardial infarction; K21.9 Gastro-esophageal reflux disease without esophagitis; E78.2 Mixed hyperlipidemia; M19.072 Primary osteoarthritis, left ankle and foot; Z79.899 Other long term (current) drug therapy; Z79.82 Long term (current) use of aspirin; Z79.4 Long term (current) use of insulin; Z88.5 Allergy status to narcotic agent; Z88.6 Allergy status to analgesic agent; Z88.8 Allergy status to other drugs, medicaments and biological substances; Z85.89 Personal history of malignant neoplasm of other organs and systems; Z85.828 Personal history of other malignant neoplasm of skin; Z95.1 Presence of aortocoronary bypass graft; Z86.73 Personal history of transient ischemic attack (TIA), and cerebral infarction without residual deficits
CPT/HCPCS: 82948 ×2; A6207; G0277

== ENCOUNTER → 2019-06-18 | Outpatient (CLI) | payer OTHER ==
[2019-06-18 11:47] VITALS: BP 127/72
[2019-06-18 11:48] VITALS: BP 137/82
== END | disposition home or self-care (01) ==
LOC: WHH 08:35
PROVIDERS: ATTEND Surgery
DX: E11.621 Type 2 diabetes mellitus with foot ulcer (principal); L97.521 Non-pressure chronic ulcer of other part of left foot limited to breakdown of skin; E11.22 Type 2 diabetes mellitus with diabetic chronic kidney disease; I12.9 Hypertensive chronic kidney disease with stage 1 through stage 4 chronic kidney disease, or unspecified chronic kidney disease; N18.2 Chronic kidney disease, stage 2 (mild); E11.69 Type 2 diabetes mellitus with other specified complication; M86.672 Other chronic osteomyelitis, left ankle and foot; E11.21 Type 2 diabetes mellitus with diabetic nephropathy; E11.42 Type 2 diabetes mellitus with diabetic polyneuropathy; E11.51 Type 2 diabetes mellitus with diabetic peripheral angiopathy without gangrene; E11.319 Type 2 diabetes mellitus with unspecified diabetic retinopathy without macular edema; I25.10 Atherosclerotic heart disease of native coronary artery without angina pectoris; I25.2 Old myocardial infarction; K21.9 Gastro-esophageal reflux disease without esophagitis; E78.2 Mixed hyperlipidemia; M19.072 Primary osteoarthritis, left ankle and foot; Z79.82 Long term (current) use of aspirin; Z79.4 Long term (current) use of insulin; Z79.899 Other long term (current) drug therapy; Z85.89 Personal history of malignant neoplasm of other organs and systems; Z85.828 Personal history of other malignant neoplasm of skin; Z95.1 Presence of aortocoronary bypass graft; Z86.73 Personal history of transient ischemic attack (TIA), and cerebral infarction without residual deficits; Z88.5 Allergy status to narcotic agent; Z88.6 Allergy status to analgesic agent; Z88.8 Allergy status to other drugs, medicaments and biological substances
CPT/HCPCS: 82948 ×2; G0277

== ENCOUNTER 2019-06-19 08:39 | Emergency (ER) | payer OTHER ==
[2019-06-19] MEDS ORDERED: SODIUM CHLORIDE 0.9% 1000ML 1,000 ML IV ONE ×2 (09:25→10:07)
[2019-06-19] MEDS ORDERED: INSULIN HUMULIN R 100 UNIT/ML 3ML ONE (09:27)
[2019-06-19 09:30] LABS: APPEARANCE,URINE Clear (CLEAR); BILIRUBIN,URINE Negative (NEGATIVE); COLOR,URINE Yellow (YELLOW); GLUCOSE, URINE (UA) >=1000 mg/dL (NEGATIVE); KETONES,URINE Negative (NEGATIVE); LEUKOCYTE ESTERASE ,URINE Negative (NEGATIVE); NITRATE,URINE Negative (NEGATIVE); OCCULT BLOOD,URINE Negative (NEGATIVE); PROTEIN,URINE Negative (NEGATIVE); UROBILINOGEN,URINE 0.2 mg/dL (0.2-1.0)
[2019-06-19 09:31] LABS: BASOPHILS % (AUTO) 0.2 % (0.0-5.0); HEMATOCRIT 41.2 % (42-54); LYMPHOCYTES % (AUTO) 23.9 % (21.0-51.0); MEAN CORPUSCULAR HEMOGLOBIN 32.4 pg (27.0-33.0); MEAN CORPUSCULAR HGB CONC 33.7 g/dL (32.0-36.0); MONOCYTES % (AUTO) 9.9 % (3.0-13.0); NEUTROPHILS % (AUTO) 64.6 % (40.0-77.0); PLATELET COUNT (AUTO) 152 K/uL (130-400); RED BLOOD CELL COUNT(AUTO) 4.29 MIL/uL (4.50-6.20); RED CELL DISTRIBUTION WIDTH 13.9 % (11.0-15.5)
[2019-06-19 09:34] LABS: BACTERIA,URINE Rare /HPF (None Seen); RBC,URINE 0-1 /HPF (0-1); WBC,URINE None Seen /HPF (0-1)
[2019-06-19 09:40] LABS: SQUAMOUS EPITHELIAL CELL,UR Rare /HPF (0-2)
[2019-06-19 09:44] LABS: ALBUMIN 3.6 g/dL (3.5-5.0); BILIRUBIN,TOTAL 0.5 mg/dL (0.2-1.0); CREATININE 1.4 mg/dL (0.5-1.5); POTASSIUM 5.5 mmol/L (3.5-5.1); TOTAL PROTEIN, SERUM 7.7 g/dL (6.0-8.3)
== END 2019-06-19 12:22 | disposition home or self-care (01) ==
LOC: EDH 08:39
DX: E11.65 Type 2 diabetes mellitus with hyperglycemia (principal); L97.509 Non-pressure chronic ulcer of other part of unspecified foot with unspecified severity; I10 Essential (primary) hypertension; Z88.6 Allergy status to analgesic agent
CPT/HCPCS: 36415; 80053; 81001; 82948 ×2; 85025; 96361; 96374; 99283; J1815; J7030 ×2

== ENCOUNTER → 2019-06-19 | Outpatient (CLI) | payer OTHER ==
[2019-06-19 10:26] VITALS: BP 130/84
== END | disposition home or self-care (01) ==
LOC: WHH 07:55
PROVIDERS: ATTEND Podiatrist Foot & Ankle Surgery
DX: E11.621 Type 2 diabetes mellitus with foot ulcer (principal); L97.521 Non-pressure chronic ulcer of other part of left foot limited to breakdown of skin; E11.22 Type 2 diabetes mellitus with diabetic chronic kidney disease; I12.9 Hypertensive chronic kidney disease with stage 1 through stage 4 chronic kidney disease, or unspecified chronic kidney disease; N18.2 Chronic kidney disease, stage 2 (mild); E11.69 Type 2 diabetes mellitus with other specified complication; M86.672 Other chronic osteomyelitis, left ankle and foot; E11.21 Type 2 diabetes mellitus with diabetic nephropathy; E11.42 Type 2 diabetes mellitus with diabetic polyneuropathy; E11.51 Type 2 diabetes mellitus with diabetic peripheral angiopathy without gangrene; E11.319 Type 2 diabetes mellitus with unspecified diabetic retinopathy without macular edema; I25.10 Atherosclerotic heart disease of native coronary artery without angina pectoris; I25.2 Old myocardial infarction; K21.9 Gastro-esophageal reflux disease without esophagitis; M19.072 Primary osteoarthritis, left ankle and foot; E78.2 Mixed hyperlipidemia; Z79.82 Long term (current) use of aspirin; Z79.4 Long term (current) use of insulin; Z79.899 Other long term (current) drug therapy; Z85.89 Personal history of malignant neoplasm of other organs and systems; Z85.828 Personal history of other malignant neoplasm of skin; Z95.1 Presence of aortocoronary bypass graft; Z86.73 Personal history of transient ischemic attack (TIA), and cerebral infarction without residual deficits; Z88.5 Allergy status to narcotic agent; Z88.6 Allergy status to analgesic agent; Z88.8 Allergy status to other drugs, medicaments and biological substances
CPT/HCPCS: 82948 ×2; 99211; A6207

== ENCOUNTER → 2019-06-20 | Outpatient (CLI) | payer OTHER ==
[2019-06-20 10:36] VITALS: BP 106/62
[2019-06-20 11:00] VITALS: BP 144/82
== END | disposition home or self-care (01) ==
LOC: WHH 08:30
PROVIDERS: ATTEND Surgery
DX: E11.621 Type 2 diabetes mellitus with foot ulcer (principal); L97.521 Non-pressure chronic ulcer of other part of left foot limited to breakdown of skin; E11.22 Type 2 diabetes mellitus with diabetic chronic kidney disease; I12.9 Hypertensive chronic kidney disease with stage 1 through stage 4 chronic kidney disease, or unspecified chronic kidney disease; N18.2 Chronic kidney disease, stage 2 (mild); E11.69 Type 2 diabetes mellitus with other specified complication; M86.672 Other chronic osteomyelitis, left ankle and foot; E11.21 Type 2 diabetes mellitus with diabetic nephropathy; E11.42 Type 2 diabetes mellitus with diabetic polyneuropathy; E11.51 Type 2 diabetes mellitus with diabetic peripheral angiopathy without gangrene; E11.319 Type 2 diabetes mellitus with unspecified diabetic retinopathy without macular edema; E78.2 Mixed hyperlipidemia; I25.10 Atherosclerotic heart disease of native coronary artery without angina pectoris; I25.2 Old myocardial infarction; K21.9 Gastro-esophageal reflux disease without esophagitis; M19.072 Primary osteoarthritis, left ankle and foot; Z79.899 Other long term (current) drug therapy; Z85.89 Personal history of malignant neoplasm of other organs and systems; Z85.828 Personal history of other malignant neoplasm of skin; Z95.1 Presence of aortocoronary bypass graft; Z79.82 Long term (current) use of aspirin; Z79.4 Long term (current) use of insulin; Z88.5 Allergy status to narcotic agent; Z88.6 Allergy status to analgesic agent; Z88.8 Allergy status to other drugs, medicaments and biological substances; Z86.73 Personal history of transient ischemic attack (TIA), and cerebral infarction without residual deficits
CPT/HCPCS: 82948 ×2; G0277

== ENCOUNTER → 2019-06-21 | Outpatient (CLI) | payer OTHER ==
[2019-06-21 11:38] VITALS: BP_SYST 108; BP_SYST 116; BP_DIAS 68; BP_DIAS 77
== END | disposition home or self-care (01) ==
LOC: WHH 08:30
PROVIDERS: ATTEND Family Medicine
DX: E11.621 Type 2 diabetes mellitus with foot ulcer (principal); L97.521 Non-pressure chronic ulcer of other part of left foot limited to breakdown of skin; E11.22 Type 2 diabetes mellitus with diabetic chronic kidney disease; I12.9 Hypertensive chronic kidney disease with stage 1 through stage 4 chronic kidney disease, or unspecified chronic kidney disease; N18.2 Chronic kidney disease, stage 2 (mild); E11.69 Type 2 diabetes mellitus with other specified complication; M86.672 Other chronic osteomyelitis, left ankle and foot; E11.21 Type 2 diabetes mellitus with diabetic nephropathy; E11.42 Type 2 diabetes mellitus with diabetic polyneuropathy; E11.51 Type 2 diabetes mellitus with diabetic peripheral angiopathy without gangrene; E11.319 Type 2 diabetes mellitus with unspecified diabetic retinopathy without macular edema; E78.2 Mixed hyperlipidemia; I25.10 Atherosclerotic heart disease of native coronary artery without angina pectoris; I25.2 Old myocardial infarction; M19.072 Primary osteoarthritis, left ankle and foot; K21.9 Gastro-esophageal reflux disease without esophagitis; Z79.82 Long term (current) use of aspirin; Z79.4 Long term (current) use of insulin; Z79.899 Other long term (current) drug therapy; Z85.89 Personal history of malignant neoplasm of other organs and systems; Z85.828 Personal history of other malignant neoplasm of skin; Z95.1 Presence of aortocoronary bypass graft; Z86.73 Personal history of transient ischemic attack (TIA), and cerebral infarction without residual deficits; Z88.5 Allergy status to narcotic agent; Z88.6 Allergy status to analgesic agent; Z88.8 Allergy status to other drugs, medicaments and biological substances
CPT/HCPCS: 82948 ×3; A6207; G0277

== ENCOUNTER → 2019-06-24 | Outpatient (CLI) | payer OTHER ==
[2019-06-24 12:35] VITALS: BP 146/82
[2019-06-24 12:36] VITALS: BP 132/82
== END | disposition home or self-care (01) ==
LOC: WHH 08:40
PROVIDERS: ATTEND Family Medicine
DX: E11.621 Type 2 diabetes mellitus with foot ulcer (principal); L97.521 Non-pressure chronic ulcer of other part of left foot limited to breakdown of skin; E11.22 Type 2 diabetes mellitus with diabetic chronic kidney disease; I12.9 Hypertensive chronic kidney disease with stage 1 through stage 4 chronic kidney disease, or unspecified chronic kidney disease; N18.2 Chronic kidney disease, stage 2 (mild); M86.672 Other chronic osteomyelitis, left ankle and foot; E11.69 Type 2 diabetes mellitus with other specified complication; E11.21 Type 2 diabetes mellitus with diabetic nephropathy; E11.42 Type 2 diabetes mellitus with diabetic polyneuropathy; E11.51 Type 2 diabetes mellitus with diabetic peripheral angiopathy without gangrene; E11.319 Type 2 diabetes mellitus with unspecified diabetic retinopathy without macular edema; E78.2 Mixed hyperlipidemia; I25.10 Atherosclerotic heart disease of native coronary artery without angina pectoris; I25.2 Old myocardial infarction; K21.9 Gastro-esophageal reflux disease without esophagitis; M19.072 Primary osteoarthritis, left ankle and foot; Z79.82 Long term (current) use of aspirin; Z79.4 Long term (current) use of insulin; Z79.899 Other long term (current) drug therapy; Z85.89 Personal history of malignant neoplasm of other organs and systems; Z85.828 Personal history of other malignant neoplasm of skin; Z95.1 Presence of aortocoronary bypass graft; Z86.73 Personal history of transient ischemic attack (TIA), and cerebral infarction without residual deficits; Z88.5 Allergy status to narcotic agent; Z88.6 Allergy status to analgesic agent; Z88.8 Allergy status to other drugs, medicaments and biological substances
CPT/HCPCS: 82948 ×2; A6207; G0277

== ENCOUNTER → 2019-06-25 | Outpatient (CLI) | payer OTHER ==
[2019-06-25 13:53] VITALS: BP_SYST 115; BP_SYST 121; BP_DIAS 70; BP_DIAS 72
== END | disposition home or self-care (01) ==
LOC: WHH 08:10
PROVIDERS: ATTEND Surgery
DX: E11.621 Type 2 diabetes mellitus with foot ulcer (principal); L97.521 Non-pressure chronic ulcer of other part of left foot limited to breakdown of skin; E11.22 Type 2 diabetes mellitus with diabetic chronic kidney disease; I12.9 Hypertensive chronic kidney disease with stage 1 through stage 4 chronic kidney disease, or unspecified chronic kidney disease; N18.2 Chronic kidney disease, stage 2 (mild); E11.69 Type 2 diabetes mellitus with other specified complication; M86.672 Other chronic osteomyelitis, left ankle and foot; E11.42 Type 2 diabetes mellitus with diabetic polyneuropathy; E11.319 Type 2 diabetes mellitus with unspecified diabetic retinopathy without macular edema; E11.51 Type 2 diabetes mellitus with diabetic peripheral angiopathy without gangrene; E11.21 Type 2 diabetes mellitus with diabetic nephropathy; E78.2 Mixed hyperlipidemia; I25.10 Atherosclerotic heart disease of native coronary artery without angina pectoris; I25.2 Old myocardial infarction; K21.9 Gastro-esophageal reflux disease without esophagitis; M19.072 Primary osteoarthritis, left ankle and foot; Z79.899 Other long term (current) drug therapy; Z85.89 Personal history of malignant neoplasm of other organs and systems; Z85.828 Personal history of other malignant neoplasm of skin; Z95.1 Presence of aortocoronary bypass graft; Z86.73 Personal history of transient ischemic attack (TIA), and cerebral infarction without residual deficits; Z79.82 Long term (current) use of aspirin; Z79.4 Long term (current) use of insulin; Z88.5 Allergy status to narcotic agent; Z88.6 Allergy status to analgesic agent; Z88.8 Allergy status to other drugs, medicaments and biological substances
CPT/HCPCS: 82948; G0277

== ENCOUNTER → 2019-06-26 | Outpatient (CLI) | payer OTHER ==
[2019-06-26 17:20] VITALS: BP 102/57
[2019-06-26 17:21] VITALS: BP 132/70
== END | disposition home or self-care (01) ==
LOC: WHH 07:50
PROVIDERS: ATTEND Podiatrist Foot & Ankle Surgery
DX: E11.621 Type 2 diabetes mellitus with foot ulcer (principal); L97.521 Non-pressure chronic ulcer of other part of left foot limited to breakdown of skin; E11.22 Type 2 diabetes mellitus with diabetic chronic kidney disease; I12.9 Hypertensive chronic kidney disease with stage 1 through stage 4 chronic kidney disease, or unspecified chronic kidney disease; N18.2 Chronic kidney disease, stage 2 (mild); E11.69 Type 2 diabetes mellitus with other specified complication; M86.672 Other chronic osteomyelitis, left ankle and foot; E11.21 Type 2 diabetes mellitus with diabetic nephropathy; E11.42 Type 2 diabetes mellitus with diabetic polyneuropathy; E11.51 Type 2 diabetes mellitus with diabetic peripheral angiopathy without gangrene; E11.319 Type 2 diabetes mellitus with unspecified diabetic retinopathy without macular edema; E78.2 Mixed hyperlipidemia; I25.2 Old myocardial infarction; I25.10 Atherosclerotic heart disease of native coronary artery without angina pectoris; K21.9 Gastro-esophageal reflux disease without esophagitis; Z85.89 Personal history of malignant neoplasm of other organs and systems; Z85.828 Personal history of other malignant neoplasm of skin; Z95.1 Presence of aortocoronary bypass graft; M19.072 Primary osteoarthritis, left ankle and foot; Z79.82 Long term (current) use of aspirin; Z79.4 Long term (current) use of insulin; Z88.5 Allergy status to narcotic agent; Z88.6 Allergy status to analgesic agent; Z88.8 Allergy status to other drugs, medicaments and biological substances; Z86.73 Personal history of transient ischemic attack (TIA), and cerebral infarction without residual deficits
CPT/HCPCS: 73630; 82948 ×2; A6207; G0277

== ENCOUNTER → 2019-06-27 | Outpatient (CLI) | payer OTHER ==
[2019-06-27 14:12] VITALS: BP_SYST 118; BP_SYST 120; BP_DIAS 61; BP_DIAS 70
== END | disposition home or self-care (01) ==
LOC: WHH 08:45
PROVIDERS: ATTEND Surgery
DX: E11.621 Type 2 diabetes mellitus with foot ulcer (principal); L97.521 Non-pressure chronic ulcer of other part of left foot limited to breakdown of skin; E11.22 Type 2 diabetes mellitus with diabetic chronic kidney disease; I12.9 Hypertensive chronic kidney disease with stage 1 through stage 4 chronic kidney disease, or unspecified chronic kidney disease; N18.9 Chronic kidney disease, unspecified; E11.69 Type 2 diabetes mellitus with other specified complication; M86.672 Other chronic osteomyelitis, left ankle and foot; E11.21 Type 2 diabetes mellitus with diabetic nephropathy; E11.42 Type 2 diabetes mellitus with diabetic polyneuropathy; E11.51 Type 2 diabetes mellitus with diabetic peripheral angiopathy without gangrene; E11.319 Type 2 diabetes mellitus with unspecified diabetic retinopathy without macular edema; E78.2 Mixed hyperlipidemia; I25.10 Atherosclerotic heart disease of native coronary artery without angina pectoris; I25.2 Old myocardial infarction; M19.072 Primary osteoarthritis, left ankle and foot; K21.9 Gastro-esophageal reflux disease without esophagitis; Z85.828 Personal history of other malignant neoplasm of skin; Z85.89 Personal history of malignant neoplasm of other organs and systems; Z95.1 Presence of aortocoronary bypass graft; Z86.73 Personal history of transient ischemic attack (TIA), and cerebral infarction without residual deficits; Z88.5 Allergy status to narcotic agent; Z79.82 Long term (current) use of aspirin; Z79.4 Long term (current) use of insulin; Z88.6 Allergy status to analgesic agent; Z88.8 Allergy status to other drugs, medicaments and biological substances; Z79.899 Other long term (current) drug therapy
CPT/HCPCS: 82948 ×2; G0277

== ENCOUNTER → 2019-06-28 | Outpatient (CLI) | payer OTHER ==
[2019-06-28 13:44] VITALS: BP 102/57
[2019-06-28 14:24] VITALS: BP 160/91
== END | disposition home or self-care (01) ==
LOC: WHH 08:30
PROVIDERS: ATTEND Family Medicine
DX: E11.621 Type 2 diabetes mellitus with foot ulcer (principal); L97.521 Non-pressure chronic ulcer of other part of left foot limited to breakdown of skin; E11.22 Type 2 diabetes mellitus with diabetic chronic kidney disease; I12.9 Hypertensive chronic kidney disease with stage 1 through stage 4 chronic kidney disease, or unspecified chronic kidney disease; N18.2 Chronic kidney disease, stage 2 (mild); E11.69 Type 2 diabetes mellitus with other specified complication; M86.672 Other chronic osteomyelitis, left ankle and foot; E11.21 Type 2 diabetes mellitus with diabetic nephropathy; E11.42 Type 2 diabetes mellitus with diabetic polyneuropathy; E11.51 Type 2 diabetes mellitus with diabetic peripheral angiopathy without gangrene; E11.319 Type 2 diabetes mellitus with unspecified diabetic retinopathy without macular edema; E78.2 Mixed hyperlipidemia; I25.10 Atherosclerotic heart disease of native coronary artery without angina pectoris; I25.2 Old myocardial infarction; K21.9 Gastro-esophageal reflux disease without esophagitis; M19.072 Primary osteoarthritis, left ankle and foot; Z79.82 Long term (current) use of aspirin; Z79.4 Long term (current) use of insulin; Z79.899 Other long term (current) drug therapy; Z85.828 Personal history of other malignant neoplasm of skin; Z85.89 Personal history of malignant neoplasm of other organs and systems; Z95.1 Presence of aortocoronary bypass graft; Z88.5 Allergy status to narcotic agent; Z88.6 Allergy status to analgesic agent; Z88.8 Allergy status to other drugs, medicaments and biological substances; Z86.73 Personal history of transient ischemic attack (TIA), and cerebral infarction without residual deficits
CPT/HCPCS: 82948 ×2; A6207; G0277

== ENCOUNTER → 2019-07-01 | Outpatient (CLI) | payer OTHER ==
[2019-07-01 11:24] VITALS: BP_SYST 103; BP_SYST 106; BP_DIAS 68; BP_DIAS 72
== END | disposition home or self-care (01) ==
LOC: WHH 08:05
PROVIDERS: ATTEND Family Medicine
DX: E11.621 Type 2 diabetes mellitus with foot ulcer (principal); L97.521 Non-pressure chronic ulcer of other part of left foot limited to breakdown of skin; E11.22 Type 2 diabetes mellitus with diabetic chronic kidney disease; I12.9 Hypertensive chronic kidney disease with stage 1 through stage 4 chronic kidney disease, or unspecified chronic kidney disease; N18.2 Chronic kidney disease, stage 2 (mild); E11.69 Type 2 diabetes mellitus with other specified complication; M86.672 Other chronic osteomyelitis, left ankle and foot; E11.40 Type 2 diabetes mellitus with diabetic neuropathy, unspecified; E11.51 Type 2 diabetes mellitus with diabetic peripheral angiopathy without gangrene; E11.319 Type 2 diabetes mellitus with unspecified diabetic retinopathy without macular edema; I25.10 Atherosclerotic heart disease of native coronary artery without angina pectoris; I25.2 Old myocardial infarction; E78.2 Mixed hyperlipidemia; M19.072 Primary osteoarthritis, left ankle and foot; K21.9 Gastro-esophageal reflux disease without esophagitis; Z79.899 Other long term (current) drug therapy; Z85.828 Personal history of other malignant neoplasm of skin; Z85.89 Personal history of malignant neoplasm of other organs and systems; Z95.1 Presence of aortocoronary bypass graft; Z88.5 Allergy status to narcotic agent; Z88.6 Allergy status to analgesic agent; Z88.8 Allergy status to other drugs, medicaments and biological substances; Z79.82 Long term (current) use of aspirin; Z79.4 Long term (current) use of insulin; Z86.73 Personal history of transient ischemic attack (TIA), and cerebral infarction without residual deficits
CPT/HCPCS: 82948 ×2; A6207; G0277

== ENCOUNTER → 2019-07-02 | Outpatient (CLI) | payer OTHER ==
[2019-07-02 11:48] VITALS: BP_SYST 145; BP_SYST 150; BP_DIAS 78; BP_DIAS 80
== END | disposition home or self-care (01) ==
LOC: WHH 08:30
PROVIDERS: ATTEND Surgery
DX: E11.621 Type 2 diabetes mellitus with foot ulcer (principal); L97.521 Non-pressure chronic ulcer of other part of left foot limited to breakdown of skin; E11.22 Type 2 diabetes mellitus with diabetic chronic kidney disease; I12.9 Hypertensive chronic kidney disease with stage 1 through stage 4 chronic kidney disease, or unspecified chronic kidney disease; N18.2 Chronic kidney disease, stage 2 (mild); E11.69 Type 2 diabetes mellitus with other specified complication; M86.672 Other chronic osteomyelitis, left ankle and foot; E11.40 Type 2 diabetes mellitus with diabetic neuropathy, unspecified; E11.51 Type 2 diabetes mellitus with diabetic peripheral angiopathy without gangrene; E11.319 Type 2 diabetes mellitus with unspecified diabetic retinopathy without macular edema; E11.21 Type 2 diabetes mellitus with diabetic nephropathy; E11.42 Type 2 diabetes mellitus with diabetic polyneuropathy; E78.5 Hyperlipidemia, unspecified; I25.10 Atherosclerotic heart disease of native coronary artery without angina pectoris; I25.2 Old myocardial infarction; K21.9 Gastro-esophageal reflux disease without esophagitis; M19.072 Primary osteoarthritis, left ankle and foot; Z79.82 Long term (current) use of aspirin; Z79.4 Long term (current) use of insulin; Z79.899 Other long term (current) drug therapy; Z85.89 Personal history of malignant neoplasm of other organs and systems; Z85.828 Personal history of other malignant neoplasm of skin; Z95.1 Presence of aortocoronary bypass graft; Z88.5 Allergy status to narcotic agent; Z88.6 Allergy status to analgesic agent; Z88.8 Allergy status to other drugs, medicaments and biological substances; Z86.73 Personal history of transient ischemic attack (TIA), and cerebral infarction without residual deficits
CPT/HCPCS: 82948 ×2; G0277

== ENCOUNTER → 2019-07-03 | Outpatient (CLI) | payer OTHER ==
[2019-07-03 15:12] VITALS: BP_SYST 103; BP_SYST 121; BP_DIAS 62; BP_DIAS 68
== END | disposition home or self-care (01) ==
LOC: WHH 08:25
PROVIDERS: ATTEND Podiatrist Foot & Ankle Surgery
DX: E11.621 Type 2 diabetes mellitus with foot ulcer (principal); L97.521 Non-pressure chronic ulcer of other part of left foot limited to breakdown of skin; E11.22 Type 2 diabetes mellitus with diabetic chronic kidney disease; I12.9 Hypertensive chronic kidney disease with stage 1 through stage 4 chronic kidney disease, or unspecified chronic kidney disease; N18.2 Chronic kidney disease, stage 2 (mild); E11.69 Type 2 diabetes mellitus with other specified complication; M86.672 Other chronic osteomyelitis, left ankle and foot; E11.21 Type 2 diabetes mellitus with diabetic nephropathy; E11.40 Type 2 diabetes mellitus with diabetic neuropathy, unspecified; E11.42 Type 2 diabetes mellitus with diabetic polyneuropathy; E11.51 Type 2 diabetes mellitus with diabetic peripheral angiopathy without gangrene; E11.319 Type 2 diabetes mellitus with unspecified diabetic retinopathy without macular edema; E78.2 Mixed hyperlipidemia; I25.10 Atherosclerotic heart disease of native coronary artery without angina pectoris; I25.2 Old myocardial infarction; K21.9 Gastro-esophageal reflux disease without esophagitis; M19.072 Primary osteoarthritis, left ankle and foot; Z79.82 Long term (current) use of aspirin; Z79.4 Long term (current) use of insulin; Z79.899 Other long term (current) drug therapy; Z85.828 Personal history of other malignant neoplasm of skin; Z85.89 Personal history of malignant neoplasm of other organs and systems; Z95.1 Presence of aortocoronary bypass graft; Z88.5 Allergy status to narcotic agent; Z88.6 Allergy status to analgesic agent; Z88.8 Allergy status to other drugs, medicaments and biological substances; Z86.73 Personal history of transient ischemic attack (TIA), and cerebral infarction without residual deficits
CPT/HCPCS: 82948 ×3; G0277

== ENCOUNTER → 2019-07-10 | Outpatient (CLI) | payer OTHER ==
[2019-07-10 08:48] VITALS: BP 151/94
== END | disposition home or self-care (01) ==
LOC: WHH 08:00
PROVIDERS: ATTEND Podiatrist Foot & Ankle Surgery
DX: E11.621 Type 2 diabetes mellitus with foot ulcer (principal); L97.521 Non-pressure chronic ulcer of other part of left foot limited to breakdown of skin; L84 Corns and callosities; E11.22 Type 2 diabetes mellitus with diabetic chronic kidney disease; I13.0 Hypertensive heart and chronic kidney disease with heart failure and stage 1 through stage 4 chronic kidney disease, or unspecified chronic kidney disease; N18.2 Chronic kidney disease, stage 2 (mild); I50.9 Heart failure, unspecified; E11.69 Type 2 diabetes mellitus with other specified complication; M86.672 Other chronic osteomyelitis, left ankle and foot; E11.42 Type 2 diabetes mellitus with diabetic polyneuropathy; E11.319 Type 2 diabetes mellitus with unspecified diabetic retinopathy without macular edema; E11.51 Type 2 diabetes mellitus with diabetic peripheral angiopathy without gangrene; E11.21 Type 2 diabetes mellitus with diabetic nephropathy; I25.2 Old myocardial infarction; I25.10 Atherosclerotic heart disease of native coronary artery without angina pectoris; K21.9 Gastro-esophageal reflux disease without esophagitis; E78.2 Mixed hyperlipidemia; M19.072 Primary osteoarthritis, left ankle and foot; Z88.5 Allergy status to narcotic agent; Z88.6 Allergy status to analgesic agent; Z88.8 Allergy status to other drugs, medicaments and biological substances; Z79.4 Long term (current) use of insulin; Z79.82 Long term (current) use of aspirin; Z86.73 Personal history of transient ischemic attack (TIA), and cerebral infarction without residual deficits; Z79.899 Other long term (current) drug therapy; Z95.1 Presence of aortocoronary bypass graft; Z85.828 Personal history of other malignant neoplasm of skin; Z85.89 Personal history of malignant neoplasm of other organs and systems
CPT/HCPCS: 97597

== ENCOUNTER → 2019-07-30 | Outpatient (CLI) | payer OTHER | END | disposition home or self-care (01) | LOC: RAH 11:17 | PROVIDERS: ATTEND Podiatrist Foot & Ankle Surgery | DX: E11.621 Type 2 diabetes mellitus with foot ulcer (principal); M79.89 Other specified soft tissue disorders | CPT/HCPCS: 73630 ==

== ENCOUNTER → 2019-07-31 | Outpatient (CLI) | payer OTHER ==
[2019-07-31 09:17] VITALS: BP 125/90
== END | disposition home or self-care (01) ==
LOC: WHH 08:00
PROVIDERS: ATTEND Podiatrist Foot & Ankle Surgery
DX: E11.621 Type 2 diabetes mellitus with foot ulcer (principal); L97.521 Non-pressure chronic ulcer of other part of left foot limited to breakdown of skin; E11.22 Type 2 diabetes mellitus with diabetic chronic kidney disease; I13.0 Hypertensive heart and chronic kidney disease with heart failure and stage 1 through stage 4 chronic kidney disease, or unspecified chronic kidney disease; N18.2 Chronic kidney disease, stage 2 (mild); I50.9 Heart failure, unspecified; E11.69 Type 2 diabetes mellitus with other specified complication; M86.672 Other chronic osteomyelitis, left ankle and foot; E11.42 Type 2 diabetes mellitus with diabetic polyneuropathy; E11.319 Type 2 diabetes mellitus with unspecified diabetic retinopathy without macular edema; E11.51 Type 2 diabetes mellitus with diabetic peripheral angiopathy without gangrene; E11.21 Type 2 diabetes mellitus with diabetic nephropathy; I25.2 Old myocardial infarction; I25.10 Atherosclerotic heart disease of native coronary artery without angina pectoris; K21.9 Gastro-esophageal reflux disease without esophagitis; E78.2 Mixed hyperlipidemia; M19.072 Primary osteoarthritis, left ankle and foot; Z88.5 Allergy status to narcotic agent; Z88.6 Allergy status to analgesic agent; Z88.8 Allergy status to other drugs, medicaments and biological substances; Z79.4 Long term (current) use of insulin; Z79.82 Long term (current) use of aspirin; Z86.73 Personal history of transient ischemic attack (TIA), and cerebral infarction without residual deficits; Z79.899 Other long term (current) drug therapy
CPT/HCPCS: 99214

== ENCOUNTER → 2019-08-28 | Outpatient (CLI) | payer OTHER ==
[~2019-08-28] MED LIST changes: +METF-910 PO; -METF500T20 PO
[2019-08-28 09:07] VITALS: BP 141/86
--- NOTE | 2019-08-28 11:43 | NUR ---
Correction -- remove selective and excisional documentation -- Non selective debridement performed and documented by .
== END | disposition home or self-care (01) ==
LOC: WHH 08:00
PROVIDERS: ATTEND Podiatrist Foot & Ankle Surgery
DX: E11.621 Type 2 diabetes mellitus with foot ulcer (principal); L97.521 Non-pressure chronic ulcer of other part of left foot limited to breakdown of skin; E11.22 Type 2 diabetes mellitus with diabetic chronic kidney disease; I13.0 Hypertensive heart and chronic kidney disease with heart failure and stage 1 through stage 4 chronic kidney disease, or unspecified chronic kidney disease; N18.2 Chronic kidney disease, stage 2 (mild); I50.9 Heart failure, unspecified; E11.69 Type 2 diabetes mellitus with other specified complication; M86.672 Other chronic osteomyelitis, left ankle and foot; E11.42 Type 2 diabetes mellitus with diabetic polyneuropathy; E11.319 Type 2 diabetes mellitus with unspecified diabetic retinopathy without macular edema; E11.51 Type 2 diabetes mellitus with diabetic peripheral angiopathy without gangrene; E11.21 Type 2 diabetes mellitus with diabetic nephropathy; I25.2 Old myocardial infarction; I25.10 Atherosclerotic heart disease of native coronary artery without angina pectoris; K21.9 Gastro-esophageal reflux disease without esophagitis; E78.2 Mixed hyperlipidemia; M19.072 Primary osteoarthritis, left ankle and foot; Z88.5 Allergy status to narcotic agent; Z88.6 Allergy status to analgesic agent; Z88.8 Allergy status to other drugs, medicaments and biological substances; Z79.4 Long term (current) use of insulin; Z79.82 Long term (current) use of aspirin; Z86.73 Personal history of transient ischemic attack (TIA), and cerebral infarction without residual deficits; Z79.899 Other long term (current) drug therapy
CPT/HCPCS: 73630; 97597; 97602

== ENCOUNTER → 2019-09-04 | Outpatient (CLI) | payer OTHER ==
[2019-09-04 10:53] VITALS: BP 124/78
== END | disposition home or self-care (01) ==
LOC: WHH 08:00
PROVIDERS: ATTEND Podiatrist Foot & Ankle Surgery
DX: E11.621 Type 2 diabetes mellitus with foot ulcer (principal); L97.521 Non-pressure chronic ulcer of other part of left foot limited to breakdown of skin; E11.22 Type 2 diabetes mellitus with diabetic chronic kidney disease; I13.0 Hypertensive heart and chronic kidney disease with heart failure and stage 1 through stage 4 chronic kidney disease, or unspecified chronic kidney disease; N18.2 Chronic kidney disease, stage 2 (mild); I50.9 Heart failure, unspecified; E11.69 Type 2 diabetes mellitus with other specified complication; M86.672 Other chronic osteomyelitis, left ankle and foot; E11.42 Type 2 diabetes mellitus with diabetic polyneuropathy; E11.319 Type 2 diabetes mellitus with unspecified diabetic retinopathy without macular edema; E11.51 Type 2 diabetes mellitus with diabetic peripheral angiopathy without gangrene; E11.21 Type 2 diabetes mellitus with diabetic nephropathy; I25.10 Atherosclerotic heart disease of native coronary artery without angina pectoris; K21.9 Gastro-esophageal reflux disease without esophagitis; E78.2 Mixed hyperlipidemia; M19.072 Primary osteoarthritis, left ankle and foot; Z88.5 Allergy status to narcotic agent; Z88.6 Allergy status to analgesic agent; Z88.8 Allergy status to other drugs, medicaments and biological substances; Z79.4 Long term (current) use of insulin; Z79.82 Long term (current) use of aspirin; Z86.73 Personal history of transient ischemic attack (TIA), and cerebral infarction without residual deficits; Z79.899 Other long term (current) drug therapy
CPT/HCPCS: 99213

== ENCOUNTER 2019-09-15 11:31 | Emergency (ER) | payer OTHER ==
[~2019-09-15 11:31] MED LIST changes: -ASPI-1181; +ASPI-1443
[2019-09-15 12:28] LABS: BASOPHILS % (AUTO) 0.5 % (0.0-5.0); EOSINOPHILS % (AUTO) 0.9 % (0.0-8.0); HEMATOCRIT 46.6 % (42-54); LYMPHOCYTES % (AUTO) 33.5 % (21.0-51.0); MEAN CORPUSCULAR HEMOGLOBIN 33.3 pg (27.0-33.0); MEAN CORPUSCULAR HGB CONC 34.3 g/dL (32.0-36.0); MEAN CORPUSCULAR VOLUME 97.1 fL (79-99); MONOCYTES % (AUTO) 10.4 % (3.0-13.0); NEUTROPHILS % (AUTO) 54.5 % (40.0-77.0); PLATELET COUNT (AUTO) 114 K/uL (130-400); RED CELL DISTRIBUTION WIDTH 13.2 % (11.0-15.5); WHITE BLOOD COUNT (AUTO) 6.4 K/uL (4.8-10.8)
[2019-09-15 12:45] LABS: CREATININE 1.3 mg/dL (0.5-1.5); POTASSIUM 4.3 mmol/L (3.5-5.1)
== END 2019-09-15 13:12 | disposition home or self-care (01) ==
LOC: EDH 11:31
DX: L03.116 Cellulitis of left lower limb (principal); E11.9 Type 2 diabetes mellitus without complications; E78.5 Hyperlipidemia, unspecified; I10 Essential (primary) hypertension; Z88.6 Allergy status to analgesic agent
CPT/HCPCS: 36415; 80048; 85025; 87040

== ENCOUNTER → 2019-09-18 | Outpatient (CLI) | payer OTHER ==
[2019-09-18 11:00] VITALS: BP 164/106
== END | disposition home or self-care (01) ==
LOC: WHH 10:45
PROVIDERS: ATTEND Podiatrist Foot & Ankle Surgery
DX: L97.521 Non-pressure chronic ulcer of other part of left foot limited to breakdown of skin (principal); E11.22 Type 2 diabetes mellitus with diabetic chronic kidney disease; I13.0 Hypertensive heart and chronic kidney disease with heart failure and stage 1 through stage 4 chronic kidney disease, or unspecified chronic kidney disease; N18.2 Chronic kidney disease, stage 2 (mild); I50.9 Heart failure, unspecified; E11.69 Type 2 diabetes mellitus with other specified complication; M86.672 Other chronic osteomyelitis, left ankle and foot; E11.42 Type 2 diabetes mellitus with diabetic polyneuropathy; E11.319 Type 2 diabetes mellitus with unspecified diabetic retinopathy without macular edema; E11.51 Type 2 diabetes mellitus with diabetic peripheral angiopathy without gangrene; E11.21 Type 2 diabetes mellitus with diabetic nephropathy; I25.10 Atherosclerotic heart disease of native coronary artery without angina pectoris; K21.9 Gastro-esophageal reflux disease without esophagitis; E78.2 Mixed hyperlipidemia; M19.072 Primary osteoarthritis, left ankle and foot; Z88.5 Allergy status to narcotic agent; Z88.6 Allergy status to analgesic agent; Z88.8 Allergy status to other drugs, medicaments and biological substances; Z79.4 Long term (current) use of insulin
CPT/HCPCS: 99214

== ENCOUNTER → 2019-10-16 | Outpatient (CLI) | payer OTHER ==
[2019-10-16 12:08] VITALS: BP 135/66
== END | disposition home or self-care (01) ==
LOC: WHH 08:00
PROVIDERS: ATTEND Podiatrist Foot & Ankle Surgery
DX: E11.621 Type 2 diabetes mellitus with foot ulcer (principal); L97.521 Non-pressure chronic ulcer of other part of left foot limited to breakdown of skin; E11.69 Type 2 diabetes mellitus with other specified complication; M86.672 Other chronic osteomyelitis, left ankle and foot; E11.22 Type 2 diabetes mellitus with diabetic chronic kidney disease; I13.0 Hypertensive heart and chronic kidney disease with heart failure and stage 1 through stage 4 chronic kidney disease, or unspecified chronic kidney disease; N18.2 Chronic kidney disease, stage 2 (mild); I50.9 Heart failure, unspecified; E11.42 Type 2 diabetes mellitus with diabetic polyneuropathy; E11.51 Type 2 diabetes mellitus with diabetic peripheral angiopathy without gangrene; E11.319 Type 2 diabetes mellitus with unspecified diabetic retinopathy without macular edema; K21.9 Gastro-esophageal reflux disease without esophagitis; I25.10 Atherosclerotic heart disease of native coronary artery without angina pectoris; E78.2 Mixed hyperlipidemia; M19.072 Primary osteoarthritis, left ankle and foot; E78.5 Hyperlipidemia, unspecified; Z88.6 Allergy status to analgesic agent; Z88.5 Allergy status to narcotic agent; Z79.4 Long term (current) use of insulin; Z88.8 Allergy status to other drugs, medicaments and biological substances
CPT/HCPCS: 97597

== ENCOUNTER → 2019-10-30 | Outpatient (CLI) | payer OTHER | END | disposition home or self-care (01) | LOC: WHH 08:00 | PROVIDERS: ATTEND Podiatrist Foot & Ankle Surgery | DX: E11.621 Type 2 diabetes mellitus with foot ulcer (principal); L97.521 Non-pressure chronic ulcer of other part of left foot limited to breakdown of skin; L84 Corns and callosities; E11.69 Type 2 diabetes mellitus with other specified complication; M86.30 Chronic multifocal osteomyelitis, unspecified site; M86.672 Other chronic osteomyelitis, left ankle and foot; E11.22 Type 2 diabetes mellitus with diabetic chronic kidney disease; I13.0 Hypertensive heart and chronic kidney disease with heart failure and stage 1 through stage 4 chronic kidney disease, or unspecified chronic kidney disease; N18.2 Chronic kidney disease, stage 2 (mild); I50.9 Heart failure, unspecified; E11.42 Type 2 diabetes mellitus with diabetic polyneuropathy; E11.51 Type 2 diabetes mellitus with diabetic peripheral angiopathy without gangrene; E11.319 Type 2 diabetes mellitus with unspecified diabetic retinopathy without macular edema; K21.9 Gastro-esophageal reflux disease without esophagitis; I25.10 Atherosclerotic heart disease of native coronary artery without angina pectoris; E78.5 Hyperlipidemia, unspecified; M19.072 Primary osteoarthritis, left ankle and foot; Z88.6 Allergy status to analgesic agent; Z88.5 Allergy status to narcotic agent; Z79.4 Long term (current) use of insulin; Z88.8 Allergy status to other drugs, medicaments and biological substances | CPT/HCPCS: 11055 ==

== ENCOUNTER → 2019-11-13 | Outpatient (CLI) | payer OTHER | END | disposition home or self-care (01) | LOC: WHH 09:00 | PROVIDERS: ATTEND Podiatrist Foot & Ankle Surgery | DX: E11.621 Type 2 diabetes mellitus with foot ulcer (principal); L97.521 Non-pressure chronic ulcer of other part of left foot limited to breakdown of skin; L84 Corns and callosities; E11.69 Type 2 diabetes mellitus with other specified complication; M86.30 Chronic multifocal osteomyelitis, unspecified site; M86.672 Other chronic osteomyelitis, left ankle and foot; E11.22 Type 2 diabetes mellitus with diabetic chronic kidney disease; I13.0 Hypertensive heart and chronic kidney disease with heart failure and stage 1 through stage 4 chronic kidney disease, or unspecified chronic kidney disease; N18.2 Chronic kidney disease, stage 2 (mild); I50.9 Heart failure, unspecified; E11.42 Type 2 diabetes mellitus with diabetic polyneuropathy; E11.51 Type 2 diabetes mellitus with diabetic peripheral angiopathy without gangrene; E11.319 Type 2 diabetes mellitus with unspecified diabetic retinopathy without macular edema; K21.9 Gastro-esophageal reflux disease without esophagitis; I25.10 Atherosclerotic heart disease of native coronary artery without angina pectoris; E78.5 Hyperlipidemia, unspecified; M19.072 Primary osteoarthritis, left ankle and foot; Z88.6 Allergy status to analgesic agent; Z88.5 Allergy status to narcotic agent | CPT/HCPCS: 99214 ==

== ENCOUNTER → 2019-11-27 | Outpatient (CLI) | payer OTHER | END | disposition home or self-care (01) | LOC: WHH 08:00 | PROVIDERS: ATTEND Podiatrist Foot & Ankle Surgery | DX: E11.621 Type 2 diabetes mellitus with foot ulcer (principal); L97.521 Non-pressure chronic ulcer of other part of left foot limited to breakdown of skin; L84 Corns and callosities; E11.69 Type 2 diabetes mellitus with other specified complication; M86.30 Chronic multifocal osteomyelitis, unspecified site; M86.672 Other chronic osteomyelitis, left ankle and foot; E11.22 Type 2 diabetes mellitus with diabetic chronic kidney disease; I13.0 Hypertensive heart and chronic kidney disease with heart failure and stage 1 through stage 4 chronic kidney disease, or unspecified chronic kidney disease; N18.2 Chronic kidney disease, stage 2 (mild); I50.9 Heart failure, unspecified; E11.42 Type 2 diabetes mellitus with diabetic polyneuropathy; E11.51 Type 2 diabetes mellitus with diabetic peripheral angiopathy without gangrene; E11.319 Type 2 diabetes mellitus with unspecified diabetic retinopathy without macular edema; K21.9 Gastro-esophageal reflux disease without esophagitis; I25.10 Atherosclerotic heart disease of native coronary artery without angina pectoris; E78.5 Hyperlipidemia, unspecified; M19.072 Primary osteoarthritis, left ankle and foot; Z88.6 Allergy status to analgesic agent; Z88.5 Allergy status to narcotic agent; L57.0 Actinic keratosis | CPT/HCPCS: 11055; 99214 ==

== ENCOUNTER → 2019-12-24 | Outpatient (CLI) | payer OTHER | END | disposition home or self-care (01) | LOC: RAH 10:19 | PROVIDERS: ATTEND Podiatrist Foot & Ankle Surgery | DX: M86.8X7 Other osteomyelitis, ankle and foot (principal) | CPT/HCPCS: 73630 ==

== ENCOUNTER → 2019-12-25 | Outpatient (CLI) | payer OTHER | END | disposition home or self-care (01) | LOC: WHH 08:00 | PROVIDERS: ATTEND Podiatrist Foot & Ankle Surgery | DX: E11.621 Type 2 diabetes mellitus with foot ulcer (principal); L97.521 Non-pressure chronic ulcer of other part of left foot limited to breakdown of skin; E11.69 Type 2 diabetes mellitus with other specified complication; M86.30 Chronic multifocal osteomyelitis, unspecified site; M86.672 Other chronic osteomyelitis, left ankle and foot; E11.22 Type 2 diabetes mellitus with diabetic chronic kidney disease; I13.0 Hypertensive heart and chronic kidney disease with heart failure and stage 1 through stage 4 chronic kidney disease, or unspecified chronic kidney disease; N18.2 Chronic kidney disease, stage 2 (mild); I50.9 Heart failure, unspecified; E11.42 Type 2 diabetes mellitus with diabetic polyneuropathy; E11.51 Type 2 diabetes mellitus with diabetic peripheral angiopathy without gangrene; E11.319 Type 2 diabetes mellitus with unspecified diabetic retinopathy without macular edema; K21.9 Gastro-esophageal reflux disease without esophagitis; I25.10 Atherosclerotic heart disease of native coronary artery without angina pectoris; L57.0 Actinic keratosis; E78.5 Hyperlipidemia, unspecified; M19.072 Primary osteoarthritis, left ankle and foot; Z88.6 Allergy status to analgesic agent; Z88.5 Allergy status to narcotic agent | CPT/HCPCS: 99214 ==

== ENCOUNTER → 2020-01-15 | Outpatient (CLI) | payer OTHER | END | disposition home or self-care (01) | LOC: WHH 08:00 | PROVIDERS: ATTEND Podiatrist Foot & Ankle Surgery | DX: E11.621 Type 2 diabetes mellitus with foot ulcer (principal); L97.521 Non-pressure chronic ulcer of other part of left foot limited to breakdown of skin; L84 Corns and callosities; E11.69 Type 2 diabetes mellitus with other specified complication; M86.30 Chronic multifocal osteomyelitis, unspecified site; M86.672 Other chronic osteomyelitis, left ankle and foot; E11.22 Type 2 diabetes mellitus with diabetic chronic kidney disease; I13.0 Hypertensive heart and chronic kidney disease with heart failure and stage 1 through stage 4 chronic kidney disease, or unspecified chronic kidney disease; N18.2 Chronic kidney disease, stage 2 (mild); I50.9 Heart failure, unspecified; E11.42 Type 2 diabetes mellitus with diabetic polyneuropathy; E11.51 Type 2 diabetes mellitus with diabetic peripheral angiopathy without gangrene; E11.319 Type 2 diabetes mellitus with unspecified diabetic retinopathy without macular edema; K21.9 Gastro-esophageal reflux disease without esophagitis; I25.10 Atherosclerotic heart disease of native coronary artery without angina pectoris; L57.0 Actinic keratosis; E78.5 Hyperlipidemia, unspecified; M19.072 Primary osteoarthritis, left ankle and foot; Z88.6 Allergy status to analgesic agent; Z88.5 Allergy status to narcotic agent | CPT/HCPCS: 11055 ==

== ENCOUNTER 2020-03-04 10:53 | Inpatient (IN) | payer OTHER ==
[~2020-03-04] VITALS: Ht 172.7 cm; Wt 86.2 kg
[~2020-03-04 10:53] MED LIST changes: -INSU300I3 SQ; -PIOG15TA66 PO; -REGULAR INSULIN; -ZOSYN 3.375GM+NS 50ML 50 ML IV SCH
[2020-03-04] MEDS ORDERED: ZOSYN 3.375GM+NS 50ML 50 ML IV ONE (11:10)
[2020-03-04 11:26] LABS: BASOPHILS % (AUTO) 0.3 % (0.0-5.0); HEMATOCRIT 44.4 % (42-54); LYMPHOCYTES % (AUTO) 18.5 % (21.0-51.0); MEAN CORPUSCULAR HEMOGLOBIN 33.6 pg (27.0-33.0); MEAN CORPUSCULAR HGB CONC 34.7 g/dL (32.0-36.0); MEAN CORPUSCULAR VOLUME 96.7 fL (79-99); MONOCYTES % (AUTO) 9.7 % (3.0-13.0); NEUTROPHILS % (AUTO) 70.1 % (40.0-77.0); PLATELET COUNT (AUTO) 143 K/uL (130-400); RED BLOOD CELL COUNT(AUTO) 4.59 MIL/uL (4.50-6.20); RED CELL DISTRIBUTION WIDTH 13.1 % (11.0-15.5); WHITE BLOOD COUNT (AUTO) 7.8 K/uL (4.8-10.8)
[2020-03-04 11:39] LABS: CREATININE 1.5 mg/dL (0.5-1.5); POTASSIUM 4.5 mmol/L (3.5-5.1)
[2020-03-04 11:44] LABS: ALBUMIN 3.8 g/dL (3.5-5.0); BILIRUBIN,TOTAL 0.8 mg/dL (0.2-1.0); TOTAL PROTEIN, SERUM 8.2 g/dL (6.0-8.3)
[2020-03-04] MEDS ORDERED: GLUCAGON 1MG KIT 1 MG ML IM PRN (12:45)
[2020-03-04] MEDS ORDERED: GUAIFENESIN-DM 200/20 MG 10 ML PO PRN (12:45)
[2020-03-04] MEDS ORDERED: ACETAMINOPHEN 325 MG TAB PO PRN ×2 (12:45)
[2020-03-04] MEDS ORDERED: ONDANSETRON HCL 4 MG/2 ML VIAL IVP PRN (12:45)
[2020-03-04] MEDS ORDERED: ZOLPIDEM TARTRATE 5 MG TAB PO PRN (12:45)
[2020-03-04] MEDS ORDERED: DEXTROSE 50%-WATER 50 ML DISP.SYRIN IV PRN (12:45)
[2020-03-04] MEDS ORDERED: MAG HYDROX/AL HYDROX/SIMETH ES 30 ML SUSP UDCUP PO PRN (12:45)
[2020-03-04] MEDS ORDERED: SODIUM CHLORIDE 0.9% 1000ML 1,000 ML IV ONE (14:47)
[2020-03-04] MEDS ORDERED: PANTOPRAZOLE 40 MG/VIAL ONE (14:48)
[2020-03-04] MEDS ORDERED: VANCOMYCIN 1GM+NS 250ML 250 ML IV ONE (15:12)
[2020-03-04 18:51] VITALS: BP 150/79
[2020-03-04] MEDS: ZOSYN 3.375GM+NS 50ML 50 ML IV SCH (21:43)
[2020-03-04] MEDS: SODIUM CHLORIDE 0.9% 1000ML 1,000 ML IV SCH (21:43)
[2020-03-04] MEDS: INSULIN HUMULIN R 100 UNIT/ML 3ML SQ SCH (21:52)
[2020-03-04 23:45] VITALS: BP 96/57
[2020-03-05] VITALS (25 sets, daily range): BP systolic 102–171; BP diastolic 59–101
[2020-03-05 04:07] LABS: BASOPHILS % (AUTO) 0.2 % (0.0-5.0); EOSINOPHILS % (AUTO) 1.7 % (0.0-8.0); HEMATOCRIT 37.2 % (42-54); MEAN CORPUSCULAR HEMOGLOBIN 33.2 pg (27.0-33.0); MEAN CORPUSCULAR HGB CONC 34.1 g/dL (32.0-36.0); MEAN CORPUSCULAR VOLUME 97.1 fL (79-99); MONOCYTES % (AUTO) 12.6 % (3.0-13.0); NEUTROPHILS % (AUTO) 57.2 % (40.0-77.0); PLATELET COUNT (AUTO) 127 K/uL (130-400); RED BLOOD CELL COUNT(AUTO) 3.83 MIL/uL (4.50-6.20); RED CELL DISTRIBUTION WIDTH 13.1 % (11.0-15.5); WHITE BLOOD COUNT (AUTO) 5.9 K/uL (4.8-10.8)
[2020-03-05 04:12] LABS: CREATININE 1.9 mg/dL (0.5-1.5); POTASSIUM 4.6 mmol/L (3.5-5.1)
[2020-03-05] MEDS ORDERED: CILO100T PO (05:08)
[2020-03-05] MEDS: ZOSYN 3.375GM+NS 50ML 50 ML IV SCH ×3 (05:40→21:24)
[2020-03-05] MEDS: INSULIN HUMULIN R 100 UNIT/ML 3ML SQ SCH ×4 (06:20→21:31)
[2020-03-05] MEDS: PANTOPRAZOLE SODIUM 40 MG TABLET.DR PO SCH (09:00)
[2020-03-05] MEDS: ENOXAPARIN SODIUM 30 MG/0.3 ML SQ SCH (09:00)
--- NOTE | 2020-03-05 12:30 | NUR ---
DCP CM met with pt discussed dc plans. Pt is independent prior to admission, lives at home with spouse. Pt has a walker, cane, wheelchair, crutches, shower chair, bedside commode. Denies any other equipments/services. Feels safe to go back home, still drives, spouse able to assist with transportation and needs as necessary. Asked pt if will consider placement if MD recommends, at this time pt declined, pt verbalized his is a nurse at [employer] and will be able to care for wound as well as assist with iv administration if needed, pt prefer to go back home. Informed pt will wait for MD recommendations for now. DC plan to home w/poss HH and abx iv. CM to continue to follow up. Addendum: 03/05/20 at 1233 by DARLIN SARMIENTO LVN CM Amended: Links added.
[2020-03-05] MEDS: SODIUM CHLORIDE 0.9% 1000ML 1,000 ML IV SCH ×2 (12:48→21:24)
[2020-03-05] MEDS ORDERED: BUPIVACAINE/PF 0.5% 10ML VIAL ONE (13:00)
[2020-03-05] MEDS ORDERED: MIDAZOLAM HCL 1 MG/ML 2ML VIAL ONE (13:04)
[2020-03-05] MEDS ORDERED: FENTANYL CITRATE PF 50 MCG/1 ML 2ML VIAL ONE (13:04)
[2020-03-05] MEDS ORDERED: LIDOCAINE HCL 1% 10 ML VIAL INJ ONE (13:46)
[2020-03-05] MEDS ORDERED: INSU300I3 SQ (17:54)
[2020-03-05] MEDS ORDERED: REGULAR INSULIN (17:54)
[2020-03-05] MEDS ORDERED: PIOG15TA66 PO (17:54)
[2020-03-05] MEDS: ATORVASTATIN CALCIUM 40 MG TABLET PO SCH (18:17)
[2020-03-05] MEDS: ATENOLOL 25 MG TABLET PO SCH (18:22)
[2020-03-06] VITALS (13 sets, daily range): BP systolic 97–175; BP diastolic 64–98
[2020-03-06 04:15] LABS: BASOPHILS % (AUTO) 0.3 % (0.0-5.0); EOSINOPHILS % (AUTO) 1.4 % (0.0-8.0); HEMATOCRIT 42.8 % (42-54); LYMPHOCYTES % (AUTO) 26.5 % (21.0-51.0); MEAN CORPUSCULAR HGB CONC 34.1 g/dL (32.0-36.0); MEAN CORPUSCULAR VOLUME 96.6 fL (79-99); MONOCYTES % (AUTO) 10.5 % (3.0-13.0); PLATELET COUNT (AUTO) 142 K/uL (130-400); RED BLOOD CELL COUNT(AUTO) 4.43 MIL/uL (4.50-6.20); RED CELL DISTRIBUTION WIDTH 13.1 % (11.0-15.5); WHITE BLOOD COUNT (AUTO) 5.8 K/uL (4.8-10.8)
[2020-03-06 04:31] LABS: CREATININE 1.1 mg/dL (0.5-1.5); MAGNESIUM 1.8 mg/dL (1.80-2.40); PHOSPHORUS 3.2 mg/dL (2.5-4.9); POTASSIUM 4.3 mmol/L (3.5-5.1); URIC ACID 4.7 mg/dL (2.6-7.2)
[2020-03-06 04:56] LABS: HEMOGLOBIN A1C 8.9 % (4.0-6.0)
[2020-03-06] MEDS: ZOSYN 3.375GM+NS 50ML 50 ML IV SCH ×3 (05:31→19:57)
[2020-03-06] MEDS: INSULIN HUMULIN R 100 UNIT/ML 3ML SQ SCH ×4 (06:04→20:31)
[2020-03-06] MEDS ORDERED: INSULIN GLARGINE SQ SCH (07:00)
[2020-03-06] MEDS: PHARMACY COMMUNICATION MISC SCH (07:00)
[2020-03-06] MEDS ORDERED: CLOPIDOGREL BISULFATE 75 MG TAB PO SCH (09:00)
[2020-03-06] MEDS: ASPIRIN 81 MG EC TAB PO SCH (09:00)
[2020-03-06] MEDS ORDERED: ATENOLOL 25 MG TABLET PO SCH (09:00)
[2020-03-06] MEDS: LISINOPRIL 5 MG TABLET PO SCH (09:00)
[2020-03-06] MEDS: ATENOLOL 25 MG TABLET PO SCH ×2 (09:00→20:31)
[2020-03-06] MEDS: CILOSTAZOL 100 MG TAB PO SCH ×2 (09:00→20:31)
[2020-03-06] MEDS: CLOPIDOGREL BISULFATE 75 MG TAB PO SCH (09:00)
[2020-03-06] MEDS: ENOXAPARIN SODIUM 30 MG/0.3 ML SQ SCH (09:00)
[2020-03-06] MEDS ORDERED: ASPIRIN 81MG TAB.CHEW PO SCH (09:00)
[2020-03-06] MEDS: PANTOPRAZOLE SODIUM 40 MG TABLET.DR PO SCH (11:16)
[2020-03-06] MEDS: INSULIN GLARGINE 100 UNITS/ML 10 ML VIAL SQ SCH (11:30)
[2020-03-06 15:42] LABS: INR 0.98 (0.85-1.15); PARTIAL THROMBOPLASTIN TIME 27.2 SEC (26.3-35.5); PROTHROMBIN TIME 10.6 SEC (9.6-11.6)
[2020-03-06] MEDS: ACETYLCYSTEINE 20% 200MG/ML 4ML VIAL PO SCH ×2 (16:13→20:31)
[2020-03-06] MEDS ORDERED: IODIXANOL 320 MG/ML 100 ML VIAL ONE (16:43)
[2020-03-06] MEDS ORDERED: FENTANYL CITRATE PF 50 MCG/1 ML 2ML VIAL ONE (16:43)
[2020-03-06] MEDS ORDERED: NITROGLYCERIN 2 MG/VIAL VIAL IV ONE (16:43)
[2020-03-06] MEDS ORDERED: MIDAZOLAM HCL 1 MG/ML 2ML VIAL ONE (16:43)
[2020-03-06] MEDS ORDERED: HEPARIN SODIUM 1000UNIT/ML 10ML VIAL ONE (16:43)
[2020-03-06] MEDS ORDERED: LIDOCAINE HCL 2% 20ML ONE (16:43)
[2020-03-06] MEDS ORDERED: LABETALOL 20 MG/4 ML DISP.SYRIN IV ONE (18:15)
[2020-03-06] MEDS: SODIUM CHLORIDE 0.9% 1000ML 1,000 ML IV SCH (19:58)
--- NOTE | 2020-03-06 20:00 | NUR ---
MEDS SHIFT ASSESSMENT DONE, PLEASE REFER TO CHART. PT CLAIMS OF NAUSEA. MEDICATED PT WITH ZOFRAN IV. STARTED ON IVF OF NS REGULATED AT 80CC/HR X 10 HRS PER ORDER. KEPT ON BED REST WITH RT LEG STRAIGHT UNTIL 2200. CALL LIGHT WITHIN REACH. WILL RE-ASSESS PT. Addendum: 03/07/20 at 0023 by SUGEY DELEON RN RN Amended: Links added.
[2020-03-06] MEDS: ATORVASTATIN CALCIUM 40 MG TABLET PO SCH (20:30)
[2020-03-06] MEDS ORDERED: SODIUM CHLORIDE 0.9% 1000ML 1,000 ML IV SCH ×2 (20:30→20:45)
[2020-03-06] MEDS ORDERED: KETOROLAC TROMETHAMINE 30MG/ML ONE (22:10)
[2020-03-06] MEDS: KETOROLAC TROMETHAMINE 15MG/ML IV SCH (22:15)
--- NOTE | 2020-03-06 22:20 | NUR ---
PAIN PT CLAIMS OF HAVING HEADACHE STILL. 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 THEATRE INSTRUCTOR CALLED BACK AND REFERRED PT'S COMPLAINTS. NEW MED ORDER RECEIVED. WILL MEDICATE PT.
[2020-03-07] VITALS (7 sets, daily range): BP systolic 99–163; BP diastolic 60–95
[2020-03-07 00:27] LABS: APPEARANCE,URINE Clear (CLEAR); BILIRUBIN,URINE Negative (NEGATIVE); COLOR,URINE Yellow (YELLOW); GLUCOSE, URINE (UA) TRACE mg/dL (NEGATIVE); KETONES,URINE Negative (NEGATIVE); LEUKOCYTE ESTERASE ,URINE Negative (NEGATIVE); NITRATE,URINE Negative (NEGATIVE); OCCULT BLOOD,URINE Trace (NEGATIVE); PROTEIN,URINE Trace mg/dL (NEGATIVE); UROBILINOGEN,URINE 0.2 mg/dL (0.2-1.0)
[2020-03-07 00:37] LABS: BACTERIA,URINE Rare /HPF (None Seen); WBC,URINE 0-1 /HPF (0-1)
[2020-03-07 00:38] LABS: SQUAMOUS EPITHELIAL CELL,UR None Seen /HPF (0-2)
--- NOTE | 2020-03-07 02:00 | NUR ---
ROUNDS PT RESTING WELL, NO DISTRESS NOTED. KEPT UNDISTURBED FOR NOW. WILL MONITOR PT. CALL LIGHT WITHIN REACH.
[2020-03-07] MEDS: ZOSYN 3.375GM+NS 50ML 50 ML IV SCH ×3 (04:03→21:27)
[2020-03-07] MEDS: PHARMACY COMMUNICATION MISC SCH (05:55)
[2020-03-07] MEDS: INSULIN HUMULIN R 100 UNIT/ML 3ML SQ SCH ×7 (05:55→21:00)
--- NOTE | 2020-03-07 06:00 | NUR ---
SL PT ALREADY AWAKE, NO DISTRESS NOTED. NO CONCERNS VERBALIZED. SALINE LOCKED PIV, NS X 10 HOURS DONE. KEPT COMFORTABLE IN BED. FOR MORE CARE.
[2020-03-07 06:04] LABS: CREATININE 1.3 mg/dL (0.5-1.5); POTASSIUM 3.9 mmol/L (3.5-5.1)
[2020-03-07] MEDS: ASPIRIN 81 MG EC TAB PO SCH (09:43)
[2020-03-07] MEDS: PANTOPRAZOLE SODIUM 40 MG TABLET.DR PO SCH (09:44)
[2020-03-07] MEDS: ATENOLOL 25 MG TABLET PO SCH ×2 (09:44→21:26)
[2020-03-07] MEDS: LISINOPRIL 5 MG TABLET PO SCH (09:45)
[2020-03-07] MEDS: CLOPIDOGREL BISULFATE 75 MG TAB PO SCH (09:45)
[2020-03-07] MEDS: ACETYLCYSTEINE 20% 200MG/ML 4ML VIAL PO SCH ×2 (09:45→21:27)
[2020-03-07] MEDS: CILOSTAZOL 100 MG TAB PO SCH ×2 (09:45→21:26)
[2020-03-07] MEDS: ENOXAPARIN SODIUM 30 MG/0.3 ML SQ SCH (09:47)
[2020-03-07] MEDS: DIPH,PERTUSS(ACELL),TET VAC/PF 0.5 ML VIAL IM SCH (09:52)
[2020-03-07] MEDS: INSULIN GLARGINE 100 UNITS/ML 10 ML VIAL SQ SCH (10:04)
[2020-03-07] MEDS: ATORVASTATIN CALCIUM 40 MG TABLET PO SCH (21:26)
[2020-03-07] MEDS: LACTULOSE 20 GM/30 ML UDCUP PO PRN (21:52)
[2020-03-07] MEDS: KETOROLAC TROMETHAMINE 15MG/ML IV SCH (22:15)
[2020-03-08] MEDS: ZOSYN 3.375GM+NS 50ML 50 ML IV SCH ×3 (03:49→21:05)
--- NOTE | 2020-03-08 03:50 | NUR ---
DRESSING CHANGE DONE PER ORDERS. PT MEME WELL. MINIMAL DRAINAGE NOTED ON GAUZE PAD. CLEANSED AREA WITH NS, PLACED VASELINE GAUZE AND DRY GAUZE OVER, WRAPPED FOOT WITH KERLIX AND SECURED WITH TAPE. PT MEME WELL. NO C/O OF PAIN OR DISCOMFORTS.
[2020-03-08 04:00] VITALS: BP_SYST 156; BP_SYST 163; BP_DIAS 59; BP_DIAS 92
[2020-03-08] MEDS: INSULIN GLARGINE 100 UNITS/ML 10 ML VIAL SQ SCH ×2 (05:55→08:47)
[2020-03-08 06:07] LABS: BASOPHILS % (AUTO) 0.4 % (0.0-5.0); EOSINOPHILS % (AUTO) 2.1 % (0.0-8.0); HEMATOCRIT 39.2 % (42-54); LYMPHOCYTES % (AUTO) 28.8 % (21.0-51.0); MEAN CORPUSCULAR HEMOGLOBIN 33.4 pg (27.0-33.0); MEAN CORPUSCULAR HGB CONC 34.7 g/dL (32.0-36.0); MEAN CORPUSCULAR VOLUME 96.3 fL (79-99); MONOCYTES % (AUTO) 11.7 % (3.0-13.0); NEUTROPHILS % (AUTO) 56.6 % (40.0-77.0); PLATELET COUNT (AUTO) 126 K/uL (130-400); RED BLOOD CELL COUNT(AUTO) 4.07 MIL/uL (4.50-6.20); RED CELL DISTRIBUTION WIDTH 12.9 % (11.0-15.5); WHITE BLOOD COUNT (AUTO) 4.7 K/uL (4.8-10.8)
[2020-03-08 06:45] LABS: CREATININE 1.2 mg/dL (0.5-1.5); POTASSIUM 4.4 mmol/L (3.5-5.1)
[2020-03-08] MEDS: PHARMACY COMMUNICATION MISC SCH (07:00)
[2020-03-08] MEDS: INSULIN HUMULIN R 100 UNIT/ML 3ML SQ SCH ×7 (07:30→21:00)
[2020-03-08] MEDS: ASPIRIN 81 MG EC TAB PO SCH (08:39)
[2020-03-08] MEDS: CILOSTAZOL 100 MG TAB PO SCH ×2 (08:39→21:06)
[2020-03-08] MEDS: LISINOPRIL 5 MG TABLET PO SCH (08:39)
[2020-03-08] MEDS: CLOPIDOGREL BISULFATE 75 MG TAB PO SCH (08:40)
[2020-03-08] MEDS: PANTOPRAZOLE SODIUM 40 MG TABLET.DR PO SCH (08:40)
[2020-03-08] MEDS: ATENOLOL 25 MG TABLET PO SCH ×2 (08:41→21:15)
[2020-03-08] MEDS: ACETYLCYSTEINE 20% 200MG/ML 4ML VIAL PO SCH ×2 (08:43→21:15)
[2020-03-08] MEDS: ENOXAPARIN SODIUM 30 MG/0.3 ML SQ SCH (08:46)
[2020-03-08 08:52] VITALS: BP 171/88
[2020-03-08] MEDS: DIPH,PERTUSS(ACELL),TET VAC/PF 0.5 ML VIAL IM SCH (09:00)
[2020-03-08 12:29] VITALS: BP 163/93
[2020-03-08 19:28] VITALS: BP 113/67
[2020-03-08 20:03] VITALS: BP 117/72
[2020-03-08] MEDS: ATORVASTATIN CALCIUM 40 MG TABLET PO SCH (21:06)
[2020-03-09] VITALS (7 sets, daily range): BP systolic 92–171; BP diastolic 49–105
[2020-03-09] MEDS: ZOSYN 3.375GM+NS 50ML 50 ML IV SCH ×3 (04:06→20:22)
[2020-03-09] MEDS: SODIUM CHLORIDE 0.9% 1000ML 1,000 ML IV SCH ×2 (05:00→14:30)
[2020-03-09 05:16] LABS: HEMATOCRIT 39.6 % (42-54); MEAN CORPUSCULAR HEMOGLOBIN 32.8 pg (27.0-33.0); MEAN CORPUSCULAR HGB CONC 33.6 g/dL (32.0-36.0); MEAN CORPUSCULAR VOLUME 97.8 fL (79-99); RED BLOOD CELL COUNT(AUTO) 4.05 MIL/uL (4.50-6.20); RED CELL DISTRIBUTION WIDTH 13.2 % (11.0-15.5); WHITE BLOOD COUNT (AUTO) 4.6 K/uL (4.8-10.8)
[2020-03-09 05:40] LABS: CREATININE 1.3 mg/dL (0.5-1.5); POTASSIUM 4.8 mmol/L (3.5-5.1)
[2020-03-09 05:43] LABS: INR 0.96 (0.85-1.15); PARTIAL THROMBOPLASTIN TIME 26.1 SEC (26.3-35.5); PROTHROMBIN TIME 10.4 SEC (9.6-11.6)
[2020-03-09] MEDS: PHARMACY COMMUNICATION MISC SCH (07:00)
[2020-03-09] MEDS: INSULIN GLARGINE 100 UNITS/ML 10 ML VIAL SQ SCH ×2 (07:10→12:50)
[2020-03-09] MEDS: INSULIN HUMULIN R 100 UNIT/ML 3ML SQ SCH ×7 (07:12→21:00)
[2020-03-09] MEDS: ATENOLOL 25 MG TABLET PO SCH ×2 (07:40→20:22)
[2020-03-09] MEDS: ACETYLCYSTEINE 20% 200MG/ML 4ML VIAL PO SCH ×2 (10:24→21:00)
[2020-03-09] MEDS: LISINOPRIL 5 MG TABLET PO SCH (10:24)
[2020-03-09] MEDS: CILOSTAZOL 100 MG TAB PO SCH ×2 (10:24→20:21)
[2020-03-09] MEDS: PANTOPRAZOLE SODIUM 40 MG TABLET.DR PO SCH (10:24)
[2020-03-09] MEDS: CLOPIDOGREL BISULFATE 75 MG TAB PO SCH (10:24)
[2020-03-09] MEDS: ASPIRIN 81 MG EC TAB PO SCH (10:24)
[2020-03-09] MEDS: ENOXAPARIN SODIUM 30 MG/0.3 ML SQ SCH (10:25)
--- NOTE | 2020-03-09 14:43 | NUR ---
SINCE THE PT IS NOT GOING TO HAVE PROCEDURE TODAY, THE ADDITIONAL LANTUS WAS GIVEN TO EQUAL A TOTAL OF 25UNITS ORDERED THIS AM
[2020-03-09] MEDS: ATORVASTATIN CALCIUM 40 MG TABLET PO SCH (20:21)
[2020-03-10] VITALS (13 sets, daily range): BP systolic 103–182; BP diastolic 60–103
[2020-03-10] MEDS: SODIUM CHLORIDE 0.9% 1000ML 1,000 ML IV SCH ×3 (01:00→22:11)
[2020-03-10 04:30] LABS: BASOPHILS % (AUTO) 0.4 % (0.0-5.0); EOSINOPHILS % (AUTO) 1.7 % (0.0-8.0); HEMATOCRIT 39.9 % (42-54); LYMPHOCYTES % (AUTO) 25.6 % (21.0-51.0); MEAN CORPUSCULAR HEMOGLOBIN 33.3 pg (27.0-33.0); MEAN CORPUSCULAR HGB CONC 34.1 g/dL (32.0-36.0); MEAN CORPUSCULAR VOLUME 97.6 fL (79-99); MONOCYTES % (AUTO) 11.8 % (3.0-13.0); NEUTROPHILS % (AUTO) 60.1 % (40.0-77.0); PLATELET COUNT (AUTO) 131 K/uL (130-400); RED BLOOD CELL COUNT(AUTO) 4.09 MIL/uL (4.50-6.20); RED CELL DISTRIBUTION WIDTH 13.2 % (11.0-15.5); WHITE BLOOD COUNT (AUTO) 5.4 K/uL (4.8-10.8)
[2020-03-10 04:34] LABS: CREATININE 1.1 mg/dL (0.5-1.5); POTASSIUM 3.9 mmol/L (3.5-5.1)
[2020-03-10] MEDS: ZOSYN 3.375GM+NS 50ML 50 ML IV SCH ×3 (06:31→22:10)
[2020-03-10] MEDS: PHARMACY COMMUNICATION MISC SCH (07:00)
[2020-03-10] MEDS: INSULIN HUMULIN R 100 UNIT/ML 3ML SQ SCH ×7 (07:30→21:00)
[2020-03-10] MEDS: CILOSTAZOL 100 MG TAB PO SCH ×2 (09:00→22:09)
[2020-03-10] MEDS: PANTOPRAZOLE SODIUM 40 MG TABLET.DR PO SCH (09:00)
[2020-03-10] MEDS: ENOXAPARIN SODIUM 30 MG/0.3 ML SQ SCH (09:00)
[2020-03-10] MEDS: LISINOPRIL 5 MG TABLET PO SCH (09:00)
[2020-03-10] MEDS: CLOPIDOGREL BISULFATE 75 MG TAB PO SCH (09:00)
[2020-03-10] MEDS: ACETYLCYSTEINE 20% 200MG/ML 4ML VIAL PO SCH ×2 (09:00→22:08)
[2020-03-10] MEDS: ASPIRIN 81 MG EC TAB PO SCH (09:00)
[2020-03-10] MEDS: ATENOLOL 25 MG TABLET PO SCH ×2 (09:58→22:07)
[2020-03-10] MEDS: INSULIN GLARGINE 100 UNITS/ML 10 ML VIAL SQ SCH (10:05)
[2020-03-10] MEDS ORDERED: HYDRALAZINE HCL 20 MG/ML VIAL IV PRN (15:00)
[2020-03-10] MEDS ORDERED: HEPARIN SODIUM 1000UNIT/ML 10ML VIAL ONE (15:27)
[2020-03-10] MEDS ORDERED: NITROGLYCERIN 2 MG/VIAL VIAL IV ONE (15:27)
[2020-03-10] MEDS ORDERED: IODIXANOL 320 MG/ML 100 ML VIAL ONE (15:27)
[2020-03-10] MEDS ORDERED: MIDAZOLAM HCL 1 MG/ML 2ML VIAL ONE (15:27)
[2020-03-10] MEDS ORDERED: FENTANYL CITRATE PF 50 MCG/1 ML 2ML VIAL ONE (15:27)
[2020-03-10] MEDS ORDERED: LIDOCAINE HCL 2% 20ML ONE (15:27)
[2020-03-10] MEDS ORDERED: NICARDIPINE HCL 25 MG/10 ML ML IV ONE ×2 (15:34→19:19)
[2020-03-10] MEDS ORDERED: LABETALOL HCL 5 MG/ML 20ML VIAL IV ONE (18:46)
[2020-03-10] MEDS ORDERED: ASPIRIN 325MG EC TAB 325 MG TABLET.DR PO ONE (19:05)
[2020-03-10] MEDS ORDERED: PRASUGREL HCL 10 MG TABLET ONE (19:05)
[2020-03-10] MEDS ORDERED: ENALAPRILAT DIHYDRATE 1.25 MG/ML 2ML VIAL IVP ONE (19:08)
[2020-03-10] MEDS: ATORVASTATIN CALCIUM 40 MG TABLET PO SCH (22:06)
[2020-03-11] VITALS (10 sets, daily range): BP systolic 99–165; BP diastolic 54–102
[2020-03-11] MEDS: LACTULOSE 20 GM/30 ML UDCUP PO PRN (02:52)
[2020-03-11 03:37] LABS: BASOPHILS % (AUTO) 0.4 % (0.0-5.0); HEMATOCRIT 38.6 % (42-54); LYMPHOCYTES % (AUTO) 23.5 % (21.0-51.0); MEAN CORPUSCULAR HEMOGLOBIN 33.4 pg (27.0-33.0); MEAN CORPUSCULAR HGB CONC 34.7 g/dL (32.0-36.0); MEAN CORPUSCULAR VOLUME 96.3 fL (79-99); MONOCYTES % (AUTO) 9.9 % (3.0-13.0); NEUTROPHILS % (AUTO) 64.8 % (40.0-77.0); PLATELET COUNT (AUTO) 129 K/uL (130-400); RED BLOOD CELL COUNT(AUTO) 4.01 MIL/uL (4.50-6.20); RED CELL DISTRIBUTION WIDTH 13.1 % (11.0-15.5); WHITE BLOOD COUNT (AUTO) 5.2 K/uL (4.8-10.8)
[2020-03-11 03:46] LABS: CREATININE 1.2 mg/dL (0.5-1.5); POTASSIUM 3.8 mmol/L (3.5-5.1)
[2020-03-11] MEDS: INSULIN HUMULIN R 100 UNIT/ML 3ML SQ SCH ×7 (05:41→21:55)
[2020-03-11] MEDS: ZOSYN 3.375GM+NS 50ML 50 ML IV SCH ×3 (05:42→20:29)
[2020-03-11] MEDS: SODIUM CHLORIDE 0.9% 1000ML 1,000 ML IV SCH ×2 (07:00→17:16)
[2020-03-11] MEDS: PHARMACY COMMUNICATION MISC SCH (07:00)
--- NOTE | 2020-03-11 07:00 | NUR ---
Dressing to right groin dry and intact. No sign of redness, drainage, or hematoma noted. Skin, warm, and pink. Pedal pulses present to right lower ext. Popiteal pulse strong present to left lower ext. No distress noted at this time.
[2020-03-11] MEDS: ASPIRIN 81 MG EC TAB PO SCH (08:10)
[2020-03-11] MEDS: CLOPIDOGREL BISULFATE 75 MG TAB PO SCH (08:10)
[2020-03-11] MEDS: PANTOPRAZOLE SODIUM 40 MG TABLET.DR PO SCH (08:11)
[2020-03-11] MEDS: ATENOLOL 25 MG TABLET PO SCH ×2 (08:11→20:28)
[2020-03-11] MEDS: CILOSTAZOL 100 MG TAB PO SCH (08:11)
[2020-03-11] MEDS: LISINOPRIL 5 MG TABLET PO SCH (08:12)
[2020-03-11] MEDS: INSULIN GLARGINE 100 UNITS/ML 10 ML VIAL SQ SCH (08:13)
[2020-03-11] MEDS: ACETYLCYSTEINE 20% 200MG/ML 4ML VIAL PO SCH ×2 (08:15→20:29)
[2020-03-11] MEDS: ENOXAPARIN SODIUM 30 MG/0.3 ML SQ SCH (08:17)
[2020-03-11] MEDS ORDERED: PRASUGREL HCL 10 MG TABLET PO SCH (08:45)
[2020-03-11] MEDS: PRASUGREL HCL 10 MG TABLET PO SCH ×2 (09:00→09:19)
--- NOTE | 2020-03-11 20:00 | NUR ---
ASSESSMENT NOTE PATIENT AWAKE ALERT OX3, NO SOB NO C/O PAIN AT THIS TIME, TEACH PATIENT PLAN OF CARE AND EXPECTED OUTCOME, PATIENT VERBALIZES UNDERSTANDING VIA TEACH BACK
[2020-03-11] MEDS: ATORVASTATIN CALCIUM 40 MG TABLET PO SCH (20:28)
[2020-03-12] VITALS (7 sets, daily range): BP systolic 144–203; BP diastolic 85–111
[2020-03-12 02:45] LABS: APPEARANCE,URINE Clear (CLEAR); BILIRUBIN,URINE Negative (NEGATIVE); COLOR,URINE Yellow (YELLOW); GLUCOSE, URINE (UA) >=1000 mg/dL (NEGATIVE); KETONES,URINE Trace mg/dL (NEGATIVE); LEUKOCYTE ESTERASE ,URINE Negative (NEGATIVE); NITRATE,URINE Negative (NEGATIVE); OCCULT BLOOD,URINE Negative (NEGATIVE); PH,URINE 5.5 (5.0-8.0); PROTEIN,URINE Trace mg/dL (NEGATIVE)
[2020-03-12 02:52] LABS: BACTERIA,URINE None Seen /HPF (None Seen); RBC,URINE None Seen /HPF (0-1); SQUAMOUS EPITHELIAL CELL,UR Rare /HPF (0-2); WBC,URINE None Seen /HPF (0-1); YEAST,URINE BUDDING None Seen /HPF (None Seen)
[2020-03-12] MEDS: ZOSYN 3.375GM+NS 50ML 50 ML IV SCH ×3 (03:58→20:19)
[2020-03-12] MEDS: SODIUM CHLORIDE 0.9% 1000ML 1,000 ML IV SCH ×2 (03:58→13:00)
[2020-03-12] MEDS: PHARMACY COMMUNICATION MISC SCH (04:03)
[2020-03-12 04:43] LABS: HEMATOCRIT 38.3 % (42-54); MEAN CORPUSCULAR HEMOGLOBIN 32.6 pg (27.0-33.0); MEAN CORPUSCULAR HGB CONC 33.7 g/dL (32.0-36.0); MEAN CORPUSCULAR VOLUME 96.7 fL (79-99); RED BLOOD CELL COUNT(AUTO) 3.96 MIL/uL (4.50-6.20); RED CELL DISTRIBUTION WIDTH 13.3 % (11.0-15.5); WHITE BLOOD COUNT (AUTO) 5.4 K/uL (4.8-10.8)
[2020-03-12 05:16] LABS: ALBUMIN 3.1 g/dL (3.5-5.0); BILIRUBIN,TOTAL 0.8 mg/dL (0.2-1.0); CREATININE 1.3 mg/dL (0.5-1.5); POTASSIUM 4.1 mmol/L (3.5-5.1); TOTAL PROTEIN, SERUM 6.9 g/dL (6.0-8.3)
[2020-03-12] MEDS: INSULIN GLARGINE 100 UNITS/ML 10 ML VIAL SQ SCH ×2 (07:23→09:00)
[2020-03-12] MEDS: INSULIN HUMULIN R 100 UNIT/ML 3ML SQ SCH ×7 (07:24→21:00)
[2020-03-12] MEDS: ASPIRIN 81 MG EC TAB PO SCH (09:10)
[2020-03-12] MEDS: PRASUGREL HCL 10 MG TABLET PO SCH (09:10)
[2020-03-12] MEDS: LISINOPRIL 10 MG TABLET PO SCH (09:10)
[2020-03-12] MEDS: PANTOPRAZOLE SODIUM 40 MG TABLET.DR PO SCH (09:11)
[2020-03-12] MEDS: ATENOLOL 25 MG TABLET PO SCH ×2 (09:11→20:18)
[2020-03-12] MEDS: ENOXAPARIN SODIUM 30 MG/0.3 ML SQ SCH (09:12)
[2020-03-12] MEDS ORDERED: HYDRALAZINE HCL 25 MG TABLET PO SCH (11:30)
[2020-03-12] MEDS: ACETYLCYSTEINE 20% 200MG/ML 4ML VIAL PO SCH ×2 (16:06→20:19)
[2020-03-12] MEDS ORDERED: LABETALOL 20 MG/4 ML DISP.SYRIN IV PRN (16:30)
[2020-03-12] MEDS: HYDRALAZINE HCL 25 MG TABLET PO SCH ×2 (16:30→20:18)
[2020-03-12] MEDS: ATORVASTATIN CALCIUM 40 MG TABLET PO SCH (20:19)
[2020-03-12] MEDS: LACTULOSE 20 GM/30 ML UDCUP PO PRN (23:08)
[2020-03-13] VITALS (7 sets, daily range): BP systolic 125–197; BP diastolic 74–108
[2020-03-13] MEDS: ZOSYN 3.375GM+NS 50ML 50 ML IV SCH ×3 (03:45→19:55)
[2020-03-13] MEDS: LISINOPRIL 10 MG TABLET PO SCH (04:37)
--- NOTE | 2020-03-13 04:43 | NUR ---
wound care conducted on left 2nd toe with saline, vaseline gauze, dry gauze, kerlex pictures taken and placed in the chart
[2020-03-13] MEDS: INSULIN HUMULIN R 100 UNIT/ML 3ML SQ SCH ×7 (05:17→20:08)
[2020-03-13 06:20] LABS: BASOPHILS % (AUTO) 0.5 % (0.0-5.0); EOSINOPHILS % (AUTO) 1.1 % (0.0-8.0); HEMATOCRIT 38.3 % (42-54); LYMPHOCYTES % (AUTO) 24.6 % (21.0-51.0); MEAN CORPUSCULAR HEMOGLOBIN 33.2 pg (27.0-33.0); MEAN CORPUSCULAR HGB CONC 34.5 g/dL (32.0-36.0); MEAN CORPUSCULAR VOLUME 96.2 fL (79-99); MONOCYTES % (AUTO) 12.1 % (3.0-13.0); NEUTROPHILS % (AUTO) 61.4 % (40.0-77.0); PLATELET COUNT (AUTO) 123 K/uL (130-400); RED BLOOD CELL COUNT(AUTO) 3.98 MIL/uL (4.50-6.20); RED CELL DISTRIBUTION WIDTH 13.3 % (11.0-15.5); WHITE BLOOD COUNT (AUTO) 6.3 K/uL (4.8-10.8)
[2020-03-13 06:27] LABS: POTASSIUM 3.5 mmol/L (3.5-5.1)
[2020-03-13] MEDS ORDERED: LISINOPRIL 10 MG TABLET PO SCH (08:45)
[2020-03-13] MEDS: HYDRALAZINE HCL 25 MG TABLET PO SCH ×3 (08:53→20:10)
[2020-03-13] MEDS: ASPIRIN 81 MG EC TAB PO SCH (08:53)
[2020-03-13] MEDS: PRASUGREL HCL 10 MG TABLET PO SCH (08:53)
[2020-03-13] MEDS: PANTOPRAZOLE SODIUM 40 MG TABLET.DR PO SCH (08:54)
[2020-03-13] MEDS: ATENOLOL 25 MG TABLET PO SCH ×2 (08:54→19:56)
[2020-03-13] MEDS: ENOXAPARIN SODIUM 30 MG/0.3 ML SQ SCH (08:54)
[2020-03-13] MEDS: ACETYLCYSTEINE 20% 200MG/ML 4ML VIAL PO SCH (09:00)
[2020-03-13] MEDS: INSULIN GLARGINE 100 UNITS/ML 10 ML VIAL SQ SCH (09:10)
[2020-03-13] MEDS: LORAZEPAM 0.5 MG TABLET PO PRN (12:27)
[2020-03-13] MEDS: ATORVASTATIN CALCIUM 40 MG TABLET PO SCH (19:56)
[2020-03-14 03:53] VITALS: BP 143/91
[2020-03-14] MEDS: ZOSYN 3.375GM+NS 50ML 50 ML IV SCH ×2 (04:56→12:26)
[2020-03-14] MEDS: INSULIN HUMULIN R 100 UNIT/ML 3ML SQ SCH ×7 (05:53→21:00)
[2020-03-14 06:19] LABS: BASOPHILS % (AUTO) 0.4 % (0.0-5.0); EOSINOPHILS % (AUTO) 1.6 % (0.0-8.0); HEMATOCRIT 41.7 % (42-54); LYMPHOCYTES % (AUTO) 28.2 % (21.0-51.0); MEAN CORPUSCULAR HEMOGLOBIN 33.2 pg (27.0-33.0); MEAN CORPUSCULAR HGB CONC 34.5 g/dL (32.0-36.0); MEAN CORPUSCULAR VOLUME 96.1 fL (79-99); NEUTROPHILS % (AUTO) 57.4 % (40.0-77.0); PLATELET COUNT (AUTO) 127 K/uL (130-400); RED BLOOD CELL COUNT(AUTO) 4.34 MIL/uL (4.50-6.20); RED CELL DISTRIBUTION WIDTH 13.7 % (11.0-15.5); WHITE BLOOD COUNT (AUTO) 5.7 K/uL (4.8-10.8)
[2020-03-14 06:25] LABS: CREATININE 1.1 mg/dL (0.5-1.5); POTASSIUM 3.7 mmol/L (3.5-5.1)
[2020-03-14 08:24] VITALS: BP 163/90
[2020-03-14] MEDS: HYDRALAZINE HCL 25 MG TABLET PO SCH ×3 (08:43→20:32)
[2020-03-14] MEDS: ASPIRIN 81 MG EC TAB PO SCH (08:43)
[2020-03-14] MEDS: PANTOPRAZOLE SODIUM 40 MG TABLET.DR PO SCH (08:43)
[2020-03-14] MEDS: PRASUGREL HCL 10 MG TABLET PO SCH (08:43)
[2020-03-14] MEDS: LORAZEPAM 0.5 MG TABLET PO PRN ×2 (08:43→20:32)
[2020-03-14] MEDS: ATENOLOL 25 MG TABLET PO SCH ×2 (08:44→20:32)
[2020-03-14] MEDS: LISINOPRIL 20 MG TABLET PO SCH (08:44)
[2020-03-14] MEDS: ENOXAPARIN SODIUM 30 MG/0.3 ML SQ SCH (08:44)
[2020-03-14] MEDS: INSULIN GLARGINE 100 UNITS/ML 10 ML VIAL SQ SCH (08:59)
[2020-03-14 12:37] VITALS: BP 172/85
[2020-03-14 16:54] VITALS: BP_SYST 136; BP_SYST 138; BP_DIAS 51; BP_DIAS 84
[2020-03-14 20:00] VITALS: BP 147/91
[2020-03-14] MEDS: ATORVASTATIN CALCIUM 40 MG TABLET PO SCH (20:33)
[2020-03-15] VITALS: BP 157/87
[2020-03-15 04:00] VITALS: BP 175/96
[2020-03-15] MEDS: INSULIN HUMULIN R 100 UNIT/ML 3ML SQ SCH ×6 (06:02→16:37)
[2020-03-15 06:06] LABS: POTASSIUM 3.7 mmol/L (3.5-5.1)
[2020-03-15 08:00] VITALS: BP 160/93
[2020-03-15] MEDS: PRASUGREL HCL 10 MG TABLET PO SCH (09:00)
[2020-03-15] MEDS: ATENOLOL 25 MG TABLET PO SCH (09:00)
[2020-03-15] MEDS: HYDRALAZINE HCL 25 MG TABLET PO SCH ×2 (09:00→13:49)
[2020-03-15] MEDS: INSULIN GLARGINE 100 UNITS/ML 10 ML VIAL SQ SCH (09:00)
[2020-03-15] MEDS: ENOXAPARIN SODIUM 30 MG/0.3 ML SQ SCH (09:00)
[2020-03-15] MEDS: ASPIRIN 81 MG EC TAB PO SCH (09:00)
[2020-03-15] MEDS: LISINOPRIL 20 MG TABLET PO SCH (09:00)
[2020-03-15] MEDS: PANTOPRAZOLE SODIUM 40 MG TABLET.DR PO SCH (09:00)
[2020-03-15 11:00] VITALS: BP 164/96
[2020-03-15] MEDS ORDERED: HYDR-4153 PO (14:24)
[2020-03-15] MEDS ORDERED: ATOR40TA69 PO (14:24)
[2020-03-15] MEDS ORDERED: PRAS10TA6 PO (14:24)
[2020-03-15] MEDS ORDERED: LISI-613 PO (14:24)
[2020-03-15] MEDS ORDERED: PANT40TA PO (14:24)
--- NOTE | 2020-03-17 16:20 | NUR ---
Transitional Care - Post Discharge Note Spoke with patient's at number listed. As per Mrs Shannon, Mr Shannon is doing well. She states that he has scheduled all follow up appointments, and is taking discharge medications as ordered. Mrs Shannon states that Dr Ford is to perform same procedure on other leg in a couple of weeks. Addendum: 03/17/20 at 1623 by ELIEZER REBOLLAR Amended: Links added.
[2020-03-26] MEDS ORDERED: PRAS10TA9 PO (15:31)
[2020-03-26] MEDS ORDERED: SERT50TA12 PO (15:31)
[2020-03-26] MEDS ORDERED: ATOR40TA69 PO (15:31)
[2020-03-26] MEDS ORDERED: LEVO500T89 PO (15:31)
[2020-03-26] MEDS ORDERED: INSU100I3 SQ (15:31)
[2020-03-26] MEDS ORDERED: LISI-613 PO (15:31)
[2020-03-26] MEDS ORDERED: HYDR-4153 PO (15:31)
[2020-03-26] MEDS ORDERED: PANT40TA54 PO (15:31)
[2020-03-26] MEDS ORDERED: INSU300I SQ (15:31)
== END 2020-03-15 16:39 | disposition home or self-care (01) | DRG 271 ==
LOC: EDH 10:53 → EDHIP 10:54 → 3BH 18:33 → 2DH 03-10 19:41 → 4AH 03-11 15:26
PROVIDERS: ADMIT Hospitalist; ATTEND Hospitalist
PROC: 0Y6S0Z1 Detachment at Left 2nd Toe, High, Open Approach (ICD-10-PCS; principal; 2020-03-05 13:32)
PROC: B41G1ZZ Fluoroscopy of Left Lower Extremity Arteries using Low Osmolar Contrast (ICD-10-PCS; 2020-03-06)
PROC: 04CU3ZZ Extirpation of Matter from Left Peroneal Artery, Percutaneous Approach (ICD-10-PCS; 2020-03-10)
PROC: 04CN3ZZ Extirpation of Matter from Left Popliteal Artery, Percutaneous Approach (ICD-10-PCS; 2020-03-10)
PROC: 04CQ3ZZ Extirpation of Matter from Left Anterior Tibial Artery, Percutaneous Approach (ICD-10-PCS; 2020-03-10)
PROC: 047Q3ZZ Dilation of Left Anterior Tibial Artery, Percutaneous Approach (ICD-10-PCS; 2020-03-10)
PROC: 047N3ZZ Dilation of Left Popliteal Artery, Percutaneous Approach (ICD-10-PCS; 2020-03-10)
PROC: 047U3ZZ Dilation of Left Peroneal Artery, Percutaneous Approach (ICD-10-PCS; 2020-03-10)
DX: E11.52 Type 2 diabetes mellitus with diabetic peripheral angiopathy with gangrene (principal); L03.116 Cellulitis of left lower limb; I96 Gangrene, not elsewhere classified; N17.9 Acute kidney failure, unspecified; M86.8X7 Other osteomyelitis, ankle and foot; E11.69 Type 2 diabetes mellitus with other specified complication; E11.621 Type 2 diabetes mellitus with foot ulcer; E11.65 Type 2 diabetes mellitus with hyperglycemia; E78.5 Hyperlipidemia, unspecified; I12.9 Hypertensive chronic kidney disease with stage 1 through stage 4 chronic kidney disease, or unspecified chronic kidney disease; N18.30 Chronic kidney disease, stage 3 unspecified; E11.22 Type 2 diabetes mellitus with diabetic chronic kidney disease; E11.42 Type 2 diabetes mellitus with diabetic polyneuropathy; I25.10 Atherosclerotic heart disease of native coronary artery without angina pectoris; I35.0 Nonrheumatic aortic (valve) stenosis; L03.032 Cellulitis of left toe; L97.529 Non-pressure chronic ulcer of other part of left foot with unspecified severity; E66.9 Obesity, unspecified; Z68.28 Body mass index [BMI] 28.0-28.9, adult; Z98.49 Cataract extraction status, unspecified eye; Z88.5 Allergy status to narcotic agent; Z88.8 Allergy status to other drugs, medicaments and biological substances; Z79.02 Long term (current) use of antithrombotics/antiplatelets; Z79.4 Long term (current) use of insulin; Z79.82 Long term (current) use of aspirin; Z79.899 Other long term (current) drug therapy; Z95.820 Peripheral vascular angioplasty status with implants and grafts; Z95.1 Presence of aortocoronary bypass graft; Z93.1 Gastrostomy status; Z85.830 Personal history of malignant neoplasm of bone; Z83.3 Family history of diabetes mellitus; Z80.8 Family history of malignant neoplasm of other organs or systems; Z82.49 Family history of ischemic heart disease and other diseases of the circulatory system
CPT/HCPCS: 36247; 36415; 37225; 37228; 37229; 73620; 73718; 75716; 76770; 80048; 80053; 81001; 82948; 83036; 83735; 84100; 84550; 85025; 85027; 85347; 85610; 85730; 87070; 87076; 87205; 90715; 93005; 93306; 93356; 93925; 99156; 99157; C1769; C1893; C1894; C9113; G0378; J1644; J1650; J1815; J1885; J2250; J2405; J2543; J3010; J3370; J3490; J7030; J7608; Q9967

== ENCOUNTER → 2020-03-04 | Outpatient (CLI) | payer OTHER ==
[~2020-03-04] VITALS: Ht 152.4 cm; Wt 83.9 kg
[~2020-03-04] MED LIST changes: +INSU300I3 SQ; +PIOG15TA66 PO; +REGULAR INSULIN; +ZOSYN 3.375GM+NS 50ML 50 ML IV SCH
== END | disposition home or self-care (01) ==
LOC: WHH 08:00
PROVIDERS: ATTEND Podiatrist Foot & Ankle Surgery
DX: E11.621 Type 2 diabetes mellitus with foot ulcer (principal); L97.521 Non-pressure chronic ulcer of other part of left foot limited to breakdown of skin; L84 Corns and callosities; E11.69 Type 2 diabetes mellitus with other specified complication; M86.30 Chronic multifocal osteomyelitis, unspecified site; M86.672 Other chronic osteomyelitis, left ankle and foot; E11.52 Type 2 diabetes mellitus with diabetic peripheral angiopathy with gangrene; I96 Gangrene, not elsewhere classified; E11.22 Type 2 diabetes mellitus with diabetic chronic kidney disease; I13.0 Hypertensive heart and chronic kidney disease with heart failure and stage 1 through stage 4 chronic kidney disease, or unspecified chronic kidney disease; N18.2 Chronic kidney disease, stage 2 (mild); I50.9 Heart failure, unspecified; E11.42 Type 2 diabetes mellitus with diabetic polyneuropathy; E11.319 Type 2 diabetes mellitus with unspecified diabetic retinopathy without macular edema; K21.9 Gastro-esophageal reflux disease without esophagitis; I25.10 Atherosclerotic heart disease of native coronary artery without angina pectoris; L57.0 Actinic keratosis; E78.5 Hyperlipidemia, unspecified; M19.072 Primary osteoarthritis, left ankle and foot; Z88.6 Allergy status to analgesic agent; Z88.5 Allergy status to narcotic agent
CPT/HCPCS: 99214; J2543

== ENCOUNTER → 2020-03-25 | Outpatient (CLI) | payer OTHER ==
[~2020-03-25] MED LIST changes: -ACET-2743 PO; -ATOR-2 PO; +ATOR40TA69 PO; -CEFT2VIA12 IVP; -CILO100T PO; -CLOP75TA14 PO; +HYDR-4153 PO; +INSU100I3 SQ; +INSU300I SQ; +LEVO500T89 PO; +LISI-613 PO; -LISI-617 PO; -METF-910 PO; +PANT40TA PO; +PANT40TA54 PO; +PIOG15TA66 PO; -PIOG30TA70 PO; +PRAS10TA6 PO; +PRAS10TA9 PO; +SERT50TA12 PO; -UBID100C10 PO; -VANCOPO PO; -[UNRECOGNIZED DRUG - OTHER] SQ
== END | disposition home or self-care (01) ==
LOC: WHH 08:15
PROVIDERS: ATTEND Podiatrist Foot & Ankle Surgery
DX: T87.89 Other complications of amputation stump (principal); E11.621 Type 2 diabetes mellitus with foot ulcer; L97.521 Non-pressure chronic ulcer of other part of left foot limited to breakdown of skin; L84 Corns and callosities; E11.69 Type 2 diabetes mellitus with other specified complication; M86.30 Chronic multifocal osteomyelitis, unspecified site; M86.672 Other chronic osteomyelitis, left ankle and foot; E11.52 Type 2 diabetes mellitus with diabetic peripheral angiopathy with gangrene; I96 Gangrene, not elsewhere classified; E11.22 Type 2 diabetes mellitus with diabetic chronic kidney disease; I13.0 Hypertensive heart and chronic kidney disease with heart failure and stage 1 through stage 4 chronic kidney disease, or unspecified chronic kidney disease; N18.2 Chronic kidney disease, stage 2 (mild); I50.9 Heart failure, unspecified; E11.42 Type 2 diabetes mellitus with diabetic polyneuropathy; E11.319 Type 2 diabetes mellitus with unspecified diabetic retinopathy without macular edema; K21.9 Gastro-esophageal reflux disease without esophagitis; I25.10 Atherosclerotic heart disease of native coronary artery without angina pectoris; L57.0 Actinic keratosis; E78.5 Hyperlipidemia, unspecified; M19.072 Primary osteoarthritis, left ankle and foot; Z88.6 Allergy status to analgesic agent; Z88.5 Allergy status to narcotic agent; Y83.5 Amputation of limb(s) as the cause of abnormal reaction of the patient, or of later complication, without mention of misadventure at the time of the procedure
CPT/HCPCS: 99214; A6207

== ENCOUNTER 2020-03-27 10:27 | Observation (INO) | payer OTHER ==
[2020-03-25 16:26] LABS: APPEARANCE,URINE Clear (CLEAR); BILIRUBIN,URINE Negative (NEGATIVE); COLOR,URINE Yellow (YELLOW); GLUCOSE, URINE (UA) >=1000 mg/dL (NEGATIVE); KETONES,URINE Negative (NEGATIVE); LEUKOCYTE ESTERASE ,URINE Negative (NEGATIVE); NITRATE,URINE Negative (NEGATIVE); OCCULT BLOOD,URINE Negative (NEGATIVE); PH,URINE 5.5 (5.0-8.0); PROTEIN,URINE Negative (NEGATIVE)
[2020-03-25 16:27] LABS: BASOPHILS % (AUTO) 0.4 % (0.0-5.0); EOSINOPHILS % (AUTO) 1.5 % (0.0-8.0); HEMATOCRIT 40.9 % (42-54); MEAN CORPUSCULAR HEMOGLOBIN 33.2 pg (27.0-33.0); MEAN CORPUSCULAR HGB CONC 33.3 g/dL (32.0-36.0); MEAN CORPUSCULAR VOLUME 99.8 fL (79-99); MONOCYTES % (AUTO) 13.5 % (3.0-13.0); NEUTROPHILS % (AUTO) 56.2 % (40.0-77.0); PLATELET COUNT (AUTO) 135 K/uL (130-400); WHITE BLOOD COUNT (AUTO) 5.4 K/uL (4.8-10.8)
[2020-03-25 16:36] LABS: INR 0.98 (0.85-1.15); PARTIAL THROMBOPLASTIN TIME 25.9 SEC (26.3-35.5); PROTHROMBIN TIME 10.6 SEC (9.6-11.6)
[2020-03-25 16:56] LABS: BACTERIA,URINE Rare /HPF (None Seen); RBC,URINE 0-1 /HPF (0-1); SQUAMOUS EPITHELIAL CELL,UR 0-2 /HPF (0-2)
[2020-03-25 16:57] LABS: WBC,URINE None Seen /HPF (0-1)
[2020-03-25 16:57] LABS: CREATININE 1.3 mg/dL (0.5-1.5); POTASSIUM 4.7 mmol/L (3.5-5.1)
[2020-03-26 14:52] VITALS: BP 131/71
[2020-03-27] VITALS (18 sets, daily range): BP systolic 135–179; BP diastolic 80–96
[~2020-03-27] VITALS: Ht 175.3 cm; Wt 86.8 kg
[~2020-03-27 10:27] MED LIST changes: -PANT40TA PO; -PRAS10TA6 PO; +SODIUM CHLORIDE 0.9% 1000ML 1,000 ML IV SCH
[2020-03-27] MEDS ORDERED: SODIUM BICARB 50MEQ 50ML VIAL 50 ML ONE (16:05)
[2020-03-27] MEDS ORDERED: IOHEXOL 350 MG/ML 100ML INFUS..BTL IV ONE ×2 (16:05→18:04)
[2020-03-27] MEDS ORDERED: IOHEXOL-350 50ML VIAL IV ONE (16:05)
[2020-03-27] MEDS ORDERED: NITROGLYCERIN 2 MG/VIAL VIAL IV ONE (16:05)
[2020-03-27] MEDS ORDERED: HEPARIN SODIUM 1000UNIT/ML 10ML VIAL ONE (16:05)
[2020-03-27] MEDS ORDERED: MIDAZOLAM HCL 1 MG/ML 2ML VIAL ONE (16:06)
[2020-03-27] MEDS ORDERED: FENTANYL CITRATE PF 50 MCG/1 ML 2ML VIAL ONE (16:06)
[2020-03-27] MEDS ORDERED: LIDOCAINE HCL 2% 20ML ONE ×2 (16:06→17:26)
[2020-03-27] MEDS ORDERED: FUROSEMIDE 10 MG/ML 2ML VIAL ONE (18:34)
[2020-03-27] MEDS ORDERED: SODIUM CHLORIDE 0.9% 10 ML VIAL IVP PRN (20:15)
[2020-03-27] MEDS ORDERED: SODIUM CHLORIDE 0.9% 1000ML 1,000 ML IV SCH (20:15)
[2020-03-27] MEDS ORDERED: ASPIRIN 81MG TAB.CHEW ONE (23:18)
[2020-03-27] MEDS ORDERED: ATORVASTATIN CALCIUM 40 MG TABLET ONE (23:19)
[2020-03-27] MEDS ORDERED: SERTRALINE HCL 50 MG TABLET ONE (23:19)
[2020-03-27] MEDS ORDERED: ATENOLOL 25 MG TABLET ONE (23:19)
[2020-03-27] MEDS ORDERED: LEVOFLOXACIN 500 MG TABLET ONE (23:20)
[2020-03-28] VITALS (8 sets, daily range): BP systolic 115–165; BP diastolic 72–94
[2020-03-28 03:34] LABS: HEMATOCRIT 36.4 % (42-54); MEAN CORPUSCULAR HEMOGLOBIN 33.7 pg (27.0-33.0); MEAN CORPUSCULAR HGB CONC 34.9 g/dL (32.0-36.0); MEAN CORPUSCULAR VOLUME 96.6 fL (79-99); RED BLOOD CELL COUNT(AUTO) 3.77 MIL/uL (4.50-6.20); RED CELL DISTRIBUTION WIDTH 13.6 % (11.0-15.5); WHITE BLOOD COUNT (AUTO) 6.3 K/uL (4.8-10.8)
[2020-03-28 03:43] LABS: CREATININE 1.1 mg/dL (0.5-1.5); POTASSIUM 4.2 mmol/L (3.5-5.1)
[2020-03-28] MEDS ORDERED: INSULIN HUMULIN R 100 UNIT/ML 3ML SQ SCH (16:30)
== END 2020-03-28 14:00 | disposition home or self-care (01) ==
LOC: DAH 10:27 → 2DH 10:28 → 4BH 03-28 05:09
PROVIDERS: ADMIT Internal Medicine Cardiovascular Disease; ATTEND Internal Medicine Cardiovascular Disease
DX: I25.10 Atherosclerotic heart disease of native coronary artery without angina pectoris (principal); E11.51 Type 2 diabetes mellitus with diabetic peripheral angiopathy without gangrene; E78.5 Hyperlipidemia, unspecified; I10 Essential (primary) hypertension; I35.0 Nonrheumatic aortic (valve) stenosis; Z95.1 Presence of aortocoronary bypass graft; Z79.899 Other long term (current) drug therapy
CPT/HCPCS: 36415 ×2; 71045; 80048 ×2; 81001; 82948 ×6; 83880; 85025; 85027; 85610; 85730; 93005; 93461; A4215; A4216; A4221; A4222; A4223 ×3; A4606; A4663; C1760 ×2; C1769 ×3; C1894 ×4; G0378 ×28; J1644 ×3; J1940; J2250; J3010; J3490 ×4; J7030 ×2; Q9965 ×3; Q9967 ×3; 99156; 99157

== ENCOUNTER → 2020-04-15 | Outpatient (CLI) | payer OTHER ==
[~2020-04-15] MED LIST changes: -HYDR-4153 PO; -SODIUM CHLORIDE 0.9% 1000ML 1,000 ML IV SCH
== END | disposition home or self-care (01) ==
LOC: WHH 08:00
PROVIDERS: ATTEND Podiatrist Foot & Ankle Surgery
DX: E11.621 Type 2 diabetes mellitus with foot ulcer (principal); L97.522 Non-pressure chronic ulcer of other part of left foot with fat layer exposed; L84 Corns and callosities; E11.69 Type 2 diabetes mellitus with other specified complication; M86.30 Chronic multifocal osteomyelitis, unspecified site; M86.672 Other chronic osteomyelitis, left ankle and foot; E11.52 Type 2 diabetes mellitus with diabetic peripheral angiopathy with gangrene; I96 Gangrene, not elsewhere classified; E11.22 Type 2 diabetes mellitus with diabetic chronic kidney disease; I13.0 Hypertensive heart and chronic kidney disease with heart failure and stage 1 through stage 4 chronic kidney disease, or unspecified chronic kidney disease; N18.2 Chronic kidney disease, stage 2 (mild); I50.9 Heart failure, unspecified; E11.42 Type 2 diabetes mellitus with diabetic polyneuropathy; E11.319 Type 2 diabetes mellitus with unspecified diabetic retinopathy without macular edema; K21.9 Gastro-esophageal reflux disease without esophagitis; I25.10 Atherosclerotic heart disease of native coronary artery without angina pectoris; L57.0 Actinic keratosis; E78.5 Hyperlipidemia, unspecified; M19.072 Primary osteoarthritis, left ankle and foot; Z88.6 Allergy status to analgesic agent; Z88.5 Allergy status to narcotic agent
CPT/HCPCS: 11042; A6207

== ENCOUNTER → 2020-04-22 | Outpatient (CLI) | payer OTHER | END | disposition home or self-care (01) | LOC: WHH 08:00 | PROVIDERS: ATTEND Podiatrist Foot & Ankle Surgery | DX: E11.621 Type 2 diabetes mellitus with foot ulcer (principal); L97.522 Non-pressure chronic ulcer of other part of left foot with fat layer exposed; L84 Corns and callosities; E11.69 Type 2 diabetes mellitus with other specified complication; M86.30 Chronic multifocal osteomyelitis, unspecified site; M86.672 Other chronic osteomyelitis, left ankle and foot; E11.52 Type 2 diabetes mellitus with diabetic peripheral angiopathy with gangrene; I96 Gangrene, not elsewhere classified; E11.22 Type 2 diabetes mellitus with diabetic chronic kidney disease; I13.0 Hypertensive heart and chronic kidney disease with heart failure and stage 1 through stage 4 chronic kidney disease, or unspecified chronic kidney disease; N18.2 Chronic kidney disease, stage 2 (mild); I50.9 Heart failure, unspecified; E11.42 Type 2 diabetes mellitus with diabetic polyneuropathy; E11.319 Type 2 diabetes mellitus with unspecified diabetic retinopathy without macular edema; K21.9 Gastro-esophageal reflux disease without esophagitis; I25.10 Atherosclerotic heart disease of native coronary artery without angina pectoris; L57.0 Actinic keratosis; E78.5 Hyperlipidemia, unspecified; M19.072 Primary osteoarthritis, left ankle and foot; Z88.6 Allergy status to analgesic agent; Z88.5 Allergy status to narcotic agent | CPT/HCPCS: 11042; A6207 ==

== ENCOUNTER → 2020-05-06 | Outpatient (CLI) | payer OTHER ==
[~2020-05-06] MED LIST changes: -LISI-613 PO; +LISI20TA24 PO; +SERT-439 PO; -SERT50TA12 PO
== END | disposition home or self-care (01) ==
LOC: WHH 08:00
PROVIDERS: ATTEND Podiatrist Foot & Ankle Surgery
DX: E11.621 Type 2 diabetes mellitus with foot ulcer (principal); L97.522 Non-pressure chronic ulcer of other part of left foot with fat layer exposed; L84 Corns and callosities; B35.1 Tinea unguium; E11.69 Type 2 diabetes mellitus with other specified complication; M86.30 Chronic multifocal osteomyelitis, unspecified site; M86.672 Other chronic osteomyelitis, left ankle and foot; E11.52 Type 2 diabetes mellitus with diabetic peripheral angiopathy with gangrene; I96 Gangrene, not elsewhere classified; E11.22 Type 2 diabetes mellitus with diabetic chronic kidney disease; I13.0 Hypertensive heart and chronic kidney disease with heart failure and stage 1 through stage 4 chronic kidney disease, or unspecified chronic kidney disease; N18.2 Chronic kidney disease, stage 2 (mild); I50.9 Heart failure, unspecified; E11.42 Type 2 diabetes mellitus with diabetic polyneuropathy; E11.319 Type 2 diabetes mellitus with unspecified diabetic retinopathy without macular edema; K21.9 Gastro-esophageal reflux disease without esophagitis; I25.10 Atherosclerotic heart disease of native coronary artery without angina pectoris; L57.0 Actinic keratosis; E78.5 Hyperlipidemia, unspecified; M19.072 Primary osteoarthritis, left ankle and foot; Z88.6 Allergy status to analgesic agent; Z88.5 Allergy status to narcotic agent
CPT/HCPCS: 11721

== ENCOUNTER → 2020-05-20 | Outpatient (CLI) | payer OTHER ==
[~2020-05-20] MED LIST changes: +LIDOCAINE HCL 2% JELLY 5 ML TP ONE
== END | disposition home or self-care (01) ==
LOC: WHH 08:00
PROVIDERS: ATTEND Podiatrist Foot & Ankle Surgery
DX: E11.621 Type 2 diabetes mellitus with foot ulcer (principal); L97.522 Non-pressure chronic ulcer of other part of left foot with fat layer exposed; L84 Corns and callosities; B35.1 Tinea unguium; E11.69 Type 2 diabetes mellitus with other specified complication; M86.30 Chronic multifocal osteomyelitis, unspecified site; M86.672 Other chronic osteomyelitis, left ankle and foot; E11.52 Type 2 diabetes mellitus with diabetic peripheral angiopathy with gangrene; I96 Gangrene, not elsewhere classified; E11.22 Type 2 diabetes mellitus with diabetic chronic kidney disease; I13.0 Hypertensive heart and chronic kidney disease with heart failure and stage 1 through stage 4 chronic kidney disease, or unspecified chronic kidney disease; N18.2 Chronic kidney disease, stage 2 (mild); I50.9 Heart failure, unspecified; E11.42 Type 2 diabetes mellitus with diabetic polyneuropathy; E11.319 Type 2 diabetes mellitus with unspecified diabetic retinopathy without macular edema; K21.9 Gastro-esophageal reflux disease without esophagitis; I25.10 Atherosclerotic heart disease of native coronary artery without angina pectoris; L57.0 Actinic keratosis; E78.5 Hyperlipidemia, unspecified; M19.072 Primary osteoarthritis, left ankle and foot; Z88.6 Allergy status to analgesic agent; Z88.5 Allergy status to narcotic agent
CPT/HCPCS: 11042; 87070; A6207

== ENCOUNTER → 2020-06-03 | Outpatient (CLI) | payer OTHER | END | disposition home or self-care (01) | LOC: WHH 08:00 | PROVIDERS: ATTEND Podiatrist Foot & Ankle Surgery | DX: E11.621 Type 2 diabetes mellitus with foot ulcer (principal); L97.522 Non-pressure chronic ulcer of other part of left foot with fat layer exposed; L84 Corns and callosities; B35.1 Tinea unguium; E11.69 Type 2 diabetes mellitus with other specified complication; M86.30 Chronic multifocal osteomyelitis, unspecified site; M86.672 Other chronic osteomyelitis, left ankle and foot; E11.52 Type 2 diabetes mellitus with diabetic peripheral angiopathy with gangrene; I96 Gangrene, not elsewhere classified; E11.22 Type 2 diabetes mellitus with diabetic chronic kidney disease; I13.0 Hypertensive heart and chronic kidney disease with heart failure and stage 1 through stage 4 chronic kidney disease, or unspecified chronic kidney disease; N18.2 Chronic kidney disease, stage 2 (mild); I50.9 Heart failure, unspecified; E11.42 Type 2 diabetes mellitus with diabetic polyneuropathy; E11.319 Type 2 diabetes mellitus with unspecified diabetic retinopathy without macular edema; K21.9 Gastro-esophageal reflux disease without esophagitis; I25.10 Atherosclerotic heart disease of native coronary artery without angina pectoris; L57.0 Actinic keratosis; E78.5 Hyperlipidemia, unspecified; M19.072 Primary osteoarthritis, left ankle and foot; Z88.6 Allergy status to analgesic agent; Z88.5 Allergy status to narcotic agent | CPT/HCPCS: 99214; A6207 ==

== ENCOUNTER → 2020-06-10 | Outpatient (CLI) | payer OTHER | END | disposition home or self-care (01) | LOC: WHH 08:00 | PROVIDERS: ATTEND Podiatrist Foot & Ankle Surgery | DX: E11.621 Type 2 diabetes mellitus with foot ulcer (principal); L97.522 Non-pressure chronic ulcer of other part of left foot with fat layer exposed; L84 Corns and callosities; B35.1 Tinea unguium; E11.69 Type 2 diabetes mellitus with other specified complication; M86.30 Chronic multifocal osteomyelitis, unspecified site; M86.672 Other chronic osteomyelitis, left ankle and foot; E11.52 Type 2 diabetes mellitus with diabetic peripheral angiopathy with gangrene; I96 Gangrene, not elsewhere classified; E11.22 Type 2 diabetes mellitus with diabetic chronic kidney disease; I13.0 Hypertensive heart and chronic kidney disease with heart failure and stage 1 through stage 4 chronic kidney disease, or unspecified chronic kidney disease; N18.2 Chronic kidney disease, stage 2 (mild); I50.9 Heart failure, unspecified; E11.42 Type 2 diabetes mellitus with diabetic polyneuropathy; E11.319 Type 2 diabetes mellitus with unspecified diabetic retinopathy without macular edema; K21.9 Gastro-esophageal reflux disease without esophagitis; I25.10 Atherosclerotic heart disease of native coronary artery without angina pectoris; L57.0 Actinic keratosis; E78.5 Hyperlipidemia, unspecified; M19.072 Primary osteoarthritis, left ankle and foot; Z88.6 Allergy status to analgesic agent; Z88.5 Allergy status to narcotic agent | CPT/HCPCS: 11042; A4450; A6207 ==

== ENCOUNTER → 2020-07-08 | Outpatient (CLI) | payer OTHER ==
[~2020-07-08] MED LIST changes: -LIDOCAINE HCL 2% JELLY 5 ML TP ONE
== END | disposition home or self-care (01) ==
LOC: WHH 08:00
PROVIDERS: ATTEND Podiatrist Foot & Ankle Surgery
DX: E11.621 Type 2 diabetes mellitus with foot ulcer (principal); L97.522 Non-pressure chronic ulcer of other part of left foot with fat layer exposed; L84 Corns and callosities; B35.1 Tinea unguium; E11.69 Type 2 diabetes mellitus with other specified complication; M86.30 Chronic multifocal osteomyelitis, unspecified site; M86.672 Other chronic osteomyelitis, left ankle and foot; E11.52 Type 2 diabetes mellitus with diabetic peripheral angiopathy with gangrene; I96 Gangrene, not elsewhere classified; E11.22 Type 2 diabetes mellitus with diabetic chronic kidney disease; I13.0 Hypertensive heart and chronic kidney disease with heart failure and stage 1 through stage 4 chronic kidney disease, or unspecified chronic kidney disease; N18.2 Chronic kidney disease, stage 2 (mild); I50.9 Heart failure, unspecified; E11.42 Type 2 diabetes mellitus with diabetic polyneuropathy; E11.319 Type 2 diabetes mellitus with unspecified diabetic retinopathy without macular edema; K21.9 Gastro-esophageal reflux disease without esophagitis; I25.10 Atherosclerotic heart disease of native coronary artery without angina pectoris; L57.0 Actinic keratosis; E78.5 Hyperlipidemia, unspecified; M19.072 Primary osteoarthritis, left ankle and foot; Z88.6 Allergy status to analgesic agent; Z88.5 Allergy status to narcotic agent
CPT/HCPCS: 11042; A6207

== ENCOUNTER → 2020-07-10 | Outpatient (CLI) | payer OTHER | END | disposition home or self-care (01) | LOC: RAH 14:29 | PROVIDERS: ATTEND Podiatrist Foot & Ankle Surgery | DX: M79.672 Pain in left foot (principal) | CPT/HCPCS: 73630 ==

== ENCOUNTER → 2020-07-22 | Outpatient (CLI) | payer OTHER ==
[~2020-07-22] MED LIST changes: +LIDOCAINE HCL 2% JELLY 5 ML TP ONE
== END | disposition home or self-care (01) ==
LOC: WHH 08:00
PROVIDERS: ATTEND Podiatrist Foot & Ankle Surgery
DX: E11.621 Type 2 diabetes mellitus with foot ulcer (principal); L97.522 Non-pressure chronic ulcer of other part of left foot with fat layer exposed; L84 Corns and callosities; B35.1 Tinea unguium; E11.69 Type 2 diabetes mellitus with other specified complication; M86.30 Chronic multifocal osteomyelitis, unspecified site; M86.672 Other chronic osteomyelitis, left ankle and foot; E11.52 Type 2 diabetes mellitus with diabetic peripheral angiopathy with gangrene; I96 Gangrene, not elsewhere classified; E11.22 Type 2 diabetes mellitus with diabetic chronic kidney disease; I13.0 Hypertensive heart and chronic kidney disease with heart failure and stage 1 through stage 4 chronic kidney disease, or unspecified chronic kidney disease; N18.2 Chronic kidney disease, stage 2 (mild); I50.9 Heart failure, unspecified; E11.42 Type 2 diabetes mellitus with diabetic polyneuropathy; E11.319 Type 2 diabetes mellitus with unspecified diabetic retinopathy without macular edema; K21.9 Gastro-esophageal reflux disease without esophagitis; I25.10 Atherosclerotic heart disease of native coronary artery without angina pectoris; L57.0 Actinic keratosis; E78.5 Hyperlipidemia, unspecified; M19.072 Primary osteoarthritis, left ankle and foot; Z88.6 Allergy status to analgesic agent; Z88.5 Allergy status to narcotic agent
CPT/HCPCS: 11042; A4450; A6207

== ENCOUNTER → 2020-08-12 | Outpatient (CLI) | payer OTHER ==
[~2020-08-12] MED LIST changes: -LIDOCAINE HCL 2% JELLY 5 ML TP ONE
== END | disposition home or self-care (01) ==
LOC: WHH 08:30
PROVIDERS: ATTEND Podiatrist Foot & Ankle Surgery
DX: E11.621 Type 2 diabetes mellitus with foot ulcer (principal); L97.522 Non-pressure chronic ulcer of other part of left foot with fat layer exposed; L84 Corns and callosities; B35.1 Tinea unguium; E11.69 Type 2 diabetes mellitus with other specified complication; M86.30 Chronic multifocal osteomyelitis, unspecified site; M86.672 Other chronic osteomyelitis, left ankle and foot; E11.52 Type 2 diabetes mellitus with diabetic peripheral angiopathy with gangrene; I96 Gangrene, not elsewhere classified; E11.22 Type 2 diabetes mellitus with diabetic chronic kidney disease; I13.0 Hypertensive heart and chronic kidney disease with heart failure and stage 1 through stage 4 chronic kidney disease, or unspecified chronic kidney disease; N18.2 Chronic kidney disease, stage 2 (mild); I50.9 Heart failure, unspecified; E11.42 Type 2 diabetes mellitus with diabetic polyneuropathy; E11.319 Type 2 diabetes mellitus with unspecified diabetic retinopathy without macular edema; K21.9 Gastro-esophageal reflux disease without esophagitis; I25.10 Atherosclerotic heart disease of native coronary artery without angina pectoris; L57.0 Actinic keratosis; E78.5 Hyperlipidemia, unspecified; M19.072 Primary osteoarthritis, left ankle and foot; Z88.6 Allergy status to analgesic agent; Z88.5 Allergy status to narcotic agent
CPT/HCPCS: 11042; A6207

== ENCOUNTER → 2020-09-02 | Outpatient (CLI) | payer OTHER | END | disposition home or self-care (01) | LOC: WHH 08:20 | PROVIDERS: ATTEND Podiatrist Foot & Ankle Surgery | DX: L60.0 Ingrowing nail (principal); L03.031 Cellulitis of right toe; E11.621 Type 2 diabetes mellitus with foot ulcer; L97.522 Non-pressure chronic ulcer of other part of left foot with fat layer exposed; L84 Corns and callosities; B35.1 Tinea unguium; E11.69 Type 2 diabetes mellitus with other specified complication; M86.30 Chronic multifocal osteomyelitis, unspecified site; M86.672 Other chronic osteomyelitis, left ankle and foot; E11.52 Type 2 diabetes mellitus with diabetic peripheral angiopathy with gangrene; I96 Gangrene, not elsewhere classified; E11.22 Type 2 diabetes mellitus with diabetic chronic kidney disease; I13.0 Hypertensive heart and chronic kidney disease with heart failure and stage 1 through stage 4 chronic kidney disease, or unspecified chronic kidney disease; N18.2 Chronic kidney disease, stage 2 (mild); I50.9 Heart failure, unspecified; E11.42 Type 2 diabetes mellitus with diabetic polyneuropathy; E11.319 Type 2 diabetes mellitus with unspecified diabetic retinopathy without macular edema; K21.9 Gastro-esophageal reflux disease without esophagitis; I25.10 Atherosclerotic heart disease of native coronary artery without angina pectoris; L57.0 Actinic keratosis; E78.5 Hyperlipidemia, unspecified; M19.072 Primary osteoarthritis, left ankle and foot; Z88.6 Allergy status to analgesic agent; Z88.5 Allergy status to narcotic agent | CPT/HCPCS: 11730; A6207 ==

== ENCOUNTER → 2020-09-16 | Outpatient (CLI) | payer OTHER | END | disposition home or self-care (01) | LOC: WHH 08:26 | PROVIDERS: ATTEND Podiatrist Foot & Ankle Surgery | DX: L60.0 Ingrowing nail (principal); L03.031 Cellulitis of right toe; E11.621 Type 2 diabetes mellitus with foot ulcer; L97.522 Non-pressure chronic ulcer of other part of left foot with fat layer exposed; L84 Corns and callosities; B35.1 Tinea unguium; E11.69 Type 2 diabetes mellitus with other specified complication; M86.30 Chronic multifocal osteomyelitis, unspecified site; M86.672 Other chronic osteomyelitis, left ankle and foot; E11.52 Type 2 diabetes mellitus with diabetic peripheral angiopathy with gangrene; I96 Gangrene, not elsewhere classified; E11.22 Type 2 diabetes mellitus with diabetic chronic kidney disease; I13.0 Hypertensive heart and chronic kidney disease with heart failure and stage 1 through stage 4 chronic kidney disease, or unspecified chronic kidney disease; N18.2 Chronic kidney disease, stage 2 (mild); I50.9 Heart failure, unspecified; E11.42 Type 2 diabetes mellitus with diabetic polyneuropathy; E11.319 Type 2 diabetes mellitus with unspecified diabetic retinopathy without macular edema; K21.9 Gastro-esophageal reflux disease without esophagitis; I25.10 Atherosclerotic heart disease of native coronary artery without angina pectoris; L57.0 Actinic keratosis; E78.5 Hyperlipidemia, unspecified; M19.072 Primary osteoarthritis, left ankle and foot; Z88.6 Allergy status to analgesic agent; Z88.5 Allergy status to narcotic agent | CPT/HCPCS: 11042; 11730; A4450; A6207 ==

== ENCOUNTER → 2020-09-16 | Outpatient (CLI) | payer OTHER | END | disposition home or self-care (01) | LOC: RAH 10:40 | PROVIDERS: ATTEND Internal Medicine Geriatric Medicine | DX: M25.512 Pain in left shoulder (principal); M13.822 Other specified arthritis, left elbow | CPT/HCPCS: 73030; 73070 ==

== ENCOUNTER → 2020-09-25 | Outpatient (CLI) | payer OTHER ==
[2020-09-25 11:50] LABS: BASOPHILS % (AUTO) 0.5 % (0.0-5.0); EOSINOPHILS % (AUTO) 1.2 % (0.0-8.0); HEMATOCRIT 41.5 % (42-54); LYMPHOCYTES % (AUTO) 32.4 % (21.0-51.0); MEAN CORPUSCULAR HEMOGLOBIN 33.7 pg (27.0-33.0); MEAN CORPUSCULAR HGB CONC 33.5 g/dL (32.0-36.0); MEAN CORPUSCULAR VOLUME 100.5 fL (79-99); MONOCYTES % (AUTO) 9.8 % (3.0-13.0); NEUTROPHILS % (AUTO) 55.8 % (40.0-77.0); PLATELET COUNT (AUTO) 108 K/uL (130-400); RED BLOOD CELL COUNT(AUTO) 4.13 MIL/uL (4.50-6.20); RED CELL DISTRIBUTION WIDTH 13.2 % (11.0-15.5); WHITE BLOOD COUNT (AUTO) 5.9 K/uL (4.8-10.8)
[2020-09-25 12:09] LABS: ALBUMIN 3.7 g/dL (3.5-5.0); BILIRUBIN,TOTAL 0.7 mg/dL (0.2-1.0); CREATININE 1.2 mg/dL (0.5-1.5); TOTAL PROTEIN, SERUM 7.3 g/dL (6.0-8.3)
== END | disposition home or self-care (01) ==
LOC: LAB 10:49
PROVIDERS: ATTEND Internal Medicine Cardiovascular Disease
DX: I73.9 Peripheral vascular disease, unspecified (principal)
CPT/HCPCS: 36415; 80053; 80061; 85025

== ENCOUNTER → 2020-09-30 | Outpatient (CLI) | payer OTHER | END | disposition home or self-care (01) | LOC: WHH 08:27 | PROVIDERS: ATTEND Podiatrist Foot & Ankle Surgery | DX: L60.0 Ingrowing nail (principal); L03.031 Cellulitis of right toe; E11.621 Type 2 diabetes mellitus with foot ulcer; L97.522 Non-pressure chronic ulcer of other part of left foot with fat layer exposed; L84 Corns and callosities; B35.1 Tinea unguium; E11.69 Type 2 diabetes mellitus with other specified complication; M86.30 Chronic multifocal osteomyelitis, unspecified site; M86.672 Other chronic osteomyelitis, left ankle and foot; E11.52 Type 2 diabetes mellitus with diabetic peripheral angiopathy with gangrene; I96 Gangrene, not elsewhere classified; E11.22 Type 2 diabetes mellitus with diabetic chronic kidney disease; I13.0 Hypertensive heart and chronic kidney disease with heart failure and stage 1 through stage 4 chronic kidney disease, or unspecified chronic kidney disease; N18.2 Chronic kidney disease, stage 2 (mild); I50.9 Heart failure, unspecified; E11.42 Type 2 diabetes mellitus with diabetic polyneuropathy; E11.319 Type 2 diabetes mellitus with unspecified diabetic retinopathy without macular edema; K21.9 Gastro-esophageal reflux disease without esophagitis; I25.10 Atherosclerotic heart disease of native coronary artery without angina pectoris; L57.0 Actinic keratosis; E78.5 Hyperlipidemia, unspecified; M19.072 Primary osteoarthritis, left ankle and foot; Z88.6 Allergy status to analgesic agent | CPT/HCPCS: 11042; A6207 ==

== ENCOUNTER → 2020-10-14 | Outpatient (CLI) | payer OTHER | END | disposition home or self-care (01) | LOC: WHH 08:37 | PROVIDERS: ATTEND Podiatrist Foot & Ankle Surgery | DX: E11.621 Type 2 diabetes mellitus with foot ulcer (principal); L97.522 Non-pressure chronic ulcer of other part of left foot with fat layer exposed; L60.0 Ingrowing nail; L03.031 Cellulitis of right toe; L84 Corns and callosities; B35.1 Tinea unguium; E11.69 Type 2 diabetes mellitus with other specified complication; M86.30 Chronic multifocal osteomyelitis, unspecified site; M86.672 Other chronic osteomyelitis, left ankle and foot; E11.52 Type 2 diabetes mellitus with diabetic peripheral angiopathy with gangrene; I96 Gangrene, not elsewhere classified; E11.22 Type 2 diabetes mellitus with diabetic chronic kidney disease; I13.0 Hypertensive heart and chronic kidney disease with heart failure and stage 1 through stage 4 chronic kidney disease, or unspecified chronic kidney disease; N18.2 Chronic kidney disease, stage 2 (mild); I50.9 Heart failure, unspecified; E11.42 Type 2 diabetes mellitus with diabetic polyneuropathy; E11.319 Type 2 diabetes mellitus with unspecified diabetic retinopathy without macular edema; K21.9 Gastro-esophageal reflux disease without esophagitis; I25.10 Atherosclerotic heart disease of native coronary artery without angina pectoris; L57.0 Actinic keratosis; E78.5 Hyperlipidemia, unspecified; M19.072 Primary osteoarthritis, left ankle and foot; Z88.6 Allergy status to analgesic agent | CPT/HCPCS: 97597; A6207 ==

== ENCOUNTER → 2020-10-30 | Outpatient (CLI) | payer OTHER | END | disposition home or self-care (01) | LOC: LAB 07:37 | PROVIDERS: ATTEND Physician Assistant | DX: I10 Essential (primary) hypertension (principal); I25.119 Atherosclerotic heart disease of native coronary artery with unspecified angina pectoris; I73.9 Peripheral vascular disease, unspecified | CPT/HCPCS: 36415; 82306 ==

== ENCOUNTER 2020-11-03 09:23 | Observation (INO) | payer OTHER ==
[2020-11-02 17:17] LABS: BASOPHILS % (AUTO) 0.3 % (0.0-5.0); EOSINOPHILS % (AUTO) 0.4 % (0.0-8.0); HEMATOCRIT 47.5 % (42-54); LYMPHOCYTES % (AUTO) 18.1 % (21.0-51.0); MEAN CORPUSCULAR HEMOGLOBIN 33.7 pg (27.0-33.0); MEAN CORPUSCULAR HGB CONC 34.1 g/dL (32.0-36.0); MEAN CORPUSCULAR VOLUME 98.8 fL (79-99); MONOCYTES % (AUTO) 10.3 % (3.0-13.0); NEUTROPHILS % (AUTO) 70.4 % (40.0-77.0); PLATELET COUNT (AUTO) 129 K/uL (130-400); RED BLOOD CELL COUNT(AUTO) 4.81 MIL/uL (4.50-6.20); RED CELL DISTRIBUTION WIDTH 13.4 % (11.0-15.5); WHITE BLOOD COUNT (AUTO) 7.4 K/uL (4.8-10.8)
[2020-11-02 17:21] LABS: APPEARANCE,URINE Clear (CLEAR); BILIRUBIN,URINE Negative (NEGATIVE); COLOR,URINE Yellow (YELLOW); GLUCOSE, URINE (UA) >=1000 mg/dL (NEGATIVE); KETONES,URINE 15 mg/dL (NEGATIVE); LEUKOCYTE ESTERASE ,URINE Negative (NEGATIVE); NITRATE,URINE Negative (NEGATIVE); OCCULT BLOOD,URINE Negative (NEGATIVE); PH,URINE 5.5 (5.0-8.0); PROTEIN,URINE Negative (NEGATIVE); UROBILINOGEN,URINE 0.2 mg/dL (0.2-1.0)
[2020-11-02 17:28] LABS: CREATININE 1.2 mg/dL (0.5-1.5); POTASSIUM 4.9 mmol/L (3.5-5.1)
[2020-11-02 17:29] LABS: INR 0.95 (0.85-1.15); PROTHROMBIN TIME 10.4 SEC (9.6-11.6)
[2020-11-02 17:30] LABS: PARTIAL THROMBOPLASTIN TIME 25.4 SEC (26.3-35.5)
[2020-11-02 17:51] VITALS: BP 131/86
[2020-11-02 17:58] LABS: BACTERIA,URINE None Seen /HPF (None Seen); RBC,URINE 0-1 /HPF (0-1); SQUAMOUS EPITHELIAL CELL,UR None Seen /HPF (0-2); WBC,URINE 0-1 /HPF (0-1)
[~2020-11-03] VITALS: Ht 175.3 cm; Wt 81.6 kg
[2020-11-03] VITALS (9 sets, daily range): BP systolic 112–166; BP diastolic 66–93
[~2020-11-03 09:23] MED LIST changes: +0.9%NACL 1000ML 1,000 ML IV SCH; -ASPI-1443; +ASPI-1443 PO; -ATEN25TA PO; +ATOR20TA65 PO; -ATOR40TA69 PO; +CARV6.25 PO; -INSU100I3 SQ; +INSU100V3 SQ; -LEVO500T89 PO; -LISI20TA24 PO; +METF-444 PO; -PANT40TA54 PO; -PIOG15TA66 PO; +PIOG30TA70 PO; -PRAS10TA9 PO
[2020-11-03] MEDS ORDERED: HEPARIN 10,000 UNIT/10ML (1,000 UNIT/ML) VIAL ONE (12:07)
[2020-11-03] MEDS ORDERED: IODIXANOL 320 MG/ML 100 ML VIAL ONE (12:07)
[2020-11-03] MEDS ORDERED: SODIUM BICARB 50MEQ 50ML VIAL 50 ML ONE (12:07)
[2020-11-03] MEDS ORDERED: NITROGLYCERIN 2 MG VIAL IV ONE (12:07)
[2020-11-03] MEDS ORDERED: FENTANYL CITRATE PF 50 MCG/1 ML 2ML VIAL ONE (12:08)
[2020-11-03] MEDS ORDERED: LIDOCAINE HCL 400MG/20ML VIAL ONE (12:08)
[2020-11-03] MEDS ORDERED: MIDAZOLAM HCL 1 MG/ML 2ML VIAL ONE (12:08)
[2020-11-03] MEDS ORDERED: LABETALOL 20MG SYG IV ONE (15:35)
[2020-11-03] MEDS ORDERED: GLUCAGON 1MG KIT 1 MG ML IM PRN (16:00)
[2020-11-03] MEDS ORDERED: DEXTROSE 50%-WATER 50 ML DISP.SYRIN IV PRN (16:00)
[2020-11-03] MEDS ORDERED: 0.9%NACL 1000ML 1,000 ML IV SCH (16:00)
[2020-11-03] MEDS ORDERED: CARVEDILOL 6.25 MG TABLET PO ONE (16:13)
[2020-11-03] MEDS: CARVEDILOL 6.25 MG TABLET PO SCH ×2 (16:15→20:11)
[2020-11-03] MEDS: INSULIN HUMULIN R 100 UNIT/ML 3ML SQ SCH ×2 (16:30→20:12)
[2020-11-04 03:51] VITALS: BP 107/67
[2020-11-04] MEDS: INSULIN HUMULIN R 100 UNIT/ML 3ML SQ SCH ×2 (05:50→11:30)
[2020-11-04 07:23] VITALS: BP 125/56
[2020-11-04] MEDS: CARVEDILOL 6.25 MG TABLET PO SCH (09:07)
[2020-11-04] MEDS ORDERED: RIVAROXABAN 2.5 MG TABLET PO SCH (10:30)
[2020-11-04] MEDS ORDERED: CLOPIDOGREL 75MG TAB PO SCH (10:30)
[2020-11-04 11:23] VITALS: BP 126/77
== END 2020-11-04 12:50 | disposition home or self-care (01) ==
LOC: DAH 09:23 → INTOOBSV 09:24 → DAH 09:24 → DAHIP 09:24 → OBSVTOIN 09:24 → 4CH 16:05
PROVIDERS: ADMIT Internal Medicine Cardiovascular Disease; ATTEND Internal Medicine Cardiovascular Disease
DX: I73.9 Peripheral vascular disease, unspecified (principal); I25.119 Atherosclerotic heart disease of native coronary artery with unspecified angina pectoris; I11.0 Hypertensive heart disease with heart failure; I50.32 Chronic diastolic (congestive) heart failure; I35.0 Nonrheumatic aortic (valve) stenosis; E11.65 Type 2 diabetes mellitus with hyperglycemia; I27.20 Pulmonary hypertension, unspecified; Z95.1 Presence of aortocoronary bypass graft; Z79.82 Long term (current) use of aspirin; Z79.84 Long term (current) use of oral hypoglycemic drugs
CPT/HCPCS: 36247; 36415; 71045; 75710; 80048; 81001; 82948 ×6; 85025; 85610; 85730; 93005; 96360; 96361; 96372 ×2; A4215; A4216; A4221; A4222; A4223 ×2; A4606; A4663; C1760; C1769; C1893; C1894 ×3; G0378 ×21; J1644 ×2; J1815; J2250; J3010; J3490 ×3; J7030 ×2; Q9967; 99156; 99157

== ENCOUNTER → 2020-11-11 | Outpatient (CLI) | payer OTHER ==
[~2020-11-11] MED LIST changes: -0.9%NACL 1000ML 1,000 ML IV SCH; -ASPI-1443 PO
== END | disposition home or self-care (01) ==
LOC: WHH 09:23
PROVIDERS: ATTEND Podiatrist Foot & Ankle Surgery
DX: E11.621 Type 2 diabetes mellitus with foot ulcer (principal); L97.522 Non-pressure chronic ulcer of other part of left foot with fat layer exposed; L60.0 Ingrowing nail; L03.031 Cellulitis of right toe; L84 Corns and callosities; B35.1 Tinea unguium; E11.69 Type 2 diabetes mellitus with other specified complication; M86.30 Chronic multifocal osteomyelitis, unspecified site; M86.672 Other chronic osteomyelitis, left ankle and foot; E11.52 Type 2 diabetes mellitus with diabetic peripheral angiopathy with gangrene; I96 Gangrene, not elsewhere classified; E11.22 Type 2 diabetes mellitus with diabetic chronic kidney disease; I13.0 Hypertensive heart and chronic kidney disease with heart failure and stage 1 through stage 4 chronic kidney disease, or unspecified chronic kidney disease; N18.2 Chronic kidney disease, stage 2 (mild); I50.9 Heart failure, unspecified; E11.42 Type 2 diabetes mellitus with diabetic polyneuropathy; E11.319 Type 2 diabetes mellitus with unspecified diabetic retinopathy without macular edema; K21.9 Gastro-esophageal reflux disease without esophagitis; I25.10 Atherosclerotic heart disease of native coronary artery without angina pectoris; L57.0 Actinic keratosis; E78.5 Hyperlipidemia, unspecified; M19.072 Primary osteoarthritis, left ankle and foot; Z88.6 Allergy status to analgesic agent
CPT/HCPCS: 11721; 97597; A6207

== ENCOUNTER → 2020-11-25 | Outpatient (CLI) | payer OTHER | END | disposition home or self-care (01) | LOC: WHH 08:32 | PROVIDERS: ATTEND Podiatrist Foot & Ankle Surgery | DX: E11.621 Type 2 diabetes mellitus with foot ulcer (principal); L97.521 Non-pressure chronic ulcer of other part of left foot limited to breakdown of skin; L60.0 Ingrowing nail; L03.031 Cellulitis of right toe; L84 Corns and callosities; B35.1 Tinea unguium; E11.69 Type 2 diabetes mellitus with other specified complication; M86.30 Chronic multifocal osteomyelitis, unspecified site; M86.672 Other chronic osteomyelitis, left ankle and foot; E11.52 Type 2 diabetes mellitus with diabetic peripheral angiopathy with gangrene; I96 Gangrene, not elsewhere classified; E11.22 Type 2 diabetes mellitus with diabetic chronic kidney disease; I13.0 Hypertensive heart and chronic kidney disease with heart failure and stage 1 through stage 4 chronic kidney disease, or unspecified chronic kidney disease; N18.2 Chronic kidney disease, stage 2 (mild); I50.9 Heart failure, unspecified; E11.42 Type 2 diabetes mellitus with diabetic polyneuropathy; E11.319 Type 2 diabetes mellitus with unspecified diabetic retinopathy without macular edema; K21.9 Gastro-esophageal reflux disease without esophagitis; I25.10 Atherosclerotic heart disease of native coronary artery without angina pectoris; L57.0 Actinic keratosis; E78.5 Hyperlipidemia, unspecified; M19.072 Primary osteoarthritis, left ankle and foot; Z88.6 Allergy status to analgesic agent | CPT/HCPCS: 99214; A4450; A6207 ==

== ENCOUNTER 2022-02-13 15:38 | Inpatient (IN) | payer OTHER ==
[~2022-02-13] VITALS: Ht 175.3 cm; Wt 72.8 kg
[~2022-02-13 15:38] MED LIST changes: -ATOR20TA65 PO; +BISA-151 PO; +CARV3.12 PO; -CARV6.25 PO; +FAMO20TA8 PO; +INSLAN SQ; -INSU100V3 SQ; -INSU300I SQ; +PANT40TA PO; +ROSU20TA31 PO; +SENN-183 PO; +SUCR1TAB2 PO
[2022-02-13 16:45] LABS: BASOPHILS % (AUTO) 0.4 % (0.0-5.0); EOSINOPHILS % (AUTO) 0.8 % (0.0-8.0); HEMATOCRIT 32.9 % (42-54); LYMPHOCYTES % (AUTO) 23.5 % (21.0-51.0); MEAN CORPUSCULAR HEMOGLOBIN 33.7 pg (27.0-33.0); MEAN CORPUSCULAR VOLUME 99.1 fL (79-99); MONOCYTES % (AUTO) 11.3 % (3.0-13.0); NEUTROPHILS % (AUTO) 63.6 % (40.0-77.0); PLATELET COUNT (AUTO) 82 K/uL (130-400); RED BLOOD CELL COUNT(AUTO) 3.32 MIL/uL (4.50-6.20); RED CELL DISTRIBUTION WIDTH 14.9 % (11.0-15.5); WHITE BLOOD COUNT (AUTO) 5.3 K/uL (4.8-10.8)
[2022-02-13 16:52] LABS: POTASSIUM 4.4 mmol/L (3.5-5.1)
[2022-02-13 16:57] LABS: ALBUMIN 3.2 g/dL (3.5-5.0); TOTAL PROTEIN, SERUM 7.4 g/dL (6.0-8.3)
[2022-02-13] MEDS ORDERED: CEFTRIAXONE 1G VIAL IVP ONE (18:00)
[2022-02-13] MEDS ORDERED: VANCOMYCIN 1G VIAL IVPB ONE (18:00)
[2022-02-13] MEDS ORDERED: MORPHINE 2 MG SYG IVP ONE (18:00)
[2022-02-13] MEDS ORDERED: VANCOMYCIN 1G/250ML KIT 250 ML IV ONE (18:32)
[2022-02-13] MEDS ORDERED: ONDANSETRON 4MG INJ IVP PRN (20:30)
[2022-02-13] MEDS ORDERED: ROSU20TA31 PO (22:02)
[2022-02-13] MEDS ORDERED: CARAL PO (22:02)
[2022-02-13] MEDS ORDERED: PANT40TA54 PO (22:02)
[2022-02-13] MEDS ORDERED: BUPR-49 PO (22:02)
[2022-02-13] MEDS ORDERED: EMPA25TA PO (22:02)
[2022-02-13] MEDS ORDERED: SENN8.6T32 PO (22:02)
[2022-02-13] MEDS ORDERED: SERT-439 PO (22:02)
[2022-02-13] MEDS ORDERED: INSU100V37 SQ (22:02)
[2022-02-13] MEDS ORDERED: CARV3.12 PO (22:02)
[2022-02-13] MEDS: 0.9%NACL 1000ML 1,000 ML IV SCH (22:04)
[2022-02-13] MEDS: FAMOTIDINE 20MG VIAL IV SCH (22:04)
[2022-02-13 22:25] VITALS: BP 132/76
[2022-02-14] MEDS ORDERED: VANCOMYCIN PROTOCOL PER PHARMACY IV SCH (00:30)
[2022-02-14 03:27] VITALS: BP 88/53
[2022-02-14] MEDS: INSULIN HUMULIN R 100 UNIT/ML 3ML SQ SCH ×4 (06:04→21:11)
[2022-02-14 06:16] LABS: BASOPHILS % (AUTO) 0.3 % (0.0-5.0); EOSINOPHILS % (AUTO) 0.6 % (0.0-8.0); HEMATOCRIT 31.3 % (42-54); LYMPHOCYTES % (AUTO) 12.5 % (21.0-51.0); MEAN CORPUSCULAR HEMOGLOBIN 33.2 pg (27.0-33.0); MEAN CORPUSCULAR HGB CONC 34.5 g/dL (32.0-36.0); MEAN CORPUSCULAR VOLUME 96.3 fL (79-99); MONOCYTES % (AUTO) 8.1 % (3.0-13.0); NEUTROPHILS % (AUTO) 77.9 % (40.0-77.0); PLATELET COUNT (AUTO) 66 K/uL (130-400); RED BLOOD CELL COUNT(AUTO) 3.25 MIL/uL (4.50-6.20); RED CELL DISTRIBUTION WIDTH 14.7 % (11.0-15.5); WHITE BLOOD COUNT (AUTO) 3.4 K/uL (4.8-10.8)
[2022-02-14 06:25] LABS: ALBUMIN 2.6 g/dL (3.5-5.0); CREATININE 0.7 mg/dL (0.5-1.5); POTASSIUM 3.8 mmol/L (3.5-5.1); TOTAL PROTEIN, SERUM 6.2 g/dL (6.0-8.3)
[2022-02-14 06:43] LABS: HEMOGLOBIN A1C 10.4 % (4.0-6.0)
[2022-02-14 07:02] LABS: ERYTHROCYTE SEDIMENTATION RATE 73 MM/HR (0-20)
[2022-02-14 08:00] VITALS: BP 102/62
[2022-02-14] MEDS: ENOXAPARIN SODIUM 30 MG/0.3 ML SQ SCH (09:00)
[2022-02-14] MEDS ORDERED: 0.9% NACL 250ML 250 ML ONE ×2 (09:29→20:20)
[2022-02-14] MEDS: FAMOTIDINE 20MG VIAL IV SCH ×2 (09:36→21:03)
[2022-02-14] MEDS: VANCOMYCIN 1G/250ML KIT 250 ML IV SCH ×2 (09:37→21:04)
[2022-02-14 12:00] VITALS: BP 116/71
[2022-02-14] MEDS ORDERED: SENNOSIDES 8.6 MG TABLET PO PRN (13:30)
[2022-02-14 16:00] VITALS: BP 111/66
[2022-02-14] MEDS: CEFEPIME HCL 1 GM VIAL IVP SCH (17:55)
[2022-02-14] MEDS: MORPHINE 2 MG SYG IVP PRN ×2 (17:57→22:13)
[2022-02-14] MEDS: 0.9%NACL 1000ML 1,000 ML IV SCH (18:17)
[2022-02-14 20:24] VITALS: BP 88/54
[2022-02-14] MEDS: CARAFATE PO SCH (20:24)
[2022-02-14] MEDS: CARVEDILOL 3.125 MG TABLET PO SCH (20:24)
[2022-02-14] MEDS: SERTRALINE HCL 50 MG TABLET PO SCH (21:03)
[2022-02-14] MEDS: ATORVASTATIN 40 MG TABLET PO SCH (21:03)
[2022-02-15] VITALS (7 sets, daily range): BP systolic 99–135; BP diastolic 59–80
[2022-02-15] MEDS: CEFEPIME HCL 1 GM VIAL IVP SCH ×3 (00:28→14:56)
[2022-02-15 03:50] LABS: HEMATOCRIT 30.1 % (42-54); MEAN CORPUSCULAR HEMOGLOBIN 33.4 pg (27.0-33.0); MEAN CORPUSCULAR HGB CONC 33.9 g/dL (32.0-36.0); MEAN CORPUSCULAR VOLUME 98.7 fL (79-99); RED BLOOD CELL COUNT(AUTO) 3.05 MIL/uL (4.50-6.20); RED CELL DISTRIBUTION WIDTH 14.8 % (11.0-15.5); WHITE BLOOD COUNT (AUTO) 4.1 K/uL (4.8-10.8)
[2022-02-15 04:08] LABS: CREATININE 0.7 mg/dL (0.5-1.5); POTASSIUM 3.9 mmol/L (3.5-5.1)
[2022-02-15] MEDS: INSULIN HUMULIN R 100 UNIT/ML 3ML SQ SCH ×4 (05:54→21:44)
[2022-02-15] MEDS ORDERED: 0.9% NACL 250ML 250 ML ONE ×2 (08:23→21:04)
[2022-02-15] MEDS: VANCOMYCIN 1G/250ML KIT 250 ML IV SCH ×2 (08:28→21:09)
[2022-02-15] MEDS: FAMOTIDINE 20MG VIAL IV SCH ×2 (08:28→21:09)
[2022-02-15] MEDS: CARVEDILOL 3.125 MG TABLET PO SCH ×2 (08:29→21:10)
[2022-02-15] MEDS: MUPIROCIN OINTMENT 22 GM TUBE TP SCH (08:29)
[2022-02-15] MEDS: BUPROPION 150 MG PO SCH (08:29)
[2022-02-15] MEDS: ENOXAPARIN SODIUM 30 MG/0.3 ML SQ SCH (08:29)
[2022-02-15] MEDS: CARAFATE PO SCH ×2 (08:29→21:00)
[2022-02-15] MEDS: HONEY 1 APPL/ML TUBE TP SCH (08:31)
[2022-02-15] MEDS: 0.9%NACL 1000ML 1,000 ML IV SCH (14:56)
[2022-02-15] MEDS: SERTRALINE HCL 50 MG TABLET PO SCH (21:09)
[2022-02-15] MEDS: ATORVASTATIN 40 MG TABLET PO SCH (21:09)
[2022-02-16] MEDS: CEFEPIME HCL 1 GM VIAL IVP SCH ×4 (00:25→23:14)
[2022-02-16 04:17] VITALS: BP 102/62
[2022-02-16 05:21] LABS: HEMATOCRIT 29.6 % (42-54); MEAN CORPUSCULAR HEMOGLOBIN 32.1 pg (27.0-33.0); MEAN CORPUSCULAR HGB CONC 33.1 g/dL (32.0-36.0); RED BLOOD CELL COUNT(AUTO) 3.05 MIL/uL (4.50-6.20); RED CELL DISTRIBUTION WIDTH 14.5 % (11.0-15.5); WHITE BLOOD COUNT (AUTO) 3.4 K/uL (4.8-10.8)
[2022-02-16 05:37] LABS: CREATININE 0.9 mg/dL (0.5-1.5); POTASSIUM 3.8 mmol/L (3.5-5.1)
[2022-02-16 08:00] VITALS: BP 92/73
[2022-02-16] MEDS ORDERED: 0.9% NACL 250ML 250 ML ONE ×2 (08:24→20:34)
[2022-02-16] MEDS: INSULIN HUMULIN R 100 UNIT/ML 3ML SQ SCH ×4 (08:51→21:15)
[2022-02-16] MEDS: FAMOTIDINE 20MG VIAL IV SCH ×2 (08:51→20:42)
[2022-02-16] MEDS: VANCOMYCIN 1G/250ML KIT 250 ML IV SCH ×2 (08:53→20:42)
[2022-02-16] MEDS: CARVEDILOL 3.125 MG TABLET PO SCH ×2 (09:00→20:42)
[2022-02-16] MEDS: BUPROPION 150 MG PO SCH (09:00)
[2022-02-16] MEDS: HONEY 1 APPL/ML TUBE TP SCH (09:00)
[2022-02-16] MEDS: ENOXAPARIN SODIUM 30 MG/0.3 ML SQ SCH (09:20)
[2022-02-16] MEDS: CARAFATE PO SCH ×2 (09:21→22:10)
[2022-02-16] MEDS: MUPIROCIN OINTMENT 22 GM TUBE TP SCH (11:00)
[2022-02-16] MEDS: 0.9%NACL 1000ML 1,000 ML IV SCH (11:19)
[2022-02-16 12:00] VITALS: BP 110/67
[2022-02-16 16:00] VITALS: BP 126/76
[2022-02-16 20:12] VITALS: BP 122/80
[2022-02-16] MEDS: SERTRALINE HCL 50 MG TABLET PO SCH (20:41)
[2022-02-16] MEDS: ATORVASTATIN 40 MG TABLET PO SCH (20:41)
[2022-02-16] MEDS ORDERED: HYDROCODONE/ACETAMINOPHEN 5/325 MG TAB PO PRN (22:00)
[2022-02-16] MEDS: KETOROLAC 15MG/ML VIAL (15MG/ML) IV PRN (22:49)
[2022-02-16] MEDS ORDERED: PHARMACY COMMUNICATION MISC SCH (23:00)
[2022-02-16 23:25] VITALS: BP 131/86
[2022-02-16] MEDS: PHARMACY COMMUNICATION MISC SCH (23:45)
[2022-02-17 03:44] VITALS: BP 95/56
[2022-02-17] MEDS: PHARMACY COMMUNICATION MISC SCH ×6 (03:45→23:45)
[2022-02-17 04:35] LABS: HEMATOCRIT 27.6 % (42-54); MEAN CORPUSCULAR HGB CONC 34.4 g/dL (32.0-36.0); MEAN CORPUSCULAR VOLUME 95.8 fL (79-99); RED BLOOD CELL COUNT(AUTO) 2.88 MIL/uL (4.50-6.20); RED CELL DISTRIBUTION WIDTH 14.3 % (11.0-15.5); WHITE BLOOD COUNT (AUTO) 3.5 K/uL (4.8-10.8)
[2022-02-17 04:54] LABS: CREATININE 0.8 mg/dL (0.5-1.5); POTASSIUM 3.4 mmol/L (3.5-5.1)
[2022-02-17] MEDS: INSULIN HUMULIN R 100 UNIT/ML 3ML SQ SCH ×4 (06:34→20:45)
[2022-02-17 08:00] VITALS: BP 139/91
[2022-02-17] MEDS ORDERED: 0.9% NACL 250ML 250 ML ONE ×2 (08:28→20:40)
[2022-02-17] MEDS: CEFEPIME HCL 1 GM VIAL IVP SCH ×2 (08:30→15:01)
[2022-02-17] MEDS: VANCOMYCIN 1G/250ML KIT 250 ML IV SCH ×2 (08:30→20:46)
[2022-02-17] MEDS: 0.9%NACL 1000ML 1,000 ML IV SCH (08:30)
[2022-02-17] MEDS: FAMOTIDINE 20MG VIAL IV SCH ×2 (08:30→20:47)
[2022-02-17] MEDS: ENOXAPARIN SODIUM 30 MG/0.3 ML SQ SCH (08:31)
[2022-02-17] MEDS: CARAFATE PO SCH ×2 (08:31→21:00)
[2022-02-17] MEDS: BUPROPION 150 MG PO SCH (08:31)
[2022-02-17] MEDS: CARVEDILOL 3.125 MG TABLET PO SCH ×2 (08:31→20:48)
[2022-02-17] MEDS: HONEY 1 APPL/ML TUBE TP SCH (09:00)
[2022-02-17] MEDS: MUPIROCIN OINTMENT 22 GM TUBE TP SCH (10:00)
[2022-02-17] MEDS ORDERED: GADOTERATE MEGLUMINE 10 MMOL/20 ML VIAL IV ONE (10:04)
[2022-02-17 12:00] VITALS: BP 123/75
[2022-02-17 16:00] VITALS: BP 140/86
[2022-02-17 20:12] VITALS: BP 145/100
[2022-02-17] MEDS: ATORVASTATIN 40 MG TABLET PO SCH (20:47)
[2022-02-17] MEDS: KETOROLAC 15MG/ML VIAL (15MG/ML) IV PRN (20:49)
[2022-02-17] MEDS: SERTRALINE HCL 50 MG TABLET PO SCH (20:51)
[2022-02-17 23:27] VITALS: BP 98/63
[2022-02-18] MEDS: CEFEPIME HCL 1 GM VIAL IVP SCH ×4 (00:07→20:16)
[2022-02-18] MEDS: 0.9%NACL 1000ML 1,000 ML IV SCH (02:00)
[2022-02-18 03:42] VITALS: BP 136/73
[2022-02-18] MEDS: PHARMACY COMMUNICATION MISC SCH ×6 (03:45→23:45)
[2022-02-18 04:27] LABS: HEMATOCRIT 27.6 % (42-54); MEAN CORPUSCULAR HEMOGLOBIN 33.1 pg (27.0-33.0); MEAN CORPUSCULAR HGB CONC 34.4 g/dL (32.0-36.0); MEAN CORPUSCULAR VOLUME 96.2 fL (79-99); RED BLOOD CELL COUNT(AUTO) 2.87 MIL/uL (4.50-6.20); RED CELL DISTRIBUTION WIDTH 14.2 % (11.0-15.5); WHITE BLOOD COUNT (AUTO) 3.2 K/uL (4.8-10.8)
[2022-02-18 04:36] LABS: ALBUMIN 2.4 g/dL (3.5-5.0); CREATININE 0.7 mg/dL (0.5-1.5); POTASSIUM 3.2 mmol/L (3.5-5.1); TOTAL PROTEIN, SERUM 6.1 g/dL (6.0-8.3)
[2022-02-18] MEDS: INSULIN HUMULIN R 100 UNIT/ML 3ML SQ SCH ×4 (06:03→21:16)
[2022-02-18 08:44] VITALS: BP 141/84
[2022-02-18] MEDS: ENOXAPARIN SODIUM 30 MG/0.3 ML SQ SCH (08:44)
[2022-02-18] MEDS: CARAFATE PO SCH ×3 (09:00→21:00)
[2022-02-18] MEDS: BUPROPION 150 MG PO SCH (09:00)
[2022-02-18] MEDS: FAMOTIDINE 20MG VIAL IV SCH ×2 (09:40→20:15)
[2022-02-18] MEDS: CARVEDILOL 3.125 MG TABLET PO SCH ×2 (09:40→20:15)
[2022-02-18] MEDS: VANCOMYCIN 1G/250ML KIT 250 ML IV SCH ×2 (09:41→20:14)
[2022-02-18] MEDS: MUPIROCIN OINTMENT 22 GM TUBE TP SCH (09:42)
[2022-02-18 12:22] VITALS: BP 132/85
[2022-02-18 16:05] LABS: INR 1.05 (0.85-1.15); PROTHROMBIN TIME 11.4 SEC (9.6-11.6)
[2022-02-18 16:47] VITALS: BP 140/82
[2022-02-18] MEDS ORDERED: PHARMACY COMMUNICATION MISC SCH (18:30)
[2022-02-18] MEDS ORDERED: LIDOCAINE HCL-MPF 1% 2ML VIAL IV PRN (18:30)
[2022-02-18 20:00] VITALS: BP 129/83
[2022-02-18] MEDS: SERTRALINE HCL 50 MG TABLET PO SCH (20:15)
[2022-02-18] MEDS: ATORVASTATIN 40 MG TABLET PO SCH (20:16)
[2022-02-18] MEDS: KCL 20 MEQ ERTAB PO PRN ×2 (20:17→21:17)
[2022-02-18] MEDS: MORPHINE 2 MG SYG IVP PRN (21:07)
[2022-02-19] VITALS: BP 121/73
[2022-02-19] MEDS: PHARMACY COMMUNICATION MISC SCH (03:45)
[2022-02-19 04:00] VITALS: BP 123/75
[2022-02-19 04:37] LABS: HEMATOCRIT 27.8 % (42-54); MEAN CORPUSCULAR HEMOGLOBIN 32.9 pg (27.0-33.0); MEAN CORPUSCULAR HGB CONC 34.5 g/dL (32.0-36.0); MEAN CORPUSCULAR VOLUME 95.2 fL (79-99); RED BLOOD CELL COUNT(AUTO) 2.92 MIL/uL (4.50-6.20); RED CELL DISTRIBUTION WIDTH 14.4 % (11.0-15.5); WHITE BLOOD COUNT (AUTO) 3.6 K/uL (4.8-10.8)
[2022-02-19] MEDS: 0.9%NACL 1000ML 1,000 ML IV SCH ×2 (04:58→21:36)
[2022-02-19] MEDS: CEFEPIME HCL 1 GM VIAL IVP SCH ×2 (04:58→14:55)
[2022-02-19] MEDS: MUPIROCIN OINTMENT 22 GM TUBE TP SCH (05:00)
[2022-02-19] MEDS: INSULIN HUMULIN R 100 UNIT/ML 3ML SQ SCH ×4 (05:12→21:34)
[2022-02-19 05:24] LABS: CREATININE 0.7 mg/dL (0.5-1.5); MAGNESIUM 1.8 mg/dL (1.80-2.40); POTASSIUM 3.4 mmol/L (3.5-5.1)
[2022-02-19] MEDS: KCL 20 MEQ ERTAB PO PRN (05:55)
[2022-02-19] MEDS: POTASSIUM CHLORIDE 20MEQ/100ML 100 ML IV PRN (07:16)
[2022-02-19 08:00] VITALS: BP 135/78
[2022-02-19] MEDS ORDERED: 0.9% NACL 250ML 250 ML ONE (08:23)
[2022-02-19] MEDS: CARVEDILOL 3.125 MG TABLET PO SCH ×2 (08:27→21:31)
[2022-02-19] MEDS: ONDANSETRON 4MG INJ IVP PRN ×2 (08:27→21:46)
[2022-02-19] MEDS: FAMOTIDINE 20MG VIAL IV SCH ×2 (08:28→21:32)
[2022-02-19] MEDS: VANCOMYCIN 1G/250ML KIT 250 ML IV SCH ×2 (08:28→21:32)
[2022-02-19] MEDS: ENOXAPARIN SODIUM 30 MG/0.3 ML SQ SCH (08:29)
[2022-02-19] MEDS: CARAFATE PO SCH ×2 (09:00→21:44)
[2022-02-19] MEDS: BUPROPION 150 MG PO SCH (09:00)
[2022-02-19 12:00] VITALS: BP 159/97
[2022-02-19 16:00] VITALS: BP 145/92
[2022-02-19 20:00] VITALS: BP 145/83
[2022-02-19] MEDS: SERTRALINE HCL 50 MG TABLET PO SCH (21:30)
[2022-02-19] MEDS: ATORVASTATIN 40 MG TABLET PO SCH (21:31)
[2022-02-20] VITALS (7 sets, daily range): BP systolic 97–135; BP diastolic 59–81
[2022-02-20] MEDS: CEFEPIME HCL 1 GM VIAL IVP SCH ×3 (00:10→17:19)
[2022-02-20 04:57] LABS: BASOPHILS % (AUTO) 0.6 % (0.0-5.0); EOSINOPHILS % (AUTO) 0.2 % (0.0-8.0); HEMATOCRIT 28.5 % (42-54); LYMPHOCYTES % (AUTO) 28.5 % (21.0-51.0); MEAN CORPUSCULAR HGB CONC 34.7 g/dL (32.0-36.0); MONOCYTES % (AUTO) 16.8 % (3.0-13.0); NEUTROPHILS % (AUTO) 53.7 % (40.0-77.0); PLATELET COUNT (AUTO) 94 K/uL (130-400); RED CELL DISTRIBUTION WIDTH 14.3 % (11.0-15.5); WHITE BLOOD COUNT (AUTO) 5.2 K/uL (4.8-10.8)
[2022-02-20 05:09] LABS: CREATININE 0.9 mg/dL (0.5-1.5); POTASSIUM 3.8 mmol/L (3.5-5.1)
[2022-02-20] MEDS: INSULIN HUMULIN R 100 UNIT/ML 3ML SQ SCH ×4 (06:45→21:31)
[2022-02-20] MEDS: BUPROPION 150 MG PO SCH (09:00)
[2022-02-20] MEDS: VANCOMYCIN 1G/250ML KIT 250 ML IV SCH ×2 (10:12→21:40)
[2022-02-20] MEDS: CARVEDILOL 3.125 MG TABLET PO SCH ×2 (10:12→21:41)
[2022-02-20] MEDS: MUPIROCIN OINTMENT 22 GM TUBE TP SCH (10:13)
[2022-02-20] MEDS: ENOXAPARIN SODIUM 30 MG/0.3 ML SQ SCH (10:13)
[2022-02-20] MEDS: FAMOTIDINE 20MG VIAL IV SCH ×2 (10:13→21:40)
[2022-02-20] MEDS: CARAFATE PO SCH ×2 (10:37→21:50)
[2022-02-20] MEDS: 0.9%NACL 1000ML 1,000 ML IV SCH (17:19)
[2022-02-20] MEDS ORDERED: 0.9% NACL 250ML 250 ML ONE (21:28)
[2022-02-20] MEDS: ATORVASTATIN 40 MG TABLET PO SCH (21:40)
[2022-02-20] MEDS: SERTRALINE HCL 50 MG TABLET PO SCH (21:41)
[2022-02-21] MEDS: CEFEPIME HCL 1 GM VIAL IVP SCH ×4 (00:27→23:38)
[2022-02-21 04:26] VITALS: BP 106/66
[2022-02-21] MEDS: INSULIN HUMULIN R 100 UNIT/ML 3ML SQ SCH ×4 (06:19→21:12)
[2022-02-21 06:35] LABS: BASOPHILS % (AUTO) 0.6 % (0.0-5.0); EOSINOPHILS % (AUTO) 1.1 % (0.0-8.0); HEMATOCRIT 27.8 % (42-54); LYMPHOCYTES % (AUTO) 38.7 % (21.0-51.0); MEAN CORPUSCULAR HEMOGLOBIN 32.8 pg (27.0-33.0); MEAN CORPUSCULAR HGB CONC 34.2 g/dL (32.0-36.0); MEAN CORPUSCULAR VOLUME 95.9 fL (79-99); MONOCYTES % (AUTO) 17.9 % (3.0-13.0); NEUTROPHILS % (AUTO) 41.7 % (40.0-77.0); PLATELET COUNT (AUTO) 89 K/uL (130-400); RED CELL DISTRIBUTION WIDTH 14.6 % (11.0-15.5); WHITE BLOOD COUNT (AUTO) 3.5 K/uL (4.8-10.8)
[2022-02-21 06:47] LABS: CREATININE 0.8 mg/dL (0.5-1.5); POTASSIUM 3.2 mmol/L (3.5-5.1)
[2022-02-21 08:00] VITALS: BP 132/47
[2022-02-21] MEDS: MUPIROCIN OINTMENT 22 GM TUBE TP SCH (08:01)
[2022-02-21] MEDS: FAMOTIDINE 20MG VIAL IV SCH ×2 (08:10→21:15)
[2022-02-21] MEDS: CARVEDILOL 3.125 MG TABLET PO SCH ×2 (08:10→20:53)
[2022-02-21] MEDS: CARAFATE PO SCH ×2 (08:11→21:15)
[2022-02-21] MEDS: ENOXAPARIN SODIUM 30 MG/0.3 ML SQ SCH (08:11)
[2022-02-21] MEDS: BUPROPION 150 MG PO SCH (08:11)
[2022-02-21] MEDS: VANCOMYCIN 1G/250ML KIT 250 ML IV SCH ×2 (08:41→21:15)
[2022-02-21 11:30] VITALS: BP 122/76
[2022-02-21] MEDS: 0.9%NACL 1000ML 1,000 ML IV SCH ×2 (12:00→21:17)
[2022-02-21 15:59] VITALS: BP 136/92
[2022-02-21 20:47] VITALS: BP 101/65
[2022-02-21] MEDS: ATORVASTATIN 40 MG TABLET PO SCH (21:15)
[2022-02-21] MEDS: SERTRALINE HCL 50 MG TABLET PO SCH (21:15)
[2022-02-22] VITALS (7 sets, daily range): BP systolic 85–143; BP diastolic 43–82
[2022-02-22] MEDS: INSULIN HUMULIN R 100 UNIT/ML 3ML SQ SCH ×4 (06:24→21:43)
[2022-02-22] MEDS ORDERED: ACETAMINOPHEN 325 MG TAB PO PRN (07:35)
[2022-02-22] MEDS: ENOXAPARIN SODIUM 30 MG/0.3 ML SQ SCH (09:00)
[2022-02-22] MEDS: BUPROPION 150 MG PO SCH (09:00)
[2022-02-22] MEDS: FAMOTIDINE 20MG VIAL IV SCH ×2 (09:08→21:44)
[2022-02-22] MEDS: CEFEPIME HCL 1 GM VIAL IVP SCH ×2 (09:08→17:15)
[2022-02-22] MEDS: CARVEDILOL 3.125 MG TABLET PO SCH ×2 (09:09→21:44)
[2022-02-22] MEDS: CARAFATE PO SCH ×2 (09:11→22:22)
[2022-02-22] MEDS: MUPIROCIN OINTMENT 22 GM TUBE TP SCH (09:14)
[2022-02-22 09:47] LABS: HEMATOCRIT 28.7 % (42-54); MEAN CORPUSCULAR HEMOGLOBIN 32.9 pg (27.0-33.0); MEAN CORPUSCULAR HGB CONC 34.1 g/dL (32.0-36.0); MEAN CORPUSCULAR VOLUME 96.3 fL (79-99); PLATELET COUNT (AUTO) 84 K/uL (130-400); RED BLOOD CELL COUNT(AUTO) 2.98 MIL/uL (4.50-6.20); RED CELL DISTRIBUTION WIDTH 14.6 % (11.0-15.5); WHITE BLOOD COUNT (AUTO) 2.3 K/uL (4.8-10.8)
[2022-02-22 09:53] LABS: CREATININE 0.7 mg/dL (0.5-1.5); POTASSIUM 3.2 mmol/L (3.5-5.1)
[2022-02-22] MEDS: VANCOMYCIN 1G/250ML KIT 250 ML IV SCH ×2 (11:15→22:22)
[2022-02-22 12:03] LABS: EOSINOPHILS % (MANUAL) 1 % (1-6); LYMPHOCYTES % (MANUAL) 32 % (22-44); MAN.DIFF COMMENT-IMPRESSION MANUAL DIFFERENTIAL; MONOCYTES % (MANUAL) 16 % (2-9); PLATELET MORPHOLOGY COMMENT DECREASED; SEGMENTED NEUTROPHILS % 51 % (40-70)
[2022-02-22] MEDS: POTASSIUM CHLORIDE 20MEQ/100ML 100 ML IV PRN (19:07)
[2022-02-22] MEDS: ATORVASTATIN 40 MG TABLET PO SCH (21:44)
[2022-02-22] MEDS: SERTRALINE HCL 50 MG TABLET PO SCH (21:44)
[2022-02-22] MEDS ORDERED: 0.9% NACL 250ML 250 ML ONE (22:20)
[2022-02-23] MEDS: CEFEPIME HCL 1 GM VIAL IVP SCH ×3 (00:27→16:57)
[2022-02-23 04:00] VITALS: BP 123/76
[2022-02-23] MEDS: 0.9%NACL 1000ML 1,000 ML IV SCH ×2 (04:00→22:52)
[2022-02-23] MEDS: INSULIN HUMULIN R 100 UNIT/ML 3ML SQ SCH ×4 (06:00→22:42)
[2022-02-23 07:30] VITALS: BP 138/85
[2022-02-23] MEDS: ENOXAPARIN SODIUM 30 MG/0.3 ML SQ SCH (08:45)
[2022-02-23] MEDS: BUPROPION 150 MG PO SCH (09:00)
[2022-02-23] MEDS: CARAFATE PO SCH ×2 (09:00→21:55)
[2022-02-23] MEDS: CARVEDILOL 3.125 MG TABLET PO SCH ×2 (10:18→21:54)
[2022-02-23] MEDS: VANCOMYCIN 1G/250ML KIT 250 ML IV SCH ×2 (10:18→21:54)
[2022-02-23] MEDS: FAMOTIDINE 20MG VIAL IV SCH ×2 (10:18→21:53)
[2022-02-23] MEDS: MUPIROCIN OINTMENT 22 GM TUBE TP SCH (10:19)
[2022-02-23 12:00] VITALS: BP 151/89
[2022-02-23 16:00] VITALS: BP 125/78
[2022-02-23 20:06] VITALS: BP 134/80
[2022-02-23] MEDS ORDERED: 0.9% NACL 250ML 250 ML ONE (21:43)
[2022-02-23] MEDS: ATORVASTATIN 40 MG TABLET PO SCH (21:54)
[2022-02-23] MEDS: SERTRALINE HCL 50 MG TABLET PO SCH (21:54)
[2022-02-24] MEDS: CEFEPIME HCL 1 GM VIAL IVP SCH ×4 (00:05→21:00)
[2022-02-24 00:07] VITALS: BP 105/64
[2022-02-24 04:01] VITALS: BP 100/62
[2022-02-24] MEDS: INSULIN HUMULIN R 100 UNIT/ML 3ML SQ SCH ×4 (06:13→21:05)
[2022-02-24] MEDS: ENOXAPARIN SODIUM 30 MG/0.3 ML SQ SCH (07:49)
[2022-02-24 08:00] VITALS: BP 105/61
[2022-02-24] MEDS ORDERED: 0.9% NACL 250ML 250 ML ONE (08:55)
[2022-02-24] MEDS: MUPIROCIN OINTMENT 22 GM TUBE TP SCH (08:58)
[2022-02-24] MEDS: VANCOMYCIN 1G/250ML KIT 250 ML IV SCH ×2 (08:58→20:58)
[2022-02-24] MEDS: CARVEDILOL 3.125 MG TABLET PO SCH ×2 (08:59→20:59)
[2022-02-24] MEDS: CARAFATE PO SCH ×2 (09:00→20:59)
[2022-02-24] MEDS: FAMOTIDINE 20MG VIAL IV SCH (09:00)
[2022-02-24] MEDS: BUPROPION 150 MG PO SCH (09:00)
[2022-02-24 11:57] VITALS: BP 130/86
[2022-02-24 16:01] VITALS: BP 146/75
[2022-02-24] MEDS: FAMOTIDINE 20MG TAB PO SCH (20:59)
[2022-02-24] MEDS: ATORVASTATIN 40 MG TABLET PO SCH (20:59)
[2022-02-24] MEDS: SERTRALINE HCL 50 MG TABLET PO SCH (20:59)
[2022-02-24] MEDS: GABAPENTIN 300 MG CAPSULE PO SCH (20:59)
[2022-02-24] MEDS: POTASSIUM CHLORIDE 20MEQ/100ML 100 ML IV PRN (21:04)
[2022-02-24 21:43] VITALS: BP 141/82
[2022-02-25] VITALS (7 sets, daily range): BP systolic 78–136; BP diastolic 52–92
[2022-02-25 04:30] LABS: RETICULOCYTE % (AUTO) 1.23 % (0.42-2.23)
[2022-02-25 04:54] LABS: % IRON SATURATION 36.6 % (30-44)
[2022-02-25 05:11] LABS: CREATININE 0.7 mg/dL (0.5-1.5); MAGNESIUM 1.6 mg/dL (1.80-2.40); PHOSPHORUS 2.9 mg/dL (2.5-4.9); THYROID STIMULATING HORMONE 1.35 uIU/mL (0.36-3.74)
[2022-02-25 05:25] LABS: POTASSIUM 2.9 mmol/L (3.5-5.1)
[2022-02-25] MEDS ORDERED: MAGNESIUM 2GM PREMIX 50ML 50 ML IV PRN (05:30)
[2022-02-25] MEDS ORDERED: MAGNESIUM 2GM PREMIX 50ML 50 ML IV ONE (05:30)
[2022-02-25] MEDS: CEFEPIME HCL 1 GM VIAL IVP SCH ×3 (05:34→23:00)
[2022-02-25] MEDS: POTASSIUM CHLORIDE 20MEQ/100ML 100 ML IV PRN ×2 (05:35→11:35)
[2022-02-25] MEDS: MUPIROCIN OINTMENT 22 GM TUBE TP SCH (05:35)
[2022-02-25] MEDS: INSULIN HUMULIN R 100 UNIT/ML 3ML SQ SCH ×4 (05:49→20:07)
[2022-02-25] MEDS: CARAFATE PO SCH ×2 (08:52→19:33)
[2022-02-25] MEDS: ENOXAPARIN SODIUM 30 MG/0.3 ML SQ SCH (08:53)
[2022-02-25] MEDS: BUPROPION 150 MG PO SCH (08:53)
[2022-02-25] MEDS: FAMOTIDINE 20MG TAB PO SCH ×2 (09:18→19:32)
[2022-02-25] MEDS: CARVEDILOL 3.125 MG TABLET PO SCH ×2 (09:18→19:32)
[2022-02-25] MEDS: VANCOMYCIN 1G/250ML KIT 250 ML IV SCH ×2 (09:18→21:15)
[2022-02-25] MEDS: GABAPENTIN 300 MG CAPSULE PO SCH ×2 (09:19→19:32)
[2022-02-25] MEDS: SERTRALINE HCL 50 MG TABLET PO SCH (19:32)
[2022-02-25] MEDS: ATORVASTATIN 40 MG TABLET PO SCH (19:32)
[2022-02-26 02:38] VITALS: BP 109/62
[2022-02-26] MEDS: MUPIROCIN OINTMENT 22 GM TUBE TP SCH (05:18)
[2022-02-26] MEDS: CEFEPIME HCL 1 GM VIAL IVP SCH ×3 (05:18→23:26)
[2022-02-26] MEDS: INSULIN HUMULIN R 100 UNIT/ML 3ML SQ SCH ×4 (05:18→20:42)
[2022-02-26 08:00] VITALS: BP 140/89
[2022-02-26] MEDS ORDERED: 0.9% NACL 250ML 250 ML ONE ×2 (08:05→20:14)
[2022-02-26] MEDS: CARAFATE PO SCH ×2 (08:43→21:00)
[2022-02-26] MEDS: GABAPENTIN 300 MG CAPSULE PO SCH ×2 (08:43→20:24)
[2022-02-26] MEDS: VANCOMYCIN 1G/250ML KIT 250 ML IV SCH ×2 (08:43→20:33)
[2022-02-26] MEDS: BUPROPION 150 MG PO SCH (08:43)
[2022-02-26] MEDS: FAMOTIDINE 20MG TAB PO SCH ×2 (08:43→20:24)
[2022-02-26] MEDS: CARVEDILOL 3.125 MG TABLET PO SCH ×2 (08:43→20:25)
[2022-02-26] MEDS: ENOXAPARIN SODIUM 30 MG/0.3 ML SQ SCH (08:51)
[2022-02-26 12:00] VITALS: BP 142/93
[2022-02-26 16:00] VITALS: BP 143/80
[2022-02-26 20:01] VITALS: BP 93/56
[2022-02-26] MEDS: ATORVASTATIN 40 MG TABLET PO SCH (20:24)
[2022-02-26] MEDS: SERTRALINE HCL 50 MG TABLET PO SCH (20:24)
[2022-02-26 23:16] VITALS: BP 122/65
[2022-02-27 03:35] VITALS: BP 107/63
[2022-02-27] MEDS: INSULIN HUMULIN R 100 UNIT/ML 3ML SQ SCH ×5 (05:45→21:37)
[2022-02-27] MEDS: CEFEPIME HCL 1 GM VIAL IVP SCH ×2 (05:45→15:20)
[2022-02-27] MEDS: MUPIROCIN OINTMENT 22 GM TUBE TP SCH (07:30)
[2022-02-27 07:38] VITALS: BP 132/84
[2022-02-27 08:08] LABS: HEMATOCRIT 27.7 % (42-54); MEAN CORPUSCULAR HGB CONC 34.3 g/dL (32.0-36.0); MEAN CORPUSCULAR VOLUME 96.2 fL (79-99); PLATELET COUNT (AUTO) 85 K/uL (130-400); RED BLOOD CELL COUNT(AUTO) 2.88 MIL/uL (4.50-6.20); RED CELL DISTRIBUTION WIDTH 14.4 % (11.0-15.5); WHITE BLOOD COUNT (AUTO) 2.4 K/uL (4.8-10.8)
[2022-02-27 08:14] LABS: CREATININE 0.8 mg/dL (0.5-1.5); POTASSIUM 3.1 mmol/L (3.5-5.1)
[2022-02-27 08:17] LABS: MAGNESIUM 1.9 mg/dL (1.80-2.40); PHOSPHORUS 3.2 mg/dL (2.5-4.9)
[2022-02-27] MEDS: BUPROPION 150 MG PO SCH (09:00)
[2022-02-27] MEDS: CARAFATE PO SCH ×2 (09:00→21:00)
[2022-02-27] MEDS: ENOXAPARIN SODIUM 30 MG/0.3 ML SQ SCH (09:00)
[2022-02-27 09:01] LABS: BAND NEUTROPHILS % (MANUAL) 1 % (0-2); EOSINOPHILS % (MANUAL) 1 % (1-6); LYMPHOCYTES % (MANUAL) 73 % (22-44); MONOCYTES % (MANUAL) 16 % (2-9); SEGMENTED NEUTROPHILS % 9 % (40-70)
[2022-02-27 09:02] LABS: MAN.DIFF COMMENT-IMPRESSION MANUAL DIFFERENTIAL; PLATELET MORPHOLOGY COMMENT DECREASED
[2022-02-27] MEDS ORDERED: 0.9% NACL 250ML 250 ML ONE ×2 (09:35→20:57)
[2022-02-27] MEDS: FAMOTIDINE 20MG TAB PO SCH ×2 (09:45→21:01)
[2022-02-27] MEDS: VANCOMYCIN 1G/250ML KIT 250 ML IV SCH ×2 (09:45→21:02)
[2022-02-27] MEDS: GABAPENTIN 300 MG CAPSULE PO SCH ×2 (09:46→21:01)
[2022-02-27] MEDS: CARVEDILOL 3.125 MG TABLET PO SCH ×2 (09:47→21:01)
[2022-02-27 11:44] VITALS: BP 137/77
[2022-02-27 16:00] VITALS: BP 85/59
[2022-02-27] MEDS: POTASSIUM CHLORIDE 10% ELIXIR 20 MEQ/15 ML UDCUP PO PRN ×2 (18:10→18:11)
[2022-02-27 20:22] VITALS: BP 119/70
[2022-02-27] MEDS: ATORVASTATIN 40 MG TABLET PO SCH (21:01)
[2022-02-27] MEDS: SERTRALINE HCL 50 MG TABLET PO SCH (21:01)
[2022-02-27 23:15] VITALS: BP 125/71
[2022-02-28] MEDS: CEFEPIME HCL 1 GM VIAL IVP SCH ×2 (00:49→09:21)
[2022-02-28 03:07] VITALS: BP 115/63
[2022-02-28] MEDS: INSULIN HUMULIN R 100 UNIT/ML 3ML SQ SCH ×4 (06:53→21:00)
[2022-02-28 07:00] VITALS: BP 120/66
[2022-02-28] MEDS: ENOXAPARIN SODIUM 30 MG/0.3 ML SQ SCH (09:00)
[2022-02-28] MEDS: BUPROPION 150 MG PO SCH (09:00)
[2022-02-28] MEDS: FAMOTIDINE 20MG TAB PO SCH ×2 (09:09→22:22)
[2022-02-28] MEDS: GABAPENTIN 300 MG CAPSULE PO SCH ×2 (09:10→22:22)
[2022-02-28] MEDS: CARVEDILOL 3.125 MG TABLET PO SCH ×2 (09:11→22:23)
[2022-02-28] MEDS: CARAFATE PO SCH ×2 (09:24→21:00)
[2022-02-28 11:48] VITALS: BP 128/60
[2022-02-28 16:19] VITALS: BP 127/78
[2022-02-28] MEDS: MUPIROCIN OINTMENT 22 GM TUBE TP SCH (19:49)
[2022-02-28 20:42] VITALS: BP 148/88
[2022-02-28] MEDS: ATORVASTATIN 40 MG TABLET PO SCH (22:22)
[2022-02-28] MEDS: SERTRALINE HCL 50 MG TABLET PO SCH (22:22)
[2022-03-01 00:18] VITALS: BP 108/66
[2022-03-01 04:20] VITALS: BP 101/64
[2022-03-01] MEDS: INSULIN HUMULIN R 100 UNIT/ML 3ML SQ SCH ×4 (06:28→21:43)
[2022-03-01 07:42] VITALS: BP 130/79
[2022-03-01] MEDS: CARAFATE PO SCH ×2 (09:00→21:43)
[2022-03-01] MEDS: ENOXAPARIN SODIUM 30 MG/0.3 ML SQ SCH (09:00)
[2022-03-01] MEDS: BUPROPION 150 MG PO SCH (09:00)
[2022-03-01] MEDS: GABAPENTIN 300 MG CAPSULE PO SCH ×2 (09:39→21:29)
[2022-03-01] MEDS: CARVEDILOL 3.125 MG TABLET PO SCH ×2 (09:40→21:30)
[2022-03-01] MEDS: FAMOTIDINE 20MG TAB PO SCH ×2 (09:40→21:30)
[2022-03-01 12:00] VITALS: BP 136/75
[2022-03-01] MEDS ORDERED: 0.9% NACL 250ML IV SCH (13:00)
[2022-03-01] MEDS ORDERED: VANCOMYCIN PROTOCOL PER PHARMACY IV SCH (13:00)
[2022-03-01] MEDS: CEFEPIME HCL 1 GM VIAL IVP SCH ×2 (13:06→21:29)
[2022-03-01] MEDS: VANCOMYCIN 1G/250ML KIT 250 ML IV SCH ×2 (13:34→21:29)
[2022-03-01] MEDS ORDERED: 0.9% NACL 250ML 250 ML ONE (13:40)
[2022-03-01 16:00] VITALS: BP 135/81
[2022-03-01 21:29] VITALS: BP 118/79
[2022-03-01] MEDS: ATORVASTATIN 40 MG TABLET PO SCH (21:29)
[2022-03-01] MEDS: SERTRALINE HCL 50 MG TABLET PO SCH (21:29)
[2022-03-02] VITALS (7 sets, daily range): BP systolic 103–155; BP diastolic 66–87
[2022-03-02] MEDS: CEFEPIME HCL 1 GM VIAL IVP SCH ×3 (04:40→21:33)
[2022-03-02 05:05] LABS: HEMATOCRIT 27.4 % (42-54); MEAN CORPUSCULAR HEMOGLOBIN 32.9 pg (27.0-33.0); MEAN CORPUSCULAR HGB CONC 33.9 g/dL (32.0-36.0); MEAN CORPUSCULAR VOLUME 96.8 fL (79-99); RED BLOOD CELL COUNT(AUTO) 2.83 MIL/uL (4.50-6.20); RED CELL DISTRIBUTION WIDTH 14.6 % (11.0-15.5); WHITE BLOOD COUNT (AUTO) 1.7 K/uL (4.8-10.8)
[2022-03-02 05:17] LABS: CREATININE 0.9 mg/dL (0.5-1.5); MAGNESIUM 1.8 mg/dL (1.80-2.40); PHOSPHORUS 3.6 mg/dL (2.5-4.9); POTASSIUM 3.5 mmol/L (3.5-5.1)
[2022-03-02] MEDS: INSULIN HUMULIN R 100 UNIT/ML 3ML SQ SCH ×3 (06:25→21:32)
[2022-03-02] MEDS: MUPIROCIN OINTMENT 22 GM TUBE TP SCH (06:38)
[2022-03-02] MEDS: BUPROPION 150 MG PO SCH (09:00)
[2022-03-02] MEDS: CARAFATE PO SCH ×2 (09:00→21:33)
[2022-03-02] MEDS: ENOXAPARIN SODIUM 30 MG/0.3 ML SQ SCH (09:00)
[2022-03-02] MEDS ORDERED: 0.9% NACL 250ML 250 ML ONE ×2 (09:52→21:36)
[2022-03-02] MEDS: VANCOMYCIN 1G/250ML KIT 250 ML IV SCH ×2 (10:14→21:37)
[2022-03-02] MEDS: FAMOTIDINE 20MG TAB PO SCH ×2 (10:14→21:32)
[2022-03-02] MEDS: GABAPENTIN 300 MG CAPSULE PO SCH ×2 (10:14→21:31)
[2022-03-02] MEDS: CARVEDILOL 3.125 MG TABLET PO SCH ×2 (10:15→21:33)
[2022-03-02] MEDS ORDERED: IPRATROPIUM/ALBUTEROL SULFATE 3 ML SOLUTION IH PRN (13:30)
[2022-03-02] MEDS: SERTRALINE HCL 50 MG TABLET PO SCH (21:32)
[2022-03-02] MEDS: ATORVASTATIN 40 MG TABLET PO SCH (21:33)
[2022-03-03 04:00] VITALS: BP 127/75
[2022-03-03] MEDS: CEFEPIME HCL 1 GM VIAL IVP SCH (05:00)
[2022-03-03] MEDS: INSULIN HUMULIN R 100 UNIT/ML 3ML SQ SCH ×2 (06:59→11:44)
[2022-03-03] MEDS ORDERED: VANCOMYCIN 1G/250ML KIT 250 ML IV SCH (07:17)
[2022-03-03] MEDS: MUPIROCIN OINTMENT 22 GM TUBE TP SCH (07:47)
[2022-03-03] MEDS ORDERED: 0.9% NACL 250ML 250 ML ONE (07:52)
[2022-03-03] MEDS: BUPROPION 150 MG PO SCH (07:55)
[2022-03-03 08:00] VITALS: BP 142/85
[2022-03-03] MEDS: CARAFATE PO SCH (09:00)
[2022-03-03] MEDS: ENOXAPARIN SODIUM 30 MG/0.3 ML SQ SCH (09:24)
[2022-03-03] MEDS: GABAPENTIN 300 MG CAPSULE PO SCH (09:24)
[2022-03-03] MEDS: FAMOTIDINE 20MG TAB PO SCH (09:25)
[2022-03-03] MEDS: CARVEDILOL 3.125 MG TABLET PO SCH (09:25)
[2022-03-03 11:00] VITALS: BP 150/95
== END 2022-03-03 13:10 | disposition home or self-care (01) | DRG 300 ==
LOC: EDH 15:38 → EDHIP 19:52 → 4BH 21:34 → 4AH 03-01 10:19 → 4BH 03-01 10:20
PROVIDERS: ADMIT Internal Medicine; ATTEND Internal Medicine
DX: E11.52 Type 2 diabetes mellitus with diabetic peripheral angiopathy with gangrene (principal); E44.1 Mild protein-calorie malnutrition; L03.115 Cellulitis of right lower limb; I50.22 Chronic systolic (congestive) heart failure; M86.8X7 Other osteomyelitis, ankle and foot; E11.69 Type 2 diabetes mellitus with other specified complication; I11.0 Hypertensive heart disease with heart failure; I25.10 Atherosclerotic heart disease of native coronary artery without angina pectoris; S91.204A Unspecified open wound of right lesser toe(s) with damage to nail, initial encounter; L97.519 Non-pressure chronic ulcer of other part of right foot with unspecified severity; D64.9 Anemia, unspecified; E11.42 Type 2 diabetes mellitus with diabetic polyneuropathy; I35.0 Nonrheumatic aortic (valve) stenosis; K21.9 Gastro-esophageal reflux disease without esophagitis; E66.9 Obesity, unspecified; X58.XXXA Exposure to other specified factors, initial encounter; E78.00 Pure hypercholesterolemia, unspecified; E87.6 Hypokalemia; I25.2 Old myocardial infarction; Z74.01 Bed confinement status; Z83.3 Family history of diabetes mellitus; Z85.830 Personal history of malignant neoplasm of bone; Z86.73 Personal history of transient ischemic attack (TIA), and cerebral infarction without residual deficits; Z95.5 Presence of coronary angioplasty implant and graft; Z95.1 Presence of aortocoronary bypass graft; Z89.429 Acquired absence of other toe(s), unspecified side; Z87.19 Personal history of other diseases of the digestive system; Y93.89 Activity, other specified; Y92.89 Other specified places as the place of occurrence of the external cause; Y99.8 Other external cause status; Z68.23 Body mass index [BMI] 23.0-23.9, adult
CPT/HCPCS: 36415; 71045; 73630; 73720; 80048; 80053; 80202; 82607; 82728; 82746; 82948; 83036; 83540; 83550; 83605; 83735; 83880; 84100; 84132; 84145; 84443; 85025; 85027; 85045; 85610; 85651; 87040; 87070; 93926; 93971; 94640; 94664; C1894; G0378; J0692; J0696; J1650; J1815; J1885; J2405; J3370; J3475; J3480; J3490; J7030; J7050

== ENCOUNTER → 2022-03-21 | Outpatient (CLI) | payer OTHER ==
[~2022-03-21] MED LIST changes: +BUPR-49 PO; +CARAL PO; +EMPA25TA PO; +INSU100V37 SQ; +PANT40TA54 PO; -SENN-183 PO; +SENN8.6T32 PO; -SUCR1TAB2 PO
[2022-03-21 15:21] LABS: BASOPHILS % (AUTO) 0.7 % (0.0-5.0); EOSINOPHILS % (AUTO) 2.1 % (0.0-8.0); HEMATOCRIT 34.9 % (42-54); LYMPHOCYTES % (AUTO) 32.7 % (21.0-51.0); MEAN CORPUSCULAR HEMOGLOBIN 31.1 pg (27.0-33.0); MEAN CORPUSCULAR HGB CONC 32.4 g/dL (32.0-36.0); MEAN CORPUSCULAR VOLUME 96.1 fL (79-99); MONOCYTES % (AUTO) 15.8 % (3.0-13.0); NEUTROPHILS % (AUTO) 48.3 % (40.0-77.0); PLATELET COUNT (AUTO) 115 K/uL (130-400); RED BLOOD CELL COUNT(AUTO) 3.63 MIL/uL (4.50-6.20); RED CELL DISTRIBUTION WIDTH 14.1 % (11.0-15.5); WHITE BLOOD COUNT (AUTO) 2.8 K/uL (4.8-10.8)
[2022-03-21 15:48] LABS: ALBUMIN 3.5 g/dL (3.5-5.0)
[2022-03-21 15:58] LABS: BAND NEUTROPHILS % (MANUAL) 6 % (0-2); EOSINOPHILS % (MANUAL) 1 % (1-6); LYMPHOCYTES % (MANUAL) 32 % (22-44); MONOCYTES % (MANUAL) 9 % (2-9); REACTIVE LYMPHOCYTES 5 % (0-0); SEGMENTED NEUTROPHILS % 47 % (40-70)
[2022-03-21 15:59] LABS: MAN.DIFF COMMENT-IMPRESSION MANUAL DIFFERENTIAL
[2022-03-21 16:06] LABS: CREATININE 1.2 mg/dL (0.5-1.5); POTASSIUM 4.4 mmol/L (3.5-5.1); TOTAL PROTEIN, SERUM 8.7 g/dL (6.0-8.3)
== END | disposition home or self-care (01) ==
LOC: LAB 08:44
PROVIDERS: ATTEND Internal Medicine Geriatric Medicine
DX: C06.9 Malignant neoplasm of mouth, unspecified (principal); E78.2 Mixed hyperlipidemia; N18.2 Chronic kidney disease, stage 2 (mild)
CPT/HCPCS: 36415; 80053; 80202; 85025

== ENCOUNTER → 2022-03-28 | Outpatient (CLI) | payer OTHER ==
[2022-03-28 13:25] LABS: BASOPHILS % (AUTO) 0.7 % (0.0-5.0); EOSINOPHILS % (AUTO) 1.6 % (0.0-8.0); HEMATOCRIT 41.4 % (42-54); LYMPHOCYTES % (AUTO) 24.9 % (21.0-51.0); MEAN CORPUSCULAR HEMOGLOBIN 31.1 pg (27.0-33.0); MEAN CORPUSCULAR HGB CONC 31.9 g/dL (32.0-36.0); MEAN CORPUSCULAR VOLUME 97.6 fL (79-99); MONOCYTES % (AUTO) 10.7 % (3.0-13.0); NEUTROPHILS % (AUTO) 61.9 % (40.0-77.0); PLATELET COUNT (AUTO) 73 K/uL (130-400); RED BLOOD CELL COUNT(AUTO) 4.24 MIL/uL (4.50-6.20); WHITE BLOOD COUNT (AUTO) 4.3 K/uL (4.8-10.8)
[2022-03-28 13:29] LABS: ALBUMIN 3.7 g/dL (3.5-5.0); CREATININE 1.1 mg/dL (0.5-1.5); POTASSIUM 4.7 mmol/L (3.5-5.1); TOTAL PROTEIN, SERUM 8.9 g/dL (6.0-8.3)
== END | disposition home or self-care (01) ==
LOC: LAB 09:56
PROVIDERS: ATTEND Internal Medicine Geriatric Medicine
DX: N18.2 Chronic kidney disease, stage 2 (mild) (principal); C06.9 Malignant neoplasm of mouth, unspecified; E78.2 Mixed hyperlipidemia
CPT/HCPCS: 36415; 80053; 80202; 85025

== ENCOUNTER → 2022-04-04 | Outpatient (CLI) | payer OTHER ==
[2022-04-04 10:41] LABS: BASOPHILS % (AUTO) 0.4 % (0.0-5.0); EOSINOPHILS % (AUTO) 0.6 % (0.0-8.0); HEMATOCRIT 36.8 % (42-54); LYMPHOCYTES % (AUTO) 19.2 % (21.0-51.0); MEAN CORPUSCULAR HEMOGLOBIN 30.5 pg (27.0-33.0); MEAN CORPUSCULAR HGB CONC 32.3 g/dL (32.0-36.0); MEAN CORPUSCULAR VOLUME 94.4 fL (79-99); MONOCYTES % (AUTO) 12.2 % (3.0-13.0); NEUTROPHILS % (AUTO) 67.2 % (40.0-77.0); PLATELET COUNT (AUTO) 99 K/uL (130-400); RED CELL DISTRIBUTION WIDTH 13.9 % (11.0-15.5); WHITE BLOOD COUNT (AUTO) 5.3 K/uL (4.8-10.8)
[2022-04-04 10:59] LABS: ALBUMIN 3.5 g/dL (3.5-5.0); CREATININE 1.2 mg/dL (0.5-1.5); POTASSIUM 4.9 mmol/L (3.5-5.1); TOTAL PROTEIN, SERUM 8.5 g/dL (6.0-8.3)
== END | disposition home or self-care (01) ==
LOC: LAB 09:58
PROVIDERS: ATTEND Internal Medicine Geriatric Medicine
DX: C06.9 Malignant neoplasm of mouth, unspecified (principal); E78.2 Mixed hyperlipidemia; N18.2 Chronic kidney disease, stage 2 (mild)
CPT/HCPCS: 36415; 80053; 80202; 85025

== ENCOUNTER → 2023-03-03 | Outpatient (CLI) | payer OTHER ==
[~2023-03-03] MED LIST changes: -ROSU20TA31 PO; +ROSU20TA73 PO
[2023-03-03 12:22] LABS: BASOPHILS # (AUTO) 0.02 K/uL (0.00-0.20); BASOPHILS % (AUTO) 0.3 % (0.0-5.0); EOSINOPHILS # (AUTO) 0.04 K/uL (0.00-0.70); EOSINOPHILS % (AUTO) 0.7 % (0.0-8.0); IMMATURE GRANULOCYTE ABSOLUTE 0.02 K/uL (0-1); LYMPHOCYTES # (AUTO) 1.5 K/uL (1.0-4.8); LYMPHOCYTES % (AUTO) 26.4 % (21.0-51.0); MEAN CORPUSCULAR HEMOGLOBIN 28.3 pg (27.0-33.0); MEAN CORPUSCULAR HGB CONC 32.8 g/dL (32.0-36.0); MEAN CORPUSCULAR VOLUME 86.3 fL (79-99); MONOCYTES # (AUTO) 0.5 K/uL (0.1-1.0); NEUTROPHILS # (AUTO) 3.8 K/uL (1.8-7.7); NEUTROPHILS % (AUTO) 64.3 % (40.0-77.0); PLATELET COUNT (AUTO) 100 K/uL (130-400); RED BLOOD CELL COUNT(AUTO) 5.33 MIL/uL (4.50-6.20); WHITE BLOOD COUNT (AUTO) 5.8 K/uL (4.8-10.8)
[2023-03-03 12:42] LABS: ALBUMIN 3.8 g/dL (3.5-5.0); BILIRUBIN,TOTAL 0.6 mg/dL (0.2-1.0); CREATININE 0.9 mg/dL (0.5-1.5); POTASSIUM 4.6 mmol/L (3.5-5.1); TOTAL PROTEIN, SERUM 7.8 g/dL (6.0-8.3)
[2023-03-03 13:05] LABS: B-TYPE NATRIURETIC PEPTIDE 100 pg/mL (0-100)
== END | disposition home or self-care (01) ==
LOC: LAB 08:36
PROVIDERS: ATTEND Internal Medicine Cardiovascular Disease
DX: I50.42 Chronic combined systolic (congestive) and diastolic (congestive) heart failure (principal); I35.0 Nonrheumatic aortic (valve) stenosis; I25.2 Old myocardial infarction
CPT/HCPCS: 36415; 80053; 80061; 83880; 85025

== ENCOUNTER → 2023-07-27 | Outpatient (CLI) | payer OTHER ==
[2023-07-27 12:16] LABS: BASOPHILS # (AUTO) 0.04 K/uL (0.00-0.20); BASOPHILS % (AUTO) 0.5 % (0.0-5.0); EOSINOPHILS # (AUTO) 0.13 K/uL (0.00-0.70); EOSINOPHILS % (AUTO) 1.7 % (0.0-8.0); IMMATURE GRANULOCYTE ABSOLUTE 0.03 K/uL (0-1); LYMPHOCYTES # (AUTO) 2.1 K/uL (1.0-4.8); LYMPHOCYTES % (AUTO) 27.5 % (21.0-51.0); MEAN CORPUSCULAR HEMOGLOBIN 27.9 pg (27.0-33.0); MEAN CORPUSCULAR HGB CONC 32.6 g/dL (32.0-36.0); MEAN CORPUSCULAR VOLUME 85.7 fL (79-99); MONOCYTES # (AUTO) 0.7 K/uL (0.1-1.0); MONOCYTES % (AUTO) 9.7 % (3.0-13.0); NEUTROPHILS # (AUTO) 4.6 K/uL (1.8-7.7); NEUTROPHILS % (AUTO) 60.2 % (40.0-77.0); PLATELET COUNT (AUTO) 100 K/uL (130-400); RED BLOOD CELL COUNT(AUTO) 5.37 MIL/uL (4.50-6.20); RED CELL DISTRIBUTION WIDTH 18.7 % (11.0-15.5); WHITE BLOOD COUNT (AUTO) 7.6 K/uL (4.8-10.8)
[2023-07-27 12:37] LABS: ALBUMIN 3.8 g/dL (3.5-5.0); BILIRUBIN,TOTAL 0.6 mg/dL (0.2-1.0); MAGNESIUM 2.2 mg/dL (1.80-2.40); POTASSIUM 4.4 mmol/L (3.5-5.1)
[2023-07-27 12:50] LABS: B-TYPE NATRIURETIC PEPTIDE 142 pg/mL (0-100)
== END | disposition home or self-care (01) ==
LOC: LAB 08:25
PROVIDERS: ATTEND Internal Medicine Cardiovascular Disease
DX: I35.0 Nonrheumatic aortic (valve) stenosis (principal); R07.89 Other chest pain; I50.22 Chronic systolic (congestive) heart failure
CPT/HCPCS: 36415; 80053; 80061; 83735; 83880; 85025

== ENCOUNTER → 2023-08-15 | Outpatient (CLI) | payer OTHER ==
[~2023-08-15] VITALS: Ht 172.7 cm; Wt 73.2 kg
[~2023-08-15] MED LIST changes: +CLOP75TA32 PO; +DAPA10TA PO; +INSU100I15 SQ; +INSU300I SQ; +MVI PO; +ONDA4TAB10 PO; +SENN-306 PO; +regular insulin SQ
[2023-08-15 11:31] LABS: BASOPHILS # (AUTO) 0.02 K/uL (0.00-0.20); BASOPHILS % (AUTO) 0.3 % (0.0-5.0); EOSINOPHILS # (AUTO) 0.09 K/uL (0.00-0.70); EOSINOPHILS % (AUTO) 1.4 % (0.0-8.0); HEMATOCRIT 45.4 % (42-54); IMMATURE GRANULOCYTE ABSOLUTE 0.02 K/uL (0-1); LYMPHOCYTES % (AUTO) 30.8 % (21.0-51.0); MEAN CORPUSCULAR HEMOGLOBIN 28.2 pg (27.0-33.0); MEAN CORPUSCULAR HGB CONC 32.8 g/dL (32.0-36.0); MEAN CORPUSCULAR VOLUME 85.8 fL (79-99); MONOCYTES # (AUTO) 0.6 K/uL (0.1-1.0); NEUTROPHILS # (AUTO) 3.7 K/uL (1.8-7.7); NEUTROPHILS % (AUTO) 57.2 % (40.0-77.0); PLATELET COUNT (AUTO) 106 K/uL (130-400); RED BLOOD CELL COUNT(AUTO) 5.29 MIL/uL (4.50-6.20); RED CELL DISTRIBUTION WIDTH 19.2 % (11.0-15.5); WHITE BLOOD COUNT (AUTO) 6.4 K/uL (4.8-10.8)
[2023-08-15 11:35] LABS: POTASSIUM 4.5 mmol/L (3.5-5.1)
[2023-08-15 11:42] LABS: INR <= 0.93 (0.85-1.15)
[2023-08-15 11:44] LABS: PARTIAL THROMBOPLASTIN TIME 28.8 SEC (26.3-35.5)
[2023-08-15 11:49] LABS: APPEARANCE,URINE CLEAR (CLEAR); BILIRUBIN,URINE NEGATIVE (NEGATIVE); COLOR,URINE LIGHT-YELLOW (YELLOW); GLUCOSE, URINE (UA) >=1000 mg/dL (NEGATIVE); KETONES,URINE NEGATIVE (NEGATIVE); LEUKOCYTE ESTERASE ,URINE NEGATIVE Leu/uL (NEGATIVE); NITRATE,URINE NEGATIVE (NEGATIVE); OCCULT BLOOD,URINE NEGATIVE (NEGATIVE); PH,URINE 6.5 (5.0-8.0); PROTEIN,URINE NEGATIVE (NEGATIVE); UROBILINOGEN,URINE 0.2 mg/dL (0.2-1.0)
[2023-08-15 11:52] LABS: ADD UA MICROSCOPIC YES
[2023-08-15 11:53] LABS: B-TYPE NATRIURETIC PEPTIDE 101 pg/mL (0-100)
[2023-08-15 12:09] VITALS: BP 168/89; PULSE 94; RESP 16
== END | disposition home or self-care (01) ==
LOC: DAH 10:00 → EDSTATUS 11:00
PROVIDERS: ATTEND Internal Medicine Cardiovascular Disease
DX: I45.10 Unspecified right bundle-branch block (principal); I73.9 Peripheral vascular disease, unspecified; I21.9 Acute myocardial infarction, unspecified; R00.0 Tachycardia, unspecified
CPT/HCPCS: 36415; 71045; 80048; 81001; 83880; 85025; 85610; 85730; 93005

== ENCOUNTER 2023-09-14 08:54 | Observation (INO) | payer OTHER ==
[2023-09-12 09:46] LABS: BASOPHILS # (AUTO) 0.02 K/uL (0.00-0.20); BASOPHILS % (AUTO) 0.3 % (0.0-5.0); EOSINOPHILS # (AUTO) 0.05 K/uL (0.00-0.70); EOSINOPHILS % (AUTO) 0.6 % (0.0-8.0); HEMATOCRIT 50.1 % (42-54); IMMATURE GRANULOCYTE ABSOLUTE 0.02 K/uL (0-1); LYMPHOCYTES # (AUTO) 1.5 K/uL (1.0-4.8); LYMPHOCYTES % (AUTO) 19.6 % (21.0-51.0); MEAN CORPUSCULAR HEMOGLOBIN 28.7 pg (27.0-33.0); MEAN CORPUSCULAR HGB CONC 32.5 g/dL (32.0-36.0); MEAN CORPUSCULAR VOLUME 88.4 fL (79-99); MONOCYTES # (AUTO) 0.8 K/uL (0.1-1.0); MONOCYTES % (AUTO) 10.4 % (3.0-13.0); NEUTROPHILS # (AUTO) 5.4 K/uL (1.8-7.7); NEUTROPHILS % (AUTO) 68.8 % (40.0-77.0); PLATELET COUNT (AUTO) 102 K/uL (130-400); RED BLOOD CELL COUNT(AUTO) 5.67 MIL/uL (4.50-6.20); RED CELL DISTRIBUTION WIDTH 19.2 % (11.0-15.5); WHITE BLOOD COUNT (AUTO) 7.9 K/uL (4.8-10.8)
[2023-09-12 09:55] LABS: POTASSIUM 4.8 mmol/L (3.5-5.1)
[2023-09-12 10:12] VITALS: BP 156/77; PULSE 106; RESP 16
[2023-09-12 10:41] LABS: B-TYPE NATRIURETIC PEPTIDE 80 pg/mL (0-100)
[2023-09-12 10:50] LABS: APPEARANCE,URINE CLEAR (CLEAR); BILIRUBIN,URINE NEGATIVE (NEGATIVE); COLOR,URINE LIGHT-YELLOW (YELLOW); GLUCOSE, URINE (UA) >=1000 mg/dL (NEGATIVE); KETONES,URINE 20 mg/dL (NEGATIVE); LEUKOCYTE ESTERASE ,URINE NEGATIVE Leu/uL (NEGATIVE); NITRATE,URINE NEGATIVE (NEGATIVE); OCCULT BLOOD,URINE NEGATIVE (NEGATIVE); PROTEIN,URINE NEGATIVE (NEGATIVE); UROBILINOGEN,URINE 0.2 mg/dL (0.2-1.0)
[2023-09-12 10:51] LABS: ADD UA MICROSCOPIC YES
[2023-09-12 10:58] LABS: INR 0.94 (0.85-1.15); PROTHROMBIN TIME 11.1 SEC (9.6-11.6)
[2023-09-12 10:59] LABS: PARTIAL THROMBOPLASTIN TIME 26.8 SEC (26.3-35.5)
[2023-09-12 11:02] LABS: SQUAMOUS EPITHELIAL CELL,UR RARE /HPF (0-2); WBC,URINE 0-1 /HPF (0-1)
[2023-09-14] VITALS (13 sets, daily range): BP systolic 91–179; BP diastolic 34–110; PULSE 67–88; RESP 16–20; O2SAT 99–100
[~2023-09-14] VITALS: Ht 175.3 cm; Wt 69.9 kg
[~2023-09-14 08:54] MED LIST changes: -BISA-151 PO; -CARAL PO; -EMPA25TA PO; -FAMO20TA8 PO; -INSLAN SQ; -INSU100V37 SQ; -METF-444 PO; +ONDA-243 PO; -ONDA4TAB10 PO; -PANT40TA PO; -PIOG30TA70 PO; -SENN8.6T32 PO
[2023-09-14] MEDS ORDERED: 0.9%NACL 1000ML 1,000 ML IV ONE (09:00)
[2023-09-14] MEDS ORDERED: LIDOCAINE HCL 400MG/20ML VIAL ONE (09:56)
[2023-09-14] MEDS ORDERED: FENTANYL CITRATE PF 50 MCG/1 ML 2ML VIAL ONE ×3 (10:06→13:00)
[2023-09-14] MEDS ORDERED: MIDAZOLAM HCL 1 MG/ML 2ML VIAL ONE (10:07)
[2023-09-14] MEDS ORDERED: HEPARIN 10,000 UNIT/10ML (1,000 UNIT/ML) VIAL ONE (10:08)
[2023-09-14] MEDS ORDERED: NITROGLYCERIN 50MG VIAL ONE (10:08)
[2023-09-14] MEDS ORDERED: IODIXANOL 320 MG/ML 100 ML VIAL ONE ×2 (10:08→13:13)
[2023-09-14] MEDS ORDERED: CLOPIDOGREL 300MG TAB ONE (11:50)
[2023-09-14] MEDS ORDERED: LABETALOL 20MG SYG IV ONE (13:29)
[2023-09-14] MEDS ORDERED: ASPIRIN 325MG EC TAB PO ONE (13:40)
[2023-09-14] MEDS ORDERED: LABETALOL 20MG VIAL ONE (13:41)
[2023-09-14] MEDS ORDERED: 0.9%NACL 1000ML 1,000 ML IV SCH (14:00)
[2023-09-14] MEDS ORDERED: ONDANSETRON 4MG INJ ONE (14:05)
[2023-09-14] MEDS: ENALAPRILAT DIHYDRATE 1.25 MG/ML 2ML VIAL IVP PRN (15:04)
[2023-09-14] MEDS: PROCHLORPERAZINE 10MG/2ML INJ IV PRN (15:41)
[2023-09-14] MEDS ORDERED: GLUCAGON 1MG KIT 1 MG ML IM PRN (16:30)
[2023-09-14] MEDS ORDERED: DEXTROSE 50%-WATER 50 ML DISP.SYRIN IV PRN (16:30)
[2023-09-14] MEDS: INSULIN HUMULIN R 100 UNIT/ML 3ML SQ SCH (16:30)
[2023-09-14] MEDS ORDERED: ACETAMINOPHEN 325 MG TAB PO PRN (16:30)
[2023-09-14] MEDS ORDERED: INSULIN LISPRO 10 UNIT SQ SCH (17:00)
[2023-09-14] MEDS: INSULIN LISPRO 100 UNIT/ML 3ML SQ SCH (18:20)
[2023-09-14] MEDS: ONDANSETRON ODT 4MG TAB PO PRN (18:24)
[2023-09-14] MEDS ORDERED: NON-FORMULARY MEDICATION 1 EACH (Rosuvastatin Calcium 20 MG) PO SCH (21:00)
[2023-09-14] MEDS: CARVEDILOL 3.125 MG TABLET PO SCH (21:00)
[2023-09-14] MEDS: SERTRALINE HCL 50 MG TABLET PO SCH (22:00)
[2023-09-14] MEDS: ATORVASTATIN 40 MG TABLET PO SCH (22:00)
[2023-09-14] MEDS ORDERED: CALCIUM CARB 500MG CHEW TAB PO PRN (23:56)
[2023-09-15] MEDS: PANTOPRAZOLE 40 MG TAB DR PO PRN (00:04)
[2023-09-15] MEDS: CALCIUM CARB 500MG CHEW TAB PO PRN (00:41)
[2023-09-15 01:03] VITALS: BP 162/46; PULSE 95; RESP 20
[2023-09-15 04:00] LABS: BASOPHILS # (AUTO) 0.01 K/uL (0.00-0.20); BASOPHILS % (AUTO) 0.1 % (0.0-5.0); HEMATOCRIT 43.2 % (42-54); IMMATURE GRANULOCYTE ABSOLUTE 0.05 K/uL (0-1); LYMPHOCYTES # (AUTO) 0.9 K/uL (1.0-4.8); LYMPHOCYTES % (AUTO) 9.2 % (21.0-51.0); MEAN CORPUSCULAR HEMOGLOBIN 29.3 pg (27.0-33.0); MEAN CORPUSCULAR HGB CONC 33.6 g/dL (32.0-36.0); MEAN CORPUSCULAR VOLUME 87.3 fL (79-99); MONOCYTES # (AUTO) 0.7 K/uL (0.1-1.0); MONOCYTES % (AUTO) 7.2 % (3.0-13.0); PLATELET COUNT (AUTO) 85 K/uL (130-400); RED BLOOD CELL COUNT(AUTO) 4.95 MIL/uL (4.50-6.20); RED CELL DISTRIBUTION WIDTH 18.6 % (11.0-15.5); WHITE BLOOD COUNT (AUTO) 9.7 K/uL (4.8-10.8)
[2023-09-15 04:35] LABS: ALBUMIN 3.3 g/dL (3.5-5.0); BILIRUBIN,TOTAL 1.1 mg/dL (0.2-1.0); CREATININE 0.9 mg/dL (0.5-1.3); MAGNESIUM 1.9 mg/dL (1.80-2.40); POTASSIUM 4.3 mmol/L (3.5-5.1)
[2023-09-15 04:43] VITALS: BP 131/81; PULSE 97; RESP 19
[2023-09-15 04:43] LABS: B-TYPE NATRIURETIC PEPTIDE 210 pg/mL (0-100)
[2023-09-15] MEDS: MAGNESIUM 2GM PREMIX 50ML 50 ML IV PRN (06:30)
[2023-09-15 07:00] VITALS: O2SAT 99
[2023-09-15 07:06] VITALS: PULSE 76; RESP 20; O2SAT 93
[2023-09-15 07:52] VITALS: BP 119/66; PULSE 99; RESP 18
[2023-09-15] MEDS ORDERED: [UNRECOGNIZED DRUG - OTHER] PO SCH (09:00)
[2023-09-15] MEDS ORDERED: PANTOPRAZOLE 40 MG TAB DR PO SCH (09:00)
[2023-09-15] MEDS ORDERED: INSULIN GLARGINE HUM REC ANLOG 40 UNIT SQ SCH (09:00)
[2023-09-15] MEDS ORDERED: NON-FORMULARY MEDICATION 1 EACH (Bupropion HCl (Bupropion Xl) 150 MG) PO SCH (09:00)
[2023-09-15] MEDS ORDERED: MVI PO SCH (09:00)
[2023-09-15] MEDS ORDERED: CLOPIDOGREL 75MG TAB PO SCH (09:00)
[2023-09-15] MEDS ORDERED: [UNRECOGNIZED DRUG - OTHER] SQ SCH (09:00)
[2023-09-15] MEDS ORDERED: ASPI-1005 PO (10:10)
[2023-09-15] MEDS: INSULIN GLARGINE 100 UNITS/ML 10 ML VIAL SQ SCH (10:35)
[2023-09-15] MEDS: PANTOPRAZOLE 40 MG TAB DR PO SCH (10:35)
[2023-09-15] MEDS: BUPROPION HCL 150 MG TABLET.SA PO SCH (10:36)
[2023-09-15] MEDS: MULTIVITAMIN TABLET PO SCH (10:36)
[2023-09-15] MEDS: CLOPIDOGREL 75MG TAB PO SCH (10:36)
[2023-09-15] MEDS: ASPIRIN 81MG CHEW TAB PO SCH (10:36)
[2023-09-15 10:37] VITALS: BP_SYST 100
== END 2023-09-15 11:33 | disposition home or self-care (01) ==
LOC: DAH 08:54 → 2DH 08:55 → DAH 08:55
PROVIDERS: ADMIT Internal Medicine; ATTEND Internal Medicine
DX: I73.89 Other specified peripheral vascular diseases (principal); E78.5 Hyperlipidemia, unspecified; E87.1 Hypo-osmolality and hyponatremia; I11.0 Hypertensive heart disease with heart failure; I50.32 Chronic diastolic (congestive) heart failure; I25.10 Atherosclerotic heart disease of native coronary artery without angina pectoris; I25.5 Ischemic cardiomyopathy; I27.20 Pulmonary hypertension, unspecified; I35.0 Nonrheumatic aortic (valve) stenosis; R29.700 NIHSS score 0; Z95.1 Presence of aortocoronary bypass graft; Z86.73 Personal history of transient ischemic attack (TIA), and cerebral infarction without residual deficits; W08.XXXA Fall from other furniture, initial encounter; Y93.89 Activity, other specified; Y92.89 Other specified places as the place of occurrence of the external cause; Y99.8 Other external cause status
CPT/HCPCS: 80048; 83880 ×2; 85025 ×2; 85610; 85730; 81001; 36415 ×2; 71045 ×2; 93005; 75716; 96372 ×2; 96375 ×2; 85347; 82948 ×5; 70450 ×2; 96365; 96366; 83735; 80053; 97161; 97530; C1887; C1725 ×3; C1894 ×3; C1893 ×2; C2623 ×3; C1760; C1769 ×2; C9764; C9772; G0378 ×15; J3010 ×3; J3490 ×4; J7030; J0780; J1644 ×3; J2250; J2405; Q9967 ×2; J1815; J3475; 96374; 99156; 99157

== ENCOUNTER 2024-02-08 19:44 | Inpatient (IN) | payer OTHER ==
[~2024-02-08] VITALS: Ht 175.3 cm; Wt 73.6 kg
[~2024-02-08 19:44] MED LIST changes: +ASPI-1005 PO; -ROSU20TA73 PO; +ROSU20TA98 PO
[2024-02-08 20:24] LABS: BASOPHILS # (AUTO) 0.02 K/uL (0.00-0.20); BASOPHILS % (AUTO) 0.3 % (0.0-5.0); EOSINOPHILS # (AUTO) 0.09 K/uL (0.00-0.70); EOSINOPHILS % (AUTO) 1.2 % (0.0-8.0); HEMATOCRIT 44.1 % (42-54); IMMATURE GRANULOCYTE ABSOLUTE 0.03 K/uL (0-1); LYMPHOCYTES % (AUTO) 26.4 % (21.0-51.0); MEAN CORPUSCULAR HEMOGLOBIN 31.4 pg (27.0-33.0); MEAN CORPUSCULAR HGB CONC 33.3 g/dL (32.0-36.0); MEAN CORPUSCULAR VOLUME 94.2 fL (79-99); MONOCYTES # (AUTO) 0.7 K/uL (0.1-1.0); MONOCYTES % (AUTO) 9.6 % (3.0-13.0); NEUTROPHILS # (AUTO) 4.7 K/uL (1.8-7.7); NEUTROPHILS % (AUTO) 62.1 % (40.0-77.0); PLATELET COUNT (AUTO) 147 K/uL (130-400); RED BLOOD CELL COUNT(AUTO) 4.68 MIL/uL (4.50-6.20); RED CELL DISTRIBUTION WIDTH 17.4 % (11.0-15.5); WHITE BLOOD COUNT (AUTO) 7.5 K/uL (4.8-10.8)
[2024-02-08 20:34] LABS: INR 1.02 (0.85-1.15)
[2024-02-08 20:35] LABS: PARTIAL THROMBOPLASTIN TIME 26.5 SEC (26.3-35.5)
[2024-02-08 20:43] LABS: CREATININE 1.1 mg/dL (0.5-1.3); POTASSIUM 4.1 mmol/L (3.5-5.1)
[2024-02-08] MEDS: CEFTRIAXONE 2GM VIAL IVPB ONE (21:57)
[2024-02-08] MEDS: 0.9%NACL 1000ML 1,000 ML IV ONE (21:57)
[2024-02-08] MEDS ORDERED: LACTULOSE 20 GM/30 ML UDCUP PO PRN (23:00)
[2024-02-08] MEDS ORDERED: DEXTROSE 50%-WATER 50 ML DISP.SYRIN IV PRN (23:00)
[2024-02-08] MEDS ORDERED: PoTASSium chloRIDE 20MEQ ER 20 MEQ ERTAB PO PRN (23:00)
[2024-02-08] MEDS ORDERED: MAGNESIUM 2GM PREMIX 50ML 50 ML IV PRN (23:00)
[2024-02-08] MEDS ORDERED: acetaMINOPHEN 650 MG SUPPOSITORY RC PRN (23:00)
[2024-02-08] MEDS ORDERED: TEMAZepam 15 MG CAPSULE PO PRN (23:00)
[2024-02-08] MEDS ORDERED: HYDROcodone/APAP 5/325 1 TAB TABLET PO PRN (23:00)
[2024-02-08] MEDS ORDERED: hydroMORPHone 1 MG INJ IVP PRN (23:00)
[2024-02-08] MEDS ORDERED: ondanSETRON 4MG INJ IVP PRN (23:00)
[2024-02-08] MEDS ORDERED: acetaMINOPHEN 325 MG TAB PO PRN (23:00)
[2024-02-08] MEDS ORDERED: doCUSate SODIUM 100 MG CAP PO PRN (23:00)
[2024-02-08] MEDS ORDERED: PoTASSium chloRIDE 20MEQ/100ML 100 ML IV PRN (23:00)
[2024-02-08] MEDS ORDERED: GLUCAGON 1MG KIT 1 MG ML IM PRN (23:00)
[2024-02-08] MEDS ORDERED: hydrALAZine 20MG/ML VIAL IV PRN (23:00)
[2024-02-08] MEDS ORDERED: PoTASSium chl 10% ELIXIR 20MEQ 20 MEQ/15 ML UDCUP PO PRN (23:00)
[2024-02-08 23:47] VITALS: BP 145/88; PULSE 96; RESP 18; TEMP 98.2
[2024-02-09] VITALS (16 sets, daily range): BP systolic 100–161; BP diastolic 54–96; PULSE 58–108; RESP 16–20; TEMP 97.5–98.7; O2SAT 95–100
[2024-02-09 01:37] LABS: BASOPHILS # (AUTO) 0.01 K/uL (0.00-0.20); BASOPHILS % (AUTO) 0.2 % (0.0-5.0); EOSINOPHILS # (AUTO) 0.07 K/uL (0.00-0.70); EOSINOPHILS % (AUTO) 1.4 % (0.0-8.0); HEMATOCRIT 43.3 % (42-54); IMMATURE GRANULOCYTE ABSOLUTE 0.03 K/uL (0-1); LYMPHOCYTES % (AUTO) 19.3 % (21.0-51.0); MEAN CORPUSCULAR HEMOGLOBIN 31.2 pg (27.0-33.0); MEAN CORPUSCULAR VOLUME 94.3 fL (79-99); MONOCYTES # (AUTO) 0.1 K/uL (0.1-1.0); MONOCYTES % (AUTO) 1.6 % (3.0-13.0); NEUTROPHILS # (AUTO) 3.8 K/uL (1.8-7.7); NEUTROPHILS % (AUTO) 76.9 % (40.0-77.0); PLATELET COUNT (AUTO) 131 K/uL (130-400); RED BLOOD CELL COUNT(AUTO) 4.59 MIL/uL (4.50-6.20); RED CELL DISTRIBUTION WIDTH 17.2 % (11.0-15.5); WHITE BLOOD COUNT (AUTO) 4.9 K/uL (4.8-10.8)
[2024-02-09 01:58] LABS: PHOSPHORUS 3.9 mg/dL (2.5-4.9); POTASSIUM 3.7 mmol/L (3.5-5.1); THYROID STIMULATING HORMONE 1.22 uIU/mL (0.36-3.74)
[2024-02-09] MEDS: HEParin 25,000 UNITS/250ML D5W 250 ML IV SCH (02:11)
[2024-02-09] MEDS ORDERED: FERR-72 PO (02:57)
[2024-02-09] MEDS ORDERED: SUCR1TAB2 PO (02:57)
[2024-02-09] MEDS ORDERED: CARV3.12 PO (02:57)
[2024-02-09] MEDS ORDERED: INSU300I SQ (02:57)
[2024-02-09] MEDS ORDERED: SERT-439 PO (02:57)
[2024-02-09] MEDS: INSULIN humuLIN R 100 UNIT/ML 3ML SQ SCH (05:43)
[2024-02-09] MEDS ORDERED: VANCOMYCIN PROTOCOL PER PHARMACY IV SCH (06:30)
[2024-02-09] MEDS ORDERED: COMPOUND IV MISC 1 EACH IVSOLN MISC PRN (07:00)
[2024-02-09] MEDS ORDERED: MEROPENEM 1 GM in 0.9%NACL 100ML 100 ML IV SCH (07:00)
[2024-02-09] MEDS ORDERED: COMPOUND IV REFRIGERATED 1 EACH IVSOLN MISC PRN (07:00)
[2024-02-09] MEDS: ceFEPime HCL 1 GM VIAL IVPB SCH (07:00)
[2024-02-09] MEDS ORDERED: VANCOMYCIN 1.75 GM/250 ML BAG 250 ML IV ONE (07:00)
[2024-02-09] MEDS: VANCOMYCIN 1.75 GM/250 ML BAG 250 ML IV ONE (08:00)
[2024-02-09] MEDS ORDERED: ASPIRIN 81 MG EC TAB PO SCH (09:00)
[2024-02-09] MEDS ORDERED: cloPIDOgrel 75MG TAB PO SCH (09:00)
[2024-02-09] MEDS: FAMOTIDINE 20MG VIAL IV SCH (09:00)
[2024-02-09] MEDS ORDERED: HEParin 10,000 UNIT/10ML (1,000 UNIT/ML) VIAL ONE (09:42)
[2024-02-09] MEDS ORDERED: NITROGLYCERIN 50MG VIAL ONE (09:42)
[2024-02-09] MEDS ORDERED: IODIXANOL 320 MG/ML 100 ML VIAL ONE (09:42)
[2024-02-09] MEDS ORDERED: LIDOCAINE HCL 400MG/20ML VIAL ONE (09:42)
[2024-02-09] MEDS ORDERED: HEParin-NS 1,000 UNIT/500 ML 1,000 ML IV ONE (09:42)
[2024-02-09] MEDS ORDERED: FENTanyl CITRate PF 50 MCG/1 ML 2ML VIAL ONE (10:05)
[2024-02-09] MEDS ORDERED: MIDAZOLAM HCL 1 MG/ML 2ML VIAL ONE (10:05)
[2024-02-09] MEDS: ASPIRIN 81MG CHEW TAB PO SCH (11:00)
[2024-02-09] MEDS: cloPIDOgrel 75MG TAB PO SCH (11:00)
[2024-02-09] MEDS: INSULIN LISpro 100 UNIT/ML 3ML SQ SCH (11:30)
[2024-02-09] MEDS ORDERED: HEParin-NS 1,000 UNIT/500 ML 500 ML IV ONE (11:38)
[2024-02-09] MEDS: SUCRALFATE 1 GM TABLET PO SCH (12:35)
[2024-02-09] MEDS ORDERED: ASPIRIN 81MG CHEW TAB ONE (12:37)
[2024-02-09] MEDS ORDERED: cloPIDOgrel 75MG TAB ONE (12:38)
[2024-02-09] MEDS: 0.9%NACL 1000ML 1,000 ML IV SCH (16:10)
[2024-02-09] MEDS: VANCOMYCIN 1G/250ML KIT 250 ML IV SCH (20:23)
[2024-02-09] MEDS: SERTraline HCL 50 MG TABLET PO SCH (20:36)
[2024-02-10 03:41] LABS: HEMATOCRIT 35.7 % (42-54); MEAN CORPUSCULAR HEMOGLOBIN 30.5 pg (27.0-33.0); MEAN CORPUSCULAR HGB CONC 33.3 g/dL (32.0-36.0); MEAN CORPUSCULAR VOLUME 91.5 fL (79-99); RED BLOOD CELL COUNT(AUTO) 3.9 MIL/uL (4.50-6.20); RED CELL DISTRIBUTION WIDTH 17.1 % (11.0-15.5)
[2024-02-10 03:51] LABS: INR 1.08 (0.85-1.15); PROTHROMBIN TIME 11.6 SEC (9.6-11.6)
[2024-02-10 03:53] LABS: PARTIAL THROMBOPLASTIN TIME 78.8 SEC (26.3-35.5)
[2024-02-10 04:00] VITALS: BP 101/68; PULSE 96; RESP 18; TEMP 98.1
[2024-02-10 04:04] LABS: ALBUMIN 2.9 g/dL (3.5-5.0); BILIRUBIN,TOTAL 0.5 mg/dL (0.2-1.0); CREATININE 0.8 mg/dL (0.5-1.3); MAGNESIUM 1.9 mg/dL (1.80-2.40); TOTAL PROTEIN, SERUM 6.4 g/dL (6.0-8.3)
[2024-02-10 07:48] VITALS: BP 121/70; PULSE 98; RESP 16; TEMP 97.7
[2024-02-10 08:00] VITALS: O2SAT 95
[2024-02-10] MEDS: SENNOSIDES PO SCH (09:00)
[2024-02-10] MEDS: DOCUSATE SODIUM PO SCH (09:00)
[2024-02-10] MEDS: Dapagliflozin Propanediol (Farxiga) 10 MG PO SCH (09:00)
[2024-02-10] MEDS: carVEDIlol 3.125 MG TABLET PO SCH (09:14)
[2024-02-10] MEDS: FERROUS SULFATE 325 MG TABLET.DR PO SCH (09:16)
[2024-02-10 10:02] LABS: MEAN CORPUSCULAR HEMOGLOBIN 30.7 pg (27.0-33.0); MEAN CORPUSCULAR HGB CONC 33.2 g/dL (32.0-36.0); MEAN CORPUSCULAR VOLUME 92.3 fL (79-99); PLATELET COUNT (AUTO) 109 K/uL (130-400); RED BLOOD CELL COUNT(AUTO) 4.01 MIL/uL (4.50-6.20); RED CELL DISTRIBUTION WIDTH 17.3 % (11.0-15.5); WHITE BLOOD COUNT (AUTO) 4.7 K/uL (4.8-10.8)
[2024-02-10] MEDS: INSULIN GLARgine 100 UNITS/ML 10 ML VIAL SQ SCH (10:48)
[2024-02-10 11:17] LABS: BAND NEUTROPHILS % (MANUAL) 5 % (0-2); EOSINOPHILS % (MANUAL) 2 % (1-6); LYMPHOCYTES % (MANUAL) 23 % (22-44); MAN.DIFF COMMENT-IMPRESSION MANUAL DIFFERENTIAL; MONOCYTES % (MANUAL) 8 % (2-9); SEGMENTED NEUTROPHILS % 62 % (40-70); TOTAL CELLS COUNTED 100
[2024-02-10 11:18] LABS: PLATELET MORPHOLOGY COMMENT SLIGHTLY D; WBC MORPHOLOGY CONSISTENT W/DIFF
[2024-02-10 11:45] VITALS: BP 118/68; PULSE 90; RESP 16; TEMP 98
[2024-02-10] MEDS ORDERED: CEFD300C3 PO (13:44)
[2024-02-10 16:01] VITALS: BP 107/62; PULSE 91; RESP 16; TEMP 97.8
== END 2024-02-10 16:58 | disposition home or self-care (01) | DRG 279 ==
LOC: EDH 19:44 → EDHIP 22:30 → 4AH 23:21 → 2DH 02-09 13:07
PROVIDERS: ADMIT Internal Medicine; ATTEND Internal Medicine
PROC: 04FN3ZZ Fragmentation of Left Popliteal Artery, Percutaneous Approach (ICD-10-PCS; principal; 2024-02-09)
PROC: 047N3Z1 Dilation of Left Popliteal Artery using Drug-Coated Balloon, Percutaneous Approach (ICD-10-PCS; 2024-02-09)
PROC: B4101ZZ Fluoroscopy of Abdominal Aorta using Low Osmolar Contrast (ICD-10-PCS; 2024-02-09)
PROC: B41G1ZZ Fluoroscopy of Left Lower Extremity Arteries using Low Osmolar Contrast (ICD-10-PCS; 2024-02-09)
DX: E11.51 Type 2 diabetes mellitus with diabetic peripheral angiopathy without gangrene (principal); L03.116 Cellulitis of left lower limb; E87.1 Hypo-osmolality and hyponatremia; I13.0 Hypertensive heart and chronic kidney disease with heart failure and stage 1 through stage 4 chronic kidney disease, or unspecified chronic kidney disease; I42.9 Cardiomyopathy, unspecified; I50.22 Chronic systolic (congestive) heart failure; N18.2 Chronic kidney disease, stage 2 (mild); E11.22 Type 2 diabetes mellitus with diabetic chronic kidney disease; E11.65 Type 2 diabetes mellitus with hyperglycemia; E78.00 Pure hypercholesterolemia, unspecified; I25.10 Atherosclerotic heart disease of native coronary artery without angina pectoris; I27.20 Pulmonary hypertension, unspecified; I35.0 Nonrheumatic aortic (valve) stenosis; Z79.82 Long term (current) use of aspirin; Z79.899 Other long term (current) drug therapy; Z86.73 Personal history of transient ischemic attack (TIA), and cerebral infarction without residual deficits; Z95.1 Presence of aortocoronary bypass graft; Z95.5 Presence of coronary angioplasty implant and graft; Z88.5 Allergy status to narcotic agent; Z88.8 Allergy status to other drugs, medicaments and biological substances
CPT/HCPCS: 36415; 73630; 75625; 75716; 75774; 80048; 80053; 82948; 83605; 83735; 84100; 84443; 85025; 85027; 85610; 85730; 87040; 93926; 96365; 99156; 99157; C1893; C1894; C9764; G0378; J0692; J0696; J1644; J1815; J2185; J2250; J3010; J3370; J3490; J7030; Q9967; C1725; C1769; C1887; C2623

== ENCOUNTER → 2024-03-07 | Outpatient (CLI) | payer OTHER ==
[~2024-03-07] MED LIST changes: +CEFD300C3 PO; +FERR-72 PO; -MVI PO; -ONDA-243 PO; +SUCR1TAB2 PO; -regular insulin SQ
[2024-03-07 13:19] LABS: CREATININE 1.3 mg/dL (0.5-1.3); POTASSIUM 5.1 mmol/L (3.5-5.1)
== END | disposition home or self-care (01) ==
LOC: LAB 08:43
PROVIDERS: ATTEND Internal Medicine Cardiovascular Disease
DX: I50.22 Chronic systolic (congestive) heart failure (principal); I35.2 Nonrheumatic aortic (valve) stenosis with insufficiency; I73.9 Peripheral vascular disease, unspecified
CPT/HCPCS: 36415; 80048; 83880